=== PATIENT | female | born 1955 ===

== ENCOUNTER 2020-07-28 16:12 | Emergency (ER) | payer OTHER, SELFPAY ==
[2020-07-28 16:55] VITALS: BP 142/68; PULSE 80; RESP 18; TEMP 37.1; O2SAT 96; BMI 31.8
--- NOTE | 2020-07-28 18:15 | ED_ITS ---
HPI - Nausea/Vomiting/Diarrhea General Chief complaint: Weakness Stated complaint: diarrhea,weakness Time Seen by Provider: 07/28/20 18:06 Source: patient Mode of arrival: ambulatory History of Present Illness HPI Narrative: 65-year-old female with no significant past medical history complaining of nonbloody diarrhea x1 month, and generalized weakness. Reports appointment with GI specialist, but cannot get in until October. Denies bad food exposure, recent travel, recent antibiotics, fevers/chills, abdominal pain, nausea/vomiting, dysuria/hematuria MD elicited complaint: diarrhea Related Data Allergies Allergy/AdvReac Type Severity Reaction Status Date / Time morphine [MORPHINE] Allergy Unknown UNKNOWN Verified 07/28/20 16:58 prednisone [PREDNISONE] Allergy Unknown HEART RACES Verified 07/28/20 16:58 Review of Systems Review of Systems: Constitutional: No Weight loss, No Fever, No Chills, + Malaise Cardiovascular: No Chest Pain, No SOB Respiratory: No Cough, No Sputum, No Wheezing, No Dyspnea Gastrointestinal: No Nausea, No Vomiting, +Diarrhea, No Constipation, No Abdominal pain Genitourinary: No irregular bleeding, No Dysuria, No Urinary Frequency, No Hematuria, No Flank Pain Skin: No Skin Lesions, No rash Yes all other systems are reviewed and are negative PMFSH Past Medical History Attestation statement: The following information was validated with the patient. Social History Social History Smoking Status: Never smoker Smoked in Last 30 Days: No Use of substances other than those prescribed or required for medical reasons: No Advance Directives: No Advance Directives Information Provided: Yes Physical Exam Vital Signs: Vital Signs: Last Vital Signs Temp 99.0 F 07/28/20 19:03 Pulse 82 07/28/20 19:03 Resp 16 07/28/20 19:03 BP 124/68 07/28/20 19:03 Pulse Ox 96 07/28/20 19:03 Body Mass Index 31.8 Const: General: cooperative and healthy appearing Orientation/conscio usness: patient oriented x3 Limitations: no limitations HENMT: Head: Yes normal to inspection Ears: hearing grossly normal bilaterally General nose exam: Normal external nose present Face and sinus: Yes normal facial exam Eyes: General: appearance normal, both eyes and all related structures EOM: EOMs intact bilaterally Neck: Neck: Yes normal visual inspection Resp: Effort & Inspection: normal respiratory effort Cardio: Rate: regular rate GI: Inspection: Yes normal to inspection Palpation (GI): Soft to palpation, nontender, no guarding and not rigid : General: Yes no CVA tenderness Back/Spine/Pelvis: Back: no CVA tenderness Skin: Rashes: no rashes Wounds: no wounds Neuro: General: patient oriented x3 Gait exam (Neuro): Normal gait present Extrem: General: Yes normal to inspection Course Course Course Narrative: -WBC 11.1, magnesium 1.4> IV Mag ordered, AST/ALT mildly elevated Lipase mildly elevated 95, labs otherwise unremarkable, UA negative -[id number]--patient unable to provide stool sample in the ED. discussed with patient close follow-up with PCP/GI, importance of staying hydrated/p.o. Intake at home. She verbalized understanding feel safe for discharge home now MDM - Nausea/Vomiting/Diarrhea MDM Narrative Medical decision making narrative: 65-year-old female with no significant past medical history complaining of nonbloody diarrhea x1 month, and generalized weakness. On exam VSS, NAD/well-appearing, abdomen soft/nontender. Concern for gastroenteritis vs food poisoning vs ? C diff. Low concern for appendicitis/di verticulitis, cholecystitis, or pancreatitis Plan: Labs, stool studies Lab Data Result diagrams: 07/28/20 18:32 07/28/20 18:32 Labs: Lab Results 07/28/20 07/28/20 07/28/20 Range/Units 18:32 18:32 18:32 WBC 11.1 H (4.8-10.8) X10*3/uL RBC 3.60 L (4.20-5.50) X10*6/uL Hgb 10.7 L (12.0-16.0) g/dl Hct 32.1 L (37-47) % MCV 89.2 (80-98) fL MCH 29.7 (27.0-33.0) pg MCHC 33.3 (31.0-35.0) g/dl RDW 14.6 (11.0-16.0) % Plt Count 306 (160-400) X10*3/uL MPV 9.7 (9.4-12.3) fL Immature Gran % (Auto) 0.3 (0.0-0.4) % Neut % (Auto) 64.5 (45-73) % Lymph % (Auto) 26.9 (20-40) % [place] % (Auto) 6.0 (2-11) % Eos % (Auto) 1.8 (0-4) % Baso % (Auto) 0.5 (0-2) % Lymph # (Auto) 3.0 (1.2-4.9) X10*3/uL [place] # (Auto) 0.7 (0.1-1.2) X10*3/uL Eos # (Auto) 0.2 (0.0-0.4) X10*3/uL Baso # (Auto) 0.1 (0.0-0.2) X10*3/uL Abs Immat Gran (auto) 0.03 (0.00-0.03) X10*3/uL Absolute Neuts (auto) 7.1 (2.0-8.3) X10*3/uL Absolute Nucleated RBC 0.000 (0.0-0.012) X10*3/uL Nucleated RBC % (auto) 0.0 (0.0-0.2) /100WBC Hold Blue Top SEE NOTE Sodium 139 (135-145) mmol/L Potassium 3.5 (3.3-5.1) mmol/l Chloride 100 (96-108) mmol/L Carbon Dioxide 26 (22-29) mmol/L Anion Gap 17 (12-20) BUN 14 (9-16) mg/dL Creatinine 0.83 (0.5-1.4) mg/dL Estim Creat Clear Calc 69.3 Estimated GFR > 60 Random Glucose 124 H (60-115) mg/dL Calcium 9.8 (8.4-10.2) mg/dL Magnesium 1.4 L* (1.6-2.6) mg/dL Total Bilirubin 0.3 (0.0-1.0) mg/dL Direct Bilirubin 0.2 (0.0-0.5) mg/dL AST 40 H (5-31) U/L ALT 40 H (0-31) U/L Alkaline Phosphatase 104 (39-117) U/L Total Protein 7.2 (6.5-8.0) g/dL Albumin 4.2 (3.5-5.0) g/dL Lipase 95 H (8-78) U/L Urine Color Urine Appearance Urine pH (5.0-8.0) Ur Specific [place] (1.005-1.025) Urine Protein (NEG-TRACE) MG/DL Urine Glucose (UA) (NEG) MG/DL Urine Ketones (NEG) MG/DL Urine Blood (NEG) Urine Nitrite (NEG) Ur Leukocyte Esterase (NEG) 07/28/20 Range/Units 18:32 WBC (4.8-10.8) X10*3/uL RBC (4.20-5.50) X10*6/uL Hgb (12.0-16.0) g/dl Hct (37-47) % MCV (80-98) fL MCH (27.0-33.0) pg MCHC (31.0-35.0) g/dl RDW (11.0-16.0) % Plt Count (160-400) X10*3/uL MPV (9.4-12.3) fL Immature Gran % (Auto) (0.0-0.4) % Neut % (Auto) (45-73) % Lymph % (Auto) (20-40) % [place] % (Auto) (2-11) % Eos % (Auto) (0-4) % Baso % (Auto) (0-2) % Lymph # (Auto) (1.2-4.9) X10*3/uL [place] # (Auto) (0.1-1.2) X10*3/uL Eos # (Auto) (0.0-0.4) X10*3/uL Baso # (Auto) (0.0-0.2) X10*3/uL Abs Immat Gran (auto) (0.00-0.03) X10*3/uL Absolute Neuts (auto) (2.0-8.3) X10*3/uL Absolute Nucleated RBC (0.0-0.012) X10*3/uL Nucleated RBC % (auto) (0.0-0.2) /100WBC Hold Blue Top Sodium (135-145) mmol/L Potassium (3.3-5.1) mmol/l Chloride (96-108) mmol/L Carbon Dioxide (22-29) mmol/L Anion Gap (12-20) BUN (9-16) mg/dL Creatinine (0.5-1.4) mg/dL Estim Creat Clear Calc Estimated GFR Random Glucose (60-115) mg/dL Calcium (8.4-10.2) mg/dL Magnesium (1.6-2.6) mg/dL Total Bilirubin (0.0-1.0) mg/dL Direct Bilirubin (0.0-0.5) mg/dL AST (5-31) U/L ALT (0-31) U/L Alkaline Phosphatase (39-117) U/L Total Protein (6.5-8.0) g/dL Albumin (3.5-5.0) g/dL Lipase (8-78) U/L Urine Color YELLOW Urine Appearance CLEAR Urine pH 6.5 (5.0-8.0) Ur Specific [place] 1.015 (1.005-1.025) Urine Protein NEG (NEG-TRACE) MG/DL Urine Glucose (UA) NEG (NEG) MG/DL Urine Ketones NEG (NEG) MG/DL Urine Blood NEG (NEG) Urine Nitrite NEG (NEG) Ur Leukocyte Esterase NEG (NEG) Discharge Plan Discharge Clinical Impression: Diarrhea, Hypomagnesemia Patient Disposition: Home, Self-Care Instructions: Gastroenteritis (ED) Additional Instructions: Your blood work showed mild elevation in your liver enzymes, and low magnesium It is very important that you are staying hydrated at home, and in-taking plenty of fluids/food Follow-up with a GI doctor You need stool studies, follow-up with your doctor to obtain these as soon as possible If her symptoms persist or worsen, he develops blood in her stool, abdominal pain, or fever return to the ED Referrals: Clayton Gamboa [Physician] - 5 days
[2020-07-28 18:24] VITALS: BP 151/77; PULSE 90; RESP 16; TEMP 37.1; O2SAT 95
[2020-07-28] MEDS: 0.9 % Sodium Chloride 1,000 ML 999 ML IVCONT (18:28)
[2020-07-28 18:41] LABS: Basophils Absolute Auto 0.1 X10*3/uL (0.0-0.2); Basophils Percent Auto 0.5 % (0-2); Eosinophils Absolute Auto 0.2 X10*3/uL (0.0-0.4); Eosinophils Percent Auto 1.8 % (0-4); Hematocrit 32.1 % (37-47); Hemoglobin 10.7 g/dl (12.0-16.0); Imm Gran Abs Auto 0.03 X10*3/uL (0.00-0.03); Imm Gran Pct Auto 0.3 % (0.0-0.4); Lymphocytes Percent Auto 26.9 % (20-40); MANUAL DIFF FLAG NO; Mean Corpuscular HGB Conc 33.3 g/dl (31.0-35.0); Mean Corpuscular Hemoglobin 29.7 pg (27.0-33.0); Mean Corpuscular Volume 89.2 fL (80-98); Mean Platelet Volume 9.7 fL (9.4-12.3); Monocytes Absolute Auto 0.7 X10*3/uL (0.1-1.2); Neutrophils Absolute Auto 7.1 X10*3/uL (2.0-8.3); Neutrophils Percent Auto 64.5 % (45-73); Platelet Count 306 X10*3/uL (160-400); Red Cell Distribution Width 14.6 % (11.0-16.0); White Blood Count 11.1 X10*3/uL (4.8-10.8)
[2020-07-28 18:42] LABS: Glucose Urine UA NEG (NEG); Leukocyte Esterase Urine NEG (NEG); Nitrite Urine NEG (NEG); PH 6.5 (5.0-8.0); Specific Gravity - Urine 1.015 (1.005-1.025); Urine Blood NEG (NEG); Urine Ketones NEG (NEG); Urine Protein NEG (NEG-TRACE)
[2020-07-28 18:43] LABS: Appearance Urine CLEAR; Color Urine YELLOW
[2020-07-28 19:03] VITALS: BP 124/68; PULSE 82; RESP 16; TEMP 37.2; O2SAT 96
[2020-07-28 19:20] LABS: Alanine Aminotransferase 40 U/L (0-31); Albumin Level 4.2 g/dL (3.5-5.0); Alkaline Phosphatase 104 U/L (39-117); Anion Gap 17 (12-20); Aspartate Amino Transferase 40 U/L (5-31); Bilirubin Direct 0.2 mg/dL (0.0-0.5); Bilirubin Total 0.3 mg/dL (0.0-1.0); Blood Urea Nitrogen 14 mg/dL (9-16); Calcium 9.8 mg/dL (8.4-10.2); Carbon Dioxide 26 mmol/L (22-29); Chloride 100 mmol/L (96-108); Creatinine Clr Calc Pharmacy 69.3; Estimated Glomerular Filt Rate > 60; Glucose Random 124 mg/dL (60-115); Lipase 95 U/L (8-78); Magnesium 1.4 mg/dL (1.6-2.6); Potassium 3.5 mmol/l (3.3-5.1); Sodium 139 mmol/L (135-145); Total Protein 7.2 g/dL (6.5-8.0)
[2020-07-28] MEDS: Magnesium Sulfate/H2O 2 GM/50 ML PIGGYBACK IV (19:45)
--- NOTE | 2020-07-28 19:49 | PC.NURSE ---
magnesium sulfate 2g unable to scan.
--- NOTE | 2020-07-28 20:55 | PC.NURSE ---
pt left without being covid swab and provider made aware.
== END 2020-07-28 20:55 | disposition home or self-care (01) ==
PROVIDERS: Physician Assistant; Emergency Provider Emergency Medicine; PCP Internal Medicine
DX: R53.1 Weakness (principal); E83.42 Hypomagnesemia; R19.7 Diarrhea, unspecified; R11.2 Nausea with vomiting, unspecified
CPT/HCPCS: 36415; 80048; 80076; 81003; 83690; 83735; 85025; 96361; 96365; 96366; 99284; J3475

== ENCOUNTER 2020-10-25 16:11 | Emergency (ER) | payer OTHER, SELFPAY ==
--- NOTE | ~2020-10-25 | XR_ITS ---
EXAMINATION: XR SHOULDER, LEFT CLINICAL INFORMATION: Pain COMPARISON: None TECHNIQUE: AP external rotation, Grashey, scapular Y, and axillary views of the left shoulder. FINDINGS: Visualized portion of the proximal left humerus demonstrate no fracture. Humeral head demonstrates good articulation with the glenoid fossa. Mild hypertrophic changes of the acromioclavicular joint. Visualized ribs and lung parenchyma are unremarkable. XR/XR shoulder LT min 2V IMPRESSION: Mild degenerative changes of the left shoulder.
[2020-10-25 18:51] VITALS: BP 143/71; PULSE 88; RESP 16; O2SAT 100; BMI 30.1
--- NOTE | 2020-10-25 19:34 | ED_ITS ---
HPI - Extremity Problem General Chief complaint: Extremity Injury, Upper Stated complaint: Shoulder pain Time Seen by Provider: 10/25/20 18:57 Source: patient Mode of arrival: ambulatory Limitations: no limitations History of Present Illness HPI Narrative: States having exacerbation of her left shoulder pain states she has diffuse arthritis gets intermittent cortisone injections had 1 2 weeks ago with her arthritis doctor in [place] states she is having a flare of pain in the left shoulder. States pain worse with certain movements and certain times of the day. There is no radiation to the chest. There is no chest pain or shortness of breath. There is no head neck pain. No dizziness. No vision changes. MD Complaint: extremity pain Pain Consistency: intermittent Location: left Relieving factors: immobilization Exacerbating factors: range of motion and palpation Associated symptoms: denies other symptoms Related Data Previous Rx's Medication Instructions Recorded cyclobenzaprine 5 mg PO TID PRN #14 tab 10/25/20 tramadol 50 mg PO BID PRN #7 tab 10/25/20 Allergies Allergy/AdvReac Type Severity Reaction Status Date / Time morphine [MORPHINE] Allergy Unknown UNKNOWN Verified 07/28/20 16:58 prednisone [PREDNISONE] Allergy Unknown HEART RACES Verified 07/28/20 16:58 Review of Systems Review of Systems: Constitutional: No Weight loss, No Fever, No Chills, No Night Sweats, No Fatigue, No Malaise ENT/Mouth: No Hearing loss, No Ear Pain, No Nasal Congestion, No Sinus Pain, No Hoarseness, No sore throat Eyes: No Eye Pain, No Swelling, No Redness, No Foreign Body, No Discharge, No Vision Changes Cardiovascular: No Chest Pain, No SOB, No Dyspnea on Exertion, No Orthopnea, No Edema, No Palpitations Respiratory: No Cough, No Sputum, No Wheezing, No Smoke Exposure, No Dyspnea Gastrointestinal: No Nausea, No Vomiting, No Diarrhea, No Constipation, No abd ominal Pain Genitourinary: No Dysuria, No Urinary Frequency, No Hematuria, No Urinary Incontinence, No Urgency, No Flank Pain, No Urinary Flow Changes, No Hesitancy Musculoskeletal: Left shoulder pain as noted per HPI, No Myalgias, No Joint Swelling Skin: No Skin Lesions, No rash Neuro: No Weakness, No Numbness, No Paresthesias, No Loss of Consciousness, No Dizziness, No Headache Psych:No Social Issues Heme/Lymph: No Bruising, No Bleeding,No Lymphadenopathy Endocrine: No Polyuria, No Polydipsia, No Temperature Intolerance Yes all other systems are reviewed and are negative [facility] Past Medical History Medical History (Updated 10/25/20 @ 20:15 by Augustus Romero NP) Arthritis Asthma Breast CA Diabetes High cholesterol HTN (hypertension) Social History Social History Alcohol intake: never Smoking Status: Never smoker Smoked in Last 30 Days: No Use of substances other than those prescribed or required for medical reasons: No Advance Directives: No Advance Directives Information Provided: Yes Physical Exam Vital Signs: Vital Signs: Last Vital Signs Pulse 88 10/25/20 18:51 Resp 16 10/25/20 18:51 BP 143/71 H 10/25/20 18:51 Pulse Ox 100 10/25/20 18:51 Body Mass Index 30.1 Reviewed Const: General: cooperative and healthy appearing; No acute distress or intoxicated appearing Nutritional Appearance: average body habitus Orientation/consciousness: patient oriented x3 HENMT: Head: Yes normal to inspection Ears: hearing grossly normal bilaterally Eyes: General: appearance normal, both eyes and all related structures Visual Watt: normal visual watt by confrontation Neck: Neck: Yes normal visual inspection, No positive Brudzinski's sign, No positive Kernig's sign and No tender Thyroid: Thyroid normal Chest: Chest palpation & inspection: normal inspection of the chest Resp: Effort & Inspection: normal respiratory effort Auscultation: clear to auscultation bilaterally Cardio: Jugular venous distension: no JVD Rhythm: regular rhythm Heart sounds: S1 normal heart sound present and S2 normal heart sound present GI: Inspection: Yes normal to inspection Percussion: Yes normal to percussion Auscultation: normal bowel sounds : General: Yes no CVA tenderness Back/Spine/Pelvis: Back: no CVA tenderness Skin: General skin exam: no rashes or lesions noted Neuro: General: patient oriented x3 Extrem: General: Yes normal to inspection Right upper extremity: full ROM Left upper extremity: normal to inspection, normal capillary refill and shoulder/upper arm (Over the lateral aspect) Details: tenderness and abnormal ROM Details: pain with passive ROM and with range as follows (Pain with lifting above 90 degrees or abduction); no crepitus MDM - Extremity (Nontraumatic) Imaging Data Left shoulder x-ray: Radiologist's impression: Jossie Cesar 65 F 1955 [facility] [place], [place] [address]CBez ReportSigned Patient: Jossie CesarMR#: [id number]: [id number]:[id number]/Sex: 65 / FADM Date: 10/25/20Loc: [email or web address] Dr: Ordering Physician: Augustus Romero NP Date of Service: 10/25/20 Procedure(s): XR shoulder LT min 2V Accession Number(s): [id number] cc: Augustus Romero HADOOP ARCHITECT~ EXAMINATION: XR SHOULDER, LEFT CLINICAL INFORMATION: Pain COMPARISON: None TECHNIQUE: AP external rotation, Grashey, scapular Y, and axillary views of the left shoulder. FINDINGS: Visualized portion of the proximal left humerus demonstrate no fracture. Humeral head demonstrates good articulation with the glenoid fossa. Mild hypertrophic changes of the acromioclavicular joint. Visualized ribs and lung parenchyma are unremarkable. XR/XR shoulder LT min 2V IMPRESSION: Mild degenerative changes of the left shoulder. Dictated By:TERI ARIAS MDSigned By:<Electronically signed by TERI ARIAS MD in OV>10/25/[id number] DD/ 00TD/TT: Video Game Script Writer: PD Discharge Plan Discharge Clinical Impression: Arthritis pain, shoulder Patient Disposition: Home, Self-Care Instructions: Shoulder Pain (ED) Prescriptions: New cyclobenzaprine 5 mg tablet 5 mg PO TID PRN (Reason: muscle spasm) Qty: 14 RF: 0 tramadol 50 mg tablet 50 mg PO BID PRN (Reason: pain) Qty: 7 RF: 0 Referrals: Dora Jim MD [Primary Care Provider] - 1 week
== END 2020-10-25 21:10 | disposition home or self-care (01) ==
PROVIDERS: Emergency Provider Emergency Medicine; PCP Internal Medicine
DX: M19.012 Primary osteoarthritis, left shoulder (principal); M25.512 Pain in left shoulder; I10 Essential (primary) hypertension; E11.9 Type 2 diabetes mellitus without complications; Z79.899 Other long term (current) drug therapy
CPT/HCPCS: 73030; 99283; 99284

== ENCOUNTER 2020-12-26 17:51 | Emergency (ER) | payer OTHER, SELFPAY ==
[2020-12-26 19:02] VITALS: BP 140/67; PULSE 79; RESP 16; TEMP 37.1; O2SAT 98; BMI 31.8
== END 2020-12-26 19:46 | disposition left against medical advice (07) ==
PROVIDERS: Emergency Provider Emergency Medicine
DX: R53.1 Weakness (principal)
CPT/HCPCS: 99281; 99283

== ENCOUNTER 2021-04-11 10:23 | Emergency (ER) | payer OTHER, SELFPAY ==
--- NOTE | ~2021-04-11 | XR_ITS ---
EXAMINATION: XR KNEE, RIGHT CLINICAL INFORMATION: Pain COMPARISON: None TECHNIQUE: Four views of the right knee. FINDINGS: There is no fracture or dislocation or destructive process. Bony mineralization is within normal. There is no focal joint narrowing or erosive change or chondrocalcinosis. Some trace thickening of the suprapatellar bursa is seen. No significant effusion. Hoffa's fat pad appears normal. There is spurring at the quadriceps insertion patella. Scattered atherosclerotic calcifications are present vasculature. XR/XR knee RT 4V IMPRESSION: 1. No fracture, destructive process, or joint narrowing. 2. Spurring at quadriceps insertion patella. 3. Trace fluid suprapatellar bursa. No significant effusion.
[2021-04-11 10:35] VITALS: BP 126/66; PULSE 89; RESP 18; TEMP 36.3; O2SAT 99; BMI 30.1
--- NOTE | 2021-04-11 11:49 | ED.EXTPRO ---
HPI - Extremity Problem General Chief complaint: Extremity Problem Stated complaint: knee pain Time Seen by Provider: 04/11/21 11:44 History of Present Illness HPI Narrative: Patient complains of right knee pain for 1 week without injury, there is no fever no chills, patient can walk on it she denies any redness or swelling, no numbness weakness or tingling, denies calf pain Related Data Previous Rx's Medication Instructions Recorded cyclobenzaprine 5 mg tablet 5 mg PO TID PRN #14 tab 10/25/20 tramadol 50 mg tablet 50 mg PO BID PRN #7 tab 10/25/20 oxycodone 5 mg tablet 5 mg PO Q6H PRN #10 tab 04/11/21 Allergies Allergy/AdvReac Type Severity Reaction Status Date / Time morphine [MORPHINE] Allergy Unknown UNKNOWN Verified 07/28/20 16:58 prednisone [PREDNISONE] Allergy Unknown HEART RACES Verified 07/28/20 16:58 Review of Systems Review of Systems: Positive for right knee pain Negatives are no fever no chills no dizziness no headache no neck pain no back pain no numbness weakness or tingling no other joint pains now no skin rash no calf pain no leg swelling no chest pain no shortness of breath Yes all other systems are reviewed and are negative [facility] Past Medical History Attestation statement: The following information was validated with the patient. [facility] Narrative: Patient has history of rheumatoid arthritis, and was recently told to stop taking NSAIDs Source: nursing notes reviewed Medical History (Updated 04/11/21 @ 11:55 by IMKO Regan) Anemia Arthritis Asthma Breast CA Diabetes High cholesterol HTN (hypertension) Kidney stones Sleep apnea Surgical History (Updated 12/26/20 @ 19:04 by Emili Mary) H/O: hysterectomy Social History Social History Alcohol intake: never Advance Directives: No Advance Directives Information Provided: No Physical Exam Vital Signs: Vital Signs: Last Vital Signs Temp 97.3 F 04/11/21 10:35 Pulse 89 04/11/21 10:35 Resp 18 04/11/21 10:35 BP 126/66 04/11/21 10:35 Pulse Ox 99 04/11/21 10:35 Body Mass Index 30.1 General appearance no acute distress Head is normocephalic atraumatic Neck is supple Respiratory no distress Extremities the right knee has medial tenderness but is otherwise not swollen not read it extends to 188 flexes to about 90, patient can ambulate easily but with a limp, skin is intact and normal color and neurovascular intact distal There is no calf swelling on either leg and no pedal edema Skin no rashes Neuro no focal motor or sensory deficits Course Course Course Narrative: No acute findings on x-ray of the right knee, patient is ambulatory but was complaining that at times the pain wakes her up at night so I gave her a prescription for analgesics and advised her to follow with her director of corporate communications and the orthopedist Discharge Plan Discharge Clinical Impression: Arthralgia of knee, right Patient Disposition: Home, Self-Care Additional Instructions: Follow with your director of corporate communications and orthopedist Return any time any worse condition or any concerns You can use Tylenol for pain and if needed the oxycodone narcotic Prescriptions: New oxycodone 5 mg tablet 5 mg PO Q6H PRN (Reason: pain) Qty: 10 RF: 0 No Action cyclobenzaprine 5 mg tablet 5 mg PO TID PRN (Reason: muscle spasm) Qty: 14 RF: 0 tramadol 50 mg tablet 50 mg PO BID PRN (Reason: pain) Qty: 7 RF: 0 Referrals: Jose Lama MD [Physician] - 2 days (Right knee pain)
== END 2021-04-11 12:09 | disposition home or self-care (01) ==
PROVIDERS: Emergency Provider Emergency Medicine Emergency Medical Services; PCP Internal Medicine
DX: M25.561 Pain in right knee (principal); I10 Essential (primary) hypertension; Z79.899 Other long term (current) drug therapy
CPT/HCPCS: 73564; 99283

== ENCOUNTER → 2021-05-08 08:22 | Outpatient (BNVA) | payer OTHER, SELFPAY | PROVIDERS: Visit Provider Physician Assistant | DX: M06.9 Rheumatoid arthritis, unspecified (principal); M23.91 Unspecified internal derangement of right knee | CPT/HCPCS: 99202 ==

== ENCOUNTER 2021-05-21 18:46 | Outpatient (REF) | payer OTHER, SELFPAY ==
--- NOTE | ~2021-05-21 | MR_ITS ---
EXAMINATION: MR KNEE WITHOUT CONTRAST, RIGHT CLINICAL INFORMATION: Rheumatoid arthritis, unspecified. Medial anterior knee pain x2 months. COMPARISON: Radiographs dated 07/21/2021 TECHNIQUE: MRI of the knee without contrast was performed using routine sequences on a high-field scanner. FINDINGS: MENISCI: Medial Meniscus: Intact Lateral Meniscus: There is a horizontal tear at the junction of the anterior horn and body extending to the superior meniscal surface with a small adjacent 6 mm meniscal cyst. Partial extrusion of the lateral meniscal body. LIGAMENTS: Cruciate: Intact Collateral: Edema signal around the MCL is likely reactive to the underlying articular abnormality. Collateral ligaments are intact. EXTENSOR MECHANISM: Patellar enthesopathic spur is present at the patellar tendon origin. No tendinosis. Quadriceps and patellar tendons are intact. ARTICULAR CARTILAGE/BONE: Patellofemoral Compartment: There is mild nonuniform articular cartilage loss at the medial trochlear facet with full-thickness chondral fissuring, articular cortical irregularity and focal subchondral edema. Patellar cartilage appears relatively well preserved. Normal trochlear morphology. Medial Compartment: There is diffuse ill-defined edema signal throughout the medial femoral condyle, more pronounced underlying the weightbearing surface posteriorly. Along the far medial margin of the posterior weightbearing surface, there is focal subcortical low signal intensity on T1-weighted images which may correspond to a subchondral insufficiency fracture. Early erosive changes on the differential, though felt to be less likely in the absence of a clear cortical osteolysis. Articular cartilage appears relatively well preserved. Lateral Compartment: Normal JOINT FLUID AND BURSAE: Small joint effusion. There is significant soft tissue edema signal along the posteromedial aspect of the distal femur adjacent to the tendon of the adductor quinn, adductor tubercle, and medial head of the gastrocnemius. MR/MR knee RT wo con IMPRESSION: 1. Generalized ill-defined subarticular marrow edema in the medial femoral, likely arising from the region of ill-defined subarticular low signal intensity along the medial margin. This may correspond to a developing subchondral insufficiency. No clear cortical breaks or osteolysis. Given the history of rheumatoid arthritis, erosive changes are also on the differential but felt to be less likely in the absence of more pronounced synovitis. 2. Horizontal tear at the anterior horn of the lateral meniscus. 3. Minimal patellofemoral compartment osteoarthritis.
== END 2021-05-21 18:47 | disposition home or self-care (01) ==
LOC: HO.MRI 18:46
PROVIDERS: Visit Provider Physician Assistant
DX: M06.9 Rheumatoid arthritis, unspecified (principal)
CPT/HCPCS: 73721

== ENCOUNTER → 2021-05-31 11:07 | Outpatient (BNVA) | payer OTHER, SELFPAY | PROVIDERS: PCP Internal Medicine; Visit Provider Physician Assistant | DX: M23.91 Unspecified internal derangement of right knee (principal) | CPT/HCPCS: 99212 ==

== ENCOUNTER 2021-09-06 10:22 | Inpatient (IN) | payer MEDICARE, MEDICAID, SELFPAY ==
[2021-09-06] VITALS (9 sets, daily range): BP systolic 97–114; BP diastolic 48–66; PULSE 62–94; RESP 13–22; TEMP 36.5–36.6; O2SAT 61–98; BMI 35.2
--- NOTE | ~2021-09-06 | XR_ITS ---
EXAMINATION: XR CHEST CLINICAL INFORMATION: Shortness of breath. Likely Covid positive. Oxygen saturation 61. COMPARISON: None TECHNIQUE: Frontal view of the chest was obtained. FINDINGS: The lungs are hypoexpanded with patchy opacities scattered in both upper and lower lobes suggestive of infiltrates. Heart size enlarged. Perivascular is normal. No gross bony abnormality except for mild dextroscoliosis.. XR/XR chest 1V IMPRESSION: Patchy bilateral infiltrates.
--- NOTE | 2021-09-06 10:45 | ED.SOB ---
HPI - SOB/Dyspnea General Chief Complaint: Upper Respiratory Symptoms Stated Complaint: +covid 08/29 lethargic symptoms worsening Time Seen by Provider: 09/06/21 10:42 Source: patient Mode of arrival: ambulatory Limitations: no limitations History of Present Illness HPI Narrative: 66-year-old female presents emergency room with her both have had since the 28 of August. The past 2 days she has been in her bed. She is unvaccinated. She states she just never got the vaccine. Patient arrived with an oxygen saturation 61% I was called immediately and she was brought back into the room. Patient has so she had fevers chills and weakness. She states she has had some associated diarrhea as well. MD elicited complaint: shortness of breath Pertinent past history: asthma Related Data Home Medications Medication Instructions Recorded Confirmed albuterol sulfate 90 mcg/actuation 2 puff INHALATION Q4H PRN 09/06/21 aerosol inhaler anastrozole 1 mg tablet 1 tab PO DAILY 09/06/21 aspirin 81 mg tablet,delayed 1 tab PO DAILY 09/06/21 release atorvastatin 20 mg tablet 1 tab PO DAILY 09/06/21 calcium carbonate 600 mg calcium 1 tab PO BID 09/06/21 (1,500 mg) tablet cholecalciferol (vitamin D3) 50 1 cap PO DAILY 09/06/21 mcg (2,000 unit) capsule citalopram 10 mg tablet 1 tab PO DAILY 09/06/21 dapagliflozin 5 mg tablet (Farxiga) 1 tab PO DAILY 09/06/21 gabapentin 100 mg capsule mg PO 09/06/21 glipizide 5 mg tablet, extended 1 tab PO DAILY 09/06/21 release 24 hr ibuprofen 800 mg tablet 1 tab PO TID 09/06/21 lorazepam 0.5 mg tablet mg PO 09/06/21 metformin 1,000 mg tablet 1 tab PO BID 09/06/21 valsartan 160 1 tab PO DAILY 09/06/21 mg-hydrochlorothiazide 25 mg tablet Allergies Allergy/AdvReac Type Severity Reaction Status Date / Time morphine [MORPHINE] Allergy Unknown UNKNOWN Verified 05/31/21 11:24 prednisone [PREDNISONE] Allergy Unknown HEART RACES Verified 05/31/21 11:24 Review of Systems Review of Systems: Review of systems: General: Patient denies any fever chills recent illness or falls Musculoskeletal: Denies back pain or body aches or other injuries HEENT: denies headache, runny nose, ear pain Respiratory: \ shortness of breath, cough Cardiovascular: no chest pain or palpitations : denies dysuria, frequency Abdomen: Diarrheano nausea vomiting denies abdominal pain Extremities: no swelling, no pain Skin: no diaphoresis Yes all other systems are reviewed and are negative [facility] Past Medical History Medical History Anemia Arthritis Asthma Breast CA Diabetes High cholesterol HTN (hypertension) Kidney stones Sleep apnea Surgical History H/O: hysterectomy Social History Social History Alcohol intake: never Advance Directives: No Advance Directives Information Provided: Yes Current occupational status: disabled Current occupation: rt handed Physical Exam Vital Signs: Vital Signs: Last Vital Signs Temp 98 F 09/06/21 10:39 Pulse 90 09/06/21 10:39 Resp 21 H 09/06/21 10:51 BP 105/66 09/06/21 10:39 Pulse Ox 61 L 09/06/21 10:39 BMI result Body Mass Index 35.2 General: ill-appearing in moderate signs of distress HEENT: Normocephalic atraumatic Neck: No signs of JVD, no masses no tenderness or lymphadenopathy Cardiovascular: tachycardic Respiratory: diminished bilaterally Abdomen: Soft nontender no masses Extremities: Normal pedal pulses no signs of edema Skin: Dry warm no rashes Back: No tenderness full ROM MDM - SOB/Dyspnea MDM Narrative Medical decision making narrative: concern for COVID pneumonia patient's oxygen saturation on arrival was 61 patient is medially started on high-flow patient immediately seen by respiratory therapy patient looks much more comfortable on high-flow of patient for x-ray complete workup patient will require admission. Patient re-evaluated multiple times while in the emergency department patient to get much more comfortable on high-flow labs show the patient does have little bit of a acute kidney injury and soles and glucose she does have diabetes I feel the patient will have to be admitted with her need for high-flow oxygen at this time. I did speak with the daughter were explained the need for admission they are all happy with the plan I did explain for the need for Differential Diagnosis Differential diagnosis: Likely acute exacerbation of chronic obstructive airways disease, pneumonia and asthma with exacerbation Lab Data Result diagrams: 09/06/21 11:05 09/06/21 11:20 Labs: Lab Results 09/06/21 09/06/21 09/06/21 Range/Units 10:54 10:54 10:54 WBC (4.8-10.8) X10*3/uL RBC (4.20-5.50) X10*6/uL Hgb (12.0-16.0) g/dl Hct (37.0-47.0) % MCV (80.0-98.0) fL MCH (27.0-33.0) pg MCHC (31.0-35.0) g/dl RDW (11.0-16.0) % Plt Count (160-400) X10*3/uL MPV (9.4-12.3) fL Immature Gran % (Auto) Neut % (Auto) Lymph % (Auto) [place] % (Auto) Eos % (Auto) Baso % (Auto) Lymph # (Auto) [place] # (Auto) Eos # (Auto) Baso # (Auto) Abs Immat Gran (auto) Absolute Neuts (auto) Absolute Nucleated RBC (0.0-0.012) X10*3/uL Nucleated RBC % (auto) (0.0-0.2) /100WBC Neutrophils % (Manual) (45-73) % Band Neutrophils % (3-5) % Lymphocytes % (Manual) (20-40) % Atypical Lymphs % (Man) (0-6) % Monocytes % (Manual) (2-11) % Abs Neuts (Manual) (2.0-8.3) X10*3/uL Lymphocytes # (Manual) (1.2-4.9) X10*3/uL Atyp Lymphs # (Manual) x10*3/uL Monocytes # (Manual) (0.1-1.2) X10*3/uL Platelet Estimate (NORMAL) Plt Morphology Comment RBC Morphology Sodium (135-145) mmol/L Potassium (3.3-5.1) mmol/L Chloride (96-108) mmol/L Carbon Dioxide (22-29) mmol/L Anion Gap (12-20) BUN (9-16) mg/dL Creatinine (0.5-1.4) mg/dL Estim Creat Clear Calc Estimated GFR Random Glucose (60-115) mg/dL Lactic Acid 1.8 (0.5-2.0) mmol/L Calcium (8.4-10.2) mg/dL Total Bilirubin (0.0-1.0) mg/dL Direct Bilirubin (0.0-0.5) mg/dL AST (5-31) U/L ALT (0-31) U/L Alkaline Phosphatase (39-117) U/L Troponin I High Sens 11.7 (<3.5-17.0) ng/L B-Natriuretic Peptide 46 (<100) pg/mL Total Protein (6.5-8.0) g/dL Albumin (3.5-5.0) g/dL Lipase (8-78) U/L 09/06/21 09/06/21 Range/Units 11:05 11:20 WBC 5.1 (4.8-10.8) X10*3/uL RBC 2.97 L (4.20-5.50) X10*6/uL Hgb 9.0 L (12.0-16.0) g/dl Hct 27.3 L (37.0-47.0) % MCV 91.9 (80.0-98.0) fL MCH 30.3 (27.0-33.0) pg MCHC 33.0 (31.0-35.0) g/dl RDW 14.2 (11.0-16.0) % Plt Count 290 (160-400) X10*3/uL MPV 9.8 (9.4-12.3) fL Immature Gran % (Auto) Cancelled Neut % (Auto) Cancelled Lymph % (Auto) Cancelled [place] % (Auto) Cancelled Eos % (Auto) Cancelled Baso % (Auto) Cancelled Lymph # (Auto) Cancelled [place] # (Auto) Cancelled Eos # (Auto) Cancelled Baso # (Auto) Cancelled Abs Immat Gran (auto) Cancelled Absolute Neuts (auto) Cancelled Absolute Nucleated RBC 0.000 (0.0-0.012) X10*3/uL Nucleated RBC % (auto) 0.0 (0.0-0.2) /100WBC Neutrophils % (Manual) 68 (45-73) % Band Neutrophils % 9 H (3-5) % Lymphocytes % (Manual) 14 L (20-40) % Atypical Lymphs % (Man) 1 (0-6) % Monocytes % (Manual) 8 (2-11) % Abs Neuts (Manual) 3.9 (2.0-8.3) X10*3/uL Lymphocytes # (Manual) 0.7 L (1.2-4.9) X10*3/uL Atyp Lymphs # (Manual) 0.1 x10*3/uL Monocytes # (Manual) 0.4 (0.1-1.2) X10*3/uL Platelet Estimate NORMAL (NORMAL) Plt Morphology Comment NORMAL RBC Morphology NORMAL Sodium 138 (135-145) mmol/L Potassium 4.8 (3.3-5.1) mmol/L Chloride 102 (96-108) mmol/L Carbon Dioxide 21 L (22-29) mmol/L Anion Gap 20 (12-20) BUN 56 H (9-16) mg/dL Creatinine 2.11 H (0.5-1.4) mg/dL Estim Creat Clear Calc 25.2 Estimated GFR 24 Random Glucose 309 H (60-115) mg/dL Lactic Acid (0.5-2.0) mmol/L Calcium 8.7 D (8.4-10.2) mg/dL Total Bilirubin 0.5 (0.0-1.0) mg/dL Direct Bilirubin 0.2 (0.0-0.5) mg/dL AST 92 H (5-31) U/L ALT 52 H (0-31) U/L Alkaline Phosphatase 149 H D (39-117) U/L Troponin I High Sens (<3.5-17.0) ng/L B-Natriuretic Peptide (<100) pg/mL Total Protein 7.3 (6.5-8.0) g/dL Albumin 3.7 (3.5-5.0) g/dL Lipase 61 (8-78) U/L Critical Care Time Critical Care Time Critical Care Time: Yes Total Critical Care Time: 65 Attestation: Patient was seen immediately upon arrival brought back to the room I was over headed to see the patient patient is re-evaluated multiple times I did speak more times with respiratory therapy as well as family about the plan of care and need for the patient be admitted patient will go to the intermediate care unit. Discharge Plan Discharge Clinical Impression: Pneumonia due to 2019 novel coronavirus, AMY (acute kidney injury), Acute dehydration, Hypoxia Prescriptions: No Action anastrozole 1 mg tablet 1 tab PO DAILY RF: 0 atorvastatin 20 mg tablet 1 tab PO DAILY RF: 0 ibuprofen 800 mg tablet 1 tab PO TID RF: 0 citalopram 10 mg tablet 1 tab PO DAILY RF: 0 glipizide 5 mg tablet extended release 24 hr 1 tab PO DAILY RF: 0 aspirin 81 mg tablet,delayed release (DR/EC) 1 tab PO DAILY RF: 0 calcium carbonate 600 mg calcium (1,500 mg) tablet 1 tab PO BID RF: 0 lorazepam 0.5 mg tablet PO RF: 0 metformin 1,000 mg tablet 1 tab PO BID RF: 0 gabapentin 100 mg capsule PO RF: 0 albuterol sulfate 90 mcg/actuation HFA aerosol inhaler 2 puff inhalation Q4H PRN (Reason: Wheezing) RF: 0 valsartan-hydrochlorothiazide 160-25 mg tablet 1 tab PO DAILY RF: 0 cholecalciferol (vitamin D3) 50 mcg (2,000 unit) capsule 1 cap PO DAILY RF: 0 Farxiga 5 mg tablet 1 tab PO DAILY RF: 0
[2021-09-06] MEDS: dexAMETHasone sod phosphate 10 MG/ML VIAL IVPUSH (10:56)
[2021-09-06] MEDS: 0.9 % Sodium Chloride 500 ML 999 ML IV (10:58)
[2021-09-06 11:18] LABS: Lactic Acid 1.8 mmol/L (0.5-2.0)
[2021-09-06 11:27] LABS: Hematocrit 27.3 % (37.0-47.0); Mean Corpuscular Hemoglobin 30.3 pg (27.0-33.0); Mean Corpuscular Volume 91.9 fL (80.0-98.0); Mean Platelet Volume 9.8 fL (9.4-12.3); Platelet Count 290 X10*3/uL (160-400); Red Blood Count 2.97 X10*6/uL (4.20-5.50); Red Cell Distribution Width 14.2 % (11.0-16.0); White Blood Count 5.1 X10*3/uL (4.8-10.8)
[2021-09-06 11:27] LABS: B Type Natriuretic Peptide 46 pg/mL (<100)
[2021-09-06 11:28] LABS: Troponin-I High Sensitivity 11.7 ng/L (<3.5-17.0)
[2021-09-06 11:48] LABS: Alanine Aminotransferase 52 U/L (0-31); Albumin Level 3.7 g/dL (3.5-5.0); Alkaline Phosphatase 149 U/L (39-117); Anion Gap 20 (12-20); Aspartate Amino Transferase 92 U/L (5-31); Bilirubin Direct 0.2 mg/dL (0.0-0.5); Bilirubin Total 0.5 mg/dL (0.0-1.0); Blood Urea Nitrogen 56 mg/dL (9-16); Calcium 8.7 mg/dL (8.4-10.2); Carbon Dioxide 21 mmol/L (22-29); Chloride 102 mmol/L (96-108); Creatinine Clr Calc Pharmacy 25.2; Estimated Glomerular Filt Rate 24; Glucose Random 309 mg/dL (60-115); Lipase 61 U/L (8-78); Potassium 4.8 mmol/L (3.3-5.1); Sodium 138 mmol/L (135-145); Total Protein 7.3 g/dL (6.5-8.0)
[2021-09-06 11:48] LABS: Influenza A PCR NEGATIVE (Negative); Influenza B PCR NEGATIVE (Negative); Resp Syncy Virus RNA Qual PCR NEGATIVE (Negative); SARS COV2 PCR INHOUSE POSITIVE (Negative)
[2021-09-06 11:49] LABS: Atypical Lymph Absolute Manual 0.1 x10*3/uL; Atypical Lymphs Percent Manual 1 % (0-6); Band Neutrophils Percent 9 % (3-5); Lymphocytes Absolute Manual 0.7 X10*3/uL (1.2-4.9); Lymphocytes Percent Manual 14 % (20-40); Monocytes Absolute Manual 0.4 X10*3/uL (0.1-1.2); Monocytes Percent Manual 8 % (2-11); Neutrophils Absolute Manual 3.9 X10*3/uL (2.0-8.3); Neutrophils Percent Manual 68 % (45-73)
[2021-09-06 11:51] LABS: Platelet Estimate NORMAL (NORMAL); Platelet Morphology Comment NORMAL; RBC Morphology NORMAL
[2021-09-06 12:16] LABS: VBG Base Excess -2.3 mmol/L; VBG HCO3 22 mmol/L (22-26); VBG pCO2 39 mmHg; VBG pH 7.36 (7.32-7.43); VBG pO2 58 mmHg
[2021-09-06 12:17] LABS: Venous Blood Gas Refer to POC result
--- NOTE | 2021-09-06 13:07 | PM.IMHP ---
History of Present Illness Date of Service: 09/06/21 Chief Complaint: Cough 66-year-old female presented with cough. Patient stated she tested positive for COVID-19 on 08/29/2021. She has been having symptoms of cough, fever, chills, myalgias, decreased appetite. She denies any shortness of breath. Her cough has been getting worse therefore she decided to come to the ED. In the ED was noted to be severely hypoxic to 61% on room air, she was put on high-flow oxygen and recovered. Chest x-ray revealed bilateral Past is consistent with COVID pneumonia. Lab significant for acute kidney injury with creatinine of 2.1. Patient is unvaccinated. Review of Systems Review of Systems: Constitutional: See HPI Eyes: denies blurry vision ENT: denies sore throat CVS: denies chest pain Respiratory: Denies dyspnea GI: no abdominal pain : denies dysuria MSK: denies neck pain Skin: denies rash Neuro: denies specific motor weakness Psych: denies suicidal ideation Endocrine: denies heat/cold intolerance Hematologic: denies easy bleeding Allergy: denies hives PMFSH Medical History Anemia Arthritis Asthma Breast CA Diabetes High cholesterol HTN (hypertension) Kidney stones Sleep apnea Family History (Updated 09/06/21 @ 13:09 by Blake Dupree MD) Sister Diabetes mellitus Surgical History H/O: hysterectomy Social History (Updated 09/06/21 @ 13:09 by Blake Dupree MD) Alcohol intake: never Patient Tobacco Use Status: Never used Tobacco Advance Directives: No Advance Directives Information Provided: Yes Current occupational status: disabled Current occupation: rt handed Meds Allergies Allergy/AdvReac Type Severity Reaction Status Date / Time morphine [MORPHINE] Allergy Unknown UNKNOWN Verified 05/31/21 11:24 prednisone [PREDNISONE] Allergy Unknown HEART RACES Verified 05/31/21 11:24 Active Medications: Current Medications Acetaminophen (Acetaminophen 325 Mg Tablet) 650 mg PO Q6H PRN PRN Reason: Pain, Mild (Pain Scale 1-3) Dexamethasone Sodium Phosphate (Dexamethasone Sod Phosphate 4 Mg/Ml Vial) 6 mg IVPUSH DAILY CHRISSY Dextrose (Dextrose 50 % 25 Gm/50 Ml Vial) 25 gm IVPUSH Q15M PRN; Protocol PRN Reason: per Hypoglycemia Standing Ord. Glucose (Glucose Gel 15 Gm Gel..Gram.) 15 gm PO Q15M PRN; Protocol PRN Reason: per Hypoglycemia Standing Ord. Heparin Sodium (Porcine) (Heparin Sodium,Porcine 5,000 Unit/Ml Vial) 5,000 unit SUBCUT Q8H [facility] Lactated Ringer's (Lr) 1,000 mls @ 80 mls/hr IVCONT .[id number] [facility] Insulin Human Lispro (Insulin Lispro 100 Unit/Ml 3 Ml Vial) 0 unit SUBCUT QIDACHS [facility]; Protocol Pharmacy Consult (Consult Rx Perform Med Rec) 1 each MISCELLANE ONCE PRN PRN Reason: Consult order Sodium Chloride (0.9 % Sodium Chloride Flush 3 Ml Syringe) 3 ml IVFLUSH QSHIFT [facility] Home Medications Medication Instructions Recorded Confirmed Last Taken Type albuterol sulfate 90 mcg/actuation 2 puff INHALATION Q4H PRN 09/06/21 Unknown History aerosol inhaler anastrozole 1 mg tablet 1 tab PO DAILY 09/06/21 Unknown History aspirin 81 mg tablet,delayed 1 tab PO DAILY 09/06/21 Unknown History release atorvastatin 20 mg tablet 1 tab PO DAILY 09/06/21 Unknown History calcium carbonate 600 mg calcium 1 tab PO BID 09/06/21 Unknown History (1,500 mg) tablet cholecalciferol (vitamin D3) 50 1 cap PO DAILY 09/06/21 Unknown History mcg (2,000 unit) capsule citalopram 10 mg tablet 1 tab PO DAILY 09/06/21 Unknown History dapagliflozin 5 mg tablet (Farxiga) 1 tab PO DAILY 09/06/21 Unknown History gabapentin 100 mg capsule mg PO 09/06/21 Unknown History glipizide 5 mg tablet, extended 1 tab PO DAILY 09/06/21 Unknown History release 24 hr ibuprofen 800 mg tablet 1 tab PO TID 09/06/21 Unknown History lorazepam 0.5 mg tablet mg PO 09/06/21 Unknown History metformin 1,000 mg tablet 1 tab PO BID 09/06/21 Unknown History valsartan 160 1 tab PO DAILY 09/06/21 Unknown History mg-hydrochlorothiazide 25 mg tablet Physical Exam Vital Signs and Narrative: Vital Signs: Last Vital Signs Temp 98 F 09/06/21 10:39 Pulse 91 09/06/21 12:20 Resp 13 09/06/21 12:20 BP 114/54 L 09/06/21 12:20 Pulse Ox 93 09/06/21 12:20 BMI result Body Mass Index 35.2 General: diaphoretic HEENT: atraumatic Neck: normal to visual inspection CVS: S1, S2, RRR Resp: crackles, diminished, accessory muscles Chest: non tender GI: soft, non tender, non distended : no CVA tenderness Skin: no rashes Extremities: no edema Neuro: Oriented X3, grossly intact Psych: cooperative Results Labs CBC and Chem 7: 09/06/21 11:05 09/06/21 11:20 Labs: Laboratory Results - last 24 hr 09/06/21 09/06/21 09/06/21 10:54 10:54 10:54 MCV MCH MCHC RDW Plt Count MPV Immature Gran % (Auto) Neut % (Auto) Lymph % (Auto) [place] % (Auto) Eos % (Auto) Baso % (Auto) Lymph # (Auto) [place] # (Auto) Eos # (Auto) Baso # (Auto) Abs Immat Gran (auto) Absolute Neuts (auto) Absolute Nucleated RBC Nucleated RBC % (auto) Neutrophils % (Manual) Band Neutrophils % Lymphocytes % (Manual) Atypical Lymphs % (Man) Monocytes % (Manual) Abs Neuts (Manual) Lymphocytes # (Manual) Atyp Lymphs # (Manual) Monocytes # (Manual) Platelet Estimate Plt Morphology Comment RBC Morphology VBG pH VBG pCO2 VBG pO2 VBG HCO3 VBG O2 Saturation VBG Base Excess Anion Gap Estim Creat Clear Calc Estimated GFR Random Glucose Lactic Acid 1.8 Calcium Total Bilirubin Direct Bilirubin AST ALT Alkaline Phosphatase Troponin I High Sens 11.7 B-Natriuretic Peptide Total Protein Albumin Lipase Influenza Type A (PCR) NEGATIVE Influenza Type B (PCR) NEGATIVE RSV RNA Qual (PCR) NEGATIVE SARS-CoV-2 RNA (RT-PCR) POSITIVE A 09/06/21 09/06/21 09/06/21 10:54 11:05 11:20 MCV 91.9 MCH 30.3 MCHC 33.0 RDW 14.2 Plt Count 290 MPV 9.8 Immature Gran % (Auto) Cancelled Neut % (Auto) Cancelled Lymph % (Auto) Cancelled [place] % (Auto) Cancelled Eos % (Auto) Cancelled Baso % (Auto) Cancelled Lymph # (Auto) Cancelled [place] # (Auto) Cancelled Eos # (Auto) Cancelled Baso # (Auto) Cancelled Abs Immat Gran (auto) Cancelled Absolute Neuts (auto) Cancelled Absolute Nucleated RBC 0.000 Nucleated RBC % (auto) 0.0 Neutrophils % (Manual) 68 Band Neutrophils % 9 H Lymphocytes % (Manual) 14 L Atypical Lymphs % (Man) 1 Monocytes % (Manual) 8 Abs Neuts (Manual) 3.9 Lymphocytes # (Manual) 0.7 L Atyp Lymphs # (Manual) 0.1 Monocytes # (Manual) 0.4 Platelet Estimate NORMAL Plt Morphology Comment NORMAL RBC Morphology NORMAL VBG pH VBG pCO2 VBG pO2 VBG HCO3 VBG O2 Saturation VBG Base Excess Anion Gap 20 Estim Creat Clear Calc 25.2 Estimated GFR 24 Random Glucose 309 H Lactic Acid Calcium 8.7 D Total Bilirubin 0.5 Direct Bilirubin 0.2 AST 92 H ALT 52 H Alkaline Phosphatase 149 H D Troponin I High Sens B-Natriuretic Peptide 46 Total Protein 7.3 Albumin 3.7 Lipase 61 Influenza Type A (PCR) Influenza Type B (PCR) RSV RNA Qual (PCR) SARS-CoV-2 RNA (RT-PCR) 09/06/21 12:09 MCV MCH MCHC RDW Plt Count MPV Immature Gran % (Auto) Neut % (Auto) Lymph % (Auto) [place] % (Auto) Eos % (Auto) Baso % (Auto) Lymph # (Auto) [place] # (Auto) Eos # (Auto) Baso # (Auto) Abs Immat Gran (auto) Absolute Neuts (auto) Absolute Nucleated RBC Nucleated RBC % (auto) Neutrophils % (Manual) Band Neutrophils % Lymphocytes % (Manual) Atypical Lymphs % (Man) Monocytes % (Manual) Abs Neuts (Manual) Lymphocytes # (Manual) Atyp Lymphs # (Manual) Monocytes # (Manual) Platelet Estimate Plt Morphology Comment RBC Morphology VBG pH 7.36 VBG pCO2 39 VBG pO2 58 VBG HCO3 22 VBG O2 Saturation 83.0 VBG Base Excess -2.3 Anion Gap Estim Creat Clear Calc Estimated GFR Random Glucose Lactic Acid Calcium Total Bilirubin Direct Bilirubin AST ALT Alkaline Phosphatase Troponin I High Sens B-Natriuretic Peptide Total Protein Albumin Lipase Influenza Type A (PCR) Influenza Type B (PCR) RSV RNA Qual (PCR) SARS-CoV-2 RNA (RT-PCR) Imaging Radiologist's Impressions: Impressions Chest X-Ray 09/06/21 11:30 IMPRESSION: Patchy bilateral infiltrates. Assessment and Plan (1) Pneumonia due to 2019 novel coronavirus: Status: Acute 66F with known covid, presented with cough, found to have significant hypoxia Acute hypoxic respiratory failure secondary to COVID pneumonia Decadron 6 mg daily Wean O2 as tolerated Monitor prognostic labs Patient is high risk due to obesity, diabetes, unvaccinated status Diabetes Insulin Acute kidney injury Likely hypovolemic Hydration, hold Arb and hydrochlorothiazide Monitor BMP Quality Stroke Does the patient have a stroke diagnosis?: No VTE Prior VTE?: No VTE Risk Level:: Medical - moderate - high VTE Device Contraindication: Treatment Not Indicated VTE Drug Contraindication: N/A - Med Ordered
--- NOTE | 2021-09-06 13:15 | PHA.MEDREC ---
Pharmacy Consult ? Medication Reconciliation Pharmacy has completed the medication reconciliation. Patient reports she is not taking gabapentin or anastrzole anymore. Pearl Orta, PharmD
[2021-09-06] MEDS: Heparin Sodium,Porcine 5,000 UNIT/ML VIAL 5000 UNIT SUBCUT ×2 (13:45→22:31)
--- NOTE | 2021-09-06 13:51 | PC.NURSE ---
PT O2 sat decreasing. RT called and plan is to increase FiO2.
[2021-09-06] MEDS: Lactated Ringers 1,000 ML 80 ML IVCONT (14:32)
[2021-09-06 17:07] LABS: Glucose, Whole Blood 289 mg/dL (60-115)
[2021-09-06] MEDS: Insulin Lispro 100 UNIT/ML 3 ML VIAL SUBCUT ×2 (17:09→22:31)
[2021-09-06] MEDS: 0.9 % Sodium Chloride Flush 3 ML SYRINGE IVFLUSH (17:09)
[2021-09-06 20:58] LABS: Glucose, Whole Blood 246 mg/dL (60-115)
[2021-09-07] VITALS (12 sets, daily range): BP systolic 107–128; BP diastolic 55–68; PULSE 74–87; RESP 19–24; TEMP 35.9–37.1; O2SAT 89–98
[2021-09-07] MEDS: Heparin Sodium,Porcine 5,000 UNIT/ML VIAL 5000 UNIT SUBCUT ×3 (05:40→20:33)
[2021-09-07] MEDS: Lactated Ringers 1,000 ML 80 ML IVCONT ×2 (05:40→17:41)
--- NOTE | 2021-09-07 06:38 | PC.NURSE ---
Pt laying on left side, Respirations are even and unlabored. Currently on HF o2 at 55L 70%, and tolerating well. Daughter Meryl given update. She would like a call from the MD at some point if available. Her number is [phone].
[2021-09-07 06:43] LABS: Hematocrit 26.3 % (37.0-47.0); Hemoglobin 8.6 g/dl (12.0-16.0); Mean Corpuscular HGB Conc 32.7 g/dl (31.0-35.0); Mean Corpuscular Hemoglobin 30.1 pg (27.0-33.0); Mean Platelet Volume 9.6 fL (9.4-12.3); Platelet Count 326 X10*3/uL (160-400); Red Blood Count 2.86 X10*6/uL (4.20-5.50); Red Cell Distribution Width 14.1 % (11.0-16.0); White Blood Count 6.6 X10*3/uL (4.8-10.8)
[2021-09-07 06:59] LABS: D Dimer High Sensitivity 609 NG/ML
[2021-09-07 07:03] LABS: Anion Gap 17 (12-20); Blood Urea Nitrogen 54 mg/dL (9-16); C Reactive Protein 11.75 mg/dL (< or = 0.50); Calcium 8.8 mg/dL (8.4-10.2); Carbon Dioxide 22 mmol/L (22-29); Chloride 106 mmol/L (96-108); Creatinine Clr Calc Pharmacy 34.4; Estimated Glomerular Filt Rate 34; Glucose Fasting 270 mg/dL (60-99); Lactate Dehydrogenase 389 U/L (122-220); Potassium 4.7 mmol/L (3.3-5.1); Sodium 140 mmol/L (135-145)
[2021-09-07 07:33] LABS: Glucose, Whole Blood 237 mg/dL (60-115)
[2021-09-07] MEDS: 0.9 % Sodium Chloride Flush 3 ML SYRINGE IVFLUSH ×3 (08:59→20:36)
[2021-09-07] MEDS: Insulin Lispro 100 UNIT/ML 3 ML VIAL SUBCUT ×4 (08:59→22:01)
[2021-09-07] MEDS: dexAMETHasone sod phosphate 4 MG/ML VIAL 6 MG IVPUSH (08:59)
[2021-09-07] MEDS: Atorvastatin Calcium 20 MG TABLET PO (09:00)
[2021-09-07] MEDS: Cholecalciferol (Vitamin D3) 25 MCG TABLET 50 MCG PO (09:00)
[2021-09-07] MEDS: Escitalopram Oxalate 5 MG TABLET PO (09:00)
--- NOTE | 2021-09-07 09:03 | MHC.CM.PN ---
IMM 09/07/21 Female 66 DX Covid+ UNVACCINATED She lives with her . He also has covid. She receives assistance from her dtr PRN w ADLS. She does not use an AD. DP Home with family assist. BLS will provide transportation.
[2021-09-07 11:21] LABS: Glucose, Whole Blood 321 mg/dL (60-115)
--- NOTE | 2021-09-07 12:06 | HO.PM.IMPN ---
Subjective Subjective Date of Service: 09/07/21 Interval History: the patient was seen and evaluated this morning Laying in bed, feels very tired and has no energy Reported decreased appetite and oral intake kidney function improving No reported other overnight events. Review of Systems Constitutional: report generalized weakness Eyes: denies blurry vision ENT: denies sore throat CVS: denies chest pain Respiratory: report dyspnea and difficulty breathing GI: no abdominal pain : denies dysuria MSK: denies neck pain Skin: denies rash Neuro: denies specific motor weakness Physical Exam Vital Signs: Vital Signs: Last Vital Signs Temp 98.1 F 09/07/21 11:45 Pulse 77 09/07/21 11:45 Resp 24 H 09/07/21 11:45 BP 108/55 L 09/07/21 11:45 Pulse Ox 97 09/07/21 11:45 BMI result Body Mass Index 35.2 Const: Other: Constitutional : Alert, in mild respiratory distress Neck : Normal inspection, Supple Cardiovascular : no JVP, no lower extremity edema Respiratory : chest wall moving bilaterally, in mild distress, on high-flow oxygen 50 L Gastrointestinal: soft, lax, Normal bowel sounds, Non tender Skin : Warm, Dry Neurological : Alert & oriented x3, No focal deficit Objective Data Active Medications Acetaminophen (Acetaminophen 325 Mg Tablet) 650 mg PO Q6H PRN PRN Reason: Pain, Mild (Pain Scale 1-3) Atorvastatin Calcium (Atorvastatin Calcium 20 Mg Tablet) 20 mg PO DAILY [facility] Last Admin: 09/07/21 09:00 Dose: 20 mg Documented by: MAYE Calcium Carbonate (Calcium Carbonate 500 Mg Tablet) 500 mg PO BID [facility] Last Admin: 09/07/21 09:00 Dose: 500 mg Documented by: MAYE Dexamethasone Sodium Phosphate (Dexamethasone Sod Phosphate 4 Mg/Ml Vial) 6 mg IVPUSH DAILY [facility] Last Admin: 09/07/21 08:59 Dose: 6 mg Documented by: MAYE Dextrose (Dextrose 50 % 25 Gm/50 Ml Vial) 25 gm IVPUSH Q15M PRN; Protocol PRN Reason: per Hypoglycemia Standing Ord. Escitalopram Oxalate (Escitalopram Oxalate 5 Mg Tablet) 5 mg PO DAILY [facility] Last Admin: 09/07/21 09:00 Dose: 5 mg Documented by: MAYE Glucose (Glucose Gel 15 Gm Gel..Gram.) 15 gm PO Q15M PRN; Protocol PRN Reason: per Hypoglycemia Standing Ord. Heparin Sodium (Porcine) (Heparin Sodium,Porcine 5,000 Unit/Ml Vial) 5,000 unit SUBCUT Q8H [facility] Last Admin: 09/07/21 05:40 Dose: 5,000 unit Documented by: CODY Lactated Ringer's (Lr) 1,000 mls @ 80 mls/hr IVCONT .[id number] [facility] Stop: 09/07/21 23:00 Last Admin: 09/07/21 05:40 Dose: 80 mls/hr Documented by: CODY Insulin Human Lispro (Insulin Lispro 100 Unit/Ml 3 Ml Vial) 0 unit SUBCUT QIDACHS [facility]; Protocol Last Admin: 09/07/21 12:00 Dose: 8 unit Documented by: MAYE Lorazepam (Lorazepam 0.5 Mg Tablet) 0.5 mg PO BID PRN PRN Reason: Anxiety Pharmacy Consult (Consult Rx Perform Med Rec) 1 each MISCELLANE ONCE PRN PRN Reason: Consult order Sodium Chloride (0.9 % Sodium Chloride Flush 3 Ml Syringe) 3 ml IVFLUSH QSHIFT [facility] Last Admin: 09/07/21 08:59 Dose: 3 ml Documented by: MAYE Vitamin D (Cholecalciferol (Vitamin D3) 25 Mcg Tablet) 50 mcg PO DAILY [facility] Last Admin: 09/07/21 09:00 Dose: 50 mcg Documented by: MAYE Labs CBC & Chem 7: 09/07/21 05:58 09/07/21 05:58 Labs: Laboratory Results - last 24 hr 09/06/21 09/06/21 09/06/21 10:54 12:09 17:04 MCV MCH MCHC RDW Plt Count MPV Absolute Nucleated RBC Nucleated RBC % (auto) D-Dimer High Sensitivty VBG pH 7.36 VBG pCO2 39 VBG pO2 58 VBG HCO3 22 VBG O2 Saturation 83.0 VBG Base Excess -2.3 Anion Gap Estim Creat Clear Calc Estimated GFR POC Glucose 289 H Fasting Glucose Calcium Lactate Dehydrogenase C-Reactive Protein Influenza Type A (PCR) NEGATIVE Influenza Type B (PCR) NEGATIVE RSV RNA Qual (PCR) NEGATIVE SARS-CoV-2 RNA (RT-PCR) POSITIVE A 09/06/21 09/07/2109/07/22 20:42 05:58 05:58 MCV 92.0 MCH 30.1 MCHC 32.7 RDW 14.1 Plt Count 326 MPV 9.6 Absolute Nucleated RBC 0.000 Nucleated RBC % (auto) 0.0 D-Dimer High Sensitivty 609 VBG pH VBG pCO2 VBG pO2 VBG HCO3 VBG O2 Saturation VBG Base Excess Anion Gap Estim Creat Clear Calc Estimated GFR POC Glucose 246 H Fasting Glucose Calcium Lactate Dehydrogenase C-Reactive Protein Influenza Type A (PCR) Influenza Type B (PCR) RSV RNA Qual (PCR) SARS-CoV-2 RNA (RT-PCR) 09/07/21 09/07/21 09/07/21 05:58 07:22 11:12 MCV MCH MCHC RDW Plt Count MPV Absolute Nucleated RBC Nucleated RBC % (auto) D-Dimer High Sensitivty VBG pH VBG pCO2 VBG pO2 VBG HCO3 VBG O2 Saturation VBG Base Excess Anion Gap 17 Estim Creat Clear Calc 34.4 Estimated GFR 34 POC Glucose 237 H 321 H Fasting Glucose 270 H Calcium 8.8 Lactate Dehydrogenase 389 H C-Reactive Protein 11.75 H Influenza Type A (PCR) Influenza Type B (PCR) RSV RNA Qual (PCR) SARS-CoV-2 RNA (RT-PCR) Assessment and Plan (1) Pneumonia due to 2019 novel coronavirus: Status: Acute (2) AMY (acute kidney injury): Status: Acute (3) Hypoxia: Status: Acute Assessment and Plan: 66F with known covid, presented with cough, found to have significant hypoxia Acute hypoxic respiratory failure secondary to COVID pneumonia Decadron 6 mg Day 10/11 Wean O2 as tolerated Monitor prognostic labs Patient is high risk due to obesity, diabetes, unvaccinated status Pending id consult Acute kidney injury Likely hypovolemic improving, creatinine of 1.5 Continue gentle hydration, to hold by midnight hold Arb and hydrochlorothiazide Monitor BMP Diabetes Insulin DVT PPX Heparin Quality Stroke Does the patient have a stroke diagnosis?: No VTE Prior VTE?: No VTE Risk Level:: Medical - moderate - high VTE Device Contraindication: Treatment Not Indicated VTE Drug Contraindication: N/A - Med Ordered
[2021-09-07 16:24] LABS: Glucose, Whole Blood 249 mg/dL (60-115)
[2021-09-07 20:26] LABS: Glucose, Whole Blood 240 mg/dL (60-115)
[2021-09-08] VITALS (11 sets, daily range): BP systolic 111–135; BP diastolic 57–71; PULSE 67–94; RESP 16–20; TEMP 36.6–37.3; O2SAT 90–97
[2021-09-08] MEDS: Heparin Sodium,Porcine 5,000 UNIT/ML VIAL 5000 UNIT SUBCUT ×3 (05:30→21:27)
[2021-09-08 07:03] LABS: Hematocrit 25.3 % (37.0-47.0); Hemoglobin 8.3 g/dl (12.0-16.0); Mean Corpuscular HGB Conc 32.8 g/dl (31.0-35.0); Mean Corpuscular Hemoglobin 30.1 pg (27.0-33.0); Mean Corpuscular Volume 91.7 fL (80.0-98.0); Mean Platelet Volume 9.6 fL (9.4-12.3); Platelet Count 342 X10*3/uL (160-400); Red Blood Count 2.76 X10*6/uL (4.20-5.50); Red Cell Distribution Width 14.2 % (11.0-16.0)
[2021-09-08 07:26] LABS: Anion Gap 15 (12-20); Blood Urea Nitrogen 45 mg/dL (9-16); Calcium 9.2 mg/dL (8.4-10.2); Carbon Dioxide 22 mmol/L (22-29); Chloride 111 mmol/L (96-108); Creatinine Clr Calc Pharmacy 42.8; Estimated Glomerular Filt Rate 43; Glucose Random 251 mg/dL (60-115); Potassium 4.1 mmol/L (3.3-5.1); Sodium 144 mmol/L (135-145)
[2021-09-08 07:40] LABS: Glucose, Whole Blood 226 mg/dL (60-115)
[2021-09-08] MEDS: 0.9 % Sodium Chloride Flush 3 ML SYRINGE IVFLUSH ×3 (07:57→21:27)
[2021-09-08] MEDS: Insulin Lispro 100 UNIT/ML 3 ML VIAL SUBCUT ×6 (07:57→21:23)
[2021-09-08] MEDS: Escitalopram Oxalate 5 MG TABLET PO (07:58)
[2021-09-08] MEDS: Cholecalciferol (Vitamin D3) 25 MCG TABLET 50 MCG PO (07:58)
[2021-09-08] MEDS: dexAMETHasone sod phosphate 4 MG/ML VIAL 6 MG IVPUSH (07:58)
[2021-09-08] MEDS: Atorvastatin Calcium 20 MG TABLET PO (07:58)
--- NOTE | 2021-09-08 11:29 | HO.PM.IMPN ---
Subjective Subjective Date of Service: 09/08/21 Interval History: cc: cough interval history: weak Cardiovascular Cardiovascular: Reports no additional cardiovascular complaints Respiratory Respiratory: Reports no additional respiratory complaints Physical Exam Vital Signs: Vital Signs: Last Vital Signs Temp 98 F 09/08/21 07:40 Pulse 69 09/08/21 07:40 Resp 18 09/08/21 08:10 BP 111/57 L 09/08/21 07:40 Pulse Ox 91 L 09/08/21 07:40 BMI result Body Mass Index 35.2 General: AO X 3, fatigued Resp: diminsihed bilateral, no accessory muscles used CVS: S1,S2,RRR GI: soft, non tender, non distended Neuro: motor grossly intact, alert Psych: appropriate affect, appropriate insight Objective Data Active Medications Acetaminophen (Acetaminophen 325 Mg Tablet) 650 mg PO Q6H PRN PRN Reason: Pain, Mild (Pain Scale 1-3) Atorvastatin Calcium (Atorvastatin Calcium 20 Mg Tablet) 20 mg PO DAILY [facility]PLACED BY [facility] Last Admin: 09/08/21 07:58 Dose: 20 mg Documented by: STEPHANIE Calcium Carbonate (Calcium Carbonate 500 Mg Tablet) 500 mg PO BID [facility] Last Admin: 09/08/21 07:58 Dose: 500 mg Documented by: STEPHANIE Dexamethasone Sodium Phosphate (Dexamethasone Sod Phosphate 4 Mg/Ml Vial) 6 mg IVPUSH DAILY [facility] Last Admin: 09/08/21 07:58 Dose: 6 mg Documented by: STEPHANIE Dextrose (Dextrose 50 % 25 Gm/50 Ml Vial) 25 gm IVPUSH Q15M PRN; Protocol PRN Reason: per Hypoglycemia Standing Ord. Escitalopram Oxalate (Escitalopram Oxalate 5 Mg Tablet) 5 mg PO DAILY [facility] Last Admin: 09/08/21 07:58 Dose: 5 mg Documented by: STEPHANIE Glucose (Glucose Gel 15 Gm Gel..Gram.) 15 gm PO Q15M PRN; Protocol PRN Reason: per Hypoglycemia Standing Ord. Heparin Sodium (Porcine) (Heparin Sodium,Porcine 5,000 Unit/Ml Vial) 5,000 unit SUBCUT Q8H [facility]PL[facility] BY [facility] Last Admin: 09/08/21 05:30 Dose: 5,000 unit Documented by: CONSUELO Insulin Human Lispro (Insulin Lispro 100 Unit/Ml 3 Ml Vial) 0 unit SUBCUT QIDACHS REPLACED BY [facility]; Protocol Last Admin: 09/08/21 07:57 Dose: 4 unit Documented by: STEPHANIE Lorazepam (Lorazepam 0.5 Mg Tablet) 0.5 mg PO BID PRN PRN Reason: Anxiety Pharmacy Consult (Consult Rx Perform Med Rec) 1 each MISCELLANE ONCE PRN PRN Reason: Consult order Sodium Chloride (0.9 % Sodium Chloride Flush 3 Ml Syringe) 3 ml IVFLUSH QSHIFT REPLACED BY [facility] Last Admin: 09/08/21 07:57 Dose: 3 ml Documented by: STEPHANIE Vitamin D (Cholecalciferol (Vitamin D3) 25 Mcg Tablet) 50 mcg PO DAILY [facility] Last Admin: 09/08/21 07:58 Dose: 50 mcg Documented by: STEPHANIE Labs CBC & Chem 7: 09/08/21 06:35 09/08/21 06:35 Labs: Laboratory Results - last 24 hr 09/06/21 09/07/21 09/07/21 11:20 05:58 16:07 MCV MCH MCHC RDW Plt Count MPV Absolute Nucleated RBC Nucleated RBC % (auto) Anion Gap Creatinine 2.11 H 1.54 H Estim Creat Clear Calc Estimated GFR POC Glucose 249 H Random Glucose Calcium 09/07/21 09/08/21 09/08/21 20:15 06:35 06:35 MCV 91.7 MCH 30.1 MCHC 32.8 RDW 14.2 Plt Count 342 MPV 9.6 Absolute Nucleated RBC 0.000 Nucleated RBC % (auto) 0.0 Anion Gap 15 Creatinine 1.24 Estim Creat Clear Calc 42.8 Estimated GFR 43 POC Glucose 240 H Random Glucose 251 H Calcium 9.2 09/08/21 07:36 MCV MCH MCHC RDW Plt Count MPV Absolute Nucleated RBC Nucleated RBC % (auto) Anion Gap Creatinine Estim Creat Clear Calc Estimated GFR POC Glucose 226 H Random Glucose Calcium Microbiology Microbiology Results: Microbiology 09/06/21 10:53 Blood Culture - Preliminary Blood - Venous No growth after 24 hours. 09/06/21 10:53 Blood Culture - Preliminary Blood - Venous No growth after 24 hours. Assessment and Plan (1) Pneumonia due to 2019 novel coronavirus: Status: Acute (2) AMY (acute kidney injury): Status: Acute (3) Hypoxia: Status: Acute Assessment and Plan: 66F with known covid, presented with cough, found to have significant hypoxia Acute hypoxic respiratory failure secondary to COVID pneumonia Decadron 6 mg Day 11/08 Wean O2 as tolerated Monitor prognostic labs Patient is high risk due to obesity, diabetes, unvaccinated status ID follow up Acute kidney injury Likely hypovolemic improved with hydration hold Arb and hydrochlorothiazide Monitor BMP Diabetes Insulin DVT PPX Heparin Quality Stroke Does the patient have a stroke diagnosis?: No VTE Prior VTE?: No VTE Risk Level:: Medical - moderate - high VTE Device Contraindication: Treatment Not Indicated VTE Drug Contraindication: N/A - Med Ordered
[2021-09-08 11:46] LABS: Glucose, Whole Blood 247 mg/dL (60-115)
[2021-09-08 17:06] LABS: Glucose, Whole Blood 296 mg/dL (60-115)
[2021-09-08 21:07] LABS: Glucose, Whole Blood 261 mg/dL (60-115)
[2021-09-08] MEDS: Insulin Glargine,Hum.rec.anlog 100 UNIT/ML 10 ML VIAL 15 UNIT SUBCUT (21:23)
[2021-09-09] VITALS (13 sets, daily range): BP systolic 110–169; BP diastolic 55–81; PULSE 65–95; RESP 16–24; TEMP 36.6–37.3; O2SAT 88–97
[2021-09-09] MEDS: Heparin Sodium,Porcine 5,000 UNIT/ML VIAL 5000 UNIT SUBCUT ×3 (05:11→22:09)
[2021-09-09 06:41] LABS: Hematocrit 25.6 % (37.0-47.0); Hemoglobin 8.4 g/dl (12.0-16.0); Mean Corpuscular HGB Conc 32.8 g/dl (31.0-35.0); Mean Corpuscular Hemoglobin 30.3 pg (27.0-33.0); Mean Corpuscular Volume 92.4 fL (80.0-98.0); Mean Platelet Volume 9.8 fL (9.4-12.3); Platelet Count 365 X10*3/uL (160-400); Red Blood Count 2.77 X10*6/uL (4.20-5.50); Red Cell Distribution Width 14.1 % (11.0-16.0); White Blood Count 6.7 X10*3/uL (4.8-10.8)
[2021-09-09 06:52] LABS: D Dimer High Sensitivity 1095 NG/ML
[2021-09-09 07:00] LABS: Anion Gap 15 (12-20); Blood Urea Nitrogen 45 mg/dL (9-16); C Reactive Protein 4.85 mg/dL (< or = 0.50); Calcium 9.7 mg/dL (8.4-10.2); Carbon Dioxide 24 mmol/L (22-29); Chloride 112 mmol/L (96-108); Estimated Glomerular Filt Rate 46; Glucose Fasting 211 mg/dL (60-99); Lactate Dehydrogenase 450 U/L (122-220); Potassium 4.2 mmol/L (3.3-5.1); Sodium 147 mmol/L (135-145)
[2021-09-09 07:50] LABS: Glucose, Whole Blood 202 mg/dL (60-115)
[2021-09-09] MEDS: Dextrose 5 % 1,000 ML 80 ML IVCONT ×2 (08:22→22:09)
[2021-09-09] MEDS: 0.9 % Sodium Chloride Flush 3 ML SYRINGE IVFLUSH ×2 (08:26→15:00)
[2021-09-09] MEDS: Insulin Lispro 100 UNIT/ML 3 ML VIAL SUBCUT ×8 (08:26→22:10)
[2021-09-09] MEDS: dexAMETHasone sod phosphate 4 MG/ML VIAL 6 MG IVPUSH (08:29)
[2021-09-09] MEDS: Cholecalciferol (Vitamin D3) 25 MCG TABLET 50 MCG PO (08:29)
[2021-09-09] MEDS: Escitalopram Oxalate 5 MG TABLET PO (08:29)
[2021-09-09] MEDS: Atorvastatin Calcium 20 MG TABLET PO (08:30)
--- NOTE | 2021-09-09 10:25 | P.PNIM_ITS ---
Subjective Subjective Date of Service: 09/09/21 Interval History: ?cc: cough interval history: weak Cardiovascular Cardiovascular: Reports no additional cardiovascular complaints Respiratory Respiratory: Reports no additional respiratory complaints Physical Exam Vital Signs: Vital Signs: Last Vital Signs Temp 97.8 F 09/09/21 08:00 Pulse 71 09/09/21 08:00 Resp 18 09/09/21 08:55 BP 137/64 09/09/21 08:00 Pulse Ox 89 L 09/09/21 08:00 BMI result Body Mass Index 35.2 General: AO X 3, fatigued Resp:? diminsihed bilateral, no accessory muscles used CVS: S1,S2,RRR GI: soft, non tender, non distended Neuro:? motor grossly intact, alert Psych: appropriate affect, appropriate insight? Objective Data Active Medications Acetaminophen (Acetaminophen 325 Mg Tablet) 650 mg PO Q6H PRN PRN Reason: Pain, Mild (Pain Scale 1-3) Atorvastatin Calcium (Atorvastatin Calcium 20 Mg Tablet) 20 mg PO DAILY [facility] Last Admin: 09/09/21 08:30 Dose: 20 mg Documented by: STEPHANIE Calcium Carbonate (Calcium Carbonate 500 Mg Tablet) 500 mg PO BID [facility] Last Admin: 09/09/21 08:30 Dose: 500 mg Documented by: STEPHANIE Dexamethasone Sodium Phosphate (Dexamethasone Sod Phosphate 4 Mg/Ml Vial) 6 mg IVPUSH DAILY [facility] Last Admin: 09/09/21 08:29 Dose: 6 mg Documented by: STEPHANIE Dextrose (Dextrose 50 % 25 Gm/50 Ml Vial) 25 gm IVPUSH Q15M PRN; Protocol PRN Reason: per Hypoglycemia Standing Ord. Escitalopram Oxalate (Escitalopram Oxalate 5 Mg Tablet) 5 mg PO DAILY [facility] Last Admin: 09/09/21 08:29 Dose: 5 mg Documented by: STEPHANIE Glucose (Glucose Gel 15 Gm Gel..Gram.) 15 gm PO Q15M PRN; Protocol PRN Reason: per Hypoglycemia Standing Ord. Heparin Sodium (Porcine) (Heparin Sodium,Porcine 5,000 Unit/Ml Vial) 5,000 unit SUBCUT Q8H [facility] Last Admin: 09/09/21 05:11 Dose: 5,000 unit Documented by: CONSUELO Dextrose (D5w) 1,000 mls @ 80 mls/hr IVCONT .[id number] [facility] Last Admin: 09/09/21 08:22 Dose: 80 mls/hr Documented by: STEPHANIE Insulin Glargine (Insulin Glargine,Hum.Rec.Anlog 100 Unit/Ml 10 Ml Vial) 15 unit SUBCUT BEDTIME [facility] Last Admin: 09/08/21 21:23 Dose: 15 unit Documented by: CONSUELO Insulin Human Lispro (Insulin Lispro 100 Unit/Ml 3 Ml Vial) 0 unit SUBCUT QIDACHS [facility]; Protocol Last Admin: 09/09/21 08:26 Dose: 4 unit Documented by: STEPHANIE Insulin Human Lispro (Insulin Lispro 100 Unit/Ml 3 Ml Vial) 5 unit SUBCUT QIDACHS [facility] Last Admin: 09/09/21 08:26 Dose: 5 unit Documented by: STEPHANIE Lorazepam (Lorazepam 0.5 Mg Tablet) 0.5 mg PO BID PRN PRN Reason: Anxiety Pharmacy Consult (Consult Rx Perform Med Rec) 1 each MISCELLANE ONCE PRN PRN Reason: Consult order Sodium Chloride (0.9 % Sodium Chloride Flush 3 Ml Syringe) 3 ml IVFLUSH QSHIFT [facility] Last Admin: 09/09/21 08:26 Dose: 3 ml Documented by: STEPHANIE Vitamin D (Cholecalciferol (Vitamin D3) 25 Mcg Tablet) 50 mcg PO DAILY [facility] Last Admin: 09/09/21 08:29 Dose: 50 mcg Documented by: STEPHANIE Labs CBC & Chem 7: 09/09/21 06:00 09/09/21 06:00 Labs: Laboratory Results - last 24 hr 09/08/21 09/08/21 09/08/21 11:35 17:01 21:03 MCV MCH MCHC RDW Plt Count MPV Absolute Nucleated RBC Nucleated RBC % (auto) D-Dimer High Sensitivty Anion Gap Estim Creat Clear Calc Estimated GFR POC Glucose 247 H 296 H 261 H Fasting Glucose Calcium Lactate Dehydrogenase C-Reactive Protein 09/09/21 09/09/21 09/09/21 06:00 06:00 06:00 MCV 92.4 MCH 30.3 MCHC 32.8 RDW 14.1 Plt Count 365 MPV 9.8 Absolute Nucleated RBC 0.000 Nucleated RBC % (auto) 0.0 D-Dimer High Sensitivty 1095 Anion Gap 15 Estim Creat Clear Calc 45.0 Estimated GFR 46 POC Glucose Fasting Glucose 211 H Calcium 9.7 Lactate Dehydrogenase 450 H C-Reactive Protein 4.85 H 09/09/21 07:45 MCV MCH MCHC RDW Plt Count MPV Absolute Nucleated RBC Nucleated RBC % (auto) D-Dimer High Sensitivty Anion Gap Estim Creat Clear Calc Estimated GFR POC Glucose 202 H Fasting Glucose Calcium Lactate Dehydrogenase C-Reactive Protein Microbiology Microbiology Results: Microbiology 09/06/21 10:53 Blood Culture - Preliminary Blood - Venous No growth after 48 hours. 09/06/21 10:53 Blood Culture - Preliminary Blood - Venous No growth after 48 hours. Assessment and Plan (1) Pneumonia due to 2019 novel coronavirus: Status: Acute (2) AMY (acute kidney injury): Status: Acute (3) Hypoxia: Status: Acute Assessment and Plan: 66F with known covid, presented with cough, found to have significant hypoxia Acute hypoxic respiratory failure secondary to COVID pneumonia Decadron 6 mg Day 12/09 Wean O2 as tolerated Monitor prognostic labs - improving Patient is high risk due to obesity, diabetes, unvaccinated status ID follow up hypernatremia due to poor intake from weakness due to above D5W, monitor Acute kidney injury Likely hypovolemic improved with hydration hold Arb and hydrochlorothiazide Monitor BMP Diabetes Insulin DVT PPX Heparin Quality Stroke Does the patient have a stroke diagnosis?: No VTE Prior VTE?: No VTE Risk Level:: Medical - moderate - high VTE Device Contraindication: Treatment Not Indicated VTE Drug Contraindication: N/A - Med Ordered
[2021-09-09 11:24] LABS: Glucose, Whole Blood 192 mg/dL (60-115)
[2021-09-09 16:16] LABS: Glucose, Whole Blood 268 mg/dL (60-115)
[2021-09-09 19:50] LABS: Glucose, Whole Blood 246 mg/dL (60-115)
--- NOTE | 2021-09-09 21:41 | P.CNID_ITS ---
History of Present Illness Data of Consult Service Date: 09/07/21 Requesting physician: Jose Chao Primary Care Provider: Unknown Physician HPI Reason for consult: shortness of breath She has had symptoms since 08/29 of cough and shortness of breath She has no fever or chills She has started on HFNC She has asthma and h/o breast cancer Review of Systems Verdana 4l Review of Systems: Yes all other systems are reviewed and Verdana 4d are negative [facility] Past Medical History Medical History (Updated 09/27/21 @ 12:51 by Jeremi Arevalo DO) Anemia Arthritis Asthma Breast CA Diabetes High cholesterol HTN (hypertension) Kidney stones Sleep apnea Family History Family History Sister Diabetes mellitus Family history: reviewed and not pertinent Surgical History Surgical History H/O: hysterectomy Social History Social History Household Members: Significant Other Housing: Apartment Do you presently have visiting nurse or other home services: No Alcohol intake: never Patient Tobacco Use Status: Never used Tobacco Use of substances other than those prescribed or required for medical reasons: No Currently Displaying Signs/Symptoms of Drug Intoxication Withdrawal: No Have you been hit, kicked, punched, or otherwise hurt by someone within the past year? If so, by whom?: No Do you feel safe in your current relationship?: Yes Is there a partner from a previous relationship who is making you feel unsafe now?: No Are you made to feel afraid or neglected: No Advance Directives: No Advance Directives Information Provided: Yes Do you have thoughts of harming others: None Do you have a plan to hurt others: No Plan Recently lost weight without trying: No Nutrition Risks: No Nutritional Risk Patient : No : No Poor oral hygiene: No service: No Current occupational status: disabled Current occupation: rt handed Meds Allergies Allergy/AdvReac Type Severity Reaction Status Date / Time morphine [MORPHINE] Allergy Unknown UNKNOWN Verified 05/31/21 11:24 prednisone Allergy Unknown HEART RACES Verified 05/31/21 11:24 [PREDNISONE] Active Medications: Current Medications Acetaminophen (Acetaminophen 325 Mg Tablet) 650 mg PO Q6H PRN PRN Reason: Pain, Mild (Pain Scale 1-3) Atorvastatin Calcium (Atorvastatin Calcium 20 Mg Tablet) 20 mg PO DAILY [facility] Last Admin: 09/09/21 08:30 Dose: 20 mg Documented by: Calcium Carbonate (Calcium Carbonate 500 Mg Tablet) 500 mg PO BID [facility] Last Admin: 09/09/21 08:30 Dose: 500 mg Documented by: Dexamethasone Sodium Phosphate (Dexamethasone Sod Phosphate 4 Mg/Ml Vial) 6 mg IVPUSH DAILY [facility] Last Admin: 09/09/21 08:29 Dose: 6 mg Documented by: Dextrose (Dextrose 50 % 25 Gm/50 Ml Vial) 25 gm IVPUSH Q15M PRN; Protocol PRN Reason: per Hypoglycemia Standing Ord. Escitalopram Oxalate (Escitalopram Oxalate 5 Mg Tablet) 5 mg PO DAILY [facility] Last Admin: 09/09/21 08:29 Dose: 5 mg Documented by: Glucose (Glucose Gel 15 Gm Gel..Gram.) 15 gm PO Q15M PRN; Protocol PRN Reason: per Hypoglycemia Standing Ord. Heparin Sodium (Porcine) (Heparin Sodium,Porcine 5,000 Unit/Ml Vial) 5,000 unit SUBCUT Q8H [facility] Last Admin: 09/09/21 15:00 Dose: 5,000 unit Documented by: Dextrose (D5w) 1,000 mls @ 80 mls/hr IVCONT .[id number] [facility] Last Admin: 09/09/21 08:22 Dose: 80 mls/hr Documented by: Insulin Glargine (Insulin Glargine,Hum.Rec.Anlog 100 Unit/Ml 10 Ml Vial) 15 unit SUBCUT BEDTIME [facility] Last Admin: 09/08/21 21:23 Dose: 15 unit Documented by: Insulin Human Lispro (Insulin Lispro 100 Unit/Ml 3 Ml Vial) 0 unit SUBCUT QIDACHS [facility]; Protocol Last Admin: 09/09/21 16:41 Dose: 6 unit Documented by: Insulin Human Lispro (Insulin Lispro 100 Unit/Ml 3 Ml Vial) 5 unit SUBCUT QIDACHS [facility] Last Admin: 09/09/21 16:42 Dose: 5 unit Documented by: Lorazepam (Lorazepam 0.5 Mg Tablet) 0.5 mg PO BID PRN PRN Reason: Anxiety Pharmacy Consult (Consult Rx Perform Med Rec) 1 each MISCELLANE ONCE PRN PRN Reason: Consult order Sodium Chloride (0.9 % Sodium Chloride Flush 3 Ml Syringe) 3 ml IVFLUSH QSHIFT [facility] Last Admin: 09/09/21 15:00 Dose: 3 ml Documented by: Vitamin D (Cholecalciferol (Vitamin D3) 25 Mcg Tablet) 50 mcg PO DAILY [facility] Last Admin: 09/09/21 08:29 Dose: 50 mcg Documented by: Home Medications Medication Instructions Recorded Confirmed Last Taken Type albuterol sulfate 2 puff 09/06/21 09/06/21 Unknown History 90 mcg/actuation INHALATION Q4H PRN aerosol inhaler aspirin 81 mg 1 tab PO DAILY 09/06/21 09/06/21 Unknown History tablet,delayed PRN release atorvastatin 20 1 tab PO DAILY 09/06/21 09/06/21 Unknown History mg tablet calcium carbonate 1 tab PO BID 09/06/21 09/06/21 Unknown History 600 mg calcium (1,500 mg) tablet cholecalciferol 1 cap PO DAILY 09/06/21 09/06/21 Unknown History (vitamin D3) 50 mcg (2,000 unit) capsule citalopram 10 mg 1 tab PO DAILY 09/06/21 09/06/21 Unknown History tablet dapagliflozin 5 1 tab PO DAILY 09/06/21 09/06/21 Unknown History mg tablet (Farxiga) glipizide 5 mg 1 tab PO DAILY 09/06/21 09/06/21 Unknown History tablet, extended release 24 hr ibuprofen 800 mg 1 tab PO TID 09/06/21 09/06/21 Unknown History tablet lorazepam 0.5 mg 0.5 mg PO BID 09/06/21 09/06/21 Unknown History tablet PRN metformin 1,000 1 tab PO BID 09/06/21 09/06/21 Unknown History mg tablet valsartan 160 1 tab PO DAILY 09/06/21 09/06/21 Unknown History mg-hydrochlorothi azide 25 mg tablet Physical Exam Verdana 4l Vital Signs: Verdana 4d Verdana 4d Vital Signs: Verdana 4d Verdana 4Bd Last Vital Signs Verdana 4d Lock Master New 4d Lock Master New 4d Temp 98.0 F 09/09/21 19:09 Lock Master New 4d Pulse 65 09/09/21 19:09 Lock Master New 4d Resp 22 H 09/09/21 21:14 BP 127/55 L 09/09/21 19:09 Pulse Ox 93 09/09/21 19:09 BMI result Body Mass Index 35.2 Const: General: cooperative Resp: Effort & Inspection: able to speak in complete sentences Cardio: Rate: regular rate Rhythm: regular rhythm GI: Palpation (GI): nontender Results Labs CBC & Chem 7: 09/30/21 05:49 09/30/21 05:49 Labs: Short CBC 09/09/21 Range/Units 06:00 WBC 6.7 (4.8-10.8) X10*3/uL Hgb 8.4 L (12.0-16.0) g/dl Hct 25.6 L (37.0-47.0) % Plt Count 365 (160-400) X10*3/uL BMP 09/09/21 06:00 Sodium 147 H Potassium 4.2 Chloride 112 H Carbon Dioxide 24 BUN 45 H Creatinine 1.18 Calcium 9.7 Microbiology Microbiology Results: Microbiology 09/06/21 10:53 Blood - Venous Blood Culture - Preliminary No growth after 48 hours. 09/06/21 10:53 Blood - Venous Blood Culture - Preliminary No growth after 48 hours. Assessment and Plan (1) Pneumonia due to 2019 novel coronavirus: Status: Acute She has had COVID 9 days She now is on HFNC today She is on Dexamethasone (2) Hypoxia: Status: Acute Plan Would give oxygen and Dexamethasone Would give Baricitinib if continues HFNC
[2021-09-09] MEDS: Insulin Glargine,Hum.rec.anlog 100 UNIT/ML 10 ML VIAL 15 UNIT SUBCUT (22:10)
[2021-09-10] VITALS (12 sets, daily range): BP systolic 124–150; BP diastolic 58–67; PULSE 55–94; RESP 18–28; TEMP 36.1–37.1; O2SAT 90–98
[2021-09-10] MEDS: Heparin Sodium,Porcine 5,000 UNIT/ML VIAL 5000 UNIT SUBCUT ×3 (06:37→21:00)
[2021-09-10 06:47] LABS: Hematocrit 25.9 % (37.0-47.0); Hemoglobin 8.4 g/dl (12.0-16.0); Mean Corpuscular HGB Conc 32.4 g/dl (31.0-35.0); Mean Corpuscular Hemoglobin 29.6 pg (27.0-33.0); Mean Corpuscular Volume 91.2 fL (80.0-98.0); Mean Platelet Volume 9.9 fL (9.4-12.3); NRBC Pct Auto 0.3 /100WBC (0.0-0.2); Platelet Count 365 X10*3/uL (160-400); Red Blood Count 2.84 X10*6/uL (4.20-5.50); Red Cell Distribution Width 13.8 % (11.0-16.0); White Blood Count 7.3 X10*3/uL (4.8-10.8)
[2021-09-10 07:14] LABS: Anion Gap 15 (12-20); Blood Urea Nitrogen 40 mg/dL (9-16); Calcium 9.3 mg/dL (8.4-10.2); Carbon Dioxide 23 mmol/L (22-29); Chloride 109 mmol/L (96-108); Estimated Glomerular Filt Rate 53; Glucose Fasting 236 mg/dL (60-99); Potassium 4.1 mmol/L (3.3-5.1); Sodium 143 mmol/L (135-145)
[2021-09-10 08:40] LABS: Glucose, Whole Blood 251 mg/dL (60-115)
[2021-09-10] MEDS: Insulin Lispro 100 UNIT/ML 3 ML VIAL SUBCUT ×8 (09:37→20:59)
[2021-09-10] MEDS: 0.9 % Sodium Chloride Flush 3 ML SYRINGE IVFLUSH ×2 (09:37→15:47)
[2021-09-10] MEDS: Dextrose 5 % 1,000 ML 80 ML IVCONT ×2 (09:37→20:59)
[2021-09-10] MEDS: Escitalopram Oxalate 5 MG TABLET PO (09:38)
[2021-09-10] MEDS: Atorvastatin Calcium 20 MG TABLET PO (09:38)
[2021-09-10] MEDS: dexAMETHasone sod phosphate 4 MG/ML VIAL 6 MG IVPUSH (09:38)
[2021-09-10] MEDS: Cholecalciferol (Vitamin D3) 25 MCG TABLET 50 MCG PO (09:38)
--- NOTE | 2021-09-10 11:03 | P.PNIM_ITS ---
Subjective Subjective Date of Service: 09/10/21 Interval History: cc: cough, weakness interval history: slightly better today Cardiovascular Cardiovascular: Reports no additional cardiovascular complaints Gastrointestinal Gastrointestinal: Reports no additional gastrointestinal complaints Physical Exam Vital Signs: Vital Signs: Last Vital Signs Temp 98.3 F 09/10/21 08:00 Pulse 65 09/10/21 08:00 Resp 19 09/10/21 08:00 BP 150/67 H 09/10/21 08:00 Pulse Ox 91 L 09/10/21 08:00 BMI result Body Mass Index 35.2 General: lethargic O X 3, ill appearing Resp: diminished bilateral, no accessory muscles used CVS: S1,S2,RRR GI: soft, non tender, non distended Neuro: motor grossly intact, lethargic Psych: appropriate affect, appropriate insight Objective Data Active Medications Acetaminophen (Acetaminophen 325 Mg Tablet) 650 mg PO Q6H PRN PRN Reason: Pain, Mild (Pain Scale 1-3) Atorvastatin Calcium (Atorvastatin Calcium 20 Mg Tablet) 20 mg PO DAILY [facility] Last Admin: 09/10/21 09:38 Dose: 20 mg Documented by: MAYE Calcium Carbonate (Calcium Carbonate 500 Mg Tablet) 500 mg PO BID [facility] Last Admin: 09/10/21 09:38 Dose: 500 mg Documented by: MAYE Dexamethasone Sodium Phosphate (Dexamethasone Sod Phosphate 4 Mg/Ml Vial) 6 mg IVPUSH DAILY [facility] Last Admin: 09/10/21 09:38 Dose: 6 mg Documented by: MAYE Dextrose (Dextrose 50 % 25 Gm/50 Ml Vial) 25 gm IVPUSH Q15M PRN; Protocol PRN Reason: per Hypoglycemia Standing Ord. Escitalopram Oxalate (Escitalopram Oxalate 5 Mg Tablet) 5 mg PO DAILY [facility] Last Admin: 09/10/21 09:38 Dose: 5 mg Documented by: AMYE Glucose (Glucose Gel 15 Gm Gel..Gram.) 15 gm PO Q15M PRN; Protocol PRN Reason: per Hypoglycemia Standing Ord. Heparin Sodium (Porcine) (Heparin Sodium,Porcine 5,000 Unit/Ml Vial) 5,000 unit SUBCUT Q8H [facility] Last Admin: 09/10/21 06:37 Dose: 5,000 unit Documented by: CODY Dextrose (D5w) 1,000 mls @ 80 mls/hr IVCONT .[id number] [facility] Last Admin: 09/10/21 09:37 Dose: 80 mls/hr Documented by: MAYE Insulin Glargine (Insulin Glargine,Hum.Rec.Anlog 100 Unit/Ml 10 Ml Vial) 15 unit SUBCUT BEDTIME [facility] Last Admin: 09/09/21 22:10 Dose: 15 unit Documented by: CODY Insulin Human Lispro (Insulin Lispro 100 Unit/Ml 3 Ml Vial) 0 unit SUBCUT QIDACHS [facility]; Protocol Last Admin: 09/10/21 09:37 Dose: 6 unit Documented by: MAYE Insulin Human Lispro (Insulin Lispro 100 Unit/Ml 3 Ml Vial) 5 unit SUBCUT QIDACHS [facility] Last Admin: 09/10/21 09:37 Dose: 5 unit Documented by: MAYE Lorazepam (Lorazepam 0.5 Mg Tablet) 0.5 mg PO BID PRN PRN Reason: Anxiety Pharmacy Consult (Consult Rx Perform Med Rec) 1 each MISCELLANE ONCE PRN PRN Reason: Consult order Sodium Chloride (0.9 % Sodium Chloride Flush 3 Ml Syringe) 3 ml IVFLUSH QSHIFT [facility] Last Admin: 09/10/21 09:37 Dose: 3 ml Documented by: MAYE Vitamin D (Cholecalciferol (Vitamin D3) 25 Mcg Tablet) 50 mcg PO DAILY [facility] Last Admin: 09/10/21 09:38 Dose: 50 mcg Documented by: MAYE Labs CBC & Chem 7: 09/10/21 05:53 09/10/21 05:53 Labs: Laboratory Results - last 24 hr 09/09/21 09/09/21 09/09/21 11:20 16:11 19:40 MCV MCH MCHC RDW Plt Count MPV Absolute Nucleated RBC Nucleated RBC % (auto) Anion Gap Estim Creat Clear Calc Estimated GFR POC Glucose 192 H 268 H 246 H Fasting Glucose Calcium 09/10/21 09/10/21 09/10/21 05:53 05:53 08:33 MCV 91.2 MCH 29.6 MCHC 32.4 RDW 13.8 Plt Count 365 MPV 9.9 Absolute Nucleated RBC 0.020 H Nucleated RBC % (auto) 0.3 H Anion Gap 15 Estim Creat Clear Calc 51.0 Estimated GFR 53 POC Glucose 251 H Fasting Glucose 236 H Calcium 9.3 Assessment and Plan (1) Pneumonia due to 2019 novel coronavirus: Status: Acute (2) AMY (acute kidney injury): Status: Acute (3) Hypoxia: Status: Acute Assessment and Plan: 66F with known covid, presented with cough, found to have significant hypoxia Acute hypoxic respiratory failure secondary to COVID pneumonia Decadron 6 mg Day 01/08 Wean O2 as tolerated Monitor prognostic labs - improving Patient is high risk due to obesity, diabetes, unvaccinated status ID follow up hypernatremia due to poor intake from weakness due to above improving continue D5W, monitor Acute kidney injury Likely hypovolemic resolved with hydration hold Arb and hydrochlorothiazide Monitor BMP Diabetes Insulin DVT PPX Heparin Quality Stroke Does the patient have a stroke diagnosis?: No VTE Prior VTE?: No VTE Risk Level:: Medical - moderate - high VTE Device Contraindication: Treatment Not Indicated VTE Drug Contraindication: N/A - Med Ordered
[2021-09-10 11:47] LABS: Glucose, Whole Blood 229 mg/dL (60-115)
--- NOTE | 2021-09-10 13:31 | MHC.CM.PN ---
Per ROUNDS discussion, Patient is not yet medically cleared for dc (IV Decadron, High Flow O2); Home is the goal for dc and CM will follow for possible need to adjust the dc plan.
[2021-09-10 17:24] LABS: Glucose, Whole Blood 248 mg/dL (60-115)
--- NOTE | 2021-09-10 20:37 | PC.NURSE ---
pt more awake at start of 1900 shift. A+ox3, asking for ice chips. Denies pain or increased SOB at this time. Pt laying quietly in bed without any signs of distress. Currently on HFNC 55L 90%, and tolerating it well. O2 sat 90-94%.
[2021-09-10 20:48] LABS: Glucose, Whole Blood 235 mg/dL (60-115)
[2021-09-10] MEDS: Insulin Glargine,Hum.rec.anlog 100 UNIT/ML 10 ML VIAL 15 UNIT SUBCUT (20:59)
[2021-09-11] VITALS (12 sets, daily range): BP systolic 120–147; BP diastolic 62–88; PULSE 51–75; RESP 18–28; TEMP 36.2–36.7; O2SAT 88–99
[2021-09-11 05:48] LABS: Hematocrit 26.9 % (37.0-47.0); Hemoglobin 8.7 g/dl (12.0-16.0); Mean Corpuscular HGB Conc 32.3 g/dl (31.0-35.0); Mean Corpuscular Hemoglobin 29.4 pg (27.0-33.0); Mean Corpuscular Volume 90.9 fL (80.0-98.0); Mean Platelet Volume 9.8 fL (9.4-12.3); NRBC Pct Auto 0.2 /100WBC (0.0-0.2); Platelet Count 363 X10*3/uL (160-400); Red Blood Count 2.96 X10*6/uL (4.20-5.50); Red Cell Distribution Width 13.2 % (11.0-16.0); White Blood Count 10.7 X10*3/uL (4.8-10.8)
[2021-09-11 05:54] LABS: D Dimer High Sensitivity 3180 NG/ML
[2021-09-11 06:10] LABS: Anion Gap 14 (12-20); Blood Urea Nitrogen 32 mg/dL (9-16); C Reactive Protein 1.68 mg/dL (< or = 0.50); Calcium 9.1 mg/dL (8.4-10.2); Carbon Dioxide 23 mmol/L (22-29); Chloride 105 mmol/L (96-108); Creatinine Clr Calc Pharmacy 63.2; Estimated Glomerular Filt Rate > 60; Glucose Fasting 165 mg/dL (60-99); Potassium 3.9 mmol/L (3.3-5.1); Sodium 138 mmol/L (135-145)
[2021-09-11] MEDS: Heparin Sodium,Porcine 5,000 UNIT/ML VIAL 5000 UNIT SUBCUT ×3 (06:46→21:53)
[2021-09-11 07:36] LABS: Glucose, Whole Blood 146 mg/dL (60-115)
[2021-09-11 07:52] LABS: Lactate Dehydrogenase 485 U/L (122-220)
[2021-09-11] MEDS: Insulin Lispro 100 UNIT/ML 3 ML VIAL SUBCUT ×7 (08:30→21:53)
[2021-09-11] MEDS: LORazepam 0.5 MG TABLET PO (09:37)
[2021-09-11] MEDS: Atorvastatin Calcium 20 MG TABLET PO (09:37)
[2021-09-11] MEDS: Cholecalciferol (Vitamin D3) 25 MCG TABLET 50 MCG PO (09:37)
[2021-09-11] MEDS: Escitalopram Oxalate 5 MG TABLET PO (09:37)
[2021-09-11] MEDS: 0.9 % Sodium Chloride Flush 3 ML SYRINGE IVFLUSH ×3 (09:38→21:54)
[2021-09-11] MEDS: dexAMETHasone sod phosphate 4 MG/ML VIAL 6 MG IVPUSH (09:38)
[2021-09-11 11:13] LABS: Glucose, Whole Blood 186 mg/dL (60-115)
--- NOTE | 2021-09-11 12:51 | HO.PM.IMPN ---
Subjective Subjective Date of Service: 09/11/21 Interval History: cc: cough, weakness interval history: about the same to slightly better today Cardiovascular Cardiovascular: Reports no additional cardiovascular complaints Respiratory Respiratory: Reports no additional respiratory complaints Physical Exam Vital Signs: Vital Signs: Last Vital Signs Temp 97.3 F 09/11/21 11:21 Pulse 70 09/11/21 11:21 Resp 20 09/11/21 11:21 BP 122/88 09/11/21 11:21 Pulse Ox 90 L 09/11/21 11:21 BMI result Body Mass Index 35.2 General: lethargic O X 3, ill appearing Resp:? diminished bilateral, no accessory muscles used CVS: S1,S2,RRR GI: soft, non tender, non distended Neuro:? motor grossly intact, lethargic Psych: appropriate affect, appropriate insight? Objective Data Active Medications Acetaminophen (Acetaminophen 325 Mg Tablet) 650 mg PO Q6H PRN PRN Reason: Pain, Mild (Pain Scale 1-3) Atorvastatin Calcium (Atorvastatin Calcium 20 Mg Tablet) 20 mg PO DAILY [facility] Last Admin: 09/11/21 09:37 Dose: 20 mg Documented by: ANSHUL Calcium Carbonate (Calcium Carbonate 500 Mg Tablet) 500 mg PO BID [facility] Last Admin: 09/11/21 09:37 Dose: 500 mg Documented by: ANSHUL Dexamethasone Sodium Phosphate (Dexamethasone Sod Phosphate 4 Mg/Ml Vial) 6 mg IVPUSH DAILY [facility] Last Admin: 09/11/21 09:38 Dose: 6 mg Documented by: ANSHUL Dextrose (Dextrose 50 % 25 Gm/50 Ml Vial) 25 gm IVPUSH Q15M PRN; Protocol PRN Reason: per Hypoglycemia Standing Ord. Escitalopram Oxalate (Escitalopram Oxalate 5 Mg Tablet) 5 mg PO DAILY [facility] Last Admin: 09/11/21 09:37 Dose: 5 mg Documented by: ANSHUL Glucose (Glucose Gel 15 Gm Gel..Gram.) 15 gm PO Q15M PRN; Protocol PRN Reason: per Hypoglycemia Standing Ord. Heparin Sodium (Porcine) (Heparin Sodium,Porcine 5,000 Unit/Ml Vial) 5,000 unit SUBCUT Q8H [facility] Last Admin: 09/11/21 12:45 Dose: 5,000 unit Documented by: ANSHUL Insulin Glargine (Insulin Glargine,Hum.Rec.Anlog 100 Unit/Ml 10 Ml Vial) 15 unit SUBCUT BEDTIME [facility] Last Admin: 09/10/21 20:59 Dose: 15 unit Documented by: CODY Insulin Human Lispro (Insulin Lispro 100 Unit/Ml 3 Ml Vial) 0 unit SUBCUT QIDACHS [facility]; Protocol Last Admin: 09/11/21 12:44 Dose: 2 unit Documented by: ANSHUL Insulin Human Lispro (Insulin Lispro 100 Unit/Ml 3 Ml Vial) 5 unit SUBCUT QIDACHS [facility] Last Admin: 09/11/21 12:45 Dose: 5 unit Documented by: ANSHUL Lorazepam (Lorazepam 0.5 Mg Tablet) 0.5 mg PO BID PRN PRN Reason: Anxiety Last Admin: 09/11/21 09:37 Dose: 0.5 mg Documented by: ANSHUL Pharmacy Consult (Consult Rx Perform Med Rec) 1 each MISCELLANE ONCE PRN PRN Reason: Consult order Sodium Chloride (0.9 % Sodium Chloride Flush 3 Ml Syringe) 3 ml IVFLUSH QSHIFT [facility] Last Admin: 09/11/21 09:38 Dose: 3 ml Documented by: ANSHUL Vitamin D (Cholecalciferol (Vitamin D3) 25 Mcg Tablet) 50 mcg PO DAILY [facility] Last Admin: 09/11/21 09:37 Dose: 50 mcg Documented by: ANSHUL Labs CBC & Chem 7: 09/11/21 05:26 09/11/21 05:26 Labs: Laboratory Results - last 24 hr 09/10/21 09/10/21 09/11/21 17:21 20:42 05:26 MCV 90.9 MCH 29.4 MCHC 32.3 RDW 13.2 Plt Count 363 MPV 9.8 Absolute Nucleated RBC 0.020 H Nucleated RBC % (auto) 0.2 D-Dimer High Sensitivty Anion Gap Estim Creat Clear Calc Estimated GFR POC Glucose 248 H 235 H Fasting Glucose Calcium Lactate Dehydrogenase C-Reactive Protein 09/11/21 09/11/21 09/11/21 05:26 05:26 07:20 MCV MCH MCHC RDW Plt Count MPV Absolute Nucleated RBC Nucleated RBC % (auto) D-Dimer High Sensitivty 3180 Anion Gap 14 Estim Creat Clear Calc 63.2 Estimated GFR > 60 POC Glucose 146 H Fasting Glucose 165 H Calcium 9.1 Lactate Dehydrogenase 485 H C-Reactive Protein 1.68 H 09/11/21 11:00 MCV MCH MCHC RDW Plt Count MPV Absolute Nucleated RBC Nucleated RBC % (auto) D-Dimer High Sensitivty Anion Gap Estim Creat Clear Calc Estimated GFR POC Glucose 186 H Fasting Glucose Calcium Lactate Dehydrogenase C-Reactive Protein Assessment and Plan (1) Pneumonia due to 2019 novel coronavirus: Status: Acute (2) AMY (acute kidney injury): Status: Acute (3) Hypoxia: Status: Acute Assessment and Plan: 66F with known covid, presented with cough, found to have significant hypoxia Acute hypoxic respiratory failure secondary to COVID pneumonia Decadron 6 mg Day 02/08 Wean O2 as tolerated Monitor prognostic labs - improving still requiring max high flow Patient is high risk due to obesity, diabetes, unvaccinated status ID appreciated, will start baricitinib hypernatremia resolved, dc d5w, monitor Acute kidney injury Likely hypovolemic resolved with hydration hold Arb and hydrochlorothiazide Monitor BMP Diabetes Insulin DVT PPX Heparin Quality Stroke Does the patient have a stroke diagnosis?: No VTE Prior VTE?: No VTE Risk Level:: Medical - moderate - high VTE Device Contraindication: Treatment Not Indicated VTE Drug Contraindication: N/A - Med Ordered
[2021-09-11 16:08] LABS: Glucose, Whole Blood 235 mg/dL (60-115)
[2021-09-11 20:00] LABS: Glucose, Whole Blood 270 mg/dL (60-115)
[2021-09-11] MEDS: Insulin Glargine,Hum.rec.anlog 100 UNIT/ML 10 ML VIAL 15 UNIT SUBCUT (21:53)
[2021-09-12] VITALS (13 sets, daily range): BP systolic 116–155; BP diastolic 57–77; PULSE 61–81; RESP 18–20; TEMP 36.4–36.7; O2SAT 81–99
[2021-09-12] MEDS: Heparin Sodium,Porcine 5,000 UNIT/ML VIAL 5000 UNIT SUBCUT ×3 (06:08→21:45)
[2021-09-12 06:33] LABS: Hematocrit 27.3 % (37.0-47.0); Mean Corpuscular Hemoglobin 29.4 pg (27.0-33.0); Mean Corpuscular Volume 89.2 fL (80.0-98.0); Mean Platelet Volume 10.3 fL (9.4-12.3); NRBC Pct Auto 0.2 /100WBC (0.0-0.2); Platelet Count 401 X10*3/uL (160-400); Red Blood Count 3.06 X10*6/uL (4.20-5.50); Red Cell Distribution Width 13.2 % (11.0-16.0); White Blood Count 12.2 X10*3/uL (4.8-10.8)
[2021-09-12 06:40] LABS: Anion Gap 15 (12-20); Blood Urea Nitrogen 33 mg/dL (9-16); C Reactive Protein 3.45 mg/dL (< or = 0.50); Calcium 9.4 mg/dL (8.4-10.2); Carbon Dioxide 23 mmol/L (22-29); Chloride 107 mmol/L (96-108); Creatinine Clr Calc Pharmacy 64.7; Estimated Glomerular Filt Rate > 60; Glucose Fasting 98 mg/dL (60-99); Sodium 141 mmol/L (135-145)
[2021-09-12 06:53] LABS: Lactate Dehydrogenase 496 U/L (122-220)
[2021-09-12 07:18] LABS: Glucose, Whole Blood 102 mg/dL (60-115)
[2021-09-12] MEDS: 0.9 % Sodium Chloride Flush 3 ML SYRINGE IVFLUSH ×3 (07:48→21:46)
[2021-09-12] MEDS: dexAMETHasone sod phosphate 4 MG/ML VIAL 6 MG IVPUSH (07:48)
[2021-09-12] MEDS: Insulin Lispro 100 UNIT/ML 3 ML VIAL SUBCUT ×6 (07:49→21:45)
[2021-09-12] MEDS: Cholecalciferol (Vitamin D3) 25 MCG TABLET 50 MCG PO (07:49)
[2021-09-12] MEDS: Atorvastatin Calcium 20 MG TABLET PO (07:49)
[2021-09-12] MEDS: Escitalopram Oxalate 5 MG TABLET PO (07:49)
[2021-09-12 10:55] LABS: Glucose, Whole Blood 115 mg/dL (60-115)
--- NOTE | 2021-09-12 11:38 | MHC.CM.PN ---
Per ROUNDS discussion, Patient is not yet medically cleared for dc (IV Decadron, high flow O2);home is the goal for dc and CM will continue to follow for possible need to adjust the dc plan.
--- NOTE | 2021-09-12 13:31 | HO.PM.IMPN ---
Subjective Subjective Date of Service: 09/12/21 Interval History: the patient was seen and evaluated this morning Laying in bed, feels very tired and has no energy decreased appetite and oral intake No reported other overnight events. Review of Systems Constitutional: report generalized weakness Eyes: denies blurry vision ENT: denies sore throat CVS: denies chest pain Respiratory: report dyspnea and difficulty breathing GI: no abdominal pain : denies dysuria MSK: denies neck pain Skin: denies rash Neuro: denies specific motor weakness Physical Exam Vital Signs: Vital Signs: Last Vital Signs Temp 97.5 F 09/12/21 07:27 Pulse 78 09/12/21 11:00 Resp 20 09/12/21 12:51 BP 124/58 L 09/12/21 11:00 Pulse Ox 96 09/12/21 11:00 BMI result Body Mass Index 35.2 Const: Other: Constitutional : Alert, in mild respiratory distress Neck : Normal inspection, Supple Cardiovascular : no JVP, no lower extremity edema Respiratory : chest wall moving bilaterally, in mild distress, on high-flow oxygen Gastrointestinal: soft, lax, Normal bowel sounds, Non tender Skin : Warm, Dry Neurological : Alert & oriented x3, No focal deficit Objective Data Active Medications Acetaminophen (Acetaminophen 325 Mg Tablet) 650 mg PO Q6H PRN PRN Reason: Pain, Mild (Pain Scale 1-3) Atorvastatin Calcium (Atorvastatin Calcium 20 Mg Tablet) 20 mg PO DAILY [facility] Last Admin: 09/12/21 07:49 Dose: 20 mg Documented by: MAYE Baricitinib (Baricitinib 2 Mg Tablet) 4 mg PO DAILY [facility] Stop: 09/25/21 09:01 Last Admin: 09/12/21 07:48 Dose: 4 mg Documented by: MAYE Calcium Carbonate (Calcium Carbonate 500 Mg Tablet) 500 mg PO BID [facility] Last Admin: 09/12/21 07:49 Dose: 500 mg Documented by: MAYE Dexamethasone Sodium Phosphate (Dexamethasone Sod Phosphate 4 Mg/Ml Vial) 6 mg IVPUSH DAILY [facility] Last Admin: 09/12/21 07:48 Dose: 6 mg Documented by: MAYE Dextrose (Dextrose 50 % 25 Gm/50 Ml Vial) 25 gm IVPUSH Q15M PRN; Protocol PRN Reason: per Hypoglycemia Standing Ord. Escitalopram Oxalate (Escitalopram Oxalate 5 Mg Tablet) 5 mg PO DAILY [facility] Last Admin: 09/12/21 07:49 Dose: 5 mg Documented by: MAYE Glucose (Glucose Gel 15 Gm Gel..Gram.) 15 gm PO Q15M PRN; Protocol PRN Reason: per Hypoglycemia Standing Ord. Heparin Sodium (Porcine) (Heparin Sodium,Porcine 5,000 Unit/Ml Vial) 5,000 unit SUBCUT Q8H [facility] Last Admin: 09/12/21 06:08 Dose: 5,000 unit Documented by: ANTOIC Insulin Glargine (Insulin Glargine,Hum.Rec.Anlog 100 Unit/Ml 10 Ml Vial) 15 unit SUBCUT BEDTIME [facility] Last Admin: 09/11/21 21:53 Dose: 15 unit Documented by: ANTOIC Insulin Human Lispro (Insulin Lispro 100 Unit/Ml 3 Ml Vial) 0 unit SUBCUT QIDACHS [facility]; Protocol Last Admin: 09/12/21 11:52 Dose: Not Given Documented by: MAYE Non-Admin Reason: No Insulin Coverage Insulin Human Lispro (Insulin Lispro 100 Unit/Ml 3 Ml Vial) 5 unit SUBCUT QIDACHS [facility] Last Admin: 09/12/21 12:04 Dose: 5 unit Documented by: MAYE Lorazepam (Lorazepam 0.5 Mg Tablet) 0.5 mg PO BID PRN PRN Reason: Anxiety Last Admin: 09/11/21 09:37 Dose: 0.5 mg Documented by: ANSHUL Pharmacy Consult (Consult Rx Perform Med Rec) 1 each MISCELLANE ONCE PRN PRN Reason: Consult order Sodium Chloride (0.9 % Sodium Chloride Flush 3 Ml Syringe) 3 ml IVFLUSH QSHIFT [facility] Last Admin: 09/12/21 07:48 Dose: 3 ml Documented by: MAYE Vitamin D (Cholecalciferol (Vitamin D3) 25 Mcg Tablet) 50 mcg PO DAILY [facility] Last Admin: 09/12/21 07:49 Dose: 50 mcg Documented by: MAYE Labs CBC & Chem 7: 09/12/21 05:54 09/12/21 05:54 Labs: Laboratory Results - last 24 hr 09/11/21 09/11/21 09/12/21 15:55 19:49 05:54 MCV 89.2 MCH 29.4 MCHC 33.0 RDW 13.2 Plt Count 401 H MPV 10.3 Absolute Nucleated RBC 0.020 H Nucleated RBC % (auto) 0.2 Anion Gap Estim Creat Clear Calc Estimated GFR POC Glucose 235 H 270 H Fasting Glucose Calcium Lactate Dehydrogenase C-Reactive Protein 09/12/21 09/12/21 09/12/21 05:54 07:10 10:50 MCV MCH MCHC RDW Plt Count MPV Absolute Nucleated RBC Nucleated RBC % (auto) Anion Gap 15 Estim Creat Clear Calc 64.7 Estimated GFR > 60 POC Glucose 102 115 Fasting Glucose 98 Calcium 9.4 Lactate Dehydrogenase 496 H C-Reactive Protein 3.45 H Microbiology Microbiology Results: Microbiology 09/06/21 10:53 Blood Culture - Final Blood - Venous No growth after 5 days. 09/06/21 10:53 Blood Culture - Final Blood - Venous No growth after 5 days. Assessment and Plan (1) Pneumonia due to 2019 novel coronavirus: Status: Acute (2) Hypoxia: Status: Acute Assessment and Plan: 66F with known covid, presented with cough, found to have significant hypoxia Acute hypoxic respiratory failure secondary to COVID pneumonia Decadron 6 mg Day 03/10 Wean O2 as tolerated Monitor prognostic labs - improving still requiring max high flow Patient is high risk due to obesity, diabetes, unvaccinated status ID appreciated, continue baricitinib hypernatremia resolved, dc d5w, monitor Acute kidney injury Likely hypovolemic resolved with hydration hold Arb and hydrochlorothiazide Monitor BMP Diabetes Insulin DVT PPX Heparin Quality Stroke Does the patient have a stroke diagnosis?: No VTE Prior VTE?: No VTE Risk Level:: Medical - moderate - high VTE Device Contraindication: Treatment Not Indicated VTE Drug Contraindication: N/A - Med Ordered
[2021-09-12 16:36] LABS: Glucose, Whole Blood 220 mg/dL (60-115)
[2021-09-12 21:09] LABS: Glucose, Whole Blood 183 mg/dL (60-115)
[2021-09-12] MEDS: Insulin Glargine,Hum.rec.anlog 100 UNIT/ML 10 ML VIAL 15 UNIT SUBCUT (21:46)
[2021-09-13] VITALS (10 sets, daily range): BP systolic 110–135; BP diastolic 56–77; PULSE 68–79; RESP 16–20; TEMP 36.4–37.2; O2SAT 88–97
[2021-09-13] MEDS: Heparin Sodium,Porcine 5,000 UNIT/ML VIAL 5000 UNIT SUBCUT ×3 (05:23→21:14)
[2021-09-13 07:16] LABS: Hematocrit 27.4 % (37.0-47.0); Hemoglobin 9.1 g/dl (12.0-16.0); Mean Corpuscular HGB Conc 33.2 g/dl (31.0-35.0); Mean Corpuscular Hemoglobin 29.9 pg (27.0-33.0); Mean Corpuscular Volume 90.1 fL (80.0-98.0); Mean Platelet Volume 10.2 fL (9.4-12.3); Platelet Count 385 X10*3/uL (160-400); Red Blood Count 3.04 X10*6/uL (4.20-5.50); Red Cell Distribution Width 13.7 % (11.0-16.0); White Blood Count 13.8 X10*3/uL (4.8-10.8)
[2021-09-13 07:32] LABS: Anion Gap 14 (12-20); Blood Urea Nitrogen 40 mg/dL (9-16); Calcium 9.3 mg/dL (8.4-10.2); Carbon Dioxide 23 mmol/L (22-29); Chloride 111 mmol/L (96-108); Creatinine Clr Calc Pharmacy 65.5; Estimated Glomerular Filt Rate > 60; Glucose Random 80 mg/dL (60-115); Potassium 3.8 mmol/L (3.3-5.1); Sodium 144 mmol/L (135-145)
[2021-09-13 08:16] LABS: Glucose, Whole Blood 78 mg/dL (60-115)
[2021-09-13] MEDS: 0.9 % Sodium Chloride Flush 3 ML SYRINGE IVFLUSH ×3 (10:37→21:16)
[2021-09-13] MEDS: Cholecalciferol (Vitamin D3) 25 MCG TABLET 50 MCG PO (10:37)
[2021-09-13] MEDS: Escitalopram Oxalate 5 MG TABLET PO (10:37)
[2021-09-13] MEDS: Atorvastatin Calcium 20 MG TABLET PO (10:37)
[2021-09-13] MEDS: dexAMETHasone sod phosphate 4 MG/ML VIAL 6 MG IVPUSH (10:37)
[2021-09-13 11:23] LABS: Glucose, Whole Blood 102 mg/dL (60-115)
--- NOTE | 2021-09-13 12:22 | P.PNIM_ITS ---
Subjective Subjective Date of Service: 09/13/21 Interval History: the patient was seen and evaluated this morning Laying in bed, feels mild improvement since yesterday Eating little bit better today No reported other overnight events. Review of Systems Constitutional: report generalized weakness Eyes: denies blurry vision ENT: denies sore throat CVS: denies chest pain Respiratory: report dyspnea and difficulty breathing GI: no abdominal pain : denies dysuria MSK: denies neck pain Skin: denies rash Neuro: denies specific motor weakness Physical Exam Vital Signs: Vital Signs: Last Vital Signs Temp 98.9 F 09/13/21 11:04 Pulse 74 09/13/21 11:04 Resp 18 09/13/21 11:47 BP 110/56 L 09/13/21 11:04 Pulse Ox 94 09/13/21 11:04 BMI result Body Mass Index 35.2 Const: Other: Constitutional : Alert, in mild respiratory distress Neck : Normal inspection, Supple Cardiovascular : no JVP, no lower extremity edema Respiratory : chest wall moving bilaterally, in mild distress, on high-flow oxygen and non-rebreather Gastrointestinal: soft, lax, Normal bowel sounds, Non tender Skin : Warm, Dry Neurological : Alert & oriented x3, No focal deficit Objective Data Active Medications Acetaminophen (Acetaminophen 325 Mg Tablet) 650 mg PO Q6H PRN PRN Reason: Pain, Mild (Pain Scale 1-3) Atorvastatin Calcium (Atorvastatin Calcium 20 Mg Tablet) 20 mg PO DAILY [facility] Last Admin: 09/13/21 10:37 Dose: 20 mg Documented by: VONNIE Baricitinib (Baricitinib 2 Mg Tablet) 4 mg PO DAILY [facility] Stop: 09/25/21 09:01 Last Admin: 09/13/21 10:37 Dose: 4 mg Documented by: VONNIE Calcium Carbonate (Calcium Carbonate 500 Mg Tablet) 500 mg PO BID [facility] Last Admin: 09/13/21 10:37 Dose: 500 mg Documented by: VONNIE Dexamethasone Sodium Phosphate (Dexamethasone Sod Phosphate 4 Mg/Ml Vial) 6 mg IVPUSH DAILY [facility] Last Admin: 09/13/21 10:37 Dose: 6 mg Documented by: VONNIE Dextrose (Dextrose 50 % 25 Gm/50 Ml Vial) 25 gm IVPUSH Q15M PRN; Protocol PRN Reason: per Hypoglycemia Standing Ord. Escitalopram Oxalate (Escitalopram Oxalate 5 Mg Tablet) 5 mg PO DAILY [facility] Last Admin: 09/13/21 10:37 Dose: 5 mg Documented by: VONNIE Glucose (Glucose Gel 15 Gm Gel..Gram.) 15 gm PO Q15M PRN; Protocol PRN Reason: per Hypoglycemia Standing Ord. Heparin Sodium (Porcine) (Heparin Sodium,Porcine 5,000 Unit/Ml Vial) 5,000 unit SUBCUT Q8H [facility] Last Admin: 09/13/21 05:23 Dose: 5,000 unit Documented by: SYED Insulin Glargine (Insulin Glargine,Hum.Rec.Anlog 100 Unit/Ml 10 Ml Vial) 15 unit SUBCUT BEDTIME [facility] Last Admin: 09/12/21 21:46 Dose: 15 unit Documented by: SYED Insulin Human Lispro (Insulin Lispro 100 Unit/Ml 3 Ml Vial) 0 unit SUBCUT QIDACHS [facility]; Protocol Last Admin: 09/13/21 11:45 Dose: Not Given Documented by: VONNIE Non-Admin Reason: No Insulin Coverage Insulin Human Lispro (Insulin Lispro 100 Unit/Ml 3 Ml Vial) 5 unit SUBCUT QIDACHS [facility] Last Admin: 09/13/21 08:07 Dose: Not Given Documented by: VONNIE Non-Admin Reason: POC 78 Lorazepam (Lorazepam 0.5 Mg Tablet) 0.5 mg PO BID PRN PRN Reason: Anxiety Last Admin: 09/11/21 09:37 Dose: 0.5 mg Documented by: ANSHUL Pharmacy Consult (Consult Rx Perform Med Rec) 1 each MISCELLANE ONCE PRN PRN Reason: Consult order Sodium Chloride (0.9 % Sodium Chloride Flush 3 Ml Syringe) 3 ml IVFLUSH QSHIFT [facility] Last Admin: 09/13/21 10:37 Dose: 3 ml Documented by: VONNIE Vitamin D (Cholecalciferol (Vitamin D3) 25 Mcg Tablet) 50 mcg PO DAILY [facility] Last Admin: 09/13/21 10:37 Dose: 50 mcg Documented by: VONNIE Labs CBC & Chem 7: 09/13/21 06:44 09/13/21 06:44 Labs: Laboratory Results - last 24 hr 09/12/21 09/12/21 09/13/21 15:46 21:03 06:44 MCV 90.1 MCH 29.9 MCHC 33.2 RDW 13.7 Plt Count 385 MPV 10.2 Absolute Nucleated RBC 0.000 Nucleated RBC % (auto) 0.0 Anion Gap Estim Creat Clear Calc Estimated GFR POC Glucose 220 H 183 H Random Glucose Calcium 09/13/21 09/13/21 09/13/21 06:44 07:31 11:06 MCV MCH MCHC RDW Plt Count MPV Absolute Nucleated RBC Nucleated RBC % (auto) Anion Gap 14 Estim Creat Clear Calc 65.5 Estimated GFR > 60 POC Glucose 78 102 Random Glucose 80 Calcium 9.3 Assessment and Plan (1) Pneumonia due to 2019 novel coronavirus: Status: Acute (2) Hypoxia: Status: Acute Assessment and Plan: 66F with known covid, presented with cough, found to have significant hypoxia Acute hypoxic respiratory failure secondary to COVID pneumonia Decadron 6 mg Day 03/10 Wean O2 as tolerated Monitor prognostic labs - improving still requiring max high flow Patient is high risk due to obesity, diabetes, unvaccinated status ID appreciated, continue baricitinib hypernatremia resolved, dc d5w, monitor Acute kidney injury Likely hypovolemic resolved with hydration hold Arb and hydrochlorothiazide Monitor BMP Diabetes Insulin DVT PPX Heparin Quality Stroke Does the patient have a stroke diagnosis?: No VTE Prior VTE?: No VTE Risk Level:: Medical - moderate - high VTE Device Contraindication: Treatment Not Indicated VTE Drug Contraindication: N/A - Med Ordered
[2021-09-13 16:34] LABS: Glucose, Whole Blood 272 mg/dL (60-115)
[2021-09-13] MEDS: Insulin Lispro 100 UNIT/ML 3 ML VIAL SUBCUT ×4 (17:34→21:15)
[2021-09-13 21:06] LABS: Glucose, Whole Blood 181 mg/dL (60-115)
[2021-09-13] MEDS: Insulin Glargine,Hum.rec.anlog 100 UNIT/ML 10 ML VIAL 15 UNIT SUBCUT (21:15)
[2021-09-14] VITALS (11 sets, daily range): BP systolic 114–131; BP diastolic 63–76; PULSE 60–78; RESP 18–20; TEMP 36.5–37.3; O2SAT 92–100
[2021-09-14] MEDS: Heparin Sodium,Porcine 5,000 UNIT/ML VIAL 5000 UNIT SUBCUT ×3 (05:45→21:12)
[2021-09-14 07:40] LABS: Glucose, Whole Blood 81 mg/dL (60-115)
[2021-09-14] MEDS: dexAMETHasone sod phosphate 4 MG/ML VIAL 6 MG IVPUSH (08:25)
[2021-09-14] MEDS: Cholecalciferol (Vitamin D3) 25 MCG TABLET 50 MCG PO (08:26)
[2021-09-14] MEDS: Atorvastatin Calcium 20 MG TABLET PO (08:26)
[2021-09-14] MEDS: 0.9 % Sodium Chloride Flush 3 ML SYRINGE IVFLUSH ×3 (08:26→21:12)
[2021-09-14] MEDS: Escitalopram Oxalate 5 MG TABLET PO (08:26)
[2021-09-14] MEDS: Insulin Lispro 100 UNIT/ML 3 ML VIAL SUBCUT ×6 (08:26→21:11)
[2021-09-14 11:44] LABS: Glucose, Whole Blood 127 mg/dL (60-115)
--- NOTE | 2021-09-14 13:28 | HO.PM.IMPN ---
Subjective Subjective Date of Service: 09/14/21 Interval History: the patient was seen and evaluated this morning Laying in bed, feels mild improvement Decreased oxygen supplement to high-flow only today Eating little bit better today No reported other overnight events. Review of Systems Constitutional: report generalized weakness Eyes: denies blurry vision ENT: denies sore throat CVS: denies chest pain Respiratory: report dyspnea and difficulty breathing GI: no abdominal pain : denies dysuria MSK: denies neck pain Skin: denies rash Neuro: denies specific motor weakness Physical Exam Vital Signs: Vital Signs: Last Vital Signs Temp 97.8 F 09/14/21 11:39 Pulse 71 09/14/21 11:39 Resp 18 09/14/21 12:18 BP 114/64 09/14/21 11:39 Pulse Ox 92 09/14/21 11:39 BMI result Body Mass Index 35.2 Const: Other: Constitutional : Alert, in mild respiratory distress Neck : Normal inspection, Supple Cardiovascular : no JVP, no lower extremity edema Respiratory : chest wall moving bilaterally, in mild distress, on high-flow oxygen Gastrointestinal: soft, lax, Normal bowel sounds, Non tender Skin : Warm, Dry Neurological : Alert & oriented x3, No focal deficit Objective Data Active Medications Acetaminophen (Acetaminophen 325 Mg Tablet) 650 mg PO Q6H PRN PRN Reason: Pain, Mild (Pain Scale 1-3) Atorvastatin Calcium (Atorvastatin Calcium 20 Mg Tablet) 20 mg PO DAILY [facility] Last Admin: 09/14/21 08:26 Dose: 20 mg Documented by: VONNIE Baricitinib (Baricitinib 2 Mg Tablet) 4 mg PO DAILY [facility] Stop: 09/25/21 09:01 Last Admin: 09/14/21 08:26 Dose: 4 mg Documented by: VONNIE Calcium Carbonate (Calcium Carbonate 500 Mg Tablet) 500 mg PO BID [facility] Last Admin: 09/14/21 08:26 Dose: 500 mg Documented by: VONNIE Dexamethasone Sodium Phosphate (Dexamethasone Sod Phosphate 4 Mg/Ml Vial) 6 mg IVPUSH DAILY [facility] Last Admin: 09/14/21 08:25 Dose: 6 mg Documented by: VONNIE Dextrose (Dextrose 50 % 25 Gm/50 Ml Vial) 25 gm IVPUSH Q15M PRN; Protocol PRN Reason: per Hypoglycemia Standing Ord. Escitalopram Oxalate (Escitalopram Oxalate 5 Mg Tablet) 5 mg PO DAILY [facility] Last Admin: 09/14/21 08:26 Dose: 5 mg Documented by: VONNIE Glucose (Glucose Gel 15 Gm Gel..Gram.) 15 gm PO Q15M PRN; Protocol PRN Reason: per Hypoglycemia Standing Ord. Heparin Sodium (Porcine) (Heparin Sodium,Porcine 5,000 Unit/Ml Vial) 5,000 unit SUBCUT Q8H [facility] Last Admin: 09/14/21 05:45 Dose: 5,000 unit Documented by: SHAWNA Insulin Glargine (Insulin Glargine,Hum.Rec.Anlog 100 Unit/Ml 10 Ml Vial) 15 unit SUBCUT BEDTIME [facility] Last Admin: 09/13/21 21:15 Dose: 15 unit Documented by: SHAWNA Insulin Human Lispro (Insulin Lispro 100 Unit/Ml 3 Ml Vial) 0 unit SUBCUT QIDACHS [facility]; Protocol Last Admin: 09/14/21 12:09 Dose: Not Given Documented by: VONNIE Non-Admin Reason: No Insulin Coverage Insulin Human Lispro (Insulin Lispro 100 Unit/Ml 3 Ml Vial) 5 unit SUBCUT QIDACHS [facility] Last Admin: 09/14/21 12:08 Dose: 5 unit Documented by: VONNIE Lorazepam (Lorazepam 0.5 Mg Tablet) 0.5 mg PO BID PRN PRN Reason: Anxiety Last Admin: 09/11/21 09:37 Dose: 0.5 mg Documented by: ANSHUL Pharmacy Consult (Consult Rx Perform Med Rec) 1 each MISCELLANE ONCE PRN PRN Reason: Consult order Sodium Chloride (0.9 % Sodium Chloride Flush 3 Ml Syringe) 3 ml IVFLUSH QSHIFT [facility] Last Admin: 09/14/21 08:26 Dose: 3 ml Documented by: VONNIE Vitamin D (Cholecalciferol (Vitamin D3) 25 Mcg Tablet) 50 mcg PO DAILY [facility] Last Admin: 09/14/21 08:26 Dose: 50 mcg Documented by: VONNIE Labs CBC & Chem 7: 09/13/21 06:44 09/13/21 06:44 Labs: Laboratory Results - last 24 hr 09/13/21 09/13/21 09/14/21 16:30 21:01 07:20 POC Glucose 272 H 181 H 81 09/14/21 11:38 POC Glucose 127 H Assessment and Plan (1) Pneumonia due to 2019 novel coronavirus: Status: Acute (2) AMY (acute kidney injury): Status: Acute (3) Hypoxia: Status: Acute Assessment and Plan: 66F with known covid, presented with cough, found to have significant hypoxia Acute hypoxic respiratory failure secondary to COVID pneumonia unvaccinated Decadron 6 mg Day 04/10 Wean O2 as tolerated Monitor prognostic labs - improving Decrease oxygen requirement to high-flow only, to wean down as tolerated ID appreciated, continue baricitinib hypernatremia resolved, dc d5w, monitor Acute kidney injury Likely hypovolemic resolved with hydration hold Arb and hydrochlorothiazide Monitor BMP Diabetes Insulin DVT PPX Heparin Quality Stroke Does the patient have a stroke diagnosis?: No VTE Prior VTE?: No VTE Risk Level:: Medical - moderate - high VTE Device Contraindication: Treatment Not Indicated VTE Drug Contraindication: N/A - Med Ordered
[2021-09-14 16:22] LABS: Glucose, Whole Blood 256 mg/dL (60-115)
[2021-09-14 20:26] LABS: Glucose, Whole Blood 159 mg/dL (60-115)
[2021-09-14] MEDS: Insulin Glargine,Hum.rec.anlog 100 UNIT/ML 10 ML VIAL 15 UNIT SUBCUT (21:11)
[2021-09-15] VITALS (12 sets, daily range): BP systolic 115–134; BP diastolic 65–70; PULSE 61–79; RESP 18–20; TEMP 36.4–36.7; O2SAT 90–100
[2021-09-15] MEDS: Heparin Sodium,Porcine 5,000 UNIT/ML VIAL 5000 UNIT SUBCUT ×3 (05:39→21:59)
[2021-09-15 06:31] LABS: Hematocrit 30.9 % (37.0-47.0); Hemoglobin 9.8 g/dl (12.0-16.0); Mean Corpuscular HGB Conc 31.7 g/dl (31.0-35.0); Mean Corpuscular Hemoglobin 29.4 pg (27.0-33.0); Mean Corpuscular Volume 92.8 fL (80.0-98.0); Mean Platelet Volume 11.9 fL (9.4-12.3); Platelet Count 282 X10*3/uL (160-400); Red Blood Count 3.33 X10*6/uL (4.20-5.50); Red Cell Distribution Width 14.1 % (11.0-16.0); White Blood Count 16.3 X10*3/uL (4.8-10.8)
[2021-09-15 06:56] LABS: Anion Gap 17 (12-20); Blood Urea Nitrogen 46 mg/dL (9-16); Calcium 9.7 mg/dL (8.4-10.2); Carbon Dioxide 18 mmol/L (22-29); Chloride 112 mmol/L (96-108); Creatinine Clr Calc Pharmacy 65.5; Estimated Glomerular Filt Rate > 60; Glucose Random 84 mg/dL (60-115); Potassium 4.7 mmol/L (3.3-5.1); Sodium 142 mmol/L (135-145)
[2021-09-15 08:00] LABS: Glucose, Whole Blood 87 mg/dL (60-115)
[2021-09-15] MEDS: dexAMETHasone sod phosphate 4 MG/ML VIAL 6 MG IVPUSH (09:18)
[2021-09-15] MEDS: Escitalopram Oxalate 5 MG TABLET PO (09:18)
[2021-09-15] MEDS: Atorvastatin Calcium 20 MG TABLET PO (09:18)
[2021-09-15] MEDS: Cholecalciferol (Vitamin D3) 25 MCG TABLET 50 MCG PO (09:18)
[2021-09-15] MEDS: 0.9 % Sodium Chloride Flush 3 ML SYRINGE IVFLUSH ×3 (09:19→21:59)
[2021-09-15] MEDS: Insulin Lispro 100 UNIT/ML 3 ML VIAL SUBCUT ×6 (09:19→21:58)
[2021-09-15 11:29] LABS: Glucose, Whole Blood 114 mg/dL (60-115)
--- NOTE | 2021-09-15 13:43 | P.PNIM_ITS ---
Subjective Subjective Date of Service: 09/15/21 Interval History: the patient was seen and evaluated this morning Laying in bed, feels mild improvement Decreased oxygen supplement to high-flow, reporting less shortness of breath Eating little bit better today No reported other overnight events. Review of Systems Constitutional: report generalized weakness Eyes: denies blurry vision ENT: denies sore throat CVS: denies chest pain Respiratory: report Less dyspnea and difficulty breathing GI: no abdominal pain : denies dysuria MSK: denies neck pain Skin: denies rash Neuro: denies specific motor weakness Physical Exam Vital Signs: Vital Signs: Last Vital Signs Temp 97.8 F 09/15/21 11:18 Pulse 73 09/15/21 11:18 Resp 18 09/15/21 12:35 BP 124/70 09/15/21 11:18 Pulse Ox 93 09/15/21 11:18 BMI result Body Mass Index 35.2 Const: Other: Constitutional : Alert, in mild respiratory distress Neck : Normal inspection, Supple Cardiovascular : no JVP, no lower extremity edema Respiratory : chest wall moving bilaterally, in mild distress, on high-flow oxygen Gastrointestinal: soft, lax, Normal bowel sounds, Non tender Skin : Warm, Dry Neurological : Alert & oriented x3, No focal deficit Objective Data Active Medications Acetaminophen (Acetaminophen 325 Mg Tablet) 650 mg PO Q6H PRN PRN Reason: Pain, Mild (Pain Scale 1-3) Atorvastatin Calcium (Atorvastatin Calcium 20 Mg Tablet) 20 mg PO DAILY [facility] Last Admin: 09/15/21 09:18 Dose: 20 mg Documented by: MAYE Baricitinib (Baricitinib 2 Mg Tablet) 4 mg PO DAILY [facility] Stop: 09/25/21 09:01 Last Admin: 09/15/21 09:18 Dose: 4 mg Documented by: MAYE Calcium Carbonate (Calcium Carbonate 500 Mg Tablet) 500 mg PO BID [facility] Last Admin: 09/15/21 09:18 Dose: 500 mg Documented by: MAYE Dexamethasone Sodium Phosphate (Dexamethasone Sod Phosphate 4 Mg/Ml Vial) 6 mg IVPUSH DAILY [facility] Last Admin: 09/15/21 09:18 Dose: 6 mg Documented by: MAYE Dextrose (Dextrose 50 % 25 Gm/50 Ml Vial) 25 gm IVPUSH Q15M PRN; Protocol PRN Reason: per Hypoglycemia Standing Ord. Escitalopram Oxalate (Escitalopram Oxalate 5 Mg Tablet) 5 mg PO DAILY [facility] Last Admin: 09/15/21 09:18 Dose: 5 mg Documented by: MAYE Glucose (Glucose Gel 15 Gm Gel..Gram.) 15 gm PO Q15M PRN; Protocol PRN Reason: per Hypoglycemia Standing Ord. Heparin Sodium (Porcine) (Heparin Sodium,Porcine 5,000 Unit/Ml Vial) 5,000 unit SUBCUT Q8H [facility] Last Admin: 09/15/21 05:39 Dose: 5,000 unit Documented by: ANTOIC Insulin Glargine (Insulin Glargine,Hum.Rec.Anlog 100 Unit/Ml 10 Ml Vial) 15 unit SUBCUT BEDTIME [facility] Last Admin: 09/14/21 21:11 Dose: 15 unit Documented by: ACOIC Insulin Human Lispro (Insulin Lispro 100 Unit/Ml 3 Ml Vial) 0 unit SUBCUT QIDACHS [facility]; Protocol Last Admin: 09/15/21 11:51 Dose: Not Given Documented by: MAYE Non-Admin Reason: No Insulin Coverage Insulin Human Lispro (Insulin Lispro 100 Unit/Ml 3 Ml Vial) 5 unit SUBCUT QIDACHS [facility] Last Admin: 09/15/21 12:04 Dose: 5 unit Documented by: MAYE Lorazepam (Lorazepam 0.5 Mg Tablet) 0.5 mg PO BID PRN PRN Reason: Anxiety Last Admin: 09/11/21 09:37 Dose: 0.5 mg Documented by: ANSHUL Pharmacy Consult (Consult Rx Perform Med Rec) 1 each MISCELLANE ONCE PRN PRN Reason: Consult order Sodium Chloride (0.9 % Sodium Chloride Flush 3 Ml [facility]) [facility] Admin: 09/15/21 09:19 Dose: 3 ml Documented by: MAYE Vitamin D (Cholecalciferol (Vitamin D3) 25 Mcg Tablet) 50 mcg PO DAILY [facility] Last Admin: 09/15/21 09:18 Dose: 50 mcg Documented by: MAYE Labs CBC & Chem 7: 09/15/21 05:54 09/15/21 05:54 Labs: Laboratory Results - last 24 hr 09/14/21 09/14/21 09/15/21 16:12 20:12 05:54 MCV 92.8 MCH 29.4 MCHC 31.7 RDW 14.1 Plt Count 282 D MPV 11.9 Absolute Nucleated RBC 0.000 Nucleated RBC % (auto) 0.0 Anion Gap Estim Creat Clear Calc Estimated GFR POC Glucose 256 H 159 H Random Glucose Calcium 09/15/21 09/15/21 09/15/21 05:54 07:55 11:21 MCV MCH MCHC RDW Plt Count MPV Absolute Nucleated RBC Nucleated RBC % (auto) Anion Gap 17 Estim Creat Clear Calc 65.5 Estimated GFR > 60 POC Glucose 87 114 Random Glucose 84 Calcium 9.7 Assessment and Plan (1) Pneumonia due to 2019 novel coronavirus: Status: Acute (2) AMY (acute kidney injury): Status: Acute (3) Acute dehydration: Status: Acute Assessment and Plan: 66F with known covid, presented with cough, found to have significant hypoxia Acute hypoxic respiratory failure secondary to COVID pneumonia unvaccinated Decadron 6 mg Day 05/11 Wean O2 as tolerated Leukocytosis from steroids usage Monitor prognostic labs - improving Decrease oxygen requirement to high-flow only, to wean down as tolerated ID appreciated, continue baricitinib hypernatremia resolved,monitor Acute kidney injury Likely hypovolemic resolved with hydration hold Arb and hydrochlorothiazide Monitor BMP Diabetes Insulin DVT PPX Heparin Quality Stroke Does the patient have a stroke diagnosis?: No VTE Prior VTE?: No VTE Risk Level:: Medical - moderate - high VTE Device Contraindication: Treatment Not Indicated VTE Drug Contraindication: N/A - Med Ordered
[2021-09-15 16:52] LABS: Glucose, Whole Blood 203 mg/dL (60-115)
[2021-09-15 20:16] LABS: Glucose, Whole Blood 231 mg/dL (60-115)
[2021-09-15] MEDS: Insulin Glargine,Hum.rec.anlog 100 UNIT/ML 10 ML VIAL 15 UNIT SUBCUT (21:59)
[2021-09-16] VITALS (13 sets, daily range): BP systolic 112–125; BP diastolic 63–72; PULSE 57–78; RESP 18–22; TEMP 36.1–36.7; O2SAT 91–100
[2021-09-16] MEDS: Heparin Sodium,Porcine 5,000 UNIT/ML VIAL 5000 UNIT SUBCUT ×3 (05:52→21:56)
[2021-09-16 07:09] LABS: Anion Gap 16 (12-20); Blood Urea Nitrogen 42 mg/dL (9-16); Calcium 9.8 mg/dL (8.4-10.2); Carbon Dioxide 21 mmol/L (22-29); Chloride 109 mmol/L (96-108); Creatinine Clr Calc Pharmacy 65.5; Estimated Glomerular Filt Rate > 60; Glucose Random 89 mg/dL (60-115); Potassium 4.5 mmol/L (3.3-5.1); Sodium 141 mmol/L (135-145)
[2021-09-16 08:02] LABS: Glucose, Whole Blood 86 mg/dL (60-115)
[2021-09-16] MEDS: Cholecalciferol (Vitamin D3) 25 MCG TABLET 50 MCG PO (10:06)
[2021-09-16] MEDS: Escitalopram Oxalate 5 MG TABLET PO (10:07)
[2021-09-16] MEDS: Atorvastatin Calcium 20 MG TABLET PO (10:07)
[2021-09-16] MEDS: dexAMETHasone sod phosphate 4 MG/ML VIAL 6 MG IVPUSH (10:08)
[2021-09-16] MEDS: Insulin Lispro 100 UNIT/ML 3 ML VIAL SUBCUT ×6 (10:09→21:57)
[2021-09-16] MEDS: 0.9 % Sodium Chloride Flush 3 ML SYRINGE IVFLUSH ×3 (10:09→21:56)
[2021-09-16 10:46] LABS: Hematocrit 32.5 % (37.0-47.0); Hemoglobin 10.2 g/dl (12.0-16.0); Mean Corpuscular HGB Conc 31.4 g/dl (31.0-35.0); Mean Corpuscular Hemoglobin 29.6 pg (27.0-33.0); Mean Corpuscular Volume 94.2 fL (80.0-98.0); Mean Platelet Volume 11.4 fL (9.4-12.3); Platelet Count 409 X10*3/uL (160-400); Red Blood Count 3.45 X10*6/uL (4.20-5.50); Red Cell Distribution Width 14.2 % (11.0-16.0); White Blood Count 17.8 X10*3/uL (4.8-10.8)
--- NOTE | 2021-09-16 11:23 | P.PNIM_ITS ---
Subjective Subjective Date of Service: 09/16/21 Interval History: f/u on covid with hypOxia, still hypoxic on high flow and only sating about 92 Review of Systems no fever +sob Physical Exam Vital Signs: Vital Signs: Last Vital Signs Temp 98.1 F 09/16/21 08:00 Pulse 70 09/16/21 08:00 Resp 18 09/16/21 11:14 BP 125/66 09/16/21 08:00 Pulse Ox 94 09/16/21 08:00 BMI result Body Mass Index 35.2 Const: Other: Constitutional : Alert, in mild respiratory distress Neck : Normal inspection, Supple Cardiovascular : no JVP, no lower extremity edema Respiratory : chest wall moving bilaterally, in mild distress, on high-flow oxygen Gastrointestinal: soft, lax, Normal bowel sounds, Non tender Skin : Warm, Dry Neurological : Alert & oriented x3, No focal deficit Objective Data Active Medications Acetaminophen (Acetaminophen 325 Mg Tablet) 650 mg PO Q6H PRN PRN Reason: Pain, Mild (Pain Scale 1-3) Atorvastatin Calcium (Atorvastatin Calcium 20 Mg Tablet) 20 mg PO DAILY [facility] Last Admin: 09/16/21 10:07 Dose: 20 mg Documented by: ALEC Baricitinib (Baricitinib 2 Mg Tablet) 4 mg PO DAILY [facility] Stop: 09/25/21 09:01 Last Admin: 09/16/21 10:08 Dose: 4 mg Documented by: ALEC Calcium Carbonate (Calcium Carbonate 500 Mg Tablet) 500 mg PO BID [facility] Last Admin: 09/16/21 10:08 Dose: 500 mg Documented by: ALEC Dexamethasone Sodium Phosphate (Dexamethasone Sod Phosphate 4 Mg/Ml Vial) 6 mg IVPUSH DAILY [facility] Last Admin: 09/16/21 10:08 Dose: 6 mg Documented by: ALEC Dextrose (Dextrose 50 % 25 Gm/50 Ml Vial) 25 gm IVPUSH Q15M PRN; Protocol PRN Reason: per Hypoglycemia Standing Ord. Escitalopram Oxalate (Escitalopram Oxalate 5 Mg Tablet) 5 mg PO DAILY [facility] Last Admin: 09/16/21 10:07 Dose: 5 mg Documented by: ALEC Glucose (Glucose Gel 15 Gm Gel..Gram.) 15 gm PO Q15M PRN; Protocol PRN Reason: per Hypoglycemia Standing Ord. Heparin Sodium (Porcine) (Heparin Sodium,Porcine 5,000 Unit/Ml Vial) 5,000 unit SUBCUT Q8H [facility] Last Admin: 09/16/21 05:52 Dose: 5,000 unit Documented by: JAHAIRA Insulin Glargine (Insulin Glargine,Hum.Rec.Anlog 100 Unit/Ml 10 Ml Vial) 15 unit SUBCUT BEDTIME [facility] Last Admin: 09/15/21 21:59 Dose: 15 unit Documented by: JAHAIRA Comments: Insulin Human Lispro (Insulin Lispro 100 Unit/Ml 3 Ml Vial) 0 unit SUBCUT QIDACHS [facility]; Protocol Last Admin: 09/16/21 10:09 Dose: Not Given Documented by: ALEC Non-Admin Reason: No Insulin Coverage Insulin Human Lispro (Insulin Lispro 100 Unit/Ml 3 Ml Vial) 5 unit SUBCUT QIDACHS [facility] Last Admin: 09/16/21 10:09 Dose: 5 unit Documented by: ALEC Pharmacy Consult (Consult Rx Perform Med Rec) 1 each MISCELLANE ONCE PRN PRN Reason: Consult order Sodium Chloride (0.9 % Sodium Chloride Flush 3 Ml Syringe) 3 ml IVFLUSH QSHIFT [facility] Last Admin: 09/16/21 10:09 Dose: 3 ml Documented by: ALEC Vitamin D (Cholecalciferol (Vitamin D3) 25 Mcg Tablet) 50 mcg PO DAILY [facility] Last Admin: 09/16/21 10:06 Dose: 50 mcg Documented by: ALEC Labs CBC & Chem 7: 09/15/21 05:54 09/16/21 06:07 Labs: Laboratory Results - last 24 hr 09/15/21 09/15/21 09/15/21 11:21 16:48 19:56 Anion Gap Estim Creat Clear Calc Estimated GFR POC Glucose 114 203 H 231 H Random Glucose Calcium 09/16/21 09/16/21 06:07 07:42 Anion Gap 16 Estim Creat Clear Calc 65.5 Estimated GFR > 60 POC Glucose 86 Random Glucose 89 Calcium 9.8 Assessment and Plan (1) Pneumonia due to 2019 novel coronavirus: Status: Acute (2) AMY (acute kidney injury): Status: Acute (3) Acute dehydration: Status: Acute Assessment and Plan: 66F with known covid, presented with cough, found to have significant hypoxia, unvaccinated Acute hypoxic respiratory failure secondary to COVID pneumonia Decadron 6 mg Day 06/10 Wean O2 as tolerated Leukocytosis from steroids usage Monitor prognostic labs - improving Decrease oxygen requirement to high-flow only, to wean down as tolerated ID appreciated, continue baricitinib hypernatremia resolved,monitor Acute kidney injury Likely hypovolemic resolved with hydration hold Arb and hydrochlorothiazide Monitor BMP Diabetes Insulin DVT PPX Heparin Quality Stroke Does the patient have a stroke diagnosis?: No VTE Prior VTE?: No VTE Risk Level:: Medical - moderate - high VTE Device Contraindication: Treatment Not Indicated VTE Drug Contraindication: N/A - Med Ordered
[2021-09-16 11:31] LABS: Glucose, Whole Blood 106 mg/dL (60-115)
[2021-09-16 16:22] LABS: Glucose, Whole Blood 206 mg/dL (60-115)
[2021-09-16 20:06] LABS: Glucose, Whole Blood 212 mg/dL (60-115)
[2021-09-16] MEDS: Insulin Glargine,Hum.rec.anlog 100 UNIT/ML 10 ML VIAL 15 UNIT SUBCUT (21:57)
[2021-09-17] VITALS (12 sets, daily range): BP systolic 104–117; BP diastolic 60–75; PULSE 60–72; RESP 18–20; TEMP 36.2–37.2; O2SAT 93–98
[2021-09-17] MEDS: Heparin Sodium,Porcine 5,000 UNIT/ML VIAL 5000 UNIT SUBCUT ×3 (05:55→21:42)
[2021-09-17 07:38] LABS: Glucose, Whole Blood 73 mg/dL (60-115)
[2021-09-17] MEDS: 0.9 % Sodium Chloride Flush 3 ML SYRINGE IVFLUSH ×3 (09:16→21:55)
[2021-09-17] MEDS: Escitalopram Oxalate 5 MG TABLET PO (09:17)
[2021-09-17] MEDS: Atorvastatin Calcium 20 MG TABLET PO (09:17)
[2021-09-17] MEDS: Cholecalciferol (Vitamin D3) 25 MCG TABLET 50 MCG PO (09:18)
[2021-09-17] MEDS: dexAMETHasone sod phosphate 4 MG/ML VIAL 6 MG IVPUSH (09:19)
--- NOTE | 2021-09-17 11:20 | P.PNIM_ITS ---
Subjective Subjective Date of Service: 09/17/21 Interval History: f/u on covid with hypOxia, On high flow, seemingly better today, sating 96 Review of Systems no fever +sob Physical Exam Vital Signs: Vital Signs: Last Vital Signs Temp 98.2 F 09/17/21 10:57 Pulse 70 09/17/21 10:57 Resp 18 09/17/21 10:57 BP 113/68 09/17/21 10:57 Pulse Ox 96 09/17/21 10:57 BMI result Body Mass Index 35.2 Const: Other: Constitutional : Alert, in mild respiratory distress Neck : Normal inspection, Supple Cardiovascular : no JVP, no lower extremity edema Respiratory : chest wall moving bilaterally, in mild distress, on high-flow oxygen Gastrointestinal: soft, lax, Normal bowel sounds, Non tender Skin : Warm, Dry Neurological : Alert & oriented x3, No focal deficit Objective Data Active Medications Acetaminophen (Acetaminophen 325 Mg Tablet) 650 mg PO Q6H PRN PRN Reason: Pain, Mild (Pain Scale 1-3) Atorvastatin Calcium (Atorvastatin Calcium 20 Mg Tablet) 20 mg PO DAILY [facility] Last Admin: 09/17/21 09:17 Dose: 20 mg Documented by: BISI Baricitinib (Baricitinib 2 Mg Tablet) 4 mg PO DAILY [facility] Stop: 09/25/21 09:01 Last Admin: 09/17/21 09:17 Dose: 4 mg Documented by: BISI Calcium Carbonate (Calcium Carbonate 500 Mg Tablet) 500 mg PO BID [facility] Last Admin: 09/17/21 09:18 Dose: 500 mg Documented by: BISI Dexamethasone Sodium Phosphate (Dexamethasone Sod Phosphate 4 Mg/Ml Vial) 6 mg IVPUSH DAILY [facility] Last Admin: 09/17/21 09:19 Dose: 6 mg Documented by: BISI Dextrose (Dextrose 50 % 25 Gm/50 Ml Vial) 25 gm IVPUSH Q15M PRN; Protocol PRN Reason: per Hypoglycemia Standing Ord. Escitalopram Oxalate (Escitalopram Oxalate 5 Mg Tablet) 5 mg PO DAILY [facility] Last Admin: 09/17/21 09:17 Dose: 5 mg Documented by: BISI Glucose (Glucose Gel 15 Gm Gel..Gram.) 15 gm PO Q15M PRN; Protocol PRN Reason: per Hypoglycemia Standing Ord. Heparin Sodium (Porcine) (Heparin Sodium,Porcine 5,000 Unit/Ml Vial) 5,000 unit SUBCUT Q8H [facility] Last Admin: 09/17/21 05:55 Dose: 5,000 unit Documented by: VITALIY Insulin Glargine (Insulin Glargine,Hum.Rec.Anlog 100 Unit/Ml 10 Ml Vial) 15 unit SUBCUT BEDTIME [facility] Last Admin: 09/16/21 21:57 Dose: 15 unit Documented by: VITALIY Insulin Human Lispro (Insulin Lispro 100 Unit/Ml 3 Ml Vial) 0 unit SUBCUT QIDACHS [facility]; Protocol Last Admin: 09/17/21 09:15 Dose: Not Given Documented by: BISI Non-Admin Reason: BS was 73 Insulin Human Lispro (Insulin Lispro 100 Unit/Ml 3 Ml Vial) 5 unit SUBCUT QIDACHS [facility] Last Admin: 09/17/21 09:22 Dose: Not Given Documented by: BISI Non-Admin Reason: HOLD per MD Pharmacy Consult (Consult Rx Perform Med Rec) 1 each MISCELLANE ONCE PRN PRN Reason: Consult order Sodium Chloride (0.9 % Sodium Chloride Flush 3 Ml Syringe) 3 ml IVFLUSH QSHIFT [facility] Last Admin: 09/17/21 09:16 Dose: 3 ml Documented by: BISI Vitamin D (Cholecalciferol (Vitamin D3) 25 Mcg Tablet) 50 mcg PO DAILY [facility] Last Admin: 09/17/21 09:18 Dose: 50 mcg Documented by: BISI Labs CBC & Chem 7: 09/16/21 06:07 09/16/21 06:07 Labs: Laboratory Results - last 24 hr 09/16/21 09/16/21 09/16/21 06:07 11:27 16:18 MCV 94.2 MCH 29.6 MCHC 31.4 RDW 14.2 Plt Count 409 H D MPV 11.4 Absolute Nucleated RBC 0.000 Nucleated RBC % (auto) 0.0 POC Glucose 106 206 H 09/16/21 09/17/21 19:26 07:27 MCV MCH MCHC RDW Plt Count MPV Absolute Nucleated RBC Nucleated RBC % (auto) POC Glucose 212 H 73 Assessment and Plan (1) Pneumonia due to 2019 novel coronavirus: Status: Acute (2) AMY (acute kidney injury): Status: Acute (3) Acute dehydration: Status: Acute Assessment and Plan: 66F with known covid, presented with cough, found to have significant hypoxia, unvaccinated Acute hypoxic respiratory failure secondary to COVID pneumonia Decadron 6 mg Day 06/10--> some additional steroid with prednison Wean O2 as tolerated Leukocytosis from steroids usage Monitor prognostic labs - improving Wean as river continue baricitinib hypernatremia resolved,monitor Acute kidney injury Likely hypovolemic resolved with hydration hold Arb and hydrochlorothiazide Monitor BMP Diabetes Insulin DVT PPX Heparin Quality Stroke Does the patient have a stroke diagnosis?: No VTE Prior VTE?: No VTE Risk Level:: Medical - moderate - high VTE Device Contraindication: Treatment Not Indicated VTE Drug Contraindication: N/A - Med Ordered
[2021-09-17 11:32] LABS: Glucose, Whole Blood 127 mg/dL (60-115)
[2021-09-17 14:24] LABS: Glucose, Whole Blood 218 mg/dL (60-115)
[2021-09-17] MEDS: Insulin Lispro 100 UNIT/ML 3 ML VIAL SUBCUT ×5 (14:38→21:43)
[2021-09-17 16:41] LABS: Glucose, Whole Blood 223 mg/dL (60-115)
[2021-09-17 21:16] LABS: Glucose, Whole Blood 170 mg/dL (60-115)
[2021-09-17] MEDS: Insulin Glargine,Hum.rec.anlog 100 UNIT/ML 10 ML VIAL 15 UNIT SUBCUT (21:42)
[2021-09-18] VITALS (9 sets, daily range): BP systolic 108–136; BP diastolic 58–65; PULSE 62–78; RESP 16–22; TEMP 36.1–37.2; O2SAT 90–97
[2021-09-18] MEDS: Heparin Sodium,Porcine 5,000 UNIT/ML VIAL 5000 UNIT SUBCUT ×3 (05:45→20:33)
[2021-09-18 07:17] LABS: Glucose, Whole Blood 92 mg/dL (60-115)
[2021-09-18] MEDS: 0.9 % Sodium Chloride Flush 3 ML SYRINGE IVFLUSH ×3 (08:18→20:34)
[2021-09-18] MEDS: Cholecalciferol (Vitamin D3) 25 MCG TABLET 50 MCG PO (08:18)
[2021-09-18] MEDS: dexAMETHasone sod phosphate 4 MG/ML VIAL 6 MG IVPUSH (08:18)
[2021-09-18] MEDS: Atorvastatin Calcium 20 MG TABLET PO (08:19)
[2021-09-18] MEDS: Insulin Lispro 100 UNIT/ML 3 ML VIAL SUBCUT ×6 (08:19→20:34)
[2021-09-18] MEDS: Escitalopram Oxalate 5 MG TABLET PO (08:19)
[2021-09-18 12:01] LABS: Glucose, Whole Blood 120 mg/dL (60-115)
--- NOTE | 2021-09-18 13:40 | P.PNIM_ITS ---
Subjective Subjective Date of Service: 09/18/21 Interval History: f/u on covid with hypOxia, On high flow, making small progress, was able to wean some today Review of Systems no fever +sob Physical Exam Vital Signs: Vital Signs: Last Vital Signs Temp 97 F 09/18/21 11:51 Pulse 77 09/18/21 11:51 Resp 20 09/18/21 12:21 BP 117/65 09/18/21 11:51 Pulse Ox 93 09/18/21 11:51 BMI result Body Mass Index 35.2 Const: Other: Constitutional : Alert, no distress, breathing easy Neck : Normal inspection, Supple Cardiovascular : no JVP, no lower extremity edema Respiratory : chest wall moving bilaterally, in mild distress, on high-flow oxygen Gastrointestinal: soft, lax, Normal bowel sounds, Non tender Skin : Warm, Dry Neurological : Alert & oriented x3, No focal deficit Objective Data Active Medications Acetaminophen (Acetaminophen 325 Mg Tablet) 650 mg PO Q6H PRN PRN Reason: Pain, Mild (Pain Scale 1-3) Atorvastatin Calcium (Atorvastatin Calcium 20 Mg Tablet) 20 mg PO DAILY [facility] Last Admin: 09/18/21 08:19 Dose: 20 mg Documented by: ANSHUL Baricitinib (Baricitinib 2 Mg Tablet) 4 mg PO DAILY [facility] Stop: 09/25/21 09:01 Last Admin: 09/18/21 08:19 Dose: 4 mg Documented by: ANSHUL Calcium Carbonate (Calcium Carbonate 500 Mg Tablet) 500 mg PO BID [facility] Last Admin: 09/18/21 08:19 Dose: 500 mg Documented by: ANSHUL Dexamethasone Sodium Phosphate (Dexamethasone Sod Phosphate 4 Mg/Ml Vial) 6 mg IVPUSH DAILY [facility] Last Admin: 09/18/21 08:18 Dose: 6 mg Documented by: ANSHUL Dextrose (Dextrose 50 % 25 Gm/50 Ml Vial) 25 gm IVPUSH Q15M PRN; Protocol PRN Reason: per Hypoglycemia Standing Ord. Escitalopram Oxalate (Escitalopram Oxalate 5 Mg Tablet) 5 mg PO DAILY [facility] Last Admin: 09/18/21 08:19 Dose: 5 mg Documented by: ANSHUL Glucose (Glucose Gel 15 Gm Gel..Gram.) 15 gm PO Q15M PRN; Protocol PRN Reason: per Hypoglycemia Standing Ord. Heparin Sodium (Porcine) (Heparin Sodium,Porcine 5,000 Unit/Ml Vial) 5,000 unit SUBCUT Q8H [facility] Last Admin: 09/18/21 12:35 Dose: 5,000 unit Documented by: ANSHUL Insulin Glargine (Insulin Glargine,Hum.Rec.Anlog 100 Unit/Ml 10 Ml Vial) 15 unit SUBCUT BEDTIME [facility] Last Admin: 09/17/21 21:42 Dose: 15 unit Documented by: VITALIY Insulin Human Lispro (Insulin Lispro 100 Unit/Ml 3 Ml Vial) 0 unit SUBCUT QIDACHS [facility]; Protocol Last Admin: 09/18/21 12:34 Dose: Not Given Documented by: ANSHUL Non-Admin Reason: No Insulin Coverage Insulin Human Lispro (Insulin Lispro 100 Unit/Ml 3 Ml Vial) 5 unit SUBCUT QIDACHS [facility] Last Admin: 09/18/21 12:00 Dose: 5 unit Documented by: ANSHUL Pharmacy Consult (Consult Rx Perform Med Rec) 1 each MISCELLANE ONCE PRN PRN Reason: Consult order Sodium Chloride (0.9 % Sodium Chloride Flush 3 Ml Syringe) 3 ml IVFLUSH QSHIFT [facility] Last Admin: 09/18/21 08:18 Dose: 3 ml Documented by: ANSHUL Vitamin D (Cholecalciferol (Vitamin D3) 25 Mcg Tablet) 50 mcg PO DAILY [facility] Last Admin: 09/18/21 08:18 Dose: 50 mcg Documented by: ANSHUL Labs CBC & Chem 7: 09/16/21 06:07 09/16/21 06:07 Labs: Laboratory Results - last 24 hr 09/17/21 09/17/21 09/17/21 14:20 16:36 21:11 POC Glucose 218 H 223 H 170 H 09/18/21 09/18/21 07:13 11:46 POC Glucose 92 120 H Assessment and Plan (1) Pneumonia due to 2019 novel coronavirus: Status: Acute (2) AMY (acute kidney injury): Status: Acute (3) Acute dehydration: Status: Acute Assessment and Plan: 66F with known covid, presented with cough, found to have significant hypoxia, unvaccinated Acute hypoxic respiratory failure secondary to COVID pneumonia Decadron 6 mg Day 06/10--> some additional steroid with prednison Wean O2 as tolerated Leukocytosis from steroids usage Monitor prognostic labs - improving Wean as river continue baricitinib hypernatremia resolved,monitor Acute kidney injury Likely hypovolemic resolved with hydration hold Arb and hydrochlorothiazide Monitor BMP Diabetes Insulin DVT PPX Heparin Quality Stroke Does the patient have a stroke diagnosis?: No VTE Prior VTE?: No VTE Risk Level:: Medical - moderate - high VTE Device Contraindication: Treatment Not Indicated VTE Drug Contraindication: N/A - Med Ordered
[2021-09-18 16:40] LABS: Glucose, Whole Blood 253 mg/dL (60-115)
[2021-09-18 20:29] LABS: Glucose, Whole Blood 289 mg/dL (60-115)
[2021-09-18] MEDS: Insulin Glargine,Hum.rec.anlog 100 UNIT/ML 10 ML VIAL 15 UNIT SUBCUT (20:34)
[2021-09-19] VITALS (11 sets, daily range): BP systolic 107–131; BP diastolic 59–76; PULSE 70–81; RESP 16–20; TEMP 35.9–37.1; O2SAT 90–97
[2021-09-19] MEDS: Heparin Sodium,Porcine 5,000 UNIT/ML VIAL 5000 UNIT SUBCUT ×3 (05:47→21:19)
[2021-09-19 07:12] LABS: Glucose, Whole Blood 73 mg/dL (60-115)
[2021-09-19] MEDS: Escitalopram Oxalate 5 MG TABLET PO (10:13)
[2021-09-19] MEDS: Atorvastatin Calcium 20 MG TABLET PO (10:13)
[2021-09-19] MEDS: Cholecalciferol (Vitamin D3) 25 MCG TABLET 50 MCG PO (10:13)
[2021-09-19] MEDS: predniSONE 20 MG TABLET PO (10:13)
--- NOTE | 2021-09-19 11:36 | HO.PM.IMPN ---
Subjective Subjective Date of Service: 09/19/21 Interval History: f/u on covid with hypOxia, On high flow, 60% Fio2 and stating 90 on hgihg but in good spirit Review of Systems no fever +sob Physical Exam Vital Signs: Vital Signs: Last Vital Signs Temp 98.5 F 09/19/21 11:07 Pulse 76 09/19/21 11:07 Resp 18 09/19/21 11:07 BP 131/61 09/19/21 11:07 Pulse Ox 90 L 09/19/21 11:07 BMI result Body Mass Index 35.2 Const: Other: Constitutional : Alert, no distress, breathing easy Neck : Normal inspection, Supple Cardiovascular : no JVP, no lower extremity edema Respiratory : chest wall moving bilaterally, in mild distress, on high-flow oxygen Gastrointestinal: soft, lax, Normal bowel sounds, Non tender Skin : Warm, Dry Neurological : Alert & oriented x3, No focal deficit Objective Data Active Medications Acetaminophen (Acetaminophen 325 Mg Tablet) 650 mg PO Q6H PRN PRN Reason: Pain, Mild (Pain Scale 1-3) Atorvastatin Calcium (Atorvastatin Calcium 20 Mg Tablet) 20 mg PO DAILY [facility] Last Admin: 09/19/21 10:13 Dose: 20 mg Documented by: NITO Baricitinib (Baricitinib 2 Mg Tablet) 4 mg PO DAILY [facility] Stop: 09/25/21 09:01 Last Admin: 09/19/21 10:12 Dose: 4 mg Documented by: NITO Calcium Carbonate (Calcium Carbonate 500 Mg Tablet) 500 mg PO BID [facility] Last Admin: 09/19/21 10:13 Dose: 500 mg Documented by: NITO Dextrose (Dextrose 50 % 25 Gm/50 Ml Vial) 25 gm IVPUSH Q15M PRN; Protocol PRN Reason: per Hypoglycemia Standing Ord. Escitalopram Oxalate (Escitalopram Oxalate 5 Mg Tablet) 5 mg PO DAILY [facility] Last Admin: 09/19/21 10:13 Dose: 5 mg Documented by: NITO Glucose (Glucose Gel 15 Gm Gel..Gram.) 15 gm PO Q15M PRN; Protocol PRN Reason: per Hypoglycemia Standing Ord. Heparin Sodium (Porcine) (Heparin Sodium,Porcine 5,000 Unit/Ml Vial) 5,000 unit SUBCUT Q8H [facility] Last Admin: 09/19/21 05:47 Dose: 5,000 unit Documented by: JODI Insulin Glargine (Insulin Glargine,Hum.Rec.Anlog 100 Unit/Ml 10 Ml Vial) 15 unit SUBCUT BEDTIME [facility] Last Admin: 09/18/21 20:34 Dose: 15 unit Documented by: AISHA Insulin Human Lispro (Insulin Lispro 100 Unit/Ml 3 Ml Vial) 0 unit SUBCUT QIDACHS [facility]; Protocol Last Admin: 09/19/21 08:31 Dose: Not Given Documented by: NITO Non-Admin Reason: No Insulin Coverage Insulin Human Lispro (Insulin Lispro 100 Unit/Ml 3 Ml Vial) 5 unit SUBCUT QIDACHS [facility] Last Admin: 09/19/21 08:31 Dose: Not Given Documented by: NITO Non-Admin Reason: No Insulin Coverage Comments: poc 73, will recheck Pharmacy Consult (Consult Rx Perform Med Rec) 1 each MISCELLANE ONCE PRN PRN Reason: Consult order Prednisone (Prednisone 20 Mg Tablet) 20 mg PO DAILY [facility] Last Admin: 09/19/21 10:13 Dose: 20 mg Documented by: NITO Sodium Chloride (0.9 % Sodium Chloride Flush 3 Ml Syringe) 3 ml IVFLUSH QSHIFT [facility] Last Admin: 09/19/21 08:31 Dose: Not Given Documented by: NITO Non-Admin Reason: IV Running Vitamin D (Cholecalciferol (Vitamin D3) 25 Mcg Tablet) 50 mcg PO DAILY [facility] Last Admin: 09/19/21 10:13 Dose: 50 mcg Documented by: NITO Labs CBC & Chem 7: 09/16/21 06:07 09/16/21 06:07 Labs: Laboratory Results - last 24 hr 09/18/21 09/18/21 09/18/21 11:46 16:32 20:25 POC Glucose 120 H 253 H 289 H 09/19/21 07:09 POC Glucose 73 Assessment and Plan (1) Pneumonia due to 2019 novel coronavirus: Status: Acute (2) AMY (acute kidney injury): Status: Acute (3) Acute dehydration: Status: Acute Assessment and Plan: 66F with known covid, presented with cough, found to have significant hypoxia, unvaccinated Acute hypoxic respiratory failure secondary to COVID pneumonia Decadron 6 mg Day 06/10--> some additional steroid with prednison Wean O2 as tolerated Leukocytosis from steroids usage Monitor prognostic labs - improving Wean as river continue baricitinib until 09/25 hypernatremia resolved,monitor Acute kidney injury Likely hypovolemic resolved with hydration hold Arb and hydrochlorothiazide Monitor BMP Diabetes Insulin DVT PPX Heparin Quality Stroke Does the patient have a stroke diagnosis?: No VTE Prior VTE?: No VTE Risk Level:: Medical - moderate - high VTE Device Contraindication: Treatment Not Indicated VTE Drug Contraindication: N/A - Med Ordered
[2021-09-19 12:09] LABS: Glucose, Whole Blood 96 mg/dL (60-115)
[2021-09-19] MEDS: Acetaminophen 325 MG TABLET 650 MG PO (13:05)
[2021-09-19 16:16] LABS: Glucose, Whole Blood 284 mg/dL (60-115)
[2021-09-19] MEDS: Insulin Lispro 100 UNIT/ML 3 ML VIAL SUBCUT ×4 (17:07→21:19)
[2021-09-19 20:30] LABS: Glucose, Whole Blood 266 mg/dL (60-115)
[2021-09-19] MEDS: Insulin Glargine,Hum.rec.anlog 100 UNIT/ML 10 ML VIAL 15 UNIT SUBCUT (21:20)
[2021-09-20] VITALS (12 sets, daily range): BP systolic 104–127; BP diastolic 57–82; PULSE 66–86; RESP 16–24; TEMP 35.8–37.3; O2SAT 87–98
[2021-09-20] MEDS: 0.9 % Sodium Chloride Flush 3 ML SYRINGE IVFLUSH ×4 (00:41→21:21)
[2021-09-20] MEDS: Heparin Sodium,Porcine 5,000 UNIT/ML VIAL 5000 UNIT SUBCUT ×3 (05:52→21:20)
[2021-09-20 07:13] LABS: Glucose, Whole Blood 88 mg/dL (60-115)
[2021-09-20] MEDS: Atorvastatin Calcium 20 MG TABLET PO (08:19)
[2021-09-20] MEDS: Cholecalciferol (Vitamin D3) 25 MCG TABLET 50 MCG PO (08:19)
[2021-09-20] MEDS: predniSONE 20 MG TABLET PO (08:19)
[2021-09-20] MEDS: Escitalopram Oxalate 5 MG TABLET PO (08:19)
[2021-09-20 11:04] LABS: Glucose, Whole Blood 130 mg/dL (60-115)
--- NOTE | 2021-09-20 11:38 | HO.PM.IMPN ---
Subjective Subjective Date of Service: 09/20/21 Interval History: f/u on covid with hypOxia, On high flow, Fio2 decreased further today and sating better, breahing easy Review of Systems no fever +sob Physical Exam Vital Signs: Vital Signs: Last Vital Signs Temp 96.4 F L 09/20/21 07:29 Pulse 79 09/20/21 07:29 Resp 24 H 09/20/21 11:36 BP 104/61 09/20/21 07:29 Pulse Ox 94 09/20/21 07:29 BMI result Body Mass Index 35.2 Const: Other: Constitutional : Alert, no distress, breathing easy Neck : Normal inspection, Supple Cardiovascular : no JVP, no lower extremity edema Respiratory : chest wall moving bilaterally, in mild distress, on high-flow oxygen Gastrointestinal: soft, lax, Normal bowel sounds, Non tender Skin : Warm, Dry Neurological : Alert & oriented x3, No focal deficit Objective Data Active Medications Acetaminophen (Acetaminophen 325 Mg Tablet) 650 mg PO Q6H PRN PRN Reason: Pain, Mild (Pain Scale 1-3) Last Admin: 09/19/21 13:05 Dose: 650 mg Documented by: NITO Atorvastatin Calcium (Atorvastatin Calcium 20 Mg Tablet) 20 mg PO DAILY [facility] Last Admin: 09/20/21 08:19 Dose: 20 mg Documented by: RIAN Baricitinib (Baricitinib 2 Mg Tablet) 4 mg PO DAILY [facility] Stop: 09/25/21 09:01 Last Admin: 09/20/21 08:19 Dose: 4 mg Documented by: RIAN Calcium Carbonate (Calcium Carbonate 500 Mg Tablet) 500 mg PO BID [facility] Last Admin: 09/20/21 08:19 Dose: 500 mg Documented by: RIAN Dextrose (Dextrose 50 % 25 Gm/50 Ml Vial) 25 gm IVPUSH Q15M PRN; Protocol PRN Reason: per Hypoglycemia Standing Ord. Escitalopram Oxalate (Escitalopram Oxalate 5 Mg Tablet) 5 mg PO DAILY [facility] Last Admin: 09/20/21 08:19 Dose: 5 mg Documented by: RIAN Glucose (Glucose Gel 15 Gm Gel..Gram.) 15 gm PO Q15M PRN; Protocol PRN Reason: per Hypoglycemia Standing Ord. Heparin Sodium (Porcine) (Heparin Sodium,Porcine 5,000 Unit/Ml Vial) 5,000 unit SUBCUT Q8H [facility] Last Admin: 09/20/21 05:52 Dose: 5,000 unit Documented by: RADHA Insulin Glargine (Insulin Glargine,Hum.Rec.Anlog 100 Unit/Ml 10 Ml Vial) 15 unit SUBCUT BEDTIME [facility] Last Admin: 09/19/21 21:20 Dose: 15 unit Documented by: BANG Insulin Human Lispro (Insulin Lispro 100 Unit/Ml 3 Ml Vial) 0 unit SUBCUT QIDACHS [facility]; Protocol Last Admin: 09/20/21 11:35 Dose: Not Given Documented by: RIAN Non-Admin Reason: No Insulin Coverage Insulin Human Lispro (Insulin Lispro 100 Unit/Ml 3 Ml Vial) 5 unit SUBCUT QIDACHS [facility] Last Admin: 09/20/21 11:36 Dose: Not Given Documented by: RIAN Non-Alok Reason: No Insulin Coverage Pharmacy Consult (Consult Rx Perform Med Rec) 1 each MISCELLANE ONCE PRN PRN Reason: Consult order Prednisone (Prednisone 20 Mg Tablet) 20 mg PO DAILY [facility] Last Admin: 09/20/21 08:19 Dose: 20 mg Documented by: RIAN Sodium Chloride (0.9 % Sodium Chloride Flush 3 Ml Syringe) 3 ml IVFLUSH QSHIFT [facility] Last Admin: 09/20/21 08:19 Dose: 3 ml Documented by: RIAN Vitamin D (Cholecalciferol (Vitamin D3) 25 Mcg Tablet) 50 mcg PO DAILY [facility] Last Admin: 09/20/21 08:19 Dose: 50 mcg Documented by: RIAN Labs CBC & Chem 7: 09/16/21 06:07 09/16/21 06:07 Labs: Laboratory Results - last 24 hr 09/19/21 09/19/21 09/19/21 11:51 16:07 20:09 POC Glucose 96 284 H 266 H 09/20/21 09/20/21 07:05 10:58 POC Glucose 88 130 H Assessment and Plan (1) Pneumonia due to 2019 novel coronavirus: Status: Acute (2) AMY (acute kidney injury): Status: Acute (3) Acute dehydration: Status: Acute Assessment and Plan: 66F with known covid, presented with cough, found to have significant hypoxia, unvaccinated Acute hypoxic respiratory failure secondary to COVID pneumonia, with protracted hypoxic syndrome becoming long hauler Decadron 6 mg Day 06/10--> some additional steroid with prednison Wean O2 as tolerated Leukocytosis from steroids usage Monitor prognostic labs - improving continue baricitinib until 09/25 hypernatremia resolved,monitor Acute kidney injury Likely hypovolemic resolved with hydration hold Arb and hydrochlorothiazide Monitor BMP Diabetes Insulin DVT PPX Heparin Goal : to transition to nasal joseph howard Quality Stroke Does the patient have a stroke diagnosis?: No VTE Prior VTE?: No VTE Risk Level:: Medical - moderate - high VTE Device Contraindication: Treatment Not Indicated VTE Drug Contraindication: N/A - Med Ordered
[2021-09-20 16:46] LABS: Glucose, Whole Blood 267 mg/dL (60-115)
[2021-09-20] MEDS: Insulin Lispro 100 UNIT/ML 3 ML VIAL SUBCUT ×4 (17:00→21:20)
[2021-09-20 20:15] LABS: Glucose, Whole Blood 206 mg/dL (60-115)
[2021-09-20] MEDS: Insulin Glargine,Hum.rec.anlog 100 UNIT/ML 10 ML VIAL 15 UNIT SUBCUT (21:20)
[2021-09-21] VITALS (9 sets, daily range): BP systolic 100–124; BP diastolic 55–60; PULSE 62–85; RESP 18–20; TEMP 36.1–36.7; O2SAT 92–100
[2021-09-21] MEDS: Heparin Sodium,Porcine 5,000 UNIT/ML VIAL 5000 UNIT SUBCUT ×3 (05:47→22:12)
[2021-09-21 07:31] LABS: Glucose, Whole Blood 76 mg/dL (60-115)
[2021-09-21] MEDS: 0.9 % Sodium Chloride Flush 3 ML SYRINGE IVFLUSH ×3 (09:56→22:12)
[2021-09-21] MEDS: Atorvastatin Calcium 20 MG TABLET PO (09:56)
[2021-09-21] MEDS: predniSONE 20 MG TABLET PO (09:57)
[2021-09-21] MEDS: Cholecalciferol (Vitamin D3) 25 MCG TABLET 50 MCG PO (09:57)
[2021-09-21] MEDS: Escitalopram Oxalate 5 MG TABLET PO (09:57)
[2021-09-21 11:27] LABS: Glucose, Whole Blood 102 mg/dL (60-115)
--- NOTE | 2021-09-21 12:24 | MHC.CM.PN ---
Female 66 Covid+ Patient is improving. She is being weaned off Oxygen. DP home with service . She will need assist with transport home.
--- NOTE | 2021-09-21 12:26 | HO.PM.IMPN ---
Subjective Subjective Date of Service: 09/21/21 Interval History: f/u on covid with hypOxia, On high flow, Fio2 decreased further today and sating better, continue to improve Review of Systems no fever +sob Physical Exam Vital Signs: Vital Signs: Last Vital Signs Temp 97.7 F 09/21/21 11:21 Pulse 79 09/21/21 11:21 Resp 18 09/21/21 11:21 BP 100/57 L 09/21/21 11:21 Pulse Ox 92 09/21/21 11:21 BMI result Body Mass Index 35.2 Const: Other: Constitutional : Alert, no distress, breathing easy Neck : Normal inspection, Supple Cardiovascular : no JVP, no lower extremity edema Respiratory : chest wall moving bilaterally, in mild distress, on high-flow oxygen Gastrointestinal: soft, lax, Normal bowel sounds, Non tender Skin : Warm, Dry Neurological : Alert & oriented x3, No focal deficit Objective Data Active Medications Acetaminophen (Acetaminophen 325 Mg Tablet) 650 mg PO Q6H PRN PRN Reason: Pain, Mild (Pain Scale 1-3) Last Admin: 09/19/21 13:05 Dose: 650 mg Documented by: NITO Atorvastatin Calcium (Atorvastatin Calcium 20 Mg Tablet) 20 mg PO DAILY [facility] Last Admin: 09/21/21 09:56 Dose: 20 mg Documented by: STEPHANIE Baricitinib (Baricitinib 2 Mg Tablet) 4 mg PO DAILY [facility] Stop: 09/25/21 09:01 Last Admin: 09/21/21 09:57 Dose: 4 mg Documented by: STEPHANIE Calcium Carbonate (Calcium Carbonate 500 Mg Tablet) 500 mg PO BID [facility] Last Admin: 09/21/21 09:57 Dose: 500 mg Documented by: STEPHANIE Dextrose (Dextrose 50 % 25 Gm/50 Ml Vial) 25 gm IVPUSH Q15M PRN; Protocol PRN Reason: per Hypoglycemia Standing Ord. Escitalopram Oxalate (Escitalopram Oxalate 5 Mg Tablet) 5 mg PO DAILY [facility] Last Admin: 09/21/21 09:57 Dose: 5 mg Documented by: STEPHANIE Glucose (Glucose Gel 15 Gm Gel..Gram.) 15 gm PO Q15M PRN; Protocol PRN Reason: per Hypoglycemia Standing Ord. Heparin Sodium (Porcine) (Heparin Sodium,Porcine 5,000 Unit/Ml Vial) 5,000 unit SUBCUT Q8H [facility] Last Admin: 09/21/21 05:47 Dose: 5,000 unit Documented by: RADHA Insulin Glargine (Insulin Glargine,Hum.Rec.Anlog 100 Unit/Ml 10 Ml Vial) 15 unit SUBCUT BEDTIME [facility] Last Admin: 09/20/21 21:20 Dose: 15 unit Documented by: RADHA Insulin Human Lispro (Insulin Lispro 100 Unit/Ml 3 Ml Vial) 0 unit SUBCUT QIDACHS [facility]; Protocol Last Admin: 09/21/21 11:39 Dose: Not Given Documented by: STEPHANIE Non-Admin Reason: No Insulin Coverage Insulin Human Lispro (Insulin Lispro 100 Unit/Ml 3 Ml Vial) 5 unit SUBCUT QIDACHS [facility] Last Admin: 09/21/21 11:39 Dose: Not Given Documented by: STEPHANIE Non-Admin Reason: No Insulin Coverage Pharmacy Consult (Consult Rx Perform Med Rec) 1 each MISCELLANE ONCE PRN PRN Reason: Consult order Prednisone (Prednisone 20 Mg Tablet) 20 mg PO DAILY [facility] Last Admin: 09/21/21 09:57 Dose: 20 mg Documented by: STEPHANIE Sodium Chloride (0.9 % Sodium Chloride Flush 3 Ml Syringe) 3 ml IVFLUSH QSHIFT [facility] Last Admin: 09/21/21 09:56 Dose: 3 ml Documented by: STEPHANIE Vitamin D (Cholecalciferol (Vitamin D3) 25 Mcg Tablet) 50 mcg PO DAILY [facility] Last Admin: 09/21/21 09:57 Dose: 50 mcg Documented by: STEPHANIE Labs CBC & Chem 7: 09/16/21 06:07 09/16/21 06:07 Labs: Laboratory Results - last 24 hr 09/20/21 09/20/21 09/21/21 16:26 20:05 07:13 POC Glucose 267 H 206 H 76 09/21/21 11:21 POC Glucose 102 Assessment and Plan (1) Pneumonia due to 2019 novel coronavirus: Status: Acute (2) AMY (acute kidney injury): Status: Acute (3) Acute dehydration: Status: Acute Assessment and Plan: 66F with known covid, presented with cough, found to have significant hypoxia, unvaccinated Acute hypoxic respiratory failure secondary to COVID pneumonia, with protracted hypoxic syndrome becoming long hauler Decadron 6 mg Day 06/10--> some additional steroid with prednison Wean O2 as tolerated Leukocytosis from steroids usage Monitor prognostic labs - improving continue baricitinib until 09/25 hypernatremia resolved,monitor Acute kidney injury Likely hypovolemic resolved with hydration hold Arb and hydrochlorothiazide Monitor BMP Diabetes Insulin DVT PPX Heparin Goal :to continue to wean and ultimately get on conventional nasal canula Quality Stroke Does the patient have a stroke diagnosis?: No VTE Prior VTE?: No VTE Risk Level:: Medical - moderate - high VTE Device Contraindication: Treatment Not Indicated VTE Drug Contraindication: N/A - Med Ordered
[2021-09-21 15:59] LABS: Glucose, Whole Blood 258 mg/dL (60-115)
[2021-09-21] MEDS: Insulin Lispro 100 UNIT/ML 3 ML VIAL SUBCUT ×4 (16:57→22:13)
[2021-09-21 20:25] LABS: Glucose, Whole Blood 271 mg/dL (60-115)
[2021-09-21] MEDS: Insulin Glargine,Hum.rec.anlog 100 UNIT/ML 10 ML VIAL 15 UNIT SUBCUT (22:12)
[2021-09-22 03:59] VITALS: BP 108/64; PULSE 74; RESP 17; TEMP 36.2; O2SAT 93
[2021-09-22] MEDS: Heparin Sodium,Porcine 5,000 UNIT/ML VIAL 5000 UNIT SUBCUT ×3 (04:59→20:48)
[2021-09-22 07:33] VITALS: BP 95/50; PULSE 73; RESP 18; TEMP 36.3; O2SAT 87
[2021-09-22 08:06] LABS: Glucose, Whole Blood 85 mg/dL (60-115)
[2021-09-22] MEDS: Escitalopram Oxalate 5 MG TABLET PO (09:25)
[2021-09-22] MEDS: predniSONE 20 MG TABLET PO (09:25)
[2021-09-22] MEDS: 0.9 % Sodium Chloride Flush 3 ML SYRINGE IVFLUSH ×3 (09:25→20:48)
[2021-09-22] MEDS: Atorvastatin Calcium 20 MG TABLET PO (09:25)
[2021-09-22] MEDS: Cholecalciferol (Vitamin D3) 25 MCG TABLET 50 MCG PO (09:25)
[2021-09-22 09:47] LABS: Hemoglobin 9.8 g/dl (12.0-16.0); Mean Corpuscular HGB Conc 31.6 g/dl (31.0-35.0); Mean Corpuscular Hemoglobin 29.1 pg (27.0-33.0); Mean Platelet Volume 10.9 fL (9.4-12.3); Platelet Count 318 X10*3/uL (160-400); Red Blood Count 3.37 X10*6/uL (4.20-5.50); White Blood Count 16.2 X10*3/uL (4.8-10.8)
[2021-09-22 10:12] LABS: Anion Gap 14 (12-20); Blood Urea Nitrogen 28 mg/dL (9-16); Calcium 9.1 mg/dL (8.4-10.2); Carbon Dioxide 24 mmol/L (22-29); Chloride 104 mmol/L (96-108); Creatinine Clr Calc Pharmacy 66.3; Estimated Glomerular Filt Rate > 60; Glucose Random 164 mg/dL (60-115); Potassium 3.7 mmol/L (3.3-5.1); Sodium 138 mmol/L (135-145)
[2021-09-22 12:00] VITALS: BP 104/56; PULSE 77; RESP 20; TEMP 36.6; O2SAT 91
[2021-09-22 12:18] LABS: Glucose, Whole Blood 173 mg/dL (60-115)
[2021-09-22] MEDS: Insulin Lispro 100 UNIT/ML 3 ML VIAL SUBCUT ×5 (12:27→20:48)
--- NOTE | 2021-09-22 12:48 | HO.PM.IMPN ---
Subjective Subjective Date of Service: 09/22/21 Interval History: f/u on covid with prolonged hypoxia which is finally better and on nasal canula at 5 liters and stang just above 90 and is comfotable, breathing easy Review of Systems no fever +sob Physical Exam Vital Signs: Vital Signs: Last Vital Signs Temp 97.8 F 09/22/21 12:00 Pulse 77 09/22/21 12:00 Resp 20 09/22/21 12:00 BP 104/56 L 09/22/21 12:00 Pulse Ox 91 L 09/22/21 12:00 BMI result Body Mass Index 35.2 Const: Other: Constitutional : Alert, no distress, breathing easy Neck : Normal inspection, Supple Cardiovascular : no JVP, no lower extremity edema Respiratory : chest wall moving bilaterally, in mild distress, on high-flow oxygen Gastrointestinal: soft, lax, Normal bowel sounds, Non tender Skin : Warm, Dry Neurological : Alert & oriented x3, No focal deficit Objective Data Active Medications Acetaminophen (Acetaminophen 325 Mg Tablet) 650 mg PO Q6H PRN PRN Reason: Pain, Mild (Pain Scale 1-3) Last Admin: 09/19/21 13:05 Dose: 650 mg Documented by: NITO Atorvastatin Calcium (Atorvastatin Calcium 20 Mg Tablet) 20 mg PO DAILY [facility] Last Admin: 09/22/21 09:25 Dose: 20 mg Documented by: STEPHANIE Baricitinib (Baricitinib 2 Mg Tablet) 4 mg PO DAILY [facility] Stop: 09/25/21 09:01 Last Admin: 09/22/21 09:25 Dose: 4 mg Documented by: STEPHANIE Calcium Carbonate (Calcium Carbonate 500 Mg Tablet) 500 mg PO BID [facility] Last Admin: 09/22/21 09:25 Dose: 500 mg Documented by: STEPHANIE Dextrose (Dextrose 50 % 25 Gm/50 Ml Vial) 25 gm IVPUSH Q15M PRN; Protocol PRN Reason: per Hypoglycemia Standing Ord. Escitalopram Oxalate (Escitalopram Oxalate 5 Mg Tablet) 5 mg PO DAILY [facility] Last Admin: 09/22/21 09:25 Dose: 5 mg Documented by: STEPHANIE Glucose (Glucose Gel 15 Gm Gel..Gram.) 15 gm PO Q15M PRN; Protocol PRN Reason: per Hypoglycemia Standing Ord. Heparin Sodium (Porcine) (Heparin Sodium,Porcine 5,000 Unit/Ml Vial) 5,000 unit SUBCUT Q8H [facility] Last Admin: 09/22/21 04:59 Dose: 5,000 unit Documented by: VITALIY Insulin Glargine (Insulin Glargine,Hum.Rec.Anlog 100 Unit/Ml 10 Ml Vial) 15 unit SUBCUT BEDTIME [facility] Last Admin: 09/21/21 22:12 Dose: 15 unit Documented by: VITALIY Insulin Human Lispro (Insulin Lispro 100 Unit/Ml 3 Ml Vial) 0 unit SUBCUT QIDACHS [facility]; Protocol Last Admin: 09/22/21 12:27 Dose: 2 unit Documented by: STEPHANIE Insulin Human Lispro (Insulin Lispro 100 Unit/Ml 3 Ml Vial) 5 unit SUBCUT QIDACHS [facility] Last Admin: 09/22/21 12:27 Dose: 5 unit Documented by: STEPHANIE Pharmacy Consult (Consult Rx Perform Med Rec) 1 each MISCELLANE ONCE PRN PRN Reason: Consult order Prednisone (Prednisone 20 Mg Tablet) 20 mg PO DAILY [facility] Last Admin: 09/22/21 09:25 Dose: 20 mg Documented by: STEPHANIE Sodium Chloride (0.9 % Sodium Chloride Flush 3 Ml Syringe) 3 ml IVFLUSH QSHIFT [facility] Last Admin: 09/22/21 09:25 Dose: 3 ml Documented by: STEPHANIE Vitamin D (Cholecalciferol (Vitamin D3) 25 Mcg Tablet) 50 mcg PO DAILY [facility] Last Admin: 09/22/21 09:25 Dose: 50 mcg Documented by: STEPHANIE Labs CBC & Chem 7: 09/22/21 09:15 09/22/21 09:15 Labs: Laboratory Results - last 24 hr 09/21/21 09/21/21 09/22/21 15:54 20:21 07:32 MCV MCH MCHC RDW Plt Count MPV Absolute Nucleated RBC Nucleated RBC % (auto) Anion Gap Estim Creat Clear Calc Estimated GFR POC Glucose 258 H 271 H 85 Random Glucose Calcium 09/22/21 09/22/21 09/22/21 09:15 09:15 12:14 MCV 92.0 MCH 29.1 MCHC 31.6 RDW 14.0 Plt Count 318 MPV 10.9 Absolute Nucleated RBC 0.000 Nucleated RBC % (auto) 0.0 Anion Gap 14 Estim Creat Clear Calc 66.3 Estimated GFR > 60 POC Glucose 173 H Random Glucose 164 H Calcium 9.1 D Assessment and Plan (1) Pneumonia due to 2019 novel coronavirus: Status: Acute (2) AMY (acute kidney injury): Status: Acute (3) Acute dehydration: Status: Acute Assessment and Plan: 66F with known covid, presented with cough, found to have significant hypoxia, unvaccinated Acute hypoxic respiratory failure secondary to COVID pneumonia, with protracted hypoxic syndrome becoming long hauler Decadron 6 mg Day 06/10--> some additional steroid with prednison3 Finally off high flow, continue to wean Monitor prognostic labs - improving continue baricitinib until 09/25 will assess for home O2 tomorrow hypernatremia resolved,monitor Acute kidney injury Likely hypovolemic resolved with hydration hold Arb and hydrochlorothiazide Monitor BMP Diabetes Insulin Leukocytosis from steroids usage DVT PPX Heparin Goal :to continue to wean and ultimately get on conventional nasal canula and ultimeately home with oxygen early next week Quality Stroke Does the patient have a stroke diagnosis?: No VTE Prior VTE?: No VTE Risk Level:: Medical - moderate - high VTE Device Contraindication: Treatment Not Indicated VTE Drug Contraindication: N/A - Med Ordered
[2021-09-22 14:56] LABS: COVID-19 Test Negative (Negative)
[2021-09-22 15:00] VITALS: BP 101/57; PULSE 66; RESP 20; TEMP 36.4; O2SAT 90
[2021-09-22 16:09] LABS: Glucose, Whole Blood 225 mg/dL (60-115)
[2021-09-22 19:37] VITALS: BP 101/57; PULSE 64; RESP 18; TEMP 36.6; O2SAT 95
[2021-09-22 20:13] LABS: Glucose, Whole Blood 148 mg/dL (60-115)
[2021-09-22] MEDS: Insulin Glargine,Hum.rec.anlog 100 UNIT/ML 10 ML VIAL 15 UNIT SUBCUT (20:47)
[2021-09-22 23:41] VITALS: BP 115/67; PULSE 80; RESP 20; TEMP 36.7; O2SAT 90
[2021-09-23 04:00] VITALS: BP 103/63; PULSE 71; RESP 18; TEMP 36.6; O2SAT 92
[2021-09-23] MEDS: Heparin Sodium,Porcine 5,000 UNIT/ML VIAL 5000 UNIT SUBCUT ×3 (05:13→21:20)
[2021-09-23 07:59] LABS: Glucose, Whole Blood 102 mg/dL (60-115)
[2021-09-23 08:00] VITALS: BP 104/51; PULSE 85; RESP 20; TEMP 36.8; O2SAT 90
[2021-09-23] MEDS: Atorvastatin Calcium 20 MG TABLET PO (09:50)
[2021-09-23] MEDS: Escitalopram Oxalate 5 MG TABLET PO (09:50)
[2021-09-23] MEDS: predniSONE 20 MG TABLET PO (09:50)
[2021-09-23] MEDS: Cholecalciferol (Vitamin D3) 25 MCG TABLET 50 MCG PO (09:50)
[2021-09-23] MEDS: 0.9 % Sodium Chloride Flush 3 ML SYRINGE IVFLUSH ×3 (09:50→21:18)
--- NOTE | 2021-09-23 10:43 | HO.PM.IMPN ---
Subjective Subjective Date of Service: 09/23/21 Interval History: f/u on covid with prolonged hypoxia which is finally better and on nasal canula at 5 liters and stang just above 90 and is comfotable, breathing easy--no new issues Physical Exam Vital Signs: Vital Signs: Last Vital Signs Temp 98.3 F 09/23/21 08:00 Pulse 85 09/23/21 08:00 Resp 20 09/23/21 08:00 BP 104/51 L 09/23/21 08:00 Pulse Ox 90 L 09/23/21 08:00 BMI result Body Mass Index 35.2 Const: Other: Constitutional : Alert, no distress, breathing easy Neck : Normal inspection, Supple Cardiovascular : no JVP, no lower extremity edema Respiratory : chest wall moving bilaterally, in mild distress, on high-flow oxygen Gastrointestinal: soft, lax, Normal bowel sounds, Non tender Skin : Warm, Dry Neurological : Alert & oriented x3, No focal deficit Objective Data Active Medications Acetaminophen (Acetaminophen 325 Mg Tablet) 650 mg PO Q6H PRN PRN Reason: Pain, Mild (Pain Scale 1-3) Last Admin: 09/19/21 13:05 Dose: 650 mg Documented by: NITO Atorvastatin Calcium (Atorvastatin Calcium 20 Mg Tablet) 20 mg PO DAILY [facility] Last Admin: 09/23/21 09:50 Dose: 20 mg Documented by: STEPHANIE Baricitinib (Baricitinib 2 Mg Tablet) 4 mg PO DAILY [facility] Stop: 09/25/21 09:01 Last Admin: 09/23/21 09:50 Dose: 4 mg Documented by: STEPAHNIE Calcium Carbonate (Calcium Carbonate 500 Mg Tablet) 500 mg PO BID [facility] Last Admin: 09/23/21 09:50 Dose: 500 mg Documented by: STEPHANIE Dextrose (Dextrose 50 % 25 Gm/50 Ml Vial) 25 gm IVPUSH Q15M PRN; Protocol PRN Reason: per Hypoglycemia Standing Ord. Escitalopram Oxalate (Escitalopram Oxalate 5 Mg Tablet) 5 mg PO DAILY [facility] Last Admin: 09/23/21 09:50 Dose: 5 mg Documented by: STEPHANIE Glucose (Glucose Gel 15 Gm Gel..Gram.) 15 gm PO Q15M PRN; Protocol PRN Reason: per Hypoglycemia Standing Ord. Heparin Sodium (Porcine) (Heparin Sodium,Porcine 5,000 Unit/Ml Vial) 5,000 unit SUBCUT Q8H [facility] Last Admin: 09/23/21 05:13 Dose: 5,000 unit Documented by: VITALIY Insulin Glargine (Insulin Glargine,Hum.Rec.Anlog 100 Unit/Ml 10 Ml Vial) 15 unit SUBCUT BEDTIME [facility] Last Admin: 09/22/21 20:47 Dose: 15 unit Documented by: VITALIY Insulin Human Lispro (Insulin Lispro 100 Unit/Ml 3 Ml Vial) 0 unit SUBCUT QIDACHS [facility]; Protocol Last Admin: 09/23/21 08:05 Dose: Not Given Documented by: STEPHANIE Non-Admin Reason: No Insulin Coverage Insulin Human Lispro (Insulin Lispro 100 Unit/Ml 3 Ml Vial) 5 unit SUBCUT QIDACHS [facility] Last Admin: 09/23/21 08:05 Dose: Not Given Documented by: STEPHANIE Non-Admin Reason: No Insulin Coverage Pharmacy Consult (Consult Rx Perform Med Rec) 1 each MISCELLANE ONCE PRN PRN Reason: Consult order Prednisone (Prednisone 20 Mg Tablet) 20 mg PO DAILY [facility] Last Admin: 09/23/21 09:50 Dose: 20 mg Documented by: STEPHANIE Sodium Chloride (0.9 % Sodium Chloride Flush 3 Ml Syringe) 3 ml IVFLUSH QSHIFT [facility] Last Admin: 09/23/21 09:50 Dose: 3 ml Documented by: STEPHANIE Vitamin D (Cholecalciferol (Vitamin D3) 25 Mcg Tablet) 50 mcg PO DAILY [facility] Last Admin: 09/23/21 09:50 Dose: 50 mcg Documented by: STEPHANIE Labs CBC & Chem 7: 09/22/21 09:15 09/22/21 09:15 Labs: Laboratory Results - last 24 hr 09/22/21 09/22/21 09/22/21 12:14 13:50 15:58 POC Glucose 173 H 225 H COVID-19 ([facility]) Negative COVID-19 Clin Com See Note 09/22/21 09/23/21 20:07 07:46 POC Glucose 148 H 102 COVID-19 ([facility]) COVID-19 Clin Com Assessment and Plan (1) Pneumonia due to 2019 novel coronavirus: Status: Acute (2) AMY (acute kidney injury): Status: Acute (3) Acute dehydration: Status: Acute Assessment and Plan: 66F with known covid, presented with cough, found to have significant hypoxia, unvaccinated Acute hypoxic respiratory failure secondary to COVID pneumonia, with protracted hypoxic syndrome becoming long hauler Decadron 6 mg Day 06/10--> some additional steroid with prednison3 Finally off high flow, continue to wean Monitor prognostic labs - improving continue baricitinib until 09/25 will assess for home O2 today hypernatremia resolved,monitor Acute kidney injury Likely hypovolemic resolved with hydration hold Arb and hydrochlorothiazide Monitor BMP Diabetes Insulin Leukocytosis from steroids usage DVT PPX Heparin Goal: home with oxygen Quality Stroke Does the patient have a stroke diagnosis?: No VTE Prior VTE?: No VTE Risk Level:: Medical - moderate - high VTE Device Contraindication: Treatment Not Indicated VTE Drug Contraindication: N/A - Med Ordered
[2021-09-23 10:53] LABS: Glucose, Whole Blood 123 mg/dL (60-115)
[2021-09-23 11:19] VITALS: BP 107/64; PULSE 70; RESP 20; TEMP 36.4; O2SAT 92
--- NOTE | 2021-09-23 11:23 | PC.RT ---
attempted to ambulate patient for Home O2 eval. Patient desat to low 60's when sitting on side of bed. FiO2 increased, eval stopped due to patient increasing O2 needs. Notified MD and RN.
[2021-09-23 15:02] VITALS: BP 99/55; PULSE 80; RESP 20; TEMP 36.7; O2SAT 97
[2021-09-23 16:15] LABS: Glucose, Whole Blood 309 mg/dL (60-115)
[2021-09-23] MEDS: Insulin Lispro 100 UNIT/ML 3 ML VIAL SUBCUT ×4 (16:39→21:19)
[2021-09-23 19:17] VITALS: BP 113/63; PULSE 83; RESP 16; TEMP 36.5; O2SAT 95
[2021-09-23 20:16] LABS: Glucose, Whole Blood 208 mg/dL (60-115)
[2021-09-23] MEDS: Insulin Glargine,Hum.rec.anlog 100 UNIT/ML 10 ML VIAL 15 UNIT SUBCUT (21:21)
[2021-09-24] VITALS: BP 109/63; PULSE 73; RESP 18; TEMP 36.3; O2SAT 99
[2021-09-24 04:00] VITALS: BP 106/52; PULSE 84; RESP 20; TEMP 36.7; O2SAT 97
[2021-09-24] MEDS: Heparin Sodium,Porcine 5,000 UNIT/ML VIAL 5000 UNIT SUBCUT ×3 (05:44→20:57)
[2021-09-24 07:38] LABS: Glucose, Whole Blood 77 mg/dL (60-115)
[2021-09-24 08:00] VITALS: BP 100/56; PULSE 82; RESP 20; TEMP 36.3
[2021-09-24] MEDS: predniSONE 20 MG TABLET PO (09:55)
[2021-09-24] MEDS: Atorvastatin Calcium 20 MG TABLET PO (09:55)
[2021-09-24] MEDS: Escitalopram Oxalate 5 MG TABLET PO (09:55)
[2021-09-24] MEDS: Cholecalciferol (Vitamin D3) 25 MCG TABLET 50 MCG PO (09:55)
[2021-09-24] MEDS: 0.9 % Sodium Chloride Flush 3 ML SYRINGE IVFLUSH ×3 (09:56→21:01)
[2021-09-24 11:34] LABS: Glucose, Whole Blood 107 mg/dL (60-115)
--- NOTE | 2021-09-24 11:47 | HO.PM.IMPN ---
Subjective Subjective Date of Service: 09/24/21 Interval History: f/u on covid with prolonged hypoxia, when attempt to do home O2 eval with patient just sitting up, she became very short of breath, and O2 sat going into 60 and has since been back on 10 liters and sating 92, no distress Physical Exam Vital Signs: Vital Signs: Last Vital Signs Temp 97.3 F 09/24/21 08:00 Pulse 82 09/24/21 08:00 Resp 20 09/24/21 08:00 BP 100/56 L 09/24/21 08:00 Pulse Ox 97 09/24/21 04:00 BMI result Body Mass Index 35.2 Const: Other: Constitutional : Alert, no distress, breathing easy Neck : Normal inspection, Supple Cardiovascular : no JVP, no lower extremity edema Respiratory : chest wall moving bilaterally, in mild distress, breathing easy Gastrointestinal: soft, lax, Normal bowel sounds, Non tender Skin : Warm, Dry Neurological : Alert & oriented x3, No focal deficit Objective Data Active Medications Acetaminophen (Acetaminophen 325 Mg Tablet) 650 mg PO Q6H PRN PRN Reason: Pain, Mild (Pain Scale 1-3) Last Admin: 09/19/21 13:05 Dose: 650 mg Documented by: NITO Atorvastatin Calcium (Atorvastatin Calcium 20 Mg Tablet) 20 mg PO DAILY [facility] Last Admin: 09/24/21 09:55 Dose: 20 mg Documented by: CONSTANCE Baricitinib (Baricitinib 2 Mg Tablet) 4 mg PO DAILY [facility] Stop: 09/25/21 09:01 Last Admin: 09/24/21 09:55 Dose: 4 mg Documented by: CONSTANCE Calcium Carbonate (Calcium Carbonate 500 Mg Tablet) 500 mg PO BID [facility] Last Admin: 09/24/21 09:55 Dose: 500 mg Documented by: CONSTANCE Dextrose (Dextrose 50 % 25 Gm/50 Ml Vial) 25 gm IVPUSH Q15M PRN; Protocol PRN Reason: per Hypoglycemia Standing Ord. Escitalopram Oxalate (Escitalopram Oxalate 5 Mg Tablet) 5 mg PO DAILY [facility] Last Admin: 09/24/21 09:55 Dose: 5 mg Documented by: CONSTANCE Glucose (Glucose Gel 15 Gm Gel..Gram.) 15 gm PO Q15M PRN; Protocol PRN Reason: per Hypoglycemia Standing Ord. Heparin Sodium (Porcine) (Heparin Sodium,Porcine 5,000 Unit/Ml Vial) 5,000 unit SUBCUT Q8H [facility] Last Admin: 09/24/21 05:44 Dose: 5,000 unit Documented by: MARGARET Insulin Glargine (Insulin Glargine,Hum.Rec.Anlog 100 Unit/Ml 10 Ml Vial) 15 unit SUBCUT BEDTIME [facility] Last Admin: 09/23/21 21:21 Dose: 15 unit Documented by: MARGARET Insulin Human Lispro (Insulin Lispro 100 Unit/Ml 3 Ml Vial) 0 unit SUBCUT QIDACHS [facility]; Protocol Last Admin: 09/24/21 09:56 Dose: Not Given Documented by: CONSTANCE Non-Admin Reason: No Insulin Coverage Insulin Human Lispro (Insulin Lispro 100 Unit/Ml 3 Ml Vial) 5 unit SUBCUT QIDACHS [facility] Last Admin: 09/24/21 09:56 Dose: Not Given Documented by: CONSTANCE Non-Admin Reason: No Insulin Coverage Pharmacy Consult (Consult Rx Perform Med Rec) 1 each MISCELLANE ONCE PRN PRN Reason: Consult order Prednisone (Prednisone 20 Mg Tablet) 20 mg PO DAILY [facility] Last Admin: 09/24/21 09:55 Dose: 20 mg Documented by: CONSTANCE Sodium Chloride (0.9 % Sodium Chloride Flush 3 Ml Syringe) 3 ml IVFLUSH QSHIFT [facility] Last Admin: 09/24/21 09:56 Dose: 3 ml Documented by: CONSTANCE Vitamin D (Cholecalciferol (Vitamin D3) 25 Mcg Tablet) 50 mcg PO DAILY [facility] Last Admin: 09/24/21 09:55 Dose: 50 mcg Documented by: CONSTANCE Labs CBC & Chem 7: 09/22/21 09:15 09/22/21 09:15 Labs: Laboratory Results - last 24 hr 09/23/21 09/23/21 09/24/21 16:04 20:01 07:33 POC Glucose 309 H 208 H 77 09/24/21 11:26 POC Glucose 107 Assessment and Plan (1) Pneumonia due to 2019 novel coronavirus: Status: Acute (2) AMY (acute kidney injury): Status: Acute (3) Acute dehydration: Status: Acute Assessment and Plan: 66F with known covid, presented with cough, found to have significant hypoxia, unvaccinated Acute hypoxic respiratory failure secondary to COVID pneumonia, with protracted hypoxic syndrome becoming long hauler Decadron 6 mg Day 06/10--> Prednisone now Finally off high flow, continue to wean O2 Monitor prognostic labs - improving continue baricitinib until 09/25 Not quite ready for home O2 but will continue to reasssess on ongoing basis hypernatremia resolved,monitor Acute kidney injury Likely hypovolemic resolved with hydration hold Arb and hydrochlorothiazide Monitor BMP Diabetes Insulin Leukocytosis from steroids usage DVT PPX Heparin Goal: home with oxygen when able to wean a bit more Discussed with daughter on 09/23 Quality Stroke Does the patient have a stroke diagnosis?: No VTE Prior VTE?: No VTE Risk Level:: Medical - moderate - high VTE Device Contraindication: Treatment Not Indicated VTE Drug Contraindication: N/A - Med Ordered
[2021-09-24 12:00] VITALS: BP 96/52; PULSE 75; RESP 20; TEMP 36.9; O2SAT 95
[2021-09-24] MEDS: Insulin Lispro 100 UNIT/ML 3 ML VIAL SUBCUT ×5 (12:33→20:43)
[2021-09-24 15:42] VITALS: BP 103/57; PULSE 71; RESP 16; TEMP 36.1; O2SAT 95
[2021-09-24 16:11] LABS: Glucose, Whole Blood 229 mg/dL (60-115)
[2021-09-24 19:11] VITALS: BP 91/53; PULSE 76; RESP 16; TEMP 36.6; O2SAT 92
[2021-09-24 20:15] LABS: Glucose, Whole Blood 260 mg/dL (60-115)
[2021-09-24] MEDS: Insulin Glargine,Hum.rec.anlog 100 UNIT/ML 10 ML VIAL 15 UNIT SUBCUT (20:51)
[2021-09-25 00:35] VITALS: BP 125/58; PULSE 75; RESP 16; TEMP 36.9; O2SAT 100
[2021-09-25] MEDS: Heparin Sodium,Porcine 5,000 UNIT/ML VIAL 5000 UNIT SUBCUT ×3 (05:24→21:11)
[2021-09-25 07:28] VITALS: BP 100/59; PULSE 70; RESP 18; TEMP 36.6; O2SAT 97
[2021-09-25 08:11] LABS: Glucose, Whole Blood 74 mg/dL (60-115)
[2021-09-25] MEDS: 0.9 % Sodium Chloride Flush 3 ML SYRINGE IVFLUSH ×3 (08:29→21:11)
[2021-09-25] MEDS: predniSONE 20 MG TABLET PO (08:30)
[2021-09-25] MEDS: Escitalopram Oxalate 5 MG TABLET PO (08:30)
[2021-09-25] MEDS: Insulin Lispro 100 UNIT/ML 3 ML VIAL SUBCUT ×6 (08:30→21:11)
[2021-09-25] MEDS: Cholecalciferol (Vitamin D3) 25 MCG TABLET 50 MCG PO (08:31)
[2021-09-25] MEDS: Atorvastatin Calcium 20 MG TABLET PO (08:31)
--- NOTE | 2021-09-25 09:06 | PC.NURSE ---
AM BS 74. Held SS insulin. Gave 5Units scheduled insulin because patient ate all of her breakfast plus some gram crackers. I told her to report if she felt like she was having low BS. Passed this along to day RN.
--- NOTE | 2021-09-25 10:56 | HO.PM.IMPN ---
Subjective Subjective Date of Service: 09/25/21 Interval History: f/u on covid with prolonged hypoxia, oxygenation is better 97 on 10 liters Review of Systems no fever +sob Physical Exam Vital Signs: Vital Signs: Last Vital Signs Temp 97.8 F 09/25/21 07:28 Pulse 70 09/25/21 07:28 Resp 18 09/25/21 07:28 BP 100/59 L 09/25/21 07:28 Pulse Ox 97 09/25/21 07:28 BMI result Body Mass Index 35.2 Const: Other: Constitutional : Alert, no distress, breathing easy Neck : Normal inspection, Supple Cardiovascular : no JVP, no lower extremity edema Respiratory : chest wall moving bilaterally, in mild distress, breathing easy Gastrointestinal: soft, lax, Normal bowel sounds, Non tender Skin : Warm, Dry Neurological : Alert & oriented x3, No focal deficit Objective Data Active Medications Acetaminophen (Acetaminophen 325 Mg Tablet) 650 mg PO Q6H PRN PRN Reason: Pain, Mild (Pain Scale 1-3) Last Admin: 09/19/21 13:05 Dose: 650 mg Documented by: NITO Atorvastatin Calcium (Atorvastatin Calcium 20 Mg Tablet) 20 mg PO DAILY [facility] Last Admin: 09/25/21 08:31 Dose: 20 mg Documented by: MARGARET Calcium Carbonate (Calcium Carbonate 500 Mg Tablet) 500 mg PO BID [facility] Last Admin: 09/25/21 08:30 Dose: 500 mg Documented by: MARGARET Dextrose (Dextrose 50 % 25 Gm/50 Ml Vial) 25 gm IVPUSH Q15M PRN; Protocol PRN Reason: per Hypoglycemia Standing Ord. Escitalopram Oxalate (Escitalopram Oxalate 5 Mg Tablet) 5 mg PO DAILY [facility] Last Admin: 09/25/21 08:30 Dose: 5 mg Documented by: MARGARET Glucose (Glucose Gel 15 Gm Gel..Gram.) 15 gm PO Q15M PRN; Protocol PRN Reason: per Hypoglycemia Standing Ord. Heparin Sodium (Porcine) (Heparin Sodium,Porcine 5,000 Unit/Ml Vial) 5,000 unit SUBCUT Q8H [facility] Last Admin: 09/25/21 05:24 Dose: 5,000 unit Documented by: MARGARET Insulin Glargine (Insulin Glargine,Hum.Rec.Anlog 100 Unit/Ml 10 Ml Vial) 15 unit SUBCUT BEDTIME [facility] Last Admin: 09/24/21 20:51 Dose: 15 unit Documented by: MARGARET Insulin Human Lispro (Insulin Lispro 100 Unit/Ml 3 Ml Vial) 0 unit SUBCUT QIDACHS [facility]; Protocol Last Admin: 09/25/21 08:24 Dose: Not Given Documented by: MARGARET Non-Admin Reason: No Insulin Coverage Insulin Human Lispro (Insulin Lispro 100 Unit/Ml 3 Ml Vial) 5 unit SUBCUT QIDAS [facility] Last Admin: 09/25/21 08:30 Dose: 5 unit Documented by: MARGARET Pharmacy Consult (Consult Rx Perform Med Rec) 1 each MISCELLANE ONCE PRN PRN Reason: Consult order Prednisone (Prednisone 20 Mg Tablet) 20 mg PO DAILY [facility] Last Admin: 09/25/21 08:30 Dose: 20 mg Documented by: MARGARET Sodium Chloride (0.9 % Sodium Chloride Flush 3 Ml Syringe) 3 ml IVFLUSH QSHIFT [facility] Last Admin: 09/25/21 08:29 Dose: 3 ml Documented by: MARGARET Vitamin D (Cholecalciferol (Vitamin D3) 25 Mcg Tablet) 50 mcg PO DAILY [facility] Last Admin: 09/25/21 08:31 Dose: 50 mcg Documented by: MARGARET Labs CBC & Chem 7: 09/22/21 09:15 09/22/21 09:15 Labs: Laboratory Results - last 24 hr 09/24/21 09/24/21 09/24/21 11:26 15:56 20:04 POC Glucose 107 229 H 260 H 09/25/21 07:24 POC Glucose 74 Assessment and Plan (1) Pneumonia due to 2019 novel coronavirus: Status: Acute (2) AMY (acute kidney injury): Status: Acute (3) Acute dehydration: Status: Acute Assessment and Plan: 66F with known covid, presented with cough, found to have significant hypoxia, unvaccinated Acute hypoxic respiratory failure secondary to COVID pneumonia, with protracted hypoxic syndrome becoming long hauler Decadron 6 mg Day 06/10--> stop prednisone Finally off high flow, continue to wean O2 with goal of 5 liters and then home Monitor prognostic labs - improving continue baricitinib until 09/25 Not quite ready for home O2 but will continue to reasssess on ongoing basis hypernatremia resolved,monitor Acute kidney injury Likely hypovolemic resolved with hydration hold Arb and hydrochlorothiazide Monitor BMP Diabetes Insulin Leukocytosis from steroids usage DVT PPX Heparin Goal: home with oxygen when able to wean a bit more Ongoing discussion with family: daughter Quality Stroke Does the patient have a stroke diagnosis?: No VTE Prior VTE?: No VTE Risk Level:: Medical - moderate - high VTE Device Contraindication: Treatment Not Indicated VTE Drug Contraindication: N/A - Med Ordered
[2021-09-25 10:59] VITALS: BP 108/52; PULSE 80; RESP 18; TEMP 36.3; O2SAT 93
[2021-09-25 11:39] LABS: Glucose, Whole Blood 94 mg/dL (60-115)
[2021-09-25 15:07] VITALS: BP 99/51; PULSE 73; RESP 20; TEMP 36.7; O2SAT 96
[2021-09-25 16:17] LABS: Glucose, Whole Blood 204 mg/dL (60-115)
[2021-09-25 19:16] VITALS: BP 99/62; PULSE 78; RESP 20; TEMP 36.6; O2SAT 97
[2021-09-25 19:38] LABS: Glucose, Whole Blood 266 mg/dL (60-115)
[2021-09-25] MEDS: Insulin Glargine,Hum.rec.anlog 100 UNIT/ML 10 ML VIAL 15 UNIT SUBCUT (21:11)
[2021-09-25 23:11] VITALS: BP 108/66; PULSE 75; RESP 20; TEMP 36.7; O2SAT 100
[2021-09-26] VITALS (7 sets, daily range): BP systolic 84–115; BP diastolic 49–71; PULSE 70–80; RESP 18–78; TEMP 36.3–36.9; O2SAT 93–98
[2021-09-26] MEDS: Heparin Sodium,Porcine 5,000 UNIT/ML VIAL 5000 UNIT SUBCUT ×3 (06:42→20:36)
[2021-09-26 07:11] LABS: Glucose, Whole Blood 71 mg/dL (60-115)
--- NOTE | 2021-09-26 07:55 | P.PNIM_ITS ---
Subjective Subjective Date of Service: 09/26/21 Interval History: f/u on covid with prolonged hypoxia, still on 10 by ID, feels comfortable however Physical Exam Verdana 4l Vital Signs: Verdana 4d Verdana 4d Vital Signs: Verdana 4d Verdana 4Bd Last Vital Signs Verdana 4d Casket Liner New 4d Casket Liner New 4d Temp 97.5 F 09/26/21 07:30 Casket Liner New 4d Pulse 70 09/26/21 07:30 Casket Liner New 4d Resp 20 09/26/21 07:30 BP 98/57 L 09/26/21 07:34 Pulse Ox 94 09/26/21 07:30 BMI result Body Mass Index 35.2 Const: Other: Constitutional : Alert, no distress, breathing easy Neck : Normal inspection, Supple Cardiovascular : no JVP, no lower extremity edema Respiratory : chest wall moving bilaterally, in mild distress, breathing easy Gastrointestinal: soft, lax, Normal bowel sounds, Non tender Skin : Warm, Dry Neurological : Alert & oriented x3, No focal deficit Objective Data Active Medications Acetaminophen (Acetaminophen 325 Mg Tablet) 650 mg PO Q6H PRN PRN Reason: Pain, Mild (Pain Scale 1-3) Last Admin: 09/19/21 13:05 Dose: 650 mg Documented by: NITO Atorvastatin Calcium (Atorvastatin Calcium 20 Mg Tablet) 20 mg PO DAILY [facility] Last Admin: 09/25/21 08:31 Dose: 20 mg Documented by: MARGARET Calcium Carbonate (Calcium Carbonate 500 Mg Tablet) 500 mg PO BID [facility] Last Admin: 09/25/21 21:10 Dose: 500 mg Documented by: VITALIY Dextrose (Dextrose 50 % 25 Gm/50 Ml Vial) 25 gm IVPUSH Q15M PRN; Protocol PRN Reason: per Hypoglycemia Standing Ord. Escitalopram Oxalate (Escitalopram Oxalate 5 Mg Tablet) 5 mg PO DAILY [facility] Last Admin: 09/25/21 08:30 Dose: 5 mg Documented by: MARGARET Glucose (Glucose Gel 15 Gm Gel..Gram.) 15 gm PO Q15M PRN; Protocol PRN Reason: per Hypoglycemia Standing Ord. Heparin Sodium (Porcine) (Heparin Sodium,Porcine 5,000 Unit/Ml Vial) 5,000 unit SUBCUT Q8H [facility] Last Admin: 09/26/21 06:42 Dose: 5,000 unit Documented by: VITALIY Insulin Glargine (Insulin Glargine,Hum.Rec.Anlog 100 Unit/Ml 10 Ml Vial) 15 unit SUBCUT BEDTIME [facility] Last Admin: 09/25/21 21:11 Dose: 15 unit Documented by: VITALIY Insulin Human Lispro (Insulin Lispro 100 Unit/Ml 3 Ml Vial) 0 unit SUBCUT QIDACHS [facility]; Protocol Last Admin: 09/25/21 21:11 Dose: 6 unit Documented by: VITALIY Insulin Human Lispro (Insulin Lispro 100 Unit/Ml 3 Ml Vial) 5 unit SUBCUT QIDACHS [facility] Last Admin: 09/25/21 21:11 Dose: 5 unit Documented by: VITALIY Pharmacy Consult (Consult Rx Perform Med Rec) 1 each MISCELLANE ONCE PRN PRN Reason: Consult order Prednisone (Prednisone 20 Mg Tablet) 20 mg PO DAILY [facility] Last Admin: 09/25/21 08:30 Dose: 20 mg Documented by: MARGARET Sodium Chloride (0.9 % Sodium Chloride Flush 3 Ml Syringe) 3 ml IVFLUSH QSHIFT [facility] Last Admin: 09/25/21 21:11 Dose: 3 ml Documented by: VITALIY Vitamin D (Cholecalciferol (Vitamin D3) 25 Mcg Tablet) 50 mcg PO DAILY [facility] Last Admin: 09/25/21 08:31 Dose: 50 mcg Documented by: MARGARET Labs CBC & Chem 7: 09/22/21 09:15 09/22/21 09:15 Labs: Laboratory Results - last 24 hr 09/25/21 09/25/21 09/25/21 07:24 10:58 16:12 POC Glucose 74 94 204 H 09/25/21 09/26/21 19:34 07:04 POC Glucose 266 H 71 Assessment and Plan (1) Pneumonia due to 2019 novel coronavirus: Status: Acute (2) AMY (acute kidney injury): Status: Acute (3) Acute dehydration: Status: Acute Plan 66F with known covid, presented with cough, found to have significant hypoxia, unvaccinated Acute hypoxic respiratory failure secondary to COVID pneumonia, with prolonged hypoxic syndrome becoming long hauler Decadron 6 mg Day 06/10--> stop prednisone at this time Finally off high flow, continue to wean O2 with goal to go home when able to tolerate 5 liters by ID completed 14 days of Baricitinib on 09/25 Not quite ready for home O2 but will continue to reasssess on ongoing basis hypernatremia resolved,monitor Acute kidney injury Likely hypovolemic resolved with hydration hold Arb and hydrochlorothiazide Monitor BMP Diabetes--controlled, continue insuling Leukocytosis from steroids usage DVT PPX Heparin Goal: home with oxygen when able to wean a bit more Ongoing discussion with family: daughter Quality Stroke Does the patient have a stroke diagnosis?: No VTE Prior VTE?: No VTE Risk Level:: Medical - moderate - high VTE Device Contraindication: Treatment Not Indicated VTE Drug Contraindication: N/A - Med Ordered
[2021-09-26] MEDS: Cholecalciferol (Vitamin D3) 25 MCG TABLET 50 MCG PO (09:08)
[2021-09-26] MEDS: predniSONE 20 MG TABLET PO (09:09)
[2021-09-26] MEDS: Atorvastatin Calcium 20 MG TABLET PO (09:09)
[2021-09-26] MEDS: Escitalopram Oxalate 5 MG TABLET PO (09:09)
[2021-09-26] MEDS: 0.9 % Sodium Chloride Flush 3 ML SYRINGE IVFLUSH ×3 (09:09→20:38)
[2021-09-26 11:13] LABS: Glucose, Whole Blood 144 mg/dL (60-115)
[2021-09-26] MEDS: Insulin Lispro 100 UNIT/ML 3 ML VIAL SUBCUT ×5 (11:58→20:37)
--- NOTE | 2021-09-26 15:35 | MHC.CM.PN ---
Female 66 Covid+ She is in the process of being weaned from O2. She is on 10L via [place]. DP home with services via BLS. Pt can not be discharged until oxygen demand decreases.
[2021-09-26 16:12] LABS: Glucose, Whole Blood 209 mg/dL (60-115)
[2021-09-26 19:32] LABS: Glucose, Whole Blood 293 mg/dL (60-115)
[2021-09-26] MEDS: Insulin Glargine,Hum.rec.anlog 100 UNIT/ML 10 ML VIAL 15 UNIT SUBCUT (20:36)
[2021-09-27 03:21] VITALS: BP 98/63; PULSE 72; RESP 18; TEMP 36.8; O2SAT 98
[2021-09-27] MEDS: Heparin Sodium,Porcine 5,000 UNIT/ML VIAL 5000 UNIT SUBCUT ×3 (06:00→20:35)
[2021-09-27 07:27] VITALS: BP 104/57; PULSE 74; RESP 18; TEMP 36.2; O2SAT 90
[2021-09-27 08:14] LABS: Glucose, Whole Blood 70 mg/dL (60-115)
[2021-09-27] MEDS: 0.9 % Sodium Chloride Flush 3 ML SYRINGE IVFLUSH ×3 (10:40→20:36)
[2021-09-27] MEDS: Atorvastatin Calcium 20 MG TABLET PO (10:40)
[2021-09-27] MEDS: predniSONE 20 MG TABLET PO (10:40)
[2021-09-27] MEDS: Cholecalciferol (Vitamin D3) 25 MCG TABLET 50 MCG PO (10:40)
[2021-09-27] MEDS: Escitalopram Oxalate 5 MG TABLET PO (10:40)
[2021-09-27 11:19] VITALS: BP 96/59; PULSE 73; RESP 18; TEMP 36.4; O2SAT 97
[2021-09-27 11:32] LABS: Glucose, Whole Blood 77 mg/dL (60-115)
--- NOTE | 2021-09-27 12:42 | P.PNIM_ITS ---
Subjective Subjective Date of Service: 09/27/21 Interval History: No acute issues ovrnight Review of Systems Denies CP Denied SOB Denies N/V/D Physical Exam Verdana 4l Vital Signs: Verdana 4d Verdana 4d Vital Signs: Verdana 4d Verdana 4Bd Last Vital Signs Verdana 4d Stained Glass Painter New 4d Stained Glass Painter New 4d Temp 97.5 F 09/27/21 11:19 Stained Glass Painter New 4d Pulse 73 09/27/21 11:19 Stained Glass Painter New 4d Resp 18 09/27/21 11:19 BP 96/59 L 09/27/21 11:19 Pulse Ox 97 09/27/21 11:19 BMI result Body Mass Index 35.2 Const: Other: No acute distress Resp: Other: Diminished throughout with scant crackles at bases Cardio: Other: -S4 +S1S2 -S3 M/R/G GI: Other: Soft NT/ND +NABS x 4 quads Extrem: Other: No edema bilateral Objective Data Active Medications Acetaminophen (Acetaminophen 325 Mg Tablet) 650 mg PO Q6H PRN PRN Reason: Pain, Mild (Pain Scale 1-3) Last Admin: 09/19/21 13:05 Dose: 650 mg Documented by: NITO Atorvastatin Calcium (Atorvastatin Calcium 20 Mg Tablet) 20 mg PO DAILY [facility] Last Admin: 09/27/21 10:40 Dose: 20 mg Documented by: ANGELITO Calcium Carbonate (Calcium Carbonate 500 Mg Tablet) 500 mg PO BID [facility] Last Admin: 09/27/21 10:40 Dose: 500 mg Documented by: ANGELITO Dextrose (Dextrose 50 % 25 Gm/50 Ml Vial) 25 gm IVPUSH Q15M PRN; Protocol PRN Reason: per Hypoglycemia Standing Ord. Escitalopram Oxalate (Escitalopram Oxalate 5 Mg Tablet) 5 mg PO DAILY [facility] Last Admin: 09/27/21 10:40 Dose: 5 mg Documented by: ANGELITO Glucose (Glucose Gel 15 Gm Gel..Gram.) 15 gm PO Q15M PRN; Protocol PRN Reason: per Hypoglycemia Standing Ord. Heparin Sodium (Porcine) (Heparin Sodium,Porcine 5,000 Unit/Ml Vial) 5,000 unit SUBCUT Q8H [facility] Last Admin: 09/27/21 06:00 Dose: 5,000 unit Documented by: JODI Insulin Glargine (Insulin Glargine,Hum.Rec.Anlog 100 Unit/Ml 10 Ml Vial) 15 un it SUBCUT BEDTIME [facility] Last Admin: 09/26/21 20:36 Dose: 15 unit Documented by: MARGARET Insulin Human Lispro (Insulin Lispro 100 Unit/Ml 3 Ml Vial) 0 unit SUBCUT QIDACHS [facility]; Protocol Last Admin: 09/27/21 11:33 Dose: Not Given Documented by: ANGELITO Non-Admin Reason: No Insulin Coverage Insulin Human Lispro (Insulin Lispro 100 Unit/Ml 3 Ml Vial) 5 unit SUBCUT QIDA [facility] Last Admin: 09/27/21 11:33 Dose: Not Given Documented by: ANGELITO Non-Admin Reason: POC 77 Pharmacy Consult (Consult Rx Perform Med Rec) 1 each MISCELLANE ONCE PRN PRN Reason: Consult order Prednisone (Prednisone 20 Mg Tablet) 20 mg PO DAILY [facility] Last Admin: 09/27/21 10:40 Dose: 20 mg Documented by: ANGELITO Sodium Chloride (0.9 % Sodium Chloride Flush 3 Ml Syringe) 3 ml IVFLUSH QSHIFT [facility] Last Admin: 09/27/21 10:40 Dose: 3 ml Documented by: ANGELITO Vitamin D (Cholecalciferol (Vitamin D3) 25 Mcg Tablet) 50 mcg PO DAILY [facility] Last Admin: 09/27/21 10:40 Dose: 50 mcg Documented by: ANGELITO Labs CBC & Chem 7: 09/22/21 09:15 09/22/21 09:15 Labs: Laboratory Results - last 24 hr 09/26/21 09/26/21 09/27/21 16:09 19:26 07:29 POC Glucose 209 H 293 H 70 09/27/21 11:20 POC Glucose 77 Assessment and Plan (1) AMY (acute kidney injury): Status: Acute (2) Pneumonia due to 2019 novel coronavirus: Status: Acute (3) Diabetes: Status: Acute (4) HTN (hypertension): Status: Acute Plan 66F with known covid, presented with cough, found to have significant hypoxia, unvaccinated. 1.Acute hypoxic respiratory failure secondary to COVID pneumonia - Home O2 eval - if appropriate..D/C in am 2. AMY - reolved with volume repletion - follow renals/divalents 3.Diabetes - acceptable control on current theraapies - adjust as indicated 4. HTN - acceptable control off therapies - add back when appropriate DVT PPX Heparin Quality Stroke Does the patient have a stroke diagnosis?: No VTE Prior VTE?: No VTE Risk Level:: Medical - moderate - high VTE Device Contraindication: Treatment Not Indicated VTE Drug Contraindication: N/A - Med Ordered
[2021-09-27 14:19] VITALS: PULSE 86; PULSE 87; PULSE 89; O2SAT 85; O2SAT 87; O2SAT 93
[2021-09-27 15:10] VITALS: BP 100/55; PULSE 86; RESP 20; TEMP 36.2; O2SAT 91
[2021-09-27 15:58] LABS: Glucose, Whole Blood 290 mg/dL (60-115)
[2021-09-27] MEDS: Insulin Lispro 100 UNIT/ML 3 ML VIAL SUBCUT ×4 (17:55→20:36)
[2021-09-27 19:14] VITALS: BP 100/52; PULSE 80; RESP 20; TEMP 36.8; O2SAT 94
[2021-09-27 20:00] LABS: Glucose, Whole Blood 305 mg/dL (60-115)
[2021-09-27] MEDS: Insulin Glargine,Hum.rec.anlog 100 UNIT/ML 10 ML VIAL 15 UNIT SUBCUT (20:35)
[2021-09-28] VITALS (7 sets, daily range): BP systolic 96–121; BP diastolic 52–64; PULSE 67–89; RESP 16–20; TEMP 36.3–36.8; O2SAT 90–98
[2021-09-28] MEDS: Heparin Sodium,Porcine 5,000 UNIT/ML VIAL 5000 UNIT SUBCUT ×3 (05:37→21:41)
[2021-09-28 07:36] LABS: Glucose, Whole Blood 71 mg/dL (60-115)
[2021-09-28 10:53] LABS: Glucose, Whole Blood 141 mg/dL (60-115)
[2021-09-28] MEDS: predniSONE 20 MG TABLET PO (11:20)
[2021-09-28] MEDS: Escitalopram Oxalate 5 MG TABLET PO (11:21)
[2021-09-28] MEDS: 0.9 % Sodium Chloride Flush 3 ML SYRINGE IVFLUSH ×3 (11:21→21:42)
[2021-09-28] MEDS: Insulin Lispro 100 UNIT/ML 3 ML VIAL SUBCUT ×5 (11:21→21:41)
[2021-09-28] MEDS: Atorvastatin Calcium 20 MG TABLET PO (11:21)
[2021-09-28] MEDS: Cholecalciferol (Vitamin D3) 25 MCG TABLET 50 MCG PO (11:21)
--- NOTE | 2021-09-28 13:24 | P.PNIM_ITS ---
Subjective Subjective Date of Service: 09/28/21 Interval History: Continues to desat to 76% with ambulation on 4l. Prolonged recovery. Otherwise no acute issues ovrnight Review of Systems Denies CP Denied SOB Denies N/V/D Physical Exam Verdana 4l Vital Signs: Verdana 4d Verdana 4d Vital Signs: Verdana 4d Verdana 4Bd Last Vital Signs Verdana 4d Hematologist New 4d Hematologist New 4d Temp 97.4 F 09/28/21 11:53 Hematologist New 4d Pulse 87 09/28/21 11:53 Hematologist New 4d Resp 16 09/28/21 11:53 BP 96/60 09/28/21 11:53 Pulse Ox 92 09/28/21 11:53 BMI result Body Mass Index 35.2 Const: Other: No acute distress Resp: Other: Diminished throughout with scant crackles at bases Cardio: Other: -S4 +S1S2 -S3 M/R/G GI: Other: Soft NT/ND +NABS x 4 quads Extrem: Other: No edema bilateral Objective Data Active Medications Acetaminophen (Acetaminophen 325 Mg Tablet) 650 mg PO Q6H PRN PRN Reason: Pain, Mild (Pain Scale 1-3) Last Admin: 09/19/21 13:05 Dose: 650 mg Documented by: NITO Atorvastatin Calcium (Atorvastatin Calcium 20 Mg Tablet) 20 mg PO DAILY [facility] Last Admin: 09/28/21 11:21 Dose: 20 mg Documented by: ANSHUL Calcium Carbonate (Calcium Carbonate 500 Mg Tablet) 500 mg PO BID [facility] Last Admin: 09/28/21 11:21 Dose: 500 mg Documented by: ANSHUL Dextrose (Dextrose 50 % 25 Gm/50 Ml Vial) 25 gm IVPUSH Q15M PRN; Protocol PRN Reason: per Hypoglycemia Standing Ord. Escitalopram Oxalate (Escitalopram Oxalate 5 Mg Tablet) 5 mg PO DAILY [facility] Last Admin: 09/28/21 11:21 Dose: 5 mg Documented by: ANSHUL Glucose (Glucose Gel 15 Gm Gel..Gram.) 15 gm PO Q15M PRN; Protocol PRN Reason: per Hypoglycemia Standing Ord. Heparin Sodium (Porcine) (Heparin Sodium,Porcine 5,000 Unit/Ml Vial) 5,000 unit SUBCUT Q8H [facility] Last Admin: 09/28/21 05:37 Dose: 5,000 unit Documented by: CHRISTOPHE Insulin Glargine (Insulin Glargine,Hum.Rec.Anlog 100 Unit/Ml 10 Ml Vial) 15 unit SUBCUT BEDTIME [facility] Last Admin: 09/27/21 20:35 Dose: 15 unit Documented by: CHRISTOPHE Insulin Human Lispro (Insulin Lispro 100 Unit/Ml 3 Ml Vial) 0 unit SUBCUT QIDACHS [facility]; Protocol Last Admin: 09/28/21 11:21 Dose: Not Given Documented by: ANSHUL Non-Admin Reason: No Insulin Coverage Insulin Human Lispro (Insulin Lispro 100 Unit/Ml 3 Ml Vial) 5 unit SUBCUT QIDACHS [facility] Last Admin: 09/28/21 11:21 Dose: 5 unit Documented by: ANSHUL Pharmacy Consult (Consult Rx Perform Med Rec) 1 each MISCELLANE ONCE PRN PRN Reason: Consult order Prednisone (Prednisone 20 Mg Tablet) 20 mg PO DAILY [facility] Last Admin: 09/28/21 11:20 Dose: 20 mg Documented by: ANSHUL Sodium Chloride (0.9 % Sodium Chloride Flush 3 Ml Syringe) 3 ml IVFLUSH QSHIFT [facility] Last Admin: 09/28/21 11:21 Dose: 3 ml Documented by: ANSHUL Vitamin D (Cholecalciferol (Vitamin D3) 25 Mcg Tablet) 50 mcg PO DAILY [facility] Last Admin: 09/28/21 11:21 Dose: 50 mcg Documented by: ANSHUL Labs CBC & Chem 7: 09/22/21 09:15 09/22/21 09:15 Labs: Laboratory Results - last 24 hr 09/27/21 09/27/21 09/28/21 15:52 19:52 07:17 POC Glucose 290 H 305 H 71 09/28/21 10:41 POC Glucose 141 H Assessment and Plan (1) Pneumonia due to 2019 novel coronavirus: Status: Acute (2) Diabetes: Status: Acute (3) HTN (hypertension): Status: Acute Plan 66F with known covid, presented with cough, found to have significant hypoxia, unvaccinated. 1.Acute hypoxic respiratory failure secondary to COVID pneumonia - Failed home O2 eval..desats to 70's. -continue current therapies -titrate O2 as tolerated 2. AMY - reolved with volume repletion - follow renals/divalents 3.Diabetes - acceptable control on current theraapies - adjust as indicated 4. HTN - acceptable control off therapies - add back when appropriate DVT PPX Heparin Quality Stroke Does the patient have a stroke diagnosis?: No VTE Prior VTE?: No VTE Risk Level:: Medical - moderate - high VTE Device Contraindication: Treatment Not Indicated VTE Drug Contraindication: N/A - Med Ordered
[2021-09-28 16:59] LABS: Glucose, Whole Blood 236 mg/dL (60-115)
[2021-09-28 20:31] LABS: Glucose, Whole Blood 221 mg/dL (60-115)
[2021-09-28] MEDS: Insulin Glargine,Hum.rec.anlog 100 UNIT/ML 10 ML VIAL 15 UNIT SUBCUT (21:41)
[2021-09-29] VITALS (9 sets, daily range): BP systolic 100–128; BP diastolic 53–66; PULSE 64–79; RESP 17–20; TEMP 36.5–37.1; O2SAT 92–99
[2021-09-29 07:45] LABS: Glucose, Whole Blood 66 mg/dL (60-115)
[2021-09-29] MEDS: 0.9 % Sodium Chloride Flush 3 ML SYRINGE IVFLUSH ×3 (08:14→21:03)
[2021-09-29] MEDS: Atorvastatin Calcium 20 MG TABLET PO (08:14)
[2021-09-29] MEDS: Escitalopram Oxalate 5 MG TABLET PO (08:14)
[2021-09-29] MEDS: Cholecalciferol (Vitamin D3) 25 MCG TABLET 50 MCG PO (08:14)
[2021-09-29] MEDS: predniSONE 20 MG TABLET PO (08:14)
[2021-09-29 08:24] LABS: MANUAL DIFF FLAG NO
[2021-09-29 08:26] LABS: Basophils Percent Auto 0.2 % (0-2); Eosinophils Absolute Auto 0.2 X10*3/uL (0.0-0.4); Hematocrit 28.5 % (37.0-47.0); Hemoglobin 9.3 g/dl (12.0-16.0); Imm Gran Abs Auto 0.06 X10*3/uL (0.00-0.03); Imm Gran Pct Auto 0.5 % (0.0-0.4); Lymphocytes Absolute Auto 2.5 X10*3/uL (1.2-4.9); Lymphocytes Percent Auto 22.1 % (20-40); Mean Corpuscular HGB Conc 32.6 g/dl (31.0-35.0); Mean Corpuscular Volume 91.9 fL (80.0-98.0); Mean Platelet Volume 10.2 fL (9.4-12.3); Monocytes Absolute Auto 0.8 X10*3/uL (0.1-1.2); Monocytes Percent Auto 6.6 % (2-11); Neutrophils Absolute Auto 7.8 x10*3/uL (2.0-8.3); Neutrophils Percent Auto 68.6 % (45-73); Platelet Count 212 X10*3/uL (160-400); Red Cell Distribution Width 14.4 % (11.0-16.0); White Blood Count 11.4 X10*3/uL (4.8-10.8)
[2021-09-29 08:33] LABS: Glucose, Whole Blood 108 mg/dL (60-115)
[2021-09-29 08:50] LABS: Alanine Aminotransferase 40 U/L (0-31); Albumin Level 3.5 g/dL (3.5-5.0); Alkaline Phosphatase 126 U/L (39-117); Anion Gap 14 (12-20); Aspartate Amino Transferase 18 U/L (5-31); Bilirubin Total 0.4 mg/dL (0.0-1.0); Blood Urea Nitrogen 20 mg/dL (9-16); Calcium 9.6 mg/dL (8.4-10.2); Carbon Dioxide 27 mmol/L (22-29); Chloride 102 mmol/L (96-108); Creatinine Clr Calc Pharmacy 67.2; Estimated Glomerular Filt Rate > 60; Glucose Random 108 mg/dL (60-115); Potassium 3.8 mmol/L (3.3-5.1); Sodium 139 mmol/L (135-145); Total Protein 6.3 g/dL (6.5-8.0)
[2021-09-29 11:19] LABS: Glucose, Whole Blood 163 mg/dL (60-115)
--- NOTE | 2021-09-29 11:19 | P.PNIM_ITS ---
Subjective Subjective Date of Service: 09/29/21 Interval History: No acute issues ovenight Review of Systems Denies CP Denied SOB Denies N/V/D Physical Exam Verdana 4l Vital Signs: Verdana 4d Verdana 4d Vital Signs: Verdana 4d Verdana 4Bd Last Vital Signs Verdana 4d Non Emergency Services Ambulance Driver New 4d Non Emergency Services Ambulance Driver New 4d Temp 98.0 F 09/29/21 09:50 Non Emergency Services Ambulance Driver New 4d Pulse 79 09/29/21 07:47 Non Emergency Services Ambulance Driver New 4d Resp 20 09/29/21 07:47 BP 100/56 L 09/29/21 07:47 Pulse Ox 95 09/29/21 08:27 BMI result Body Mass Index 35.2 Const: Other: No acute distress Resp: Other: Diminished throughout with scant crackles at bases Cardio: Other: -S4 +S1S2 -S3 M/R/G GI: Other: Soft NT/ND +NABS x 4 quads Extrem: Other: No edema bilateral Objective Data Active Medications Acetaminophen (Acetaminophen 325 Mg Tablet) 650 mg PO Q6H PRN PRN Reason: Pain, Mild (Pain Scale 1-3) Last Admin: 09/19/21 13:05 Dose: 650 mg Documented by: NITO Atorvastatin Calcium (Atorvastatin Calcium 20 Mg Tablet) 20 mg PO DAILY [facility] Last Admin: 09/29/21 08:14 Dose: 20 mg Documented by: JORGE ALBERTO Calcium Carbonate (Calcium Carbonate 500 Mg Tablet) 500 mg PO BID [facility] Last Admin: 09/29/21 08:14 Dose: 500 mg Documented by: JORGE ALBERTO Dextrose (Dextrose 50 % 25 Gm/50 Ml Vial) 25 gm IVPUSH Q15M PRN; Protocol PRN Reason: per Hypoglycemia Standing Ord. Escitalopram Oxalate (Escitalopram Oxalate 5 Mg Tablet) 5 mg PO DAILY [facility] Last Admin: 09/29/21 08:14 Dose: 5 mg Documented by: JORGE ALBERTO Glucose (Glucose Gel 15 Gm Gel..Gram.) 15 gm PO Q15M PRN; Protocol PRN Reason: per Hypoglycemia Standing Ord. Heparin Sodium (Porcine) (Heparin Sodium,Porcine 5,000 Unit/Ml Vial) 5,000 unit SUBCUT Q8H [facility] Last Admin: 09/29/21 05:23 Dose: Not Given Documented by: JAHAIRA Non-Admin Reason: Patient Asleep Insulin Glargine (Insulin Glargine,Hum.Rec.Anlog 100 Unit/Ml 10 Ml Vial) 15 unit SUBCUT BEDTIME [facility] Last Admin: 09/28/21 21:41 Dose: 15 unit Documented by: JAHAIRA Insulin Human Lispro (Insulin Lispro 100 Unit/Ml 3 Ml Vial) 0 unit SUBCUT QIDACHS [facility]; Protocol Last Admin: 09/29/21 08:03 Dose: Not Given Documented by: JORGE ALBERTO Non-Admin Reason: No Insulin Coverage Insulin Human Lispro (Insulin Lispro 100 Unit/Ml 3 Ml Vial) 5 unit SUBCUT QIDACHS [facility] Last Admin: 09/29/21 08:03 Dose: Not Given Documented by: JORGE ALBERTO Non-Admin Reason: No Insulin Coverage Pharmacy Consult (Consult Rx Perform Med Rec) 1 each MISCELLANE ONCE PRN PRN Reason: Consult order Prednisone (Prednisone 20 Mg Tablet) 20 mg PO DAILY [facility] Last Admin: 09/29/21 08:14 Dose: 20 mg Documented by: JORGE ALBERTO Sodium Chloride (0.9 % Sodium Chloride Flush 3 Ml Syringe) 3 ml IVFLUSH QSHIFT [facility] Last Admin: 09/29/21 08:14 Dose: 3 ml Documented by: JORGE ALBERTO Vitamin D (Cholecalciferol (Vitamin D3) 25 Mcg Tablet) 50 mcg PO DAILY [facility] Last Admin: 09/29/21 08:14 Dose: 50 mcg Documented by: JORGE ALBERTO Labs CBC & Chem 7: 09/29/21 08:09 09/29/21 08:09 Labs: Laboratory Results - last 24 hr 09/28/21 09/28/21 09/29/21 16:30 20:25 07:29 MCV MCH MCHC RDW Plt Count MPV Immature Gran % (Auto) Neut % (Auto) Lymph % (Auto) [place] % (Auto) Eos % (Auto) Baso % (Auto) Lymph # (Auto) [place] # (Auto) Eos # (Auto) Baso # (Auto) Abs Immat Gran (auto) Absolute Neuts (auto) Absolute Nucleated RBC Nucleated RBC % (auto) Anion Gap Estim Creat Clear Calc Estimated GFR POC Glucose 236 H 221 H 66 Random Glucose Calcium Total Bilirubin AST ALT Alkaline Phosphatase Total Protein Albumin 09/29/21 09/29/21 09/29/21 08:09 08:09 08:16 MCV 91.9 MCH 30.0 MCHC 32.6 RDW 14.4 Plt Count 212 D MPV 10.2 Immature Gran % (Auto) 0.5 H Neut % (Auto) 68.6 Lymph % (Auto) 22.1 [place] % (Auto) 6.6 Eos % (Auto) 2.0 Baso % (Auto) 0.2 Lymph # (Auto) 2.5 [place] # (Auto) 0.8 Eos # (Auto) 0.2 Baso # (Auto) 0.0 Abs Immat Gran (auto) 0.06 H Absolute Neuts (auto) 7.8 Absolute Nucleated RBC 0.000 Nucleated RBC % (auto) 0.0 Anion Gap 14 Estim Creat Clear Calc 67.2 Estimated GFR > 60 POC Glucose 108 Random Glucose 108 Calcium 9.6 Total Bilirubin 0.4 AST 18 D ALT 40 H Alkaline Phosphatase 126 H Total Protein 6.3 L Albumin 3.5 09/29/21 11:06 MCV MCH MCHC RDW Plt Count MPV Immature Gran % (Auto) Neut % (Auto) Lymph % (Auto) [place] % (Auto) Eos % (Auto) Baso % (Auto) Lymph # (Auto) [place] # (Auto) Eos # (Auto) Baso # (Auto) Abs Immat Gran (auto) Absolute Neuts (auto) Absolute Nucleated RBC Nucleated RBC % (auto) Anion Gap Estim Creat Clear Calc Estimated GFR POC Glucose 163 H Random Glucose Calcium Total Bilirubin AST ALT Alkaline Phosphatase Total Protein Albumin Assessment and Plan (1) Pneumonia due to 2019 novel coronavirus: Status: Acute (2) AMY (acute kidney injury): Status: Acute (3) HTN (hypertension): Status: Acute (4) Diabetes: Status: Acute Plan 66F with known covid, presented with cough, found to have significant hypoxia, unvaccinated.Slowly improving 1.Acute hypoxic respiratory failure secondary to COVID pneumonia - Recheck O2 eval in am -continue current therapies -titrate O2 as tolerated 2. AMY - reolved with volume repletion - follow renals/divalents 3.Diabetes - acceptable control on current theraapies - adjust as indicated 4. HTN - acceptable control off therapies - add back when appropriate DVT PPX Heparin Quality Stroke Does the patient have a stroke diagnosis?: No VTE Prior VTE?: No VTE Risk Level:: Medical - moderate - high VTE Device Contraindication: Treatment Not Indicated VTE Drug Contraindication: N/A - Med Ordered
[2021-09-29 16:26] LABS: Glucose, Whole Blood 285 mg/dL (60-115)
[2021-09-29] MEDS: Insulin Lispro 100 UNIT/ML 3 ML VIAL SUBCUT ×4 (17:07→21:02)
[2021-09-29] MEDS: Heparin Sodium,Porcine 5,000 UNIT/ML VIAL 5000 UNIT SUBCUT ×2 (17:11→21:01)
[2021-09-29 20:22] LABS: Glucose, Whole Blood 237 mg/dL (60-115)
[2021-09-29] MEDS: Insulin Glargine,Hum.rec.anlog 100 UNIT/ML 10 ML VIAL 15 UNIT SUBCUT (21:03)
[2021-09-30 04:00] VITALS: BP 119/65; PULSE 66; RESP 18; TEMP 36.9; O2SAT 96
[2021-09-30] MEDS: Heparin Sodium,Porcine 5,000 UNIT/ML VIAL 5000 UNIT SUBCUT ×3 (04:42→21:13)
[2021-09-30 06:20] LABS: MANUAL DIFF FLAG NO
[2021-09-30 06:34] LABS: Basophils Percent Auto 0.2 % (0-2); Eosinophils Absolute Auto 0.2 X10*3/uL (0.0-0.4); Eosinophils Percent Auto 1.8 % (0-4); Hematocrit 27.3 % (37.0-47.0); Hemoglobin 8.9 g/dl (12.0-16.0); Imm Gran Abs Auto 0.09 X10*3/uL (0.00-0.03); Imm Gran Pct Auto 0.9 % (0.0-0.4); Lymphocytes Absolute Auto 2.9 X10*3/uL (1.2-4.9); Lymphocytes Percent Auto 28.8 % (20-40); Mean Corpuscular HGB Conc 32.6 g/dl (31.0-35.0); Mean Corpuscular Hemoglobin 29.6 pg (27.0-33.0); Mean Corpuscular Volume 90.7 fL (80.0-98.0); Mean Platelet Volume 10.6 fL (9.4-12.3); Monocytes Absolute Auto 0.8 X10*3/uL (0.1-1.2); Monocytes Percent Auto 8.3 % (2-11); Neutrophils Absolute Auto 6.1 x10*3/uL (2.0-8.3); Platelet Count 220 X10*3/uL (160-400); Red Blood Count 3.01 X10*6/uL (4.20-5.50); Red Cell Distribution Width 14.2 % (11.0-16.0); White Blood Count 10.1 X10*3/uL (4.8-10.8)
[2021-09-30 07:15] VITALS: BP 101/60; PULSE 68; RESP 18; TEMP 36.5; O2SAT 97
[2021-09-30 07:19] LABS: Alanine Aminotransferase 35 U/L (0-31); Albumin Level 3.4 g/dL (3.5-5.0); Alkaline Phosphatase 116 U/L (39-117); Anion Gap 15 (12-20); Aspartate Amino Transferase 17 U/L (5-31); Bilirubin Total 0.3 mg/dL (0.0-1.0); Blood Urea Nitrogen 20 mg/dL (9-16); Calcium 9.7 mg/dL (8.4-10.2); Carbon Dioxide 26 mmol/L (22-29); Chloride 103 mmol/L (96-108); Creatinine Clr Calc Pharmacy 68.9; Estimated Glomerular Filt Rate > 60; Glucose Fasting 74 mg/dL (60-99); Potassium 4.1 mmol/L (3.3-5.1); Sodium 140 mmol/L (135-145)
[2021-09-30 08:02] LABS: Glucose, Whole Blood 76 mg/dL (60-115)
[2021-09-30] MEDS: Escitalopram Oxalate 5 MG TABLET PO (08:44)
[2021-09-30] MEDS: Cholecalciferol (Vitamin D3) 25 MCG TABLET 50 MCG PO (08:44)
[2021-09-30] MEDS: predniSONE 20 MG TABLET PO (08:45)
[2021-09-30] MEDS: Atorvastatin Calcium 20 MG TABLET PO (08:45)
[2021-09-30] MEDS: 0.9 % Sodium Chloride Flush 3 ML SYRINGE IVFLUSH ×2 (08:45→16:53)
[2021-09-30] MEDS: Docusate Sodium 100 MG CAPSULE PO (09:34)
[2021-09-30] MEDS: Insulin Lispro 100 UNIT/ML 3 ML VIAL SUBCUT ×3 (11:13→16:53)
[2021-09-30 11:16] LABS: Glucose, Whole Blood 142 mg/dL (60-115)
[2021-09-30 12:00] VITALS: BP 91/51; PULSE 83; RESP 20; TEMP 36.7; O2SAT 90
--- NOTE | 2021-09-30 14:00 | P.PNIM_ITS ---
Subjective Subjective Date of Service: 09/30/21 Interval History: No acute events overnight. Review of Systems Denies CP Denied SOB Denies N/V/D Physical Exam Verdana 4l Vital Signs: Verdana 4d Verdana 4d Vital Signs: Verdana 4d Verdana 4Bd Last Vital Signs Verdana 4d Oven Dumper New 4d Oven Dumper New 4d Temp 98.1 F 09/30/21 12:00 Oven Dumper New 4d Pulse 83 09/30/21 12:00 Oven Dumper New 4d Resp 20 09/30/21 12:00 BP 91/51 L 09/30/21 12:00 Pulse Ox 90 L 09/30/21 12:00 BMI result Body Mass Index 35.2 Const: Other: No acute distress Resp: Other: Diminished throughout with scant crackles at bases Cardio: Other: -S4 +S1S2 -S3 M/R/G GI: Other: Soft NT/ND +NABS x 4 quads Extrem: Other: No edema bilateral Objective Data Active Medications Acetaminophen (Acetaminophen 325 Mg Tablet) 650 mg PO Q6H PRN PRN Reason: Pain, Mild (Pain Scale 1-3) Last Admin: 09/19/21 13:05 Dose: 650 mg Documented by: NITO Atorvastatin Calcium (Atorvastatin Calcium 20 Mg Tablet) 20 mg PO DAILY [facility] Last Admin: 09/30/21 08:45 Dose: 20 mg Documented by: YOVANY Calcium Carbonate (Calcium Carbonate 500 Mg Tablet) 500 mg PO BID [facility] Last Admin: 09/30/21 08:45 Dose: 500 mg Documented by: YOVANY Dextrose (Dextrose 50 % 25 Gm/50 Ml Vial) 25 gm IVPUSH Q15M PRN; Protocol PRN Reason: per Hypoglycemia Standing Ord. Docusate Sodium (Docusate Sodium 100 Mg Capsule) 100 mg PO BID PRN PRN Reason: Constipation Last Admin: 09/30/21 09:34 Dose: 100 mg Documented by: YOVANY Escitalopram Oxalate (Escitalopram Oxalate 5 Mg Tablet) 5 mg PO DAILY [facility] Last Admin: 09/30/21 08:44 Dose: 5 mg Documented by: YOVANY Glucose (Glucose Gel 15 Gm Gel..Gram.) 15 gm PO Q15M PRN; Protocol PRN Reason: per Hypoglycemia Standing Ord. Heparin Sodium (Porcine) (Heparin Sodium,Porcine 5,000 Unit/Ml Vial) 5,000 unit SUBCUT Q8H [facility] Last Admin: 09/30/21 04:42 Dose: 5,000 unit Documented by: JAHAIRA Insulin Glargine (Insulin Glargine,Hum.Rec.Anlog 100 Unit/Ml 10 Ml Vial) 15 unit SUBCUT BEDTIME [facility] Last Admin: 09/29/21 21:03 Dose: 15 unit Documented by: JAHAIRA Insulin Human Lispro (Insulin Lispro 100 Unit/Ml 3 Ml Vial) 0 unit SUBCUT QIDACHS [facility]; Protocol Last Admin: 09/30/21 11:11 Dose: Not Given Documented by: YOVANY Non-Admin Reason: No Insulin Coverage Comments: POC 142 Insulin Human Lispro (Insulin Lispro 100 Unit/Ml 3 Ml Vial) 5 unit SUBCUT QIDACHS [facility] Last Admin: 09/30/21 11:13 Dose: 5 unit Documented by: YOVANY Pharmacy Consult (Consult Rx Perform Med Rec) 1 each MISCELLANE ONCE PRN PRN Reason: Consult order Prednisone (Prednisone 20 Mg Tablet) 20 mg PO DAILY [facility] Last Admin: 09/30/21 08:45 Dose: 20 mg Documented by: YOVANY Sodium Chloride (0.9 % Sodium Chloride Flush 3 Ml Syringe) 3 ml IVFLUSH QSHIFT [facility] Last Admin: 09/30/21 08:45 Dose: 3 ml Documented by: YOVANY Vitamin D (Cholecalciferol (Vitamin D3) 25 Mcg Tablet) 50 mcg PO DAILY [facility] Last Admin: 09/30/21 08:44 Dose: 50 mcg Documented by: YOVANY Labs CBC & Chem 7: 09/30/21 05:49 09/30/21 05:49 Labs: Laboratory Results - last 24 hr 09/29/21 09/29/21 09/30/21 16:07 19:22 05:49 MCV 90.7 MCH 29.6 MCHC 32.6 RDW 14.2 Plt Count 220 MPV 10.6 Immature Gran % (Auto) 0.9 H Neut % (Auto) 60.0 Lymph % (Auto) 28.8 [place] % (Auto) 8.3 Eos % (Auto) 1.8 Baso % (Auto) 0.2 Lymph # (Auto) 2.9 [place] # (Auto) 0.8 Eos # (Auto) 0.2 Baso # (Auto) 0.0 Abs Immat Gran (auto) 0.09 H Absolute Neuts (auto) 6.1 Absolute Nucleated RBC 0.000 Nucleated RBC % (auto) 0.0 Anion Gap Estim Creat Clear Calc Estimated GFR POC Glucose 285 H 237 H Fasting Glucose Calcium Total Bilirubin AST ALT Alkaline Phosphatase Total Protein Albumin 09/30/21 09/30/21 09/30/21 05:49 07:14 11:05 MCV MCH MCHC RDW Plt Count MPV Immature Gran % (Auto) Neut % (Auto) Lymph % (Auto) [place] % (Auto) Eos % (Auto) Baso % (Auto) Lymph # (Auto) [place] # (Auto) Eos # (Auto) Baso # (Auto) Abs Immat Gran (auto) Absolute Neuts (auto) Absolute Nucleated RBC Nucleated RBC % (auto) Anion Gap 15 Estim Creat Clear Calc 68.9 Estimated GFR > 60 POC Glucose 76 142 H Fasting Glucose 74 Calcium 9.7 Total Bilirubin 0.3 AST 17 ALT 35 H Alkaline Phosphatase 116 Total Protein 6.0 L Albumin 3.4 L Assessment and Plan (1) Pneumonia due to 2019 novel coronavirus: Status: Acute (2) AMY (acute kidney injury): Status: Acute (3) Diabetes: Status: Acute (4) HTN (hypertension): Status: Acute Plan 66F with known covid, presented with cough, found to have significant hypoxia, unvaccinated.Slowly improving 1.Acute hypoxic respiratory failure secondary to COVID pneumonia - Recheck O2 ..amb sats -continue current therapies -wean as tolerated 2. AMY - reolved with volume repletion - follow renals/divalents 3.Diabetes - acceptable control on current theraapies - adjust as indicated 4. HTN - acceptable control off therapies - add back when appropriate DVT PPX Heparin Quality Stroke Does the patient have a stroke diagnosis?: No VTE Prior VTE?: No VTE Risk Level:: Medical - moderate - high VTE Device Contraindication: Treatment Not Indicated VTE Drug Contraindication: N/A - Med Ordered
[2021-09-30 15:24] VITALS: BP 112/60; PULSE 64; RESP 18; TEMP 36.6; O2SAT 96
[2021-09-30 16:13] LABS: Glucose, Whole Blood 263 mg/dL (60-115)
--- NOTE | 2021-09-30 18:17 | PC.NURSE ---
DURING 02 REMOVAL TRIAL PATIENT NOTED TO DESAT TO LOW 83% WHILE RESTING IN RECLINER. PATIENT DENIES FEELING SOB, NO INCREASE WOB NOTED. RT CALLED AND INSTRUCTED RN TO REAPPLY 2L [place] CANNULA. 02 SAT INCREASED TO 96-98% ON 2L CEB[place]. WILL CONTINUE TO MONITOR.
[2021-09-30 19:58] VITALS: BP 115/63; PULSE 69; RESP 15; TEMP 36.4; O2SAT 98
[2021-09-30 20:48] LABS: Glucose, Whole Blood 143 mg/dL (60-115)
[2021-09-30 23:13] VITALS: BP 116/62; PULSE 64; RESP 18; TEMP 36.2; O2SAT 97
[2021-10-01] VITALS (7 sets, daily range): BP systolic 97–120; BP diastolic 54–68; PULSE 60–89; RESP 17–18; TEMP 36.4–37.1; O2SAT 95–99
[2021-10-01 07:29] LABS: Glucose, Whole Blood 79 mg/dL (60-115)
[2021-10-01] MEDS: 0.9 % Sodium Chloride Flush 3 ML SYRINGE IVFLUSH ×2 (10:38→17:27)
[2021-10-01] MEDS: predniSONE 20 MG TABLET PO (10:39)
[2021-10-01] MEDS: Cholecalciferol (Vitamin D3) 25 MCG TABLET 50 MCG PO (10:39)
[2021-10-01] MEDS: Atorvastatin Calcium 20 MG TABLET PO (10:39)
[2021-10-01 11:12] LABS: Glucose, Whole Blood 132 mg/dL (60-115)
[2021-10-01] MEDS: Insulin Lispro 100 UNIT/ML 3 ML VIAL SUBCUT ×4 (12:55→20:38)
[2021-10-01] MEDS: Heparin Sodium,Porcine 5,000 UNIT/ML VIAL 5000 UNIT SUBCUT ×2 (12:58→20:40)
[2021-10-01 16:24] LABS: Glucose, Whole Blood 205 mg/dL (60-115)
--- NOTE | 2021-10-01 16:53 | P.PNIM_ITS ---
Subjective Subjective Date of Service: 10/01/21 Interval History: No acute events overnight. Review of Systems Denies CP Denied SOB Denies N/V/D Physical Exam Verdana 4l Vital Signs: Verdana 4d Verdana 4d Vital Signs: Verdana 4d Verdana 4Bd Last Vital Signs Verdana 4d Hydrography Teacher New 4d Hydrography Teacher New 4d Temp 98.7 F 10/01/21 15:24 Hydrography Teacher New 4d Pulse 89 10/01/21 15:24 Hydrography Teacher New 4d Resp 18 10/01/21 15:24 BP 97/54 L 10/01/21 15:24 Pulse Ox 97 10/01/21 15:24 BMI result Body Mass Index 35.2 Const: Other: No acute distress Resp: Other: Diminished throughout with scant crackles at bases Cardio: Other: -S4 +S1S2 -S3 M/R/G GI: Other: Soft NT/ND +NABS x 4 quads Extrem: Other: No edema bilateral Objective Data Active Medications Acetaminophen (Acetaminophen 325 Mg Tablet) 650 mg PO Q6H PRN PRN Reason: Pain, Mild (Pain Scale 1-3) Last Admin: 09/19/21 13:05 Dose: 650 mg Documented by: NITO Atorvastatin Calcium (Atorvastatin Calcium 20 Mg Tablet) 20 mg PO DAILY [facility] Last Admin: 10/01/21 10:39 Dose: 20 mg Documented by: ANSHUL Calcium Carbonate (Calcium Carbonate 500 Mg Tablet) 500 mg PO BID [facility] Last Admin: 10/01/21 10:39 Dose: 500 mg Documented by: ANSHUL Dextrose (Dextrose 50 % 25 Gm/50 Ml Vial) 25 gm IVPUSH Q15M PRN; Protocol PRN Reason: per Hypoglycemia Standing Ord. Docusate Sodium (Docusate Sodium 100 Mg Capsule) 100 mg PO BID PRN PRN Reason: Constipation Last Admin: 09/30/21 09:34 Dose: 100 mg Documented by: YOVANY Escitalopram Oxalate (Escitalopram Oxalate 5 Mg Tablet) 5 mg PO DAILY [facility] Last Admin: 10/01/21 10:39 Dose: Not Given Documented by: ANSHUL Non-Admin Reason: Patient Refused Glucose (Glucose Gel 15 Gm Gel..Gram.) 15 gm PO Q15M PRN; Protocol PRN Reason: per Hypoglycemia Standing Ord. Heparin Sodium (Porcine) (Heparin Sodium,Porcine 5,000 Unit/Ml Vial) 5,000 unit SUBCUT Q8H [facility] Last Admin: 10/01/21 12:58 Dose: 5,000 unit Documented by: ANSHUL Insulin Glargine (Insulin Glargine,Hum.Rec.Anlog 100 Unit/Ml 10 Ml Vial) 15 unit SUBCUT BEDTIME [facility] Last Admin: 09/30/21 21:30 Dose: Not Given Documented by: MAGGI Non-Admin Reason: No Insulin Coverage Insulin Human Lispro (Insulin Lispro 100 Unit/Ml 3 Ml Vial) 0 unit SUBCUT QIDACHS [facility]; Protocol Last Admin: 10/01/21 11:40 Dose: Not Given Documented by: ANSHUL Non-Admin Reason: No Insulin Coverage Insulin Human Lispro (Insulin Lispro 100 Unit/Ml 3 Ml Vial) 5 unit SUBCUT QIDACHS [facility] Last Admin: 10/01/21 12:55 Dose: 5 unit Documented by: ANSHUL Pharmacy Consult (Consult Rx Perform Med Rec) 1 each MISCELLANE ONCE PRN PRN Reason: Consult order Prednisone (Prednisone 20 Mg Tablet) 20 mg PO DAILY [facility] Last Admin: 10/01/21 10:39 Dose: 20 mg Documented by: ANSHUL Sodium Chloride (0.9 % Sodium Chloride Flush 3 Ml Syringe) 3 ml IVFLUSH QSHIFT [facility] Last Admin: 10/01/21 10:38 Dose: 3 ml Documented by: ANSHUL Vitamin D (Cholecalciferol (Vitamin D3) 25 Mcg Tablet) 50 mcg PO DAILY [facility] Last Admin: 10/01/21 10:39 Dose: 50 mcg Documented by: ANSHUL Labs CBC & Chem 7: 09/30/21 05:49 09/30/21 05:49 Labs: Laboratory Results - last 24 hr 09/30/21 10/01/21 10/01/21 20:41 07:05 10:46 POC Glucose 143 H 79 132 H 10/01/21 15:23 POC Glucose 205 H Assessment and Plan (1) Pneumonia due to 2019 novel coronavirus: Status: Acute (2) AMY (acute kidney injury): Status: Acute (3) Diabetes: Status: Acute Plan 66F with known covid, presented with cough, found to have significant hypoxia, unvaccinated.Slowly improving. Continues to have significant O2 requirement 1.Acute hypoxic respiratory failure secondary to COVID pneumonia - Rechecked O2 ..amb sats drop to 86% on 6liters. Extended recovery time -continue current therapies -wean as tolerated 2. AMY - reolved with volume repletion - follow renals/divalents 3.Diabetes - acceptable control on current theraapies - adjust as indicated 4. HTN - acceptable control off therapies - add back when appropriate DVT PPX Heparin Message left for daughter Paulo([phone]) ...updated on status Quality Stroke Does the patient have a stroke diagnosis?: No VTE Prior VTE?: No VTE Risk Level:: Medical - moderate - high VTE Device Contraindication: Treatment Not Indicated VTE Drug Contraindication: N/A - Med Ordered
[2021-10-01 20:23] LABS: Glucose, Whole Blood 260 mg/dL (60-115)
[2021-10-02 04:00] VITALS: BP 117/65; PULSE 74; RESP 16; TEMP 36.1; O2SAT 98
[2021-10-02] MEDS: Heparin Sodium,Porcine 5,000 UNIT/ML VIAL 5000 UNIT SUBCUT ×2 (05:45→12:23)
[2021-10-02 06:34] LABS: MANUAL DIFF FLAG NO
[2021-10-02 06:52] LABS: Basophils Percent Auto 0.2 % (0-2); Eosinophils Absolute Auto 0.3 X10*3/uL (0.0-0.4); Eosinophils Percent Auto 2.8 % (0-4); Hematocrit 27.6 % (37.0-47.0); Hemoglobin 8.9 g/dl (12.0-16.0); Lymphocytes Absolute Auto 2.7 X10*3/uL (1.2-4.9); Mean Corpuscular HGB Conc 32.2 g/dl (31.0-35.0); Mean Corpuscular Hemoglobin 29.9 pg (27.0-33.0); Mean Corpuscular Volume 92.6 fL (80.0-98.0); Monocytes Absolute Auto 0.7 X10*3/uL (0.1-1.2); Monocytes Percent Auto 6.8 % (2-11); Neutrophils Absolute Auto 6.1 x10*3/uL (2.0-8.3); Neutrophils Percent Auto 62.2 % (45-73); Platelet Count 247 X10*3/uL (160-400); Red Blood Count 2.98 X10*6/uL (4.20-5.50); Red Cell Distribution Width 14.3 % (11.0-16.0); White Blood Count 9.8 X10*3/uL (4.8-10.8)
[2021-10-02 07:09] LABS: Alanine Aminotransferase 27 U/L (0-31); Albumin Level 3.5 g/dL (3.5-5.0); Alkaline Phosphatase 103 U/L (39-117); Anion Gap 12 (12-20); Aspartate Amino Transferase 15 U/L (5-31); Bilirubin Total 0.4 mg/dL (0.0-1.0); Blood Urea Nitrogen 20 mg/dL (9-16); Calcium 9.6 mg/dL (8.4-10.2); Carbon Dioxide 28 mmol/L (22-29); Chloride 104 mmol/L (96-108); Creatinine Clr Calc Pharmacy 63.9; Estimated Glomerular Filt Rate > 60; Glucose Fasting 86 mg/dL (60-99); Potassium 3.6 mmol/L (3.3-5.1); Sodium 140 mmol/L (135-145); Total Protein 5.9 g/dL (6.5-8.0)
[2021-10-02 07:18] LABS: Glucose, Whole Blood 91 mg/dL (60-115)
[2021-10-02 07:22] VITALS: BP 114/60; PULSE 68; RESP 18; TEMP 36.7; O2SAT 98
[2021-10-02] MEDS: Cholecalciferol (Vitamin D3) 25 MCG TABLET 50 MCG PO (07:46)
[2021-10-02] MEDS: predniSONE 20 MG TABLET PO (07:46)
[2021-10-02] MEDS: Insulin Lispro 100 UNIT/ML 3 ML VIAL SUBCUT ×5 (07:46→16:55)
[2021-10-02] MEDS: 0.9 % Sodium Chloride Flush 3 ML SYRINGE IVFLUSH ×2 (07:47→16:56)
[2021-10-02] MEDS: Atorvastatin Calcium 20 MG TABLET PO (07:47)
[2021-10-02 11:08] LABS: Glucose, Whole Blood 270 mg/dL (60-115)
[2021-10-02 11:12] VITALS: BP 110/50; PULSE 66; RESP 18; TEMP 36.9; O2SAT 96
--- NOTE | 2021-10-02 11:48 | P.PNIM_ITS ---
Subjective Subjective Date of Service: 10/02/21 Interval History: No acute events overnight. Feels fine, breathing easy Review of Systems Denies CP Denied SOB Denies N/V/D Physical Exam Verdana 4l Vital Signs: Verdana 4d Verdana 4d Vital Signs: Verdana 4d Verdana 4Bd Last Vital Signs Verdana 4d Multi Share Program Coordinator New 4d Multi Share Program Coordinator New 4d Temp 98.4 F 10/02/21 11:12 Multi Share Program Coordinator New 4d Pulse 66 10/02/21 11:12 Multi Share Program Coordinator New 4d Resp 18 10/02/21 11:12 BP 110/50 L 10/02/21 11:12 Pulse Ox 96 10/02/21 11:12 BMI result Body Mass Index 35.2 Const: Other: Constitutional : Alert, no distress, breathing easy Neck : Normal inspection, Supple Cardiovascular : no JVP, no lower extremity edema Respiratory : chest wall moving bilaterally, in mild distress, breathing easy Gastrointestinal: soft, lax, Normal bowel sounds, Non tender Skin : Warm, Dry Neurological : Alert & oriented x3, No focal deficit Objective Data Active Medications Acetaminophen (Acetaminophen 325 Mg Tablet) 650 mg PO Q6H PRN PRN Reason: Pain, Mild (Pain Scale 1-3) Last Admin: 09/19/21 13:05 Dose: 650 mg Documented by: NITO Atorvastatin Calcium (Atorvastatin Calcium 20 Mg Tablet) 20 mg PO DAILY [facility] Last Admin: 10/02/21 07:47 Dose: 20 mg Documented by: ANSHUL Calcium Carbonate (Calcium Carbonate 500 Mg Tablet) 500 mg PO BID [facility] Last Admin: 10/02/21 07:47 Dose: 500 mg Documented by: ANSHUL Dextrose (Dextrose 50 % 25 Gm/50 Ml Vial) 25 gm IVPUSH Q15M PRN; Protocol PRN Reason: per Hypoglycemia Standing Ord. Docusate Sodium (Docusate Sodium 100 Mg Capsule) 100 mg PO BID PRN PRN Reason: Constipation Last Admin: 09/30/21 09:34 Dose: 100 mg Documented by: YOVANY Escitalopram Oxalate (Escitalopram Oxalate 5 Mg Tablet) 5 mg PO DAILY [facility] Last Admin: 10/02/21 07:47 Dose: Not Given Documented by: ANSHUL Non-Admin Reason: Patient Refused Glucose (Glucose Gel 15 Gm Gel..Gram.) 15 gm PO Q15M PRN; Protocol PRN Reason: per Hypoglycemia Standing Ord. Heparin Sodium (Porcine) (Heparin Sodium,Porcine 5,000 Unit/Ml Vial) 5,000 unit SUBCUT Q8H [facility] Last Admin: 10/02/21 05:45 Dose: 5,000 unit Documented by: MAGGI Insulin Glargine (Insulin Glargine,Hum.Rec.Anlog 100 Unit/Ml 10 Ml Vial) 15 uni t SUBCUT BEDTIME [facility] Last Admin: 10/01/21 20:39 Dose: Not Given Documented by: MAGGI Non-Admin Reason: Patient Refused Insulin Human Lispro (Insulin Lispro 100 Unit/Ml 3 Ml Vial) 0 unit SUBCUT QIDACHS [facility]; Protocol Last Admin: 10/02/21 07:23 Dose: Not Given Documented by: ANSHUL Non-Admin Reason: No Insulin Coverage Insulin Human Lispro (Insulin Lispro 100 Unit/Ml 3 Ml Vial) 5 unit SUBCUT QIDACHS [facility] Last Admin: 10/02/21 07:46 Dose: 5 unit Documented by: ANSHUL Pharmacy Consult (Consult Rx Perform Med Rec) 1 each MISCELLANE ONCE PRN PRN Reason: Consult order Prednisone (Prednisone 20 Mg Tablet) 20 mg PO DAILY [facility] Last Admin: 10/02/21 07:46 Dose: 20 mg Documented by: ANSHUL Sodium Chloride (0.9 % Sodium Chloride Flush 3 Ml Syringe) 3 ml IVFLUSH QSHIFT [facility] Last Admin: 10/02/21 07:47 Dose: 3 ml Documented by: ANSHUL Vitamin D (Cholecalciferol (Vitamin D3) 25 Mcg Tablet) 50 mcg PO DAILY [facility] Last Admin: 10/02/21 07:46 Dose: 50 mcg Documented by: ANSHUL Labs CBC & Chem 7: 10/02/21 06:25 10/02/21 06:25 Labs: Laboratory Results - last 24 hr 10/01/21 10/01/21 10/02/21 15:23 20:13 06:25 MCV 92.6 MCH 29.9 MCHC 32.2 RDW 14.3 Plt Count 247 MPV 10.0 Immature Gran % (Auto) 1.0 H Neut % (Auto) 62.2 Lymph % (Auto) 27.0 [place] % (Auto) 6.8 Eos % (Auto) 2.8 Baso % (Auto) 0.2 Lymph # (Auto) 2.7 [place] # (Auto) 0.7 Eos # (Auto) 0.3 Baso # (Auto) 0.0 Abs Immat Gran (auto) 0.10 H Absolute Neuts (auto) 6.1 Absolute Nucleated RBC 0.000 Nucleated RBC % (auto) 0.0 Anion Gap Estim Creat Clear Calc Estimated GFR POC Glucose 205 H 260 H Fasting Glucose Calcium Total Bilirubin AST ALT Alkaline Phosphatase Total Protein Albumin 10/02/21 10/02/21 10/02/21 06:25 07:09 10:57 MCV MCH MCHC RDW Plt Count MPV Immature Gran % (Auto) Neut % (Auto) Lymph % (Auto) [place] % (Auto) Eos % (Auto) Baso % (Auto) Lymph # (Auto) [place] # (Auto) Eos # (Auto) Baso # (Auto) Abs Immat Gran (auto) Absolute Neuts (auto) Absolute Nucleated RBC Nucleated RBC % (auto) Anion Gap 12 Estim Creat Clear Calc 63.9 Estimated GFR > 60 POC Glucose 91 270 H Fasting Glucose 86 Calcium 9.6 Total Bilirubin 0.4 AST 15 ALT 27 Alkaline Phosphatase 103 Total Protein 5.9 L Albumin 3.5 Assessment and Plan (1) Pneumonia due to 2019 novel coronavirus: Status: Acute Plan 66F with known covid, presented with cough, found to have significant hypoxia, unvaccinated.Slowly improving. Continues to have significant O2 requirement 1.Acute hypoxic respiratory failure secondary to COVID pneumonia - Doing better, O2 96 on 3 liters, likely to go home with home O2 today -continue current therapies -wean as tolerated 2. AMY - reolved with volume repletion - follow renals/divalents 3.Diabetes - acceptable control on current theraapies - adjust as indicated 4. HTN - acceptable control off therapies - add back when appropriate DVT PPX Heparin D/c planing discussed with daughter Paulo([phone]) .. Probably home today Quality Stroke Does the patient have a stroke diagnosis?: No VTE Prior VTE?: No VTE Risk Level:: Medical - moderate - high VTE Device Contraindication: Treatment Not Indicated VTE Drug Contraindication: N/A - Med Ordered
[2021-10-02 13:24] VITALS: PULSE 84; PULSE 88; PULSE 89; PULSE 90; O2SAT 74; O2SAT 76; O2SAT 84; O2SAT 90; O2SAT 94
--- NOTE | 2021-10-02 14:22 | P.F2F_ITS ---
Service Date Service Date: 10/02/21 Encounter Date of encounter: 10/02/21 Reasons for Services Signs and symptoms assessed: Hypoxia, and physical deconditioning Reason for nursing home: CV/CP assess and/or care Homebound: Leaving the home is medically contraindicated at this time without the asist of a device and/or another person due th the listed conditions above and below. Reason homebound: unsteady gait / fall risk, fall risk related to blood pressure changes and poor balance / fall risk Homebound supporting statement: Homebeound due to severe hypoxia, and deconditioning from covid with prologned hospitalization and therefore needs the assitance of another peron. Certification: Based on the above findings, I certify that this patient is confined to the home and needs intermittent nursing home care, physical therapy and/or speech therapy, or continues to need occupational therapy. The patient is under my care, and I have initiated the establishment of the plan of care. The patient will be followed by a physician who will periodically review the plan of care.
--- NOTE | 2021-10-02 14:54 | MHC.CM.PN ---
PT BEING DCD TO DAY CALLED AND LEFT MESSAGE FOR [facility]A PRIEST SAME REFERRAL TO [facility]
[2021-10-02 14:57] VITALS: BP 109/60; PULSE 66; RESP 20; TEMP 36.1; O2SAT 97
--- NOTE | 2021-10-02 15:44 | MHC.CM.PN ---
called and left message for pts annabel vang at [phone] per request to notify of pts dc today...referral to [facility] who can see pt fri awaiting reply to confirm this is okay checked with rt emilie to be certain pt will have her o2 at home per emilie 02 arrangements are all set
[2021-10-02 15:56] LABS: Glucose, Whole Blood 271 mg/dL (60-115)
--- NOTE | 2021-10-02 18:24 | P.DS_ITS ---
DS: Providers Provider Date of Service: 10/02/21 Date of admission: 09/06/21 13:05 Primary care physician: Dora Jim MD Consults: 09/07/21 09:07 Consult to Infectious Diseases Routine Consulting Provider: Lorelei Chapman Reason for consultation: COVID w Hypoxia DS: Diagnosis Discharge Diagnosis (1) Pneumonia due to 2019 novel coronavirus: Status: Acute DS: Summary Hospital Course Hospital Course: [facility] Complaint: Cough 66-year-old female presented with cough.? Patient stated she tested positive for COVID-19 on 08/29/2021.? She has been having symptoms of cough, fever, chills, myalgias, decreased appetite.? She denies any shortness of breath.? Her cough has been getting worse therefore she decided to come to the ED.? In the ED was noted to be severely hypoxic to 61% on room air, she was put on high-flow oxygen and recovered.? Chest x-ray revealed bilateral Past is consistent with COVID pneumonia.? Lab significant for acute kidney injury with creatinine of 2.1.? Patient is unvaccinated. Hospital course: Patient was admitted due to acute hypoxic respiratory failure due to covid 19 with severe and prolonged hypoxia. Her treatment consisted of IV steroid, oxygen by high flow and ultimately transitioning into nasal canula. She also completed 14 days of Baricitinib. Her hospital course was protracted primarly due to persistent hypoxia and ultimale and gradually was able to wean to nasal canula and is doing well. Presently sating 97 on 2 liters and may need up to about 6 liters with activity but is expected to improve with time.She is presently breathing easy, and feels comfortable going home. She is encouraged to get covid vacine. Her last covid test was negative, she is to follow all present covid guidelines. Other issues during hospitalization included AMY that has fully resolved, Hypernatremia due to dehydration also fully resolved. She is continue prior meds for diabetes and HTN and to follow up with PCP. DC plan was discussed with daughter Time Spent with Patient Time attestation: Total time spent providing and/or coordinating discharge services: Discharge coordination time: Greater than 30 minutes Quality: Stroke Does the patient have a stroke diagnosis?: No Physical Exam Verdana 4l Vital Signs: Verdana 4d Verdana 4d Vital Signs: Verdana 4d Verdana 4Bd Last Vital Signs Verdana 4d [employer] New 4d [employer] New 4d Temp 97.0 F 10/02/21 14:57 [employer] New 4d Pulse 66 10/02/21 14:57 [employer] New 4d Resp 20 10/02/21 14:57 BP 109/60 10/02/21 14:57 Pulse Ox 97 10/02/21 14:57 BMI result Body Mass Index 35.2 Const: Other: General: AO X 3, no acute distress Resp: CTA bilateral CVS: S1,S2,RRR GI: +BS, NT, no distention Skin: No rash Neuro: motor grossly intact Psych: appropriate affect DS: Data Data Completed and Pending Labs on day of discharge: Laboratory Results - last 24 hr 10/01/21 10/02/21 10/02/21 20:13 06:25 06:25 WBC 9.8 RBC 2.98 L Hgb 8.9 L Hct 27.6 L MCV 92.6 MCH 29.9 MCHC 32.2 RDW 14.3 Plt Count 247 MPV 10.0 Immature Gran % (Auto) 1.0 H Neut % (Auto) 62.2 Lymph % (Auto) 27.0 Garza % (Auto) 6.8 Eos % (Auto) 2.8 Baso % (Auto) 0.2 Lymph # (Auto) 2.7 Garza # (Auto) 0.7 Eos # (Auto) 0.3 Baso # (Auto) 0.0 Abs Immat Gran (auto) 0.10 H Absolute Neuts (auto) 6.1 Absolute Nucleated RBC 0.000 Nucleated RBC % (auto) 0.0 Sodium 140 Potassium 3.6 Chloride 104 Carbon Dioxide 28 Anion Gap 12 BUN 20 H Creatinine 0.83 Estim Creat Clear Calc 63.9 Estimated GFR > 60 POC Glucose 260 H Fasting Glucose 86 Calcium 9.6 Total Bilirubin 0.4 AST 15 ALT 27 Alkaline Phosphatase 103 Total Protein 5.9 L Albumin 3.5 10/02/21 10/02/21 10/02/21 07:09 10:57 15:48 WBC RBC Hgb Hct MCV MCH MCHC RDW Plt Count MPV Immature Gran % (Auto) Neut % (Auto) Lymph % (Auto) Garza % (Auto) Eos % (Auto) Baso % (Auto) Lymph # (Auto) Garza # (Auto) Eos # (Auto) Baso # (Auto) Abs Immat Gran (auto) Absolute Neuts (auto) Absolute Nucleated RBC Nucleated RBC % (auto) Sodium Potassium Chloride Carbon Dioxide Anion Gap BUN Creatinine Estim Creat Clear Calc Estimated GFR POC Glucose 91 270 H 271 H Fasting Glucose Calcium Total Bilirubin AST ALT Alkaline Phosphatase Total Protein Albumin Discharge Plan Discharge Anticipated Discharge Date/Time: 10/02/21 14:17 Patient Disposition: Home Health Service Discharge Diagnosis: Covid 19 with Hypoxia Referrals: S[facility]AR[facility] SPENCER [Other] - 1 Week Dora Jim MD [Primary Care Provider] - 1 Week Discharge Medications: Continued atorvastatin 20 mg tablet 1 tab PO DAILY 0RF ibuprofen 800 mg tablet 1 tab PO TID 0RF citalopram 10 mg tablet 1 tab PO DAILY 0RF glipizide 5 mg tablet extended release 24 hr 1 tab PO DAILY 0RF aspirin 81 mg tablet,delayed release (DR/EC) 1 tab PO DAILY PRN (Reason: Pain) 0RF calcium carbonate 600 mg calcium (1,500 mg) tablet 1 tab PO BID 0RF lorazepam 0.5 mg tablet 0.5 mg PO BID PRN (Reason: Anxiety) 0RF metformin 1,000 mg tablet 1 tab PO BID 0RF albuterol sulfate 90 mcg/actuation HFA aerosol inhaler 2 puff inhalation Q4H PRN (Reason: Wheezing) 0RF valsartan-hydrochlorothiazide 160-25 mg tablet 1 tab PO DAILY 0RF cholecalciferol (vitamin D3) 50 mcg (2,000 unit) capsule 1 cap PO DAILY 0RF Farxiga 5 mg tablet 1 tab PO DAILY 0RF Discharge Orders: Discharge Order (Routine); Ordered 10/02/21 Ordered By: Tony Bruce Diet: advance to usual diet and diabetic diet Activity on Discharge: As tolerated Stand Alone Forms: Patient Portal Discharge page Care Plan Goals: Full recovery from covid Health Concerns: Hypoxia due to covid Plan of Treatment: Use oxycgen as directed, continue your usual home medication, follow up with your Doctor in a week. Talk to your Doctor about getting the covid vaccine Assessment: As above
== END 2021-10-02 18:30 | disposition home health service (06) | DRG 177 ==
LOC: HO.ED 11:14 → HO.EDOVER 13:18 → HO.IMC 14:39
PROVIDERS: Hospitalist; Student in an Organized Health Care Education/Training Program; Admitting Provider Internal Medicine; Emergency Provider Student in an Organized Health Care Education/Training Program; PCP Internal Medicine; Visit Provider Internal Medicine
DX: U07.1 COVID-19 (principal); J12.82 Pneumonia due to coronavirus disease 2019; J96.01 Acute respiratory failure with hypoxia; N17.9 Acute kidney failure, unspecified; E87.0 Hyperosmolality and hypernatremia; I10 Essential (primary) hypertension; E11.9 Type 2 diabetes mellitus without complications; E86.0 Dehydration; E66.9 Obesity, unspecified; Z20.822 Contact with and (suspected) exposure to COVID-19; Z68.35 Body mass index [BMI] 35.0-35.9, adult; Z88.5 Allergy status to narcotic agent; Z79.1 Long term (current) use of non-steroidal anti-inflammatories (NSAID); Z79.82 Long term (current) use of aspirin; Z79.84 Long term (current) use of oral hypoglycemic drugs; Z79.899 Other long term (current) drug therapy
CPT/HCPCS: 0241U; 36415; 71045; 80048; 80053; 80076; 82803; 82947; 83605; 83615; 83690; 83880; 84484; 85007; 85025; 85027; 85379; 86140; 87040; 87635; 96374; 97110; 97116; 97162; 97530; 99285; 99291; J1100

== ENCOUNTER 2021-10-19 12:31 | Outpatient (REF) | payer MEDICARE, MEDICAID, SELFPAY ==
[2021-10-19 13:01] LABS: Anion Gap 11 (12-20); Blood Urea Nitrogen 7 mg/dL (9-16); Calcium 8.9 mg/dL (8.4-10.2); Carbon Dioxide 29 mmol/L (22-29); Chloride 104 mmol/L (96-108); Estimated Glomerular Filt Rate > 60; Glucose Random 207 mg/dL (60-115); Potassium 3.6 mmol/L (3.3-5.1); Sodium 140 mmol/L (135-145)
== END 2021-10-19 12:32 | disposition home or self-care (01) ==
LOC: HO.HVNA 12:31
PROVIDERS: Visit Provider Internal Medicine
DX: U07.1 COVID-19 (principal)
CPT/HCPCS: 36415; 80048

== ENCOUNTER 2021-12-16 10:41 | Emergency (ER) | payer MEDICARE, MEDICAID, SELFPAY ==
[2021-12-16 11:27] VITALS: BP 169/84; PULSE 83; RESP 16; TEMP 36.4; O2SAT 96; BMI 24.7
--- NOTE | 2021-12-16 12:33 | ED_ITS ---
HPI - General Adult General Chief complaint: Skin/Abscess/Foreign Body Stated complaint: Facial swelling Time Seen by Provider: 12/16/21 12:31 Source: patient and family (Daughter) Mode of arrival: ambulatory Limitations: no limitations History of Present Illness HPI narrative: 66 years old female came in for evaluation of right facial pain and swelling. Been having right upper incisor tooth decay and pain was supposed to see a dentist about got sick with COVID, patient is complaining of right upper incisor tooth pain and today started to notice swelling and tenderness over the right side of the face. No fever or chills. Related Data Home Medications Medication Instructions Recorded Confirmed albuterol sulfate 90 mcg/actuation 2 puff INHALATION Q4H PRN 09/06/21 09/06/21 aerosol inhaler aspirin 81 mg tablet,delayed 1 tab PO DAILY PRN 09/06/21 09/06/21 release atorvastatin 20 mg tablet 1 tab PO DAILY 09/06/21 09/06/21 calcium carbonate 600 mg calcium 1 tab PO BID 09/06/21 09/06/21 (1,500 mg) tablet cholecalciferol (vitamin D3) 50 1 cap PO DAILY 09/06/21 09/06/21 mcg (2,000 unit) capsule citalopram 10 mg tablet 1 tab PO DAILY 09/06/21 09/06/21 dapagliflozin 5 mg tablet (Farxiga) 1 tab PO DAILY 09/06/21 09/06/21 glipizide 5 mg tablet, extended 1 tab PO DAILY 09/06/21 09/06/21 release 24 hr ibuprofen 800 mg tablet 1 tab PO TID 09/06/21 09/06/21 lorazepam 0.5 mg tablet 0.5 mg PO BID PRN 09/06/21 09/06/21 metformin 1,000 mg tablet 1 tab PO BID 09/06/21 09/06/21 valsartan 160 1 tab PO DAILY 09/06/21 09/06/21 mg-hydrochlorothiazide 25 mg tablet Previous Rx's Medication Instructions Recorded amoxicillin 500 mg tablet 500 mg PO Q8H #21 tab 12/16/21 Allergies Allergy/AdvReac Type Severity Reaction Status Date / Time morphine [MORPHINE] Allergy Unknown UNKNOWN Verified 05/31/21 11:24 prednisone [PREDNISONE] Allergy Unknown HEART RACES Verified 05/31/21 11:24 Review of Systems Review of Systems: All other systems are reviewed and are negative Constitutional: Reports as per HPI and Reports no additional constitutional complaints Eyes: Reports as per HPI and Reports no additional eye complaints Reports system reviewed and no additional complaints, except as documented Cardiovascular: Reports as per HPI and Reports no additional cardiovascular complaints Respiratory: Reports as per HPI and Reports no additional respiratory complaints Gastrointestinal: Reports as per HPI and Reports no additional gastrointestinal complaints Genitourinary: Reports no additional female genitourinary complaints Musculoskeletal: Reports no additional musculoskeletal complaints Skin/Breast: Reports system reviewed and no additional complaints, except as docu Psychiatric: Reports no additional psychiatric complaints Endocrine: Reports no additional endocrine complaints Hematologic/Lymphatic: Reports no additional hematologic/lymphatic complaints Allergic/Immunologic: Reports no additional allergic/immunologic complaints Reports system reviewed and no additional complaints, except as documented and Reports Abnormal speech present [facility] Past Medical History Medical History Anemia Arthritis Asthma Breast CA COVID-19 Diabetes High cholesterol HTN (hypertension) Kidney stones Sleep apnea Surgical History H/O: hysterectomy Family History Family History Sister Diabetes mellitus Social History Social History Household Members: Significant Other Housing: Apartment Do you presently have visiting nurse or other home services: No Alcohol intake: never Patient Tobacco Use Status: Never used Tobacco Advance Directives: Yes Advance Directives Information Provided: Yes Advance Directives on File: No service: No Current occupational status: disabled Current occupation: rt handed Physical Exam ED Vital Signs: Vital Signs - 24 hr 12/16/21 11:27 Temperature 97.5 F Pulse Rate 83 Respiratory Rate 16 Blood Pressure 169/84 H Pulse Oximetry 96 BMI result Body Mass Index 24.7 Vital signs have been reviewed as appeared to be correct. Blood pressure normal. Heart rate normal. Respiration rate normal. Temperature normal. Oxygen saturation normal. Appearance: Alert. Oriented X3. No acute distress. Head: Normal external exam. Normocephalic. Atraumatic. No Martinez signs noted. No raccoon eyes noted. Facial exam: Decay to the right upper incisor tooth with tenderness, tenderness of the gum around it with no fluctuation or abscess is appreciated, for right facial/right upper lip/cheek redness and hotness with slight swelling. Eyes: PERRLA. EOMI. Conjunctiva and sclera normal. Eyelids normal. ENT: TM's Normal. Pharynx normal. Uvula midline. Moist mucous membranes. No trismus noted. No drooling noted. No muffled voice noted. Neck: Normal inspection. Neck supple. FROM. No adenopathy. Thyroid Normal. No meningeal signs. No neck mass noted. CVS: Normal heart rate and rhythm. Heart sound normal. No murmurs noted. Pulses normal throughout. Respiratory: No respiratory distress. Painless inspiration. Breath sounds normal. No wheezes/rales/rhonchi noted. Chest nontender. No accessory muscle usage noted or decreased air movement noted. Abdomen: Soft and nontender. Bowel sounds normal in all 4 quadrants. No distention noted. No organomegaly noted. No visible injury noted. Back: No CVA tenderness. Full range of motion noted. Skin: Skin warm and dry. Normal skin color. Normal skin turgor. No rashes/lesions/lacerations noted. Extremities: No lower extremity edema. Extremities exhibit normal range of motion. Extremities nontender. Neuro: Oriented X 3. Cranial nerve exam: II-XII are grossly intact No motor deficit. No sensory deficit. Reflexes normal. Course Course Course Narrative: Assessment and plan. 66-year-old female with right facial cellulitis secondary to right dental infection, patient was instructed to follow up with her dentist and start on amoxicillin use NSAIDs. Discharge Plan Discharge Clinical Impression: Cellulitis of face, Dental decay Patient Disposition: Home, Self-Care Instructions: Cellulitis (ED) Prescriptions: New amoxicillin 500 mg tablet 500 mg PO Q8H Qty: 21 0RF No Action atorvastatin 20 mg tablet 1 tab PO DAILY 0RF ibuprofen 800 mg tablet 1 tab PO TID 0RF citalopram 10 mg tablet 1 tab PO DAILY 0RF glipizide 5 mg tablet extended release 24 hr 1 tab PO DAILY 0RF aspirin 81 mg tablet,delayed release (DR/EC) 1 tab PO DAILY PRN (Reason: Pain) 0RF calcium carbonate 600 mg calcium (1,500 mg) tablet 1 tab PO BID 0RF lorazepam 0.5 mg tablet 0.5 mg PO BID PRN (Reason: Anxiety) 0RF metformin 1,000 mg tablet 1 tab PO BID 0RF albuterol sulfate 90 mcg/actuation HFA aerosol inhaler 2 puff inhalation Q4H PRN (Reason: Wheezing) 0RF valsartan-hydrochlorothiazide 160-25 mg tablet 1 tab PO DAILY 0RF cholecalciferol (vitamin D3) 50 mcg (2,000 unit) capsule 1 cap PO DAILY 0RF Farxiga 5 mg tablet 1 tab PO DAILY 0RF Referrals: Dora Jim MD [Primary Care Provider] -
[2021-12-16] MEDS: Amoxicillin 500 MG CAPSULE PO (12:41)
[2021-12-16] MEDS: Ibuprofen 600 MG TABLET PO (12:41)
== END 2021-12-16 12:47 | disposition home or self-care (01) ==
PROVIDERS: Emergency Provider Emergency Medicine; PCP Internal Medicine
DX: L03.211 Cellulitis of face (principal); K02.9 Dental caries, unspecified; I10 Essential (primary) hypertension; E11.9 Type 2 diabetes mellitus without complications; J45.909 Unspecified asthma, uncomplicated
CPT/HCPCS: 99283; 99284

== ENCOUNTER 2022-02-11 14:45 | Emergency (ER) | payer MEDICARE, MEDICAID, SELFPAY ==
--- NOTE | ~2022-02-11 | XR_ITS ---
EXAMINATION: XR FOOT, RIGHT CLINICAL INFORMATION: Pain COMPARISON: None TECHNIQUE: AP, lateral, and oblique views of the right foot. FINDINGS: Bone alignment is normal. No fracture or dislocation is seen. Joint spaces are normal. There are calcaneal spurs. There may be soft tissue swelling over the heel. XR/XR foot RT 2V IMPRESSION: Calcaneal spurs and question soft tissue swelling over the heel.
[2022-02-11 14:58] VITALS: BP 144/85; PULSE 88; RESP 18; TEMP 36.7; O2SAT 100; BMI 26.4
--- NOTE | 2022-02-11 15:17 | ED.LOWEXIN ---
HPI - Extremity Injury (Lower) General Chief Complaint: Extremity Injury, Lower Stated Complaint: right foot swollen Time Seen by Provider: 02/11/22 15:13 Source: patient Mode of arrival: ambulatory History of Present Illness HPI Narrative: 66-year-old female with a past medical history of anemia, arthritis, asthma, breast CA, COVID-19, diabetes, HTN, HLD, sleep apnea, on chronic O2 presenting to the ED complaining of right foot pain, mild swelling, and erythema times a few days. Denies known injury/trauma or fall, twisting injury, numbness, tingling, weakness, known insect injury. MD complaint: foot injury Onset (ago): day(s) Related Data Home Medications Medication Instructions Recorded Confirmed albuterol sulfate 90 mcg/actuation 2 puff inhalation Q4H PRN Wheezing 09/06/21 09/06/21 aerosol inhaler aspirin 81 mg tablet,delayed 1 tab PO DAILY PRN Pain 09/06/21 09/06/21 release atorvastatin 20 mg tablet 1 tab PO DAILY 09/06/21 09/06/21 calcium carbonate 600 mg calcium 1 tab PO BID 09/06/21 09/06/21 (1,500 mg) tablet cholecalciferol (vitamin D3) 50 1 cap PO DAILY 09/06/21 09/06/21 mcg (2,000 unit) capsule citalopram 10 mg tablet 1 tab PO DAILY 09/06/21 09/06/21 dapagliflozin 5 mg tablet (Farxiga) 1 tab PO DAILY 09/06/21 09/06/21 glipizide 5 mg tablet, extended 1 tab PO DAILY 09/06/21 09/06/21 release 24 hr ibuprofen 800 mg tablet 1 tab PO TID pain 09/06/21 09/06/21 lorazepam 0.5 mg tablet 0.5 mg PO BID PRN Anxiety 09/06/21 09/06/21 metformin 1,000 mg tablet 1 tab PO BID 09/06/21 09/06/21 valsartan 160 1 tab PO DAILY 09/06/21 09/06/21 mg-hydrochlorothiazide 25 mg tablet Previous Rx's Medication Instructions Recorded amoxicillin 500 mg tablet 500 mg PO Q8H #21 tabs 12/16/21 cephalexin 500 mg capsule 500 mg PO QID 7 days #28 caps 02/11/22 Allergies Allergy/AdvReac Type Severity Reaction Status Date / Time morphine [MORPHINE] Allergy Unknown UNKNOWN Verified 02/11/22 14:58 prednisone [PREDNISONE] Allergy Unknown HEART RACES Verified 02/11/22 14:58 Review of Systems Review of Systems: Constitutional: No Fever, No Chills ENT/Mouth: No Ear Pain, No Nasal Congestion, No Sinus Pain, No Hoarseness, No sore throat, No Rhinorrhea, No Swallowing Difficulty Cardiovascular: No Chest Pain, No SOB Respiratory: No Cough, No Sputum Gastrointestinal: No Nausea, No Vomiting, No Abdominal pain Genitourinary: No Dysuria, No Urinary Frequency, No Hematuria, No Flank Pain Musculoskeletal: + joint pain, No Myalgias, No Joint Swelling Skin: + Skin Lesions, No rash Neuro: No Weakness, No Numbness, No Paresthesias Yes all other systems are reviewed and are negative Neurologic: Denies Sensory deficit (Neuro) [facility] Past Medical History Attestation statement: The following information was validated with the patient. Medical History Anemia Arthritis Asthma Breast CA COVID-19 Diabetes High cholesterol HTN (hypertension) Kidney stones Sleep apnea Surgical History H/O: hysterectomy Family History Family History Sister Diabetes mellitus Social History Social History Household Members: Significant Other Housing: Apartment Do you presently have visiting nurse or other home services: No Alcohol intake: never Patient Tobacco Use Status: Never used Tobacco Advance Directives: No Advance Directives Information Provided: Yes service: No Current occupational status: disabled Current occupation: rt handed Physical Exam Vital Signs: Vital Signs: Last Vital Signs Temp 98.1 F 02/11/22 14:58 Pulse 88 02/11/22 14:58 Resp 18 02/11/22 14:58 BP 144/85 H 02/11/22 14:58 Pulse Ox 100 02/11/22 14:58 O2 Del Method 02/11/22 14:58 Oxygen Flow Rate 2 02/11/22 14:58 BMI result Body Mass Index 26.4 Const: General: cooperative, healthy appearing, no acute distress, alert, awake and Physically active Orientation/consciousness: patient oriented x3 Limitations: no limitations HEENT: Head: Yes normal to inspection and Yes atraumatic Ears: hearing grossly normal bilaterally General nose exam: Normal external nose present Face and sinus: Yes normal facial exam Eyes: General: appearance normal, both eyes and all related structures EOM: EOMs intact bilaterally Neck: Neck: Yes normal visual inspection and Yes no meningeal signs Resp: Effort & Inspection: normal respiratory effort and no respiratory distress Cardio: Rate: regular rate Heart sounds: S1 normal heart sound present and S2 normal heart sound present Peripheral pulses: radial pulses present Skin: Rashes: no rashes Wounds: no wounds Neuro: General: patient oriented x3, tone normal and no meningeal signs Gait exam (Neuro): Normal gait present Sensory Exam: No Sensory deficit (Neuro) Extrem: Other: +small erythema and swelling noted to distal volar aspect of right foot at 3rd to 4th metatarsals with tenderness to palpation. No fluctuance/induration. Full range of motion intact to toes and foot. Neurovascular intact. Sensation intact to light touch. No streaking/crepitus or warmth Course Course Course Narrative: XR foot RT 2V IMPRESSION: Calcaneal spurs and question soft tissue swelling over the heel. > due to patient being diabetic in concern for possible early cellulitis will initiate Keflex. Results discussed with patient including worrisome signs and symptoms and strict return precautions MDM - Extremity Injury (Lower) MDM Narrative Medical decision making narrative: 66-year-old female with a past medical history of anemia, arthritis, asthma, breast CA, COVID-19, diabetes, HTN, HLD, sleep apnea, on chronic O2 presenting to the ED complaining of right foot pain, mild swelling, and erythema times a few days. On exam vital signs stable, NAD, nontoxic appearing, physical exam as above. Concern for stress fracture vs sprain vs early cellulitis. Lower concern for gout/no evidence of abscess at this time plan: X-rays Medical Records Attestation: I reviewed the patient's medical records. Lab Data Attestation: I reviewed the patient's lab results. Discharge Plan Discharge Clinical Impression: Acute foot pain Patient Disposition: Home, Self-Care Instructions: Arthralgia (ED) Additional Instructions: Your x-ray shows calcaneal spurs and question of some swelling over your heel. We are worried this may be early cellulitis, due to your diabetes this with you at high risk. Keflex as an antibiotic please take as prescribed. You may ice and elevate. Take Tylenol and Motrin as needed. If symptoms persist or worsen, area becomes more red, swollen, painful or you have fever please return to the emergency department. Follow up with her doctor Prescriptions: New cephalexin 500 mg capsule 500 mg PO QID 7 Days Qty: 28 0RF No Action atorvastatin 20 mg tablet 1 tab PO DAILY ibuprofen 800 mg tablet 1 tab PO TID citalopram 10 mg tablet 1 tab PO DAILY glipizide 5 mg tablet extended release 24 hr 1 tab PO DAILY aspirin 81 mg tablet,delayed release (DR/EC) 1 tab PO DAILY PRN (Reason: Pain) calcium carbonate 600 mg calcium (1,500 mg) tablet 1 tab PO BID lorazepam 0.5 mg tablet 0.5 mg PO BID PRN (Reason: Anxiety) metformin 1,000 mg tablet 1 tab PO BID albuterol sulfate 90 mcg/actuation HFA aerosol inhaler 2 puff inhalation Q4H PRN (Reason: Wheezing) valsartan-hydrochlorothiazide 160-25 mg tablet 1 tab PO DAILY cholecalciferol (vitamin D3) 50 mcg (2,000 unit) capsule 1 cap PO DAILY Farxiga 5 mg tablet 1 tab PO DAILY amoxicillin 500 mg tablet 500 mg PO Q8H Qty: 21 0RF Referrals: Dora Jim MD [Primary Care Provider] - 5 days
== END 2022-02-11 17:06 | disposition home or self-care (01) ==
PROVIDERS: Emergency Provider Emergency Medicine; PCP Internal Medicine
DX: M79.671 Pain in right foot (principal); E11.9 Type 2 diabetes mellitus without complications; I10 Essential (primary) hypertension; J45.909 Unspecified asthma, uncomplicated; Z99.81 Dependence on supplemental oxygen
CPT/HCPCS: 73620; 99283

== ENCOUNTER 2022-03-24 17:58 | Emergency (ER) | payer MEDICARE, MEDICAID, SELFPAY ==
[2022-03-24 18:36] VITALS: BP 165/87; PULSE 88; RESP 18; TEMP 36.1; O2SAT 99; BMI 25.7
[2022-03-24 19:04] LABS: COVID-19 Test Negative (Negative); IDNOW Serial# 55D5AD1C
--- NOTE | 2022-03-24 19:58 | ED_ITS ---
HPI - General Adult General Chief complaint: Upper Respiratory Symptoms Stated complaint: Low Oxygen Level Sweaty Hands/Feet Time Seen by Provider: 03/24/22 18:59 Source: patient Mode of arrival: ambulatory Limitations: no limitations History of Present Illness HPI narrative: Patient presents to the emergency department with concerns for hypoxia. She states that at baseline she is wearing 3 L via nasal cannula since she had respiratory failure secondary to COVID-19. At this time she is concerned that she may have been exposed to COVID again. She states that today while she was in the store she noted her hands felt cold, at that time she placed a pulse oximeter on her hands and stated that her O2 saturation was 71%, and states that it lasted this away for 15-20 minutes. Denies any associated fever, chills, dizziness, lightheadedness, neck pain, chest pain, palpitations, shortness of breath, difficulty breathing, numbness or tingling of her extremities, nausea, vomiting, abdominal pain, weakness, impaired gait. She has not had any other symptoms or concerns recently. She was simply concerned about the O2 reading given her extensive history after COVID. Related Data Home Medications Medication Instructions Recorded Confirmed albuterol sulfate 90 mcg/actuation 2 puff inhalation Q4H PRN Wheezing 09/06/21 09/06/21 aerosol inhaler aspirin 81 mg tablet,delayed 1 tab PO DAILY PRN Pain 09/06/21 09/06/21 release atorvastatin 20 mg tablet 1 tab PO DAILY 09/06/21 09/06/21 calcium carbonate 600 mg calcium 1 tab PO BID 09/06/21 09/06/21 (1,500 mg) tablet cholecalciferol (vitamin D3) 50 1 cap PO DAILY 09/06/21 09/06/21 mcg (2,000 unit) capsule citalopram 10 mg tablet 1 tab PO DAILY 09/06/21 09/06/21 dapagliflozin 5 mg tablet (Farxiga) 1 tab PO DAILY 09/06/21 09/06/21 glipizide 5 mg tablet, extended 1 tab PO DAILY 09/06/21 09/06/21 release 24 hr ibuprofen 800 mg tablet 1 tab PO TID pain 09/06/21 09/06/21 lorazepam 0.5 mg tablet 0.5 mg PO BID PRN Anxiety 09/06/21 09/06/21 metformin 1,000 mg tablet 1 tab PO BID 09/06/21 09/06/21 valsartan 160 1 tab PO DAILY 09/06/21 09/06/21 mg-hydrochlorothiazide 25 mg tablet Previous Rx's Medication Instructions Recorded amoxicillin 500 mg tablet 500 mg PO Q8H #21 tabs 12/16/21 cephalexin 500 mg capsule 500 mg PO QID 7 days #28 caps 02/11/22 Allergies Allergy/AdvReac Type Severity Reaction Status Date / Time morphine [MORPHINE] Allergy Unknown UNKNOWN Verified 02/11/22 14:58 prednisone [PREDNISONE] Allergy Unknown HEART RACES Verified 02/11/22 14:58 Review of Systems Review of Systems: Constitutional: No weight loss, fever, chills, weakness or fatigue. Skin: No rash or itching. Cardiovascular: No chest pain, chest pressure or chest discomfort. No palpitations or pedal edema. Respiratory: No shortness of breath, cough or sputum production. Gastrointestinal: No anorexia, nausea, vomiting or diarrhea. No abdominal pain or blood in stool. Genitourinary: No burning micturition. No urinary frequency or incontinence. Musculoskeletal: No muscle pain, back pain, joint pain or stiffness. Psychiatric: No depression or anxiety. Yes all other systems are reviewed and are negative PMFSH Past Medical History Attestation statement: The following information was validated with the patient. Source: old records reviewed Medical History Anemia Arthritis Asthma Breast CA COVID-19 Diabetes High cholesterol HTN (hypertension) Kidney stones Sleep apnea Surgical History H/O: hysterectomy Family History Family History Sister Diabetes mellitus Social History Social History Household Members: Significant Other Housing: Apartment Do you presently have visiting nurse or other home services: No Alcohol intake: never Patient Tobacco Use Status: Never used Tobacco Advance Directives: No Advance Directives Information Provided: No service: No Current occupational status: disabled Current occupation: rt handed Physical Exam ED Vital Signs: Vital Signs - 24 hr 03/24/22 18:36 Temperature 96.9 F Pulse Rate 88 Respiratory Rate 18 Blood Pressure 165/87 H Pulse Oximetry 99 Oxygen Delivery Method Nasal Cannula BMI result Body Mass Index 25.7 Vital signs have been reviewed as normal and appeared to be correct. Blood pressure normal.? Heart rate normal.? Respiration rate normal. Temperature normal.? Oxygen saturation normal. Appearance: Alert.?Oriented to person, place and time. No acute distress.?Normal affect. Eyes: Pupils equal, round and reactive to light.? ENT: Pharynx normal.?? Neck: Normal inspection.? Neck supple.?? CVS: Heart sounds normal. Normal heart rate and rhythm.? Pulses normal.?? Respiratory: No respiratory distress.? Lung sounds clear to auscultation bilaterally?? Abdomen: Soft and non-tender. Normoactive bowel sounds. No pulsatile mass.?? Skin: Skin warm and dry.? Normal skin color.? Normal skin turgor.?? Extremities: No lower extremity edema.? No calf ttp? Neuro: Moves all extremities spontaneously. Sensation intact bilaterally. CN II- XII intact. No focal neuro deficits. Ambulates with normal steady gait. Course Course Course Narrative: Patient is a 66-year-old female with a past medical history of anemia, asthma, arthritis, breast cancer, COVID-19, diabetes, hypercholesterolemia, hypertension, and sleep apnea. She presents emergency department for evaluation after concern of a low O2 saturation reading. Patient otherwise completely asymptomatic. COVID-19 testing is negative. Did discuss with patient that if her finger/hands are cold the pulse oximeter cannot read accurately. She does state at this time that she noticed her heart rate also be very variable. Suspect that the oximeter reading was inaccurate given the reports of her hand being cold. We did discuss that she should carry her glucometer with her, as cold clammy hands may be a symptom of hypoglycemia in a diabetic. She verbalized understanding of this. Ambulatory O2 trial with no evidence of hypoxia. She is well-appearing, vital signs are stable, and has no physical complaints. At this time, feel that she is safe for discharge home, outpatient follow-up with her primary care provider as needed, discussed worsening signs and symptoms return back to the emergency department for, all questions were answered, she was discharged home in stable condition. Medical Decision Making Medical Records Medical records reviewed: Yes I reviewed the patient's medical records. Lab Data Lab results reviewed: Yes I reviewed the patient's lab results. Labs: Lab Results 03/24/22 Range/Units 18:44 COVID-19 ([facility]) Negative (Negative) COVID-19 Clin Com See Note Discharge Plan Discharge Clinical Impression: History of COVID-19 Patient Disposition: Home, Self-Care Additional Instructions: As we discussed, if your hands are feeling very cold, the finger pulse oximeter monitor does not read accurately, suspect that the low reading you were receiving was inaccurate, as you had no reports of chest pain, palpitations, shortness of breath, difficulty breathing, dizziness, or lightheadedness. If you have low O2 readings and these associated symptoms you should be read evaluated. You should consider checking your blood sugar level if your hands are feeling cold or sweaty as it may be due to low blood sugar since you are diabetic. Follow-up with your primary care doctor as needed. Continue using oxygen as you are advised Return to the emergency department any new or worsening symptoms or concerns Prescriptions: No Action atorvastatin 20 mg tablet 1 tab PO DAILY ibuprofen 800 mg tablet 1 tab PO TID citalopram 10 mg tablet 1 tab PO DAILY glipizide 5 mg tablet extended release 24 hr 1 tab PO DAILY aspirin 81 mg tablet,delayed release (DR/EC) 1 tab PO DAILY PRN (Reason: Pain) calcium carbonate 600 mg calcium (1,500 mg) tablet 1 tab PO BID lorazepam 0.5 mg tablet 0.5 mg PO BID PRN (Reason: Anxiety) metformin 1,000 mg tablet 1 tab PO BID albuterol sulfate 90 mcg/actuation HFA aerosol inhaler 2 puff inhalation Q4H PRN (Reason: Wheezing) valsartan-hydrochlorothiazide 160-25 mg tablet 1 tab PO DAILY cholecalciferol (vitamin D3) 50 mcg (2,000 unit) capsule 1 cap PO DAILY Farxiga 5 mg tablet 1 tab PO DAILY amoxicillin 500 mg tablet 500 mg PO Q8H Qty: 21 0RF cephalexin 500 mg capsule 500 mg PO QID 7 Days Qty: 28 0RF Interventions: ED Discharge Assessment Last Done: 03/24/22 20:25 Discharge Date/Time: 03/24/22 20:26
== END 2022-03-24 20:26 | disposition home or self-care (01) ==
PROVIDERS: Emergency Provider Emergency Medicine; PCP Internal Medicine
DX: R06.02 Shortness of breath (principal); Z20.822 Contact with and (suspected) exposure to COVID-19; Z79.899 Other long term (current) drug therapy
CPT/HCPCS: 87635; 99282

== ENCOUNTER 2022-05-09 18:04 | Emergency (ER) | payer MEDICARE, MEDICAID, SELFPAY ==
--- NOTE | ~2022-05-09 | XR_ITS ---
EXAMINATION: XR FOOT, LEFT CLINICAL INFORMATION: Pain COMPARISON: Previous x-ray April 2018 TECHNIQUE: AP, lateral, and oblique views of the left foot. FINDINGS: Bone alignment is normal. No fracture or dislocation is seen. The joint spaces are normal. There are calcaneal spurs. Soft tissues are otherwise normal. XR/XR foot LT 2V IMPRESSION: Calcaneal spurs.
[2022-05-09 18:27] VITALS: BP 188/99; PULSE 89; RESP 16; TEMP 36.9; O2SAT 100; BMI 25.7
[2022-05-09 18:40] LABS: MANUAL DIFF FLAG NO
[2022-05-09 18:42] LABS: Basophils Absolute Auto 0.1 X10*3/uL (0.0-0.2); Basophils Percent Auto 0.7 % (0-2); Eosinophils Absolute Auto 0.4 X10*3/uL (0.0-0.4); Eosinophils Percent Auto 4.1 % (0-4); Hematocrit 31.1 % (37.0-47.0); Hemoglobin 10.5 g/dl (12.0-16.0); Imm Gran Abs Auto 0.02 X10*3/uL (0.00-0.03); Imm Gran Pct Auto 0.2 % (0.0-0.4); Lymphocytes Absolute Auto 3.4 X10*3/uL (1.2-4.9); Mean Corpuscular HGB Conc 33.8 g/dl (31.0-35.0); Mean Corpuscular Hemoglobin 29.5 pg (27.0-33.0); Mean Corpuscular Volume 87.4 fL (80.0-98.0); Mean Platelet Volume 9.4 fL (9.4-12.3); Monocytes Absolute Auto 0.6 X10*3/uL (0.1-1.2); Neutrophils Absolute Auto 5.7 x10*3/uL (2.0-8.3); Platelet Count 311 X10*3/uL (160-400); Red Blood Count 3.56 X10*6/uL (4.20-5.50); Red Cell Distribution Width 13.7 % (11.0-16.0); White Blood Count 10.2 X10*3/uL (4.8-10.8)
[2022-05-09 19:05] LABS: Anion Gap 17 (12-20); Blood Urea Nitrogen 12 mg/dL (9-16); Calcium 10.1 mg/dL (8.4-10.2); Carbon Dioxide 24 mmol/L (22-29); Chloride 101 mmol/L (96-108); Creatinine Clr Calc Pharmacy 47.8; Estimated Glomerular Filt Rate 51; Glucose Random 234 mg/dL (60-115); Potassium 4.2 mmol/L (3.3-5.1); Sodium 138 mmol/L (135-145)
== END 2022-05-10 00:02 | disposition left against medical advice (07) ==
PROVIDERS: Emergency Medicine; Emergency Provider Emergency Medicine
DX: M79.672 Pain in left foot (principal); Z79.899 Other long term (current) drug therapy
CPT/HCPCS: 36415; 73620; 80048; 85025; 99281; 99283

== ENCOUNTER 2022-08-16 15:14 | Emergency (ER) | payer MEDICARE, MEDICAID, SELFPAY | END 2022-08-16 16:56 | disposition left against medical advice (07) | PROVIDERS: Emergency Provider Emergency Medicine; PCP Internal Medicine | DX: M54.2 Cervicalgia (principal); M25.511 Pain in right shoulder ==

== ENCOUNTER 2022-08-26 10:24 | Emergency (ER) | payer MEDICARE, SELFPAY ==
[2022-08-26 11:02] VITALS: BP 150/79; PULSE 85; RESP 20; TEMP 36.2; O2SAT 97; BMI 26.5
[2022-08-26 11:27] LABS: Strep A Nucleic Acid Negative (Negative)
[2022-08-26 11:29] LABS: COVID-19 Test Positive (Negative); IDNOW Serial# 16C4AD1C
[2022-08-26 11:43] LABS: IDNOW Serial# 9DB6401D; Influenza A Negative (Negative); Influenza B2 Negative (Negative)
--- NOTE | 2022-08-26 13:01 | ED.GENADULT ---
HPI - General Adult General Chief complaint: Upper Respiratory Symptoms Stated complaint: Sore throat/Cough Time Seen by Provider: 08/26/22 12:57 Source: patient Mode of arrival: ambulatory Limitations: no limitations History of Present Illness HPI narrative: 67-year-old female presents to ED for URI symptoms. Patient states coughing, body aches, and chills. Patient vaccinated against COVID. Patient states no chest pain or shortness of breath Related Data Home Medications Medication Instructions Recorded Confirmed albuterol sulfate 90 mcg/actuation 2 puff inhalation Q4H PRN Wheezing 09/06/21 09/06/21 aerosol inhaler aspirin 81 mg tablet,delayed 1 tab PO DAILY PRN Pain 09/06/21 09/06/21 release atorvastatin 20 mg tablet 1 tab PO DAILY 09/06/21 09/06/21 calcium carbonate 600 mg calcium 1 tab PO BID 09/06/21 09/06/21 (1,500 mg) tablet cholecalciferol (vitamin D3) 50 1 cap PO DAILY 09/06/21 09/06/21 mcg (2,000 unit) capsule citalopram 10 mg tablet 1 tab PO DAILY 09/06/21 09/06/21 dapagliflozin 5 mg tablet (Farxiga) 1 tab PO DAILY 09/06/21 09/06/21 glipizide 5 mg tablet, extended 1 tab PO DAILY 09/06/21 09/06/21 release 24 hr ibuprofen 800 mg tablet 1 tab PO TID pain 09/06/21 09/06/21 lorazepam 0.5 mg tablet 0.5 mg PO BID PRN Anxiety 09/06/21 09/06/21 metformin 1,000 mg tablet 1 tab PO BID 09/06/21 09/06/21 valsartan 160 1 tab PO DAILY 09/06/21 09/06/21 mg-hydrochlorothiazide 25 mg tablet Previous Rx's Medication Instructions Recorded amoxicillin 500 mg tablet 500 mg PO Q8H #21 tabs 12/16/21 cephalexin 500 mg capsule 500 mg PO QID 7 days #28 caps 02/11/22 Allergies Allergy/AdvReac Type Severity Reaction Status Date / Time morphine [MORPHINE] Allergy Unknown UNKNOWN Verified 02/11/22 14:58 prednisone [PREDNISONE] Allergy Unknown HEART RACES Verified 02/11/22 14:58 Review of Systems Review of Systems: URI symptoms Yes all other systems are reviewed and are negative PMFSH Past Medical History Medical History Anemia Arthritis Asthma Breast CA COVID-19 Diabetes High cholesterol HTN (hypertension) Kidney stones Sleep apnea Surgical History H/O: hysterectomy Family History Family History Sister Diabetes mellitus Social History Social History Household Members: Significant Other Housing: Apartment Do you presently have visiting nurse or other home services: No Alcohol intake: never Patient Tobacco Use Status: Never used Tobacco Advance Directives: No Advance Directives Information Provided: Yes service: No Current occupational status: disabled Current occupation: rt handed Physical Exam ED Vital Signs: Vital Signs - 24 hr 08/26/22 11:02 Temperature 97.2 F Pulse Rate 85 Respiratory Rate 20 Blood Pressure 150/79 H Pulse Oximetry 97 Oxygen Delivery Method Room Air BMI result Body Mass Index 26.5 Const General: cooperative, healthy appearing, comfortable, no acute distress, well developed, alert, awake and Physically active Orientation/consciousness: oriented to person, oriented to place, oriented to time and patient oriented x3 HENMT Head: Yes normal to inspection, Yes No palpable skull fracture present, Yes normocephalic, Yes atraumatic and No abrasion Ears: hearing grossly normal bilaterally, external ears normal, TM's normal bilaterally, EAC's normal, mastoids normal and no periauricular adenopathy Throat: Yes posterior oropharynx normal and Yes tonsils normal Eyes General: appearance normal, both eyes and all related structures Neck Neck: Yes normal visual inspection, Yes full ROM, Yes no lymphadenopathy, Yes no meningeal signs, Yes trachea midline, Yes supple, No anterior neck swelling and No tender Chest Chest palpation & inspection: normal inspection of the chest and normal palpation of entire chest wall Resp Effort & Inspection: normal respiratory effort and able to speak in complete sentences Auscultation: clear to auscultation bilaterally Cardio Jugular venous distension: no JVD Heart sounds: S1 normal heart sound present and S2 normal heart sound present GI Inspection: Yes normal to inspection and No abdominal wall ecchymosis Palpation (GI): Soft to palpation, not firm, nontender, no guarding and not rigid General: No CVA tenderness and Yes no CVA tenderness Back/Spine/Pelvis Back: no CVA tenderness, No CVA tenderness and No back tenderness Skin General skin exam: no rashes or lesions noted, elasticity normal and turgor normal Neuro General: oriented to person, oriented to place, oriented to time, patient oriented x3, gait normal, tone normal, moves all extremities, Normal light touch and pain sensation, no meningeal signs, no focal motor deficits and CN's II-XI intact bilaterally Extrem General: Yes normal to inspection and Yes full ROM Psych Appearance: grossly normal, well kempt and not disheveled Course Course Course Narrative: COVID influenza strep ordered. Reevaluation(s) Reevaluation #1: Positive for COVID and well appearing. patient to be discharged. Patient educated on covid and signs of respiratory distress and informed to return to the ED she has them Time: 13:02 Medical Decision Making Lab Data Labs: Lab Results 08/26/22 08/26/22 Range/Units 11:13 11:13 COVID-19 ([facility]) Positive A (Negative) COVID-19 Clin Com See Note Influenza Type A ([facility]) Negative (Negative) Influenza Type B ([facility]) Negative (Negative) Influenza A & B Note See Note Discharge Plan Discharge Clinical Impression: COVID-19 Patient Disposition: Home, Self-Care Instructions: COVID-19 (Coronavirus Disease 2019) (ED) Additional Instructions: You are positive for COVID-19. Recommend self-isolation. Recommend monitoring oxygen level with at home portable O2 saturation monitor that is sold at the pharmacy. Return to the ED immediately if O2 saturations fall below 94%. Return to the ED for any chest pain, shortness of breath miss, weakness, dizziness, leg swelling, calf pain, coughing up blood, or any other concerning symptoms. Please follow-up with primary care provider Prescriptions: No Action atorvastatin 20 mg tablet 1 tab PO DAILY ibuprofen 800 mg tablet 1 tab PO TID citalopram 10 mg tablet 1 tab PO DAILY glipizide 5 mg tablet extended release 24 hr 1 tab PO DAILY aspirin 81 mg tablet,delayed release (DR/EC) 1 tab PO DAILY PRN (Reason: Pain) calcium carbonate 600 mg calcium (1,500 mg) tablet 1 tab PO BID lorazepam 0.5 mg tablet 0.5 mg PO BID PRN (Reason: Anxiety) metformin 1,000 mg tablet 1 tab PO BID albuterol sulfate 90 mcg/actuation HFA aerosol inhaler 2 puff inhalation Q4H PRN (Reason: Wheezing) valsartan-hydrochlorothiazide 160-25 mg tablet 1 tab PO DAILY cholecalciferol (vitamin D3) 50 mcg (2,000 unit) capsule 1 cap PO DAILY Farxiga 5 mg tablet 1 tab PO DAILY amoxicillin 500 mg tablet 500 mg PO Q8H Qty: 21 0RF cephalexin 500 mg capsule 500 mg PO QID 7 Days Qty: 28 0RF Interventions: ED Discharge Assessment Last Done: 08/26/22 13:09 Discharge Date/Time: 08/26/22 13:13 Print Language: Iraqi
== END 2022-08-26 13:13 | disposition home or self-care (01) ==
LOC: HO.ED 13:08
PROVIDERS: Emergency Provider Emergency Medicine; PCP Internal Medicine
DX: U07.1 COVID-19 (principal)
CPT/HCPCS: 87502; 87635; 87651; 99282; 99283

== ENCOUNTER 2022-09-01 08:02 | Emergency (ER) | payer OTHER, SELFPAY ==
[2022-09-01 08:07] VITALS: BP 149/74; PULSE 74; RESP 18; TEMP 36.6; O2SAT 97; BMI 26.5
[2022-09-01 08:28] LABS: IDNOW Serial# 6674DD1D; Strep A Nucleic Acid Negative (Negative)
[2022-09-01 09:58] LABS: Influenza A PCR NEGATIVE (Negative); Influenza B PCR NEGATIVE (Negative); Resp Syncy Virus RNA Qual PCR NEGATIVE (Negative); SARS COV2 PCR INHOUSE POSITIVE (Negative)
--- NOTE | 2022-09-01 10:24 | ED.URI ---
HPI - URI/Sore Throat General Chief Complaint: Upper Respiratory Symptoms Stated Complaint: dry cough Time Seen by Provider: 09/01/22 08:20 Source: patient Mode of arrival: ambulatory Limitations: no limitations History of Present Illness HPI Narrative: 67-year-old female came in for evaluation of upper respiratory symptoms including sore throat, runny nose, nasal congestion, coughing with no sputum production, subjective fever. No sick contact. Patient tested positive for COVID last week concerned because the symptoms still persist. Patient otherwise decline shortness of breath patient with O2 sat of 97%. Related Data Home Medications Medication Instructions Recorded Confirmed albuterol sulfate 90 mcg/actuation 2 puff inhalation Q4H PRN Wheezing 09/06/21 09/06/21 aerosol inhaler aspirin 81 mg tablet,delayed 1 tab PO DAILY PRN Pain 09/06/21 09/06/21 release atorvastatin 20 mg tablet 1 tab PO DAILY 09/06/21 09/06/21 calcium carbonate 600 mg calcium 1 tab PO BID 09/06/21 09/06/21 (1,500 mg) tablet cholecalciferol (vitamin D3) 50 1 cap PO DAILY 09/06/21 09/06/21 mcg (2,000 unit) capsule citalopram 10 mg tablet 1 tab PO DAILY 09/06/21 09/06/21 dapagliflozin 5 mg tablet (Farxiga) 1 tab PO DAILY 09/06/21 09/06/21 glipizide 5 mg tablet, extended 1 tab PO DAILY 09/06/21 09/06/21 release 24 hr ibuprofen 800 mg tablet 1 tab PO TID pain 09/06/21 09/06/21 lorazepam 0.5 mg tablet 0.5 mg PO BID PRN Anxiety 09/06/21 09/06/21 metformin 1,000 mg tablet 1 tab PO BID 09/06/21 09/06/21 valsartan 160 1 tab PO DAILY 09/06/21 09/06/21 mg-hydrochlorothiazide 25 mg tablet Previous Rx's Medication Instructions Recorded amoxicillin 500 mg tablet 500 mg PO Q8H #21 tabs 12/16/21 cephalexin 500 mg capsule 500 mg PO QID 7 days #28 caps 02/11/22 Allergies Allergy/AdvReac Type Severity Reaction Status Date / Time morphine [MORPHINE] Allergy Unknown UNKNOWN Verified 02/11/22 14:58 prednisone [PREDNISONE] Allergy Unknown HEART RACES Verified 02/11/22 14:58 Review of Systems Review of Systems: All other systems are reviewed and are negative Constitutional: Reports as per HPI and Reports no additional constitutional complaints Eyes: Reports as per HPI and Reports no additional eye complaints Reports system reviewed and no additional complaints, except as documented Cardiovascular: Reports as per HPI and Reports no additional cardiovascular complaints Respiratory: Reports as per HPI and Reports no additional respiratory complaints Gastrointestinal: Reports as per HPI and Reports no additional gastrointestinal complaints Genitourinary: Reports no additional female genitourinary complaints Musculoskeletal: Reports no additional musculoskeletal complaints Skin/Breast: Reports system reviewed and no additional complaints, except as docu Psychiatric: Reports no additional psychiatric complaints Endocrine: Reports no additional endocrine complaints Hematologic/Lymphatic: Reports no additional hematologic/lymphatic complaints Allergic/Immunologic: Reports no additional allergic/immunologic complaints Reports system reviewed and no additional complaints, except as documented and Reports Abnormal speech present [facility] Past Medical History Medical History Anemia Arthritis Asthma Breast CA COVID-19 Diabetes High cholesterol HTN (hypertension) Kidney stones Sleep apnea Surgical History H/O: hysterectomy Family History Family History Sister Diabetes mellitus Social History Social History Household Members: Significant Other Housing: Apartment Do you presently have visiting nurse or other home services: No Alcohol intake: never Patient Tobacco Use Status: Never used Tobacco Advance Directives: No Advance Directives Information Provided: Yes service: No Current occupational status: disabled Current occupation: rt handed Physical Exam Vital Signs: Vital Signs: Last Vital Signs Temp 98 F 09/01/22 08:07 Pulse 74 09/01/22 08:07 Resp 18 09/01/22 08:07 BP 149/74 H 09/01/22 08:07 Pulse Ox 97 09/01/22 08:07 O2 Del Method 09/01/22 08:07 BMI result Body Mass Index 26.5 Vital signs have been reviewed as appeared to be correct. Blood pressure normal. Heart rate normal. Respiration rate normal. Temperature normal. Oxygen saturation normal. Appearance: Alert. Oriented X3. No acute distress. Head: Normal external exam. Normocephalic. Atraumatic. No Martinez signs noted. No raccoon eyes noted Eyes: PERRLA. EOMI. Conjunctiva and sclera normal. Eyelids normal. ENT: TM's Normal. Pharynx normal. Uvula midline. Moist mucous membranes. No trismus noted. No drooling noted. No muffled voice noted. Neck: Normal inspection. Neck supple. FROM. No adenopathy. Thyroid Normal. No meningeal signs. No neck mass noted. CVS: Normal heart rate and rhythm. Heart sound normal. No murmurs noted. Pulses normal throughout. Respiratory: No respiratory distress. Painless inspiration. Breath sounds normal. No wheezes/rales/rhonchi noted. Chest nontender. No accessory muscle usage noted or decreased air movement noted. Abdomen: Soft and nontender. Bowel sounds normal in all 4 quadrants. No distention noted. No organomegaly noted. No visible injury noted. Back: No CVA tenderness. Full range of motion noted. Skin: Skin warm and dry. Normal skin color. Normal skin turgor. No rashes/lesions/lacerations noted. Extremities: No lower extremity edema. Extremities exhibit normal range of motion. Extremities nontender. Neuro: Oriented X 3. Cranial nerve exam: II-XII are grossly intact No motor deficit. No sensory deficit. Reflexes normal. Course Course Course Narrative: COVID-19 infection. Otherwise no respiratory compromise with normal O2 sat. Self-quarantine/use face mask/frequent hand washing/use Tylenol for symptoms control. Medical Decision Making Differential Diagnosis Differential Diagnoses: The differential diagnosis associated with the presentation includes (Strep pharyngitis, RSV, COVID-19 infection, influenza) Lab Data MDM Lab Attestation statement: I reviewed the patient's lab results. Labs: Lab Results 09/01/22 09/01/22 Range/Units 08:14 09:02 Influenza Type A (PCR) NEGATIVE (Negative) Influenza Type B (PCR) NEGATIVE (Negative) RSV RNA Qual (PCR) NEGATIVE (Negative) SARS-CoV-2 RNA (RT-PCR) POSITIVE A (Negative) S. pyogenes GrpA [facility] Negative (Negative) Discharge Plan Discharge Clinical Impression: COVID-19 Patient Disposition: Home, Self-Care Instructions: COVID-19 (Coronavirus Disease 2019) (ED) Prescriptions: No Action atorvastatin 20 mg tablet 1 tab PO DAILY ibuprofen 800 mg tablet 1 tab PO TID citalopram 10 mg tablet 1 tab PO DAILY glipizide 5 mg tablet extended release 24 hr 1 tab PO DAILY aspirin 81 mg tablet,delayed release (DR/EC) 1 tab PO DAILY PRN (Reason: Pain) calcium carbonate 600 mg calcium (1,500 mg) tablet 1 tab PO BID lorazepam 0.5 mg tablet 0.5 mg PO BID PRN (Reason: Anxiety) metformin 1,000 mg tablet 1 tab PO BID albuterol sulfate 90 mcg/actuation HFA aerosol inhaler 2 puff inhalation Q4H PRN (Reason: Wheezing) valsartan-hydrochlorothiazide 160-25 mg tablet 1 tab PO DAILY cholecalciferol (vitamin D3) 50 mcg (2,000 unit) capsule 1 cap PO DAILY Farxiga 5 mg tablet 1 tab PO DAILY amoxicillin 500 mg tablet 500 mg PO Q8H Qty: 21 0RF cephalexin 500 mg capsule 500 mg PO QID 7 Days Qty: 28 0RF Referrals: Dora Jim MD [Primary Care Provider] -
== END 2022-09-01 10:56 | disposition home or self-care (01) ==
PROVIDERS: Emergency Provider Emergency Medicine; PCP Internal Medicine
DX: U07.1 COVID-19 (principal); R05.9 Cough, unspecified; R50.9 Fever, unspecified; Z79.899 Other long term (current) drug therapy
CPT/HCPCS: 0241U; 36415; 87651; 99283

== ENCOUNTER 2022-10-31 13:00 | Emergency (ER) | payer OTHER, SELFPAY ==
[2022-10-31 13:04] VITALS: BP 109/67; PULSE 100; RESP 20; TEMP 36.4; O2SAT 97; BMI 26.5
--- NOTE | 2022-10-31 13:06 | ECG_ITS ---
Test Reason : dizzyness Blood Pressure : / mmHG Vent. Rate : 100 BPM Atrial Rate : 100 BPM P-R Int : 170 ms QRS Dur : 092 ms QT Int : 366 ms P-R-T Axes : 048 000 031 degrees QTc Int : 472 ms Normal sinus rhythm Minimal voltage criteria for LVH, may be normal variant ( [place] product ) Inferior infarct , age undetermined Cannot rule out Anterior infarct , age undetermined Abnormal ECG When compared with ECG of 27-OCT-2019 16:49, No significant change was found Referred By: Hiram Oconnor Electronically Signed By:ANDERS WILEY MD
--- NOTE | 2022-10-31 13:07 | ED.GENADULT ---
HPI - General Adult General Chief complaint: Dizziness Stated complaint: dizzy, blurred vision, low bp Time Seen by Provider: 10/31/22 21:43 Related Data Home Medications Medication Instructions Recorded Confirmed albuterol sulfate 90 mcg/actuation 2 puff inhalation Q4H PRN Wheezing 09/06/21 09/06/21 aerosol inhaler aspirin 81 mg tablet,delayed 1 tab PO DAILY PRN Pain 09/06/21 09/06/21 release atorvastatin 20 mg tablet 1 tab PO DAILY 09/06/21 09/06/21 calcium carbonate 600 mg calcium 1 tab PO BID 09/06/21 09/06/21 (1,500 mg) tablet cholecalciferol (vitamin D3) 50 1 cap PO DAILY 09/06/21 09/06/21 mcg (2,000 unit) capsule citalopram 10 mg tablet 1 tab PO DAILY 09/06/21 09/06/21 dapagliflozin propanediol 5 mg 1 tab PO DAILY 09/06/21 09/06/21 tablet (Farxiga) glipizide 5 mg tablet, extended 1 tab PO DAILY 09/06/21 09/06/21 release 24 hr ibuprofen 800 mg tablet 1 tab PO TID pain 09/06/21 09/06/21 lorazepam 0.5 mg tablet 0.5 mg PO BID PRN Anxiety 09/06/21 09/06/21 metformin 1,000 mg tablet 1 tab PO BID 09/06/21 09/06/21 valsartan 160 1 tab PO DAILY 09/06/21 09/06/21 mg-hydrochlorothiazide 25 mg tablet Previous Rx's Medication Instructions Recorded amoxicillin 500 mg tablet 500 mg PO Q8H #21 tabs 12/16/21 cephalexin 500 mg capsule 500 mg PO QID 7 days #28 caps 02/11/22 Allergies Allergy/AdvReac Type Severity Reaction Status Date / Time morphine [MORPHINE] Allergy Unknown UNKNOWN Verified 04/27/23 09:50 prednisone [PREDNISONE] Allergy Unknown HEART RACES Verified 04/27/23 09:50 [facility] Past Medical History Medical History Anemia Arthritis Asthma Breast CA COVID-19 Diabetes High cholesterol HTN (hypertension) Kidney stones Sleep apnea Surgical History H/O: hysterectomy Family History Family History Sister Diabetes mellitus Social History Social History Household Members: Significant Other Housing: Apartment Do you presently have visiting nurse or other home services: No Alcohol intake: never Patient Tobacco Use Status: Never used Tobacco Advance Directives: No Advance Directives Information Provided: Yes service: No Current occupational status: disabled Current occupation: rt handed Physical Exam ED Vital Signs: Vital Signs - 24 hr 10/31/22 13:04 Temperature 97.6 F Pulse Rate 100 Respiratory Rate 20 Blood Pressure 109/67 Pulse Oximetry 97 Oxygen Delivery Method Room Air BMI result Body Mass Index 26.5 Course Course Course Narrative: 67-year-old female with past medical history significant for rheumatoid arthritis presents for evaluation of dizziness and a near syncopal episode. Patient reports earlier this morning she felt dizzy like she is going to pass out, she sat down. She had her blood pressure taken several times and reported that it was ?70/43. ? Denies any recent medication changes. She states that currently she feels somewhat better but is still ?somewhat shaky. ? Denies any chest pain, shortness of breath. On arrival in triage, the patient's blood pressure was 109/67. Rest of vital signs were stable and she appeared well. Plan for labs, EKG, orthostatics Medical Decision Making Lab Data 10/31/22 13:48 10/31/22 13:48 Labs: Lab Results 10/31/22 10/31/22 10/31/22 Range/Units 13:48 13:48 13:48 WBC 15.1 H (4.8-10.8) X10*3/uL RBC 3.89 L (4.20-5.50) X10*6/uL Hgb 11.1 L (12.0-16.0) g/dl Hct 33.8 L (37.0-47.0) % MCV 86.9 (80.0-98.0) fL MCH 28.5 (27.0-33.0) pg MCHC 32.8 (31.0-35.0) g/dl RDW 13.2 (11.0-16.0) % Plt Count 321 (160-400) X10*3/uL MPV 9.4 (9.4-12.3) fL Immature Gran % (Auto) 0.3 (0.0-0.4) % Neut % (Auto) 79.0 H (45-73) % Lymph % (Auto) 14.5 L (20-40) % [place] % (Auto) 4.6 (2-11) % Eos % (Auto) 1.1 (0-4) % Baso % (Auto) 0.5 (0-2) % Lymph # (Auto) 2.2 (1.2-4.9) X10*3/uL [place] # (Auto) 0.7 (0.1-1.2) X10*3/uL Eos # (Auto) 0.2 (0.0-0.4) X10*3/uL Baso # (Auto) 0.1 (0.0-0.2) X10*3/uL Abs Immat Gran (auto) 0.05 H (0.00-0.03) X10*3/uL Absolute Neuts (auto) 11.9 H (2.0-8.3) x10*3/uL Absolute Nucleated RBC 0.000 (0.0-0.012) X10*3/uL Nucleated RBC % (auto) 0.0 (0.0-0.2) /100WBC Sodium 139 (135-145) mmol/L Potassium 3.6 (3.3-5.1) mmol/L Chloride 103 (96-108) mmol/L Carbon Dioxide 23 (22-29) mmol/L Anion Gap 17 (12-20) BUN 20 H (9-16) mg/dL Creatinine 1.32 (0.5-1.4) mg/dL Estim Creat Clear Calc 38.8 Estimated GFR 40 POC Glucose (60-115) mg/dL Random Glucose 230 H (60-115) mg/dL Calcium 9.4 D (8.4-10.2) mg/dL Total Bilirubin 0.4 (0.0-1.0) mg/dL AST 20 (5-31) U/L ALT 17 (0-31) U/L Alkaline Phosphatase 104 (39-117) U/L Troponin I High Sens < 3.5 (<3.5-17.0) ng/L Total Protein 7.7 (6.5-8.0) g/dL Albumin 4.6 (3.5-5.0) g/dL 10/31/22 10/31/22 Range/Units 22:30 22:35 WBC (4.8-10.8) X10*3/uL RBC (4.20-5.50) X10*6/uL Hgb (12.0-16.0) g/dl Hct (37.0-47.0) % MCV (80.0-98.0) fL MCH (27.0-33.0) pg MCHC (31.0-35.0) g/dl RDW (11.0-16.0) % Plt Count (160-400) X10*3/uL MPV (9.4-12.3) fL Immature Gran % (Auto) (0.0-0.4) % Neut % (Auto) (45-73) % Lymph % (Auto) (20-40) % [place] % (Auto) (2-11) % Eos % (Auto) (0-4) % Baso % (Auto) (0-2) % Lymph # (Auto) (1.2-4.9) X10*3/uL [place] # (Auto) (0.1-1.2) X10*3/uL Eos # (Auto) (0.0-0.4) X10*3/uL Baso # (Auto) (0.0-0.2) X10*3/uL Abs Immat Gran (auto) (0.00-0.03) X10*3/uL Absolute Neuts (auto) (2.0-8.3) x10*3/uL Absolute Nucleated RBC (0.0-0.012) X10*3/uL Nucleated RBC % (auto) (0.0-0.2) /100WBC Sodium (135-145) mmol/L Potassium (3.3-5.1) mmol/L Chloride (96-108) mmol/L Carbon Dioxide (22-29) mmol/L Anion Gap (12-20) BUN (9-16) mg/dL Creatinine (0.5-1.4) mg/dL Estim Creat Clear Calc Estimated GFR POC Glucose 110 (60-115) mg/dL Random Glucose (60-115) mg/dL Calcium (8.4-10.2) mg/dL Total Bilirubin (0.0-1.0) mg/dL AST (5-31) U/L ALT (0-31) U/L Alkaline Phosphatase (39-117) U/L Troponin I High Sens < 3.5 (<3.5-17.0) ng/L Total Protein (6.5-8.0) g/dL Albumin (3.5-5.0) g/dL Discharge Plan Discharge Clinical Impression: Vertigo Patient Disposition: Home, Self-Care Instructions: Vertigo (ED), Dizziness (ED) Prescriptions: No Action atorvastatin 20 mg tablet 1 tab PO DAILY ibuprofen 800 mg tablet 1 tab PO TID citalopram 10 mg tablet 1 tab PO DAILY glipizide 5 mg tablet extended release 24 hr 1 tab PO DAILY aspirin 81 mg tablet,delayed release (DR/EC) 1 tab PO DAILY PRN (Reason: Pain) calcium carbonate 600 mg calcium (1,500 mg) tablet 1 tab PO BID lorazepam 0.5 mg tablet 0.5 mg PO BID PRN (Reason: Anxiety) metformin 1,000 mg tablet 1 tab PO BID albuterol sulfate 90 mcg/actuation HFA aerosol inhaler 2 puff inhalation Q4H PRN (Reason: Wheezing) valsartan-hydrochlorothiazide 160-25 mg tablet 1 tab PO DAILY cholecalciferol (vitamin D3) 50 mcg (2,000 unit) capsule 1 cap PO DAILY Farxiga 5 mg tablet 1 tab PO DAILY amoxicillin 500 mg tablet 500 mg PO Q8H Qty: 21 0RF cephalexin 500 mg capsule 500 mg PO QID 7 Days Qty: 28 0RF Referrals: Physician,Unknown J [Physician] - 11/01/22 Interventions: ED Discharge Assessment Last Done: 10/31/22 23:16 Discharge Date/Time: 10/31/22 23:17
[2022-10-31 13:54] LABS: MANUAL DIFF FLAG NO
[2022-10-31 13:55] LABS: Basophils Absolute Auto 0.1 X10*3/uL (0.0-0.2); Basophils Percent Auto 0.5 % (0-2); Eosinophils Absolute Auto 0.2 X10*3/uL (0.0-0.4); Eosinophils Percent Auto 1.1 % (0-4); Hematocrit 33.8 % (37.0-47.0); Hemoglobin 11.1 g/dl (12.0-16.0); Imm Gran Abs Auto 0.05 X10*3/uL (0.00-0.03); Imm Gran Pct Auto 0.3 % (0.0-0.4); Lymphocytes Absolute Auto 2.2 X10*3/uL (1.2-4.9); Lymphocytes Percent Auto 14.5 % (20-40); Mean Corpuscular HGB Conc 32.8 g/dl (31.0-35.0); Mean Corpuscular Hemoglobin 28.5 pg (27.0-33.0); Mean Corpuscular Volume 86.9 fL (80.0-98.0); Mean Platelet Volume 9.4 fL (9.4-12.3); Monocytes Absolute Auto 0.7 X10*3/uL (0.1-1.2); Monocytes Percent Auto 4.6 % (2-11); Neutrophils Absolute Auto 11.9 x10*3/uL (2.0-8.3); Platelet Count 321 X10*3/uL (160-400); Red Blood Count 3.89 X10*6/uL (4.20-5.50); Red Cell Distribution Width 13.2 % (11.0-16.0); White Blood Count 15.1 X10*3/uL (4.8-10.8)
[2022-10-31 14:15] LABS: Alanine Aminotransferase 17 U/L (0-31); Albumin Level 4.6 g/dL (3.5-5.0); Alkaline Phosphatase 104 U/L (39-117); Anion Gap 17 (12-20); Aspartate Amino Transferase 20 U/L (5-31); Bilirubin Total 0.4 mg/dL (0.0-1.0); Blood Urea Nitrogen 20 mg/dL (9-16); Calcium 9.4 mg/dL (8.4-10.2); Carbon Dioxide 23 mmol/L (22-29); Chloride 103 mmol/L (96-108); Creatinine Clr Calc Pharmacy 38.8; Estimated Glomerular Filt Rate 40; Glucose Random 230 mg/dL (60-115); Potassium 3.6 mmol/L (3.3-5.1); Sodium 139 mmol/L (135-145); Total Protein 7.7 g/dL (6.5-8.0)
[2022-10-31 14:18] LABS: Troponin-I High Sensitivity < 3.5 ng/L (<3.5-17.0)
[2022-10-31 19:42] VITALS: BP 150/72; PULSE 87
[2022-10-31 19:43] VITALS: BP 145/75; PULSE 91
[2022-10-31 19:44] VITALS: BP 143/75; PULSE 94
[2022-10-31 22:07] VITALS: BP 170/79; PULSE 85; RESP 18; TEMP 36.8; O2SAT 97
--- NOTE | 2022-10-31 22:31 | ED.DIZZY ---
HPI - Dizziness General Chief Complaint: Dizziness Stated Complaint: dizzy, blurred vision, low bp Time Seen by Provider: 10/31/22 21:43 History of Present Illness HPI Narrative: Patient is a 67-year-old female presents today with having dizziness. The dizziness is a spinning sensation that lasted approximately 1 hour. It is worse with change in position. Patient checked her own sugar was normal. She has a history of diabetes. There is no chest pain associated with this. There was no focal weakness. No bloody stool. No fever no chills no coughing no congestion or upper respiratory symptoms. Patient's symptoms improved after 1 hour. On arrival in the emergency department the sugar was over 100 there is no hypoglycemia. Patient has been waiting in the ED for approximately 9 hours. Symptom has long resolved Related Data Home Medications Medication Instructions Recorded Confirmed albuterol sulfate 90 mcg/actuation 2 puff inhalation Q4H PRN Wheezing 09/06/21 09/06/21 aerosol inhaler aspirin 81 mg tablet,delayed 1 tab PO DAILY PRN Pain 09/06/21 09/06/21 release atorvastatin 20 mg tablet 1 tab PO DAILY 09/06/21 09/06/21 calcium carbonate 600 mg calcium 1 tab PO BID 09/06/21 09/06/21 (1,500 mg) tablet cholecalciferol (vitamin D3) 50 1 cap PO DAILY 09/06/21 09/06/21 mcg (2,000 unit) capsule citalopram 10 mg tablet 1 tab PO DAILY 09/06/21 09/06/21 dapagliflozin 5 mg tablet (Farxiga) 1 tab PO DAILY 09/06/21 09/06/21 glipizide 5 mg tablet, extended 1 tab PO DAILY 09/06/21 09/06/21 release 24 hr ibuprofen 800 mg tablet 1 tab PO TID pain 09/06/21 09/06/21 lorazepam 0.5 mg tablet 0.5 mg PO BID PRN Anxiety 09/06/21 09/06/21 metformin 1,000 mg tablet 1 tab PO BID 09/06/21 09/06/21 valsartan 160 1 tab PO DAILY 09/06/21 09/06/21 mg-hydrochlorothiazide 25 mg tablet Previous Rx's Medication Instructions Recorded amoxicillin 500 mg tablet 500 mg PO Q8H #21 tabs 12/16/21 cephalexin 500 mg capsule 500 mg PO QID 7 days #28 caps 02/11/22 Allergies Allergy/AdvReac Type Severity Reaction Status Date / Time morphine [MORPHINE] Allergy Unknown UNKNOWN Verified 02/11/22 14:58 prednisone [PREDNISONE] Allergy Unknown HEART RACES Verified 02/11/22 14:58 Review of Systems Review of Systems: Positive dizziness [facility] Past Medical History Attestation statement: The following information was validated with the patient. Medical History Anemia Arthritis Asthma Breast CA COVID-19 Diabetes High cholesterol HTN (hypertension) Kidney stones Sleep apnea Surgical History H/O: hysterectomy Family History Family History Sister Diabetes mellitus Social History Social History Household Members: Significant Other Housing: Apartment Do you presently have visiting nurse or other home services: No Alcohol intake: never Patient Tobacco Use Status: Never used Tobacco Smoked in Last 30 Days: No Use of substances other than those prescribed or required for medical reasons: No Advance Directives: No service: No Current occupational status: disabled Current occupation: rt handed Physical Exam Vital Signs: Vital Signs: Last Vital Signs Temp 98.3 F 10/31/22 22:07 Pulse 85 10/31/22 22:07 Resp 18 10/31/22 22:07 BP 170/79 H 10/31/22 22:07 Pulse Ox 97 10/31/22 22:07 O2 Del Method 10/31/22 22:07 BMI result Body Mass Index 26.5 Appearance: Alert. Oriented X3. No acute distress. Eyes: Pupils equal, round and reactive to light. ENT: Pharynx normal. Neck: Normal inspection. Neck supple. No lymph nodes noted. No crepitus CVS: Normal heart rate and rhythm. Pulses normal. Normal S1 and S2 Respiratory: No respiratory distress. Breath sounds normal. No Wheezing. No rales Abdomen: Soft and nontender. No rigidity. No distention. good BS x4 Skin: Skin warm and dry. Normal skin color. Normal skin turgor. Extremities: No lower extremity edema. Neurovascular intact to all extremities. No Lacerations. No Rash Neuro: Oriented X 3. No motor deficit. No sensory deficit. Moving all extermities. No slurred speech Medical Decision Making Medical Decision Making [facility] Narrative: Patient had episode of spinning sensation that lasted approximately 1 hour it was extreme at the time it has completely resolved. Neurologically patient is intact. No distress. Sugar was normal there is no evidence of hypoglycemia. Electrolytes unremarkable. My interpretation of the patient's EKG showed a heart rate of 100 CO QRS QT within normal limits there is no evidence for arrhythmia. Two sets of cardiac enzymes are negative. Patient is not orthostatic. Symptom has completely resolved. Joint decision was made to discharge patient home close follow-up on an outpatient basis. Differential Diagnosis Stroke, peripheral vertigo, syncope, hypoglycemia, anemia, arrhythmia Admission/Observation Consideration of admission/observation: Escalation of care including admission/observation considered Lab Data [facility] Lab Attestation statement: I reviewed the patient's lab results. 10/31/22 13:48 10/31/22 13:48 Labs: Lab Results 10/31/22 10/31/22 10/31/22 Range/Units 13:48 13:48 13:48 WBC 15.1 H (4.8-10.8) X10*3/uL RBC 3.89 L (4.20-5.50) X10*6/uL Hgb 11.1 L (12.0-16.0) g/dl Hct 33.8 L (37.0-47.0) % MCV 86.9 (80.0-98.0) fL MCH 28.5 (27.0-33.0) pg MCHC 32.8 (31.0-35.0) g/dl RDW 13.2 (11.0-16.0) % Plt Count 321 (160-400) X10*3/uL MPV 9.4 (9.4-12.3) fL Immature Gran % (Auto) 0.3 (0.0-0.4) % Neut % (Auto) 79.0 H (45-73) % Lymph % (Auto) 14.5 L (20-40) % [place] % (Auto) 4.6 (2-11) % Eos % (Auto) 1.1 (0-4) % Baso % (Auto) 0.5 (0-2) % Lymph # (Auto) 2.2 (1.2-4.9) X10*3/uL [place] # (Auto) 0.7 (0.1-1.2) X10*3/uL Eos # (Auto) 0.2 (0.0-0.4) X10*3/uL Baso # (Auto) 0.1 (0.0-0.2) X10*3/uL Abs Immat Gran (auto) 0.05 H (0.00-0.03) X10*3/uL Absolute Neuts (auto) 11.9 H (2.0-8.3) x10*3/uL Absolute Nucleated RBC 0.000 (0.0-0.012) X10*3/uL Nucleated RBC % (auto) 0.0 (0.0-0.2) /100WBC Sodium 139 (135-145) mmol/L Potassium 3.6 (3.3-5.1) mmol/L Chloride 103 (96-108) mmol/L Carbon Dioxide 23 (22-29) mmol/L Anion Gap 17 (12-20) BUN 20 H (9-16) mg/dL Creatinine 1.32 (0.5-1.4) mg/dL Estim Creat Clear Calc 38.8 Estimated GFR 40 Random Glucose 230 H (60-115) mg/dL Calcium 9.4 D (8.4-10.2) mg/dL Total Bilirubin 0.4 (0.0-1.0) mg/dL AST 20 (5-31) U/L ALT 17 (0-31) U/L Alkaline Phosphatase 104 (39-117) U/L Troponin I High Sens < 3.5 (<3.5-17.0) ng/L Total Protein 7.7 (6.5-8.0) g/dL Albumin 4.6 (3.5-5.0) g/dL 10/31/22 Range/Units 22:35 WBC (4.8-10.8) X10*3/uL RBC (4.20-5.50) X10*6/uL Hgb (12.0-16.0) g/dl Hct (37.0-47.0) % MCV (80.0-98.0) fL MCH (27.0-33.0) pg MCHC (31.0-35.0) g/dl RDW (11.0-16.0) % Plt Count (160-400) X10*3/uL MPV (9.4-12.3) fL Immature Gran % (Auto) (0.0-0.4) % Neut % (Auto) (45-73) % Lymph % (Auto) (20-40) % [place] % (Auto) (2-11) % Eos % (Auto) (0-4) % Baso % (Auto) (0-2) % Lymph # (Auto) (1.2-4.9) X10*3/uL [place] # (Auto) (0.1-1.2) X10*3/uL Eos # (Auto) (0.0-0.4) X10*3/uL Baso # (Auto) (0.0-0.2) X10*3/uL Abs Immat Gran (auto) (0.00-0.03) X10*3/uL Absolute Neuts (auto) (2.0-8.3) x10*3/uL Absolute Nucleated RBC (0.0-0.012) X10*3/uL Nucleated RBC % (auto) (0.0-0.2) /100WBC Sodium (135-145) mmol/L Potassium (3.3-5.1) mmol/L Chloride (96-108) mmol/L Carbon Dioxide (22-29) mmol/L Anion Gap (12-20) BUN (9-16) mg/dL Creatinine (0.5-1.4) mg/dL Estim Creat Clear Calc Estimated GFR Random Glucose (60-115) mg/dL Calcium (8.4-10.2) mg/dL Total Bilirubin (0.0-1.0) mg/dL AST (5-31) U/L ALT (0-31) U/L Alkaline Phosphatase (39-117) U/L Troponin I High Sens < 3.5 (<3.5-17.0) ng/L Total Protein (6.5-8.0) g/dL Albumin (3.5-5.0) g/dL Independent Interpretation I performed an independent interpretation of an: EKG Interpretation: Sinus Heart rate is 100 CO QRS QT within normal limits is no acute ST segment elevation. External Record Review External record reviewed: Inpatient record Chronic Conditions Patient?s care impacted by: Diabetes Discharge Plan Discharge Clinical Impression: Vertigo Patient Disposition: Home, Self-Care Instructions: Vertigo (ED), Dizziness (ED) Prescriptions: No Action atorvastatin 20 mg tablet 1 tab PO DAILY ibuprofen 800 mg tablet 1 tab PO TID citalopram 10 mg tablet 1 tab PO DAILY glipizide 5 mg tablet extended release 24 hr 1 tab PO DAILY aspirin 81 mg tablet,delayed release (DR/EC) 1 tab PO DAILY PRN (Reason: Pain) calcium carbonate 600 mg calcium (1,500 mg) tablet 1 tab PO BID lorazepam 0.5 mg tablet 0.5 mg PO BID PRN (Reason: Anxiety) metformin 1,000 mg tablet 1 tab PO BID albuterol sulfate 90 mcg/actuation HFA aerosol inhaler 2 puff inhalation Q4H PRN (Reason: Wheezing) valsartan-hydrochlorothiazide 160-25 mg tablet 1 tab PO DAILY cholecalciferol (vitamin D3) 50 mcg (2,000 unit) capsule 1 cap PO DAILY Farxiga 5 mg tablet 1 tab PO DAILY amoxicillin 500 mg tablet 500 mg PO Q8H Qty: 21 0RF cephalexin 500 mg capsule 500 mg PO QID 7 Days Qty: 28 0RF Referrals: Physician,Unknown J [Physician] - 11/01/22
[2022-10-31 23:03] LABS: Troponin-I High Sensitivity < 3.5 ng/L (<3.5-17.0)
--- NOTE | 2022-10-31 23:03 | PC.NURSE ---
report received from MISHA Woods Awaiting second trop to result, pt resting comfortably on stretcher at this time
[2022-11-01 00:01] LABS: Glucose, Whole Blood 110 mg/dL (60-115)
== END 2022-10-31 23:17 | disposition home or self-care (01) ==
PROVIDERS: Physician Assistant; Emergency Provider Emergency Medicine Emergency Medical Services; PCP Internal Medicine
DX: R42 Dizziness and giddiness (principal); H53.8 Other visual disturbances; I95.9 Hypotension, unspecified; Z79.899 Other long term (current) drug therapy
CPT/HCPCS: 36415; 80053; 82947; 84484; 85025; 93005; 99283; 99285

== ENCOUNTER 2023-04-27 09:46 | Emergency (ER) | payer OTHER, SELFPAY ==
[2023-04-27 09:47] VITALS: BP 153/72; PULSE 84; RESP 18; TEMP 37.2; O2SAT 97; BMI 27.3
[2023-04-27 10:18] LABS: IDNOW Serial# 08D9AD1C; Strep A Nucleic Acid Negative (Negative)
--- NOTE | 2023-04-27 10:19 | ED_ITS ---
HPI - General Adult General Chief complaint: Upper Respiratory Symptoms Stated complaint: Sore throat Time Seen by Provider: 04/27/23 10:02 Source: patient Mode of arrival: ambulatory Limitations: no limitations History of Present Illness HPI narrative: Patient is a 67-year-old female presenting to the emergency department with complaint of sore throat, states this is day 4. Denies fever, cough, ear pain, nasal congestion. States has been using Tylenol with little relief. Reports this morning noted some erythema to tongue. Denies sick contacts. [facility] is around children often. MD complaint: sore throat Onset (ago): day(s) Radiation: non-radiation Severity: moderate Severity scale (1-10): 7 Quality: burning Pain Consistency: constant Relieving factors: none Exacerbating factors: eating Associated symptoms: denies other symptoms Treatments prior to arrival: other (Tylenol) Related Data Home Medications Medication Instructions Recorded Confirmed albuterol sulfate 90 mcg/actuation 2 puff inhalation Q4H PRN Wheezing 09/06/21 09/06/21 aerosol inhaler aspirin 81 mg tablet,delayed 1 tab PO DAILY PRN Pain 09/06/21 09/06/21 release atorvastatin 20 mg tablet 1 tab PO DAILY 09/06/21 09/06/21 calcium carbonate 600 mg calcium 1 tab PO BID 09/06/21 09/06/21 (1,500 mg) tablet cholecalciferol (vitamin D3) 50 1 cap PO DAILY 09/06/21 09/06/21 mcg (2,000 unit) capsule citalopram 10 mg tablet 1 tab PO DAILY 09/06/21 09/06/21 dapagliflozin propanediol 5 mg 1 tab PO DAILY 09/06/21 09/06/21 tablet (Farxiga) glipizide 5 mg tablet, extended 1 tab PO DAILY 09/06/21 09/06/21 release 24 hr ibuprofen 800 mg tablet 1 tab PO TID pain 09/06/21 09/06/21 lorazepam 0.5 mg tablet 0.5 mg PO BID PRN Anxiety 09/06/21 09/06/21 metformin 1,000 mg tablet 1 tab PO BID 09/06/21 09/06/21 valsartan 160 1 tab PO DAILY 09/06/21 09/06/21 mg-hydrochlorothiazide 25 mg tablet Previous Rx's Medication Instructions Recorded amoxicillin 500 mg tablet 500 mg PO Q8H #21 tabs 12/16/21 cephalexin 500 mg capsule 500 mg PO QID 7 days #28 caps 02/11/22 Allergies Allergy/AdvReac Type Severity Reaction Status Date / Time morphine [MORPHINE] Allergy Unknown UNKNOWN Verified 04/27/23 09:50 prednisone [PREDNISONE] Allergy Unknown HEART RACES Verified 04/27/23 09:50 Review of Systems Review of Systems: As per HPI. Yes all other systems are reviewed and are negative Constitutional: Constitutional: Reports as per HPI [facility] Past Medical History Medical History Anemia Arthritis Asthma Breast CA COVID-19 Diabetes High cholesterol HTN (hypertension) Kidney stones Sleep apnea Surgical History H/O: hysterectomy Family History Family History Sister Diabetes mellitus Social History Social History Household Members: Significant Other Housing: Apartment Do you presently have visiting nurse or other home services: No Alcohol intake: never Patient Tobacco Use Status: Never used Tobacco Advance Directives: No Advance Directives Information Provided: Yes service: No Current occupational status: disabled Current occupation: rt handed Physical Exam ED Vital Signs: Vital Signs - 24 hr 04/27/23 09:47 Temperature 99.0 F Pulse Rate 84 Respiratory Rate 18 Blood Pressure 153/72 H Pulse Oximetry 97 Oxygen Delivery Method Room Air BMI result Body Mass Index 27.3 Vital signs have been reviewed and appear to be correct. Blood pressure mildly elevated. Heart rate normal. Respiratory rate normal. Temperature normal. Oxygen saturation normal. Const General: cooperative, healthy appearing and no acute distress Orientation/consciousness: oriented to person, oriented to place, oriented to time and patient oriented x3 Limitations: no limitations HENMT Head: Yes normocephalic and Yes atraumatic Ears: external ears normal General nose exam: Normal external nose present Face and sinus: Yes face symmetric Mouth: oropharynx normal and moist mucous membranes Throat: Yes uvula midline, Yes posterior oropharynx abnormal (erythema; no edema or exudate), No uvular edema and Yes cobblestoning Eyes Pupils: Equal, round and reactive pupils present Neck Neck: Yes normal visual inspection, Yes no lymphadenopathy and Yes supple Resp Effort & Inspection: normal respiratory effort and able to speak in complete sentences Auscultation: clear to auscultation bilaterally Cardio Rate: regular rate Rhythm: regular rhythm Heart sounds: S1 normal heart sound present and S2 normal heart sound present GI Palpation (GI): Soft to palpation and nontender Auscultation: normoactive bowel sounds General: Yes no CVA tenderness Back/Spine/Pelvis Back: no CVA tenderness Skin General skin exam: elasticity normal and turgor normal Neuro General: oriented to person, oriented to place, oriented to time, patient oriented x3, moves all extremities, no focal motor deficits and CN's II-XI intact bilaterally Cranial nerves: Yes Equal, round and reactive pupils present Cognition (Neuro): normal cognition Extrem General: Yes full ROM, Yes no pedal edema and Yes no calf tenderness Psych Mental Status: mental status grossly normal Affect: normal affect Thought process: Normal thought process present Medical Decision Making Medical Decision Making [facility] Narrative: Patient is a 67-year-old female presenting to the emergency department with complaint of sore throat, states this is day 4. On exam patient is awake, A+Ox3, VS WNL, afebrile, normal neurological exam without focal deficits, mild erythema and cobblestoning to posterior oropharynx, no uvula edema or deviation, no cervical lymphadenopathy. Given reported symptoms and physical exam findings, initial differential includes strep pharyngitis, viral pharyngitis, COVID, influenza. Do not suspect peritonsillar abscess. COVID, flu, and strep swab all negative, patient updated on results. Discussed with patient that treatment is symptomatic and symptoms should slowly resolve on their own with rest and adequate fluid intake. Advised can gargle with warm salt water several times daily. Advised to follow-up with PCP. Return precautions discussed at bedside. Patient verbalized understanding of an agreement with plan. Differential Diagnosis Differential Diagnoses: The differential diagnosis associated with the presentation includes As per [facility]. Lab Data [facility] Lab Attestation statement: I reviewed the patient's lab results. As per MDM. Labs: Lab Results 04/27/23 04/27/23 04/27/23 Range/Units 10:01 10:01 10:01 COVID-19 (CHIARA) Negative (Negative) COVID-19 Clin Com See Note Influenza Type A ([facility]IL[facility]) Negative (Negative) Influenza Type B ([facility]) Negative (Negative) Influenza A & B Note See Note S. pyogenes GrpA [facility]IAN Negative (Negative) External Record Review External record reviewed: Inpatient record, Office record and Outpatient record Discharge Plan Discharge Clinical Impression: Acute viral pharyngitis Patient Disposition: Home, Self-Care Instructions: Pharyngitis (ED) Additional Instructions: You were evaluated in the emergency department today for a sore throat. Your COVID, flu, and strep swabs were all negative. Your symptoms are likely related to a viral infection which will resolve on its own with time and rest. Be sure to drink adequate fluids. You can use Tylenol and ibuprofen per package directions as needed for discomfort. You can also gargle with warm salt water several times daily. Follow-up with your primary care provider this week. Return to the emergency department if you develop difficulty swallowing, wor sening pain, shortness of breath, are unable to swallow your saliva, or any other concerning symptoms. Prescriptions: No Action atorvastatin 20 mg tablet 1 tab PO DAILY ibuprofen 800 mg tablet 1 tab PO TID citalopram 10 mg tablet 1 tab PO DAILY glipizide 5 mg tablet extended release 24 hr 1 tab PO DAILY aspirin 81 mg tablet,delayed release (DR/EC) 1 tab PO DAILY PRN (Reason: Pain) calcium carbonate 600 mg calcium (1,500 mg) tablet 1 tab PO BID lorazepam 0.5 mg tablet 0.5 mg PO BID PRN (Reason: Anxiety) metformin 1,000 mg tablet 1 tab PO BID albuterol sulfate 90 mcg/actuation HFA aerosol inhaler 2 puff inhalation Q4H PRN (Reason: Wheezing) valsartan-hydrochlorothiazide 160-25 mg tablet 1 tab PO DAILY cholecalciferol (vitamin D3) 50 mcg (2,000 unit) capsule 1 cap PO DAILY Farxiga 5 mg tablet 1 tab PO DAILY amoxicillin 500 mg tablet 500 mg PO Q8H Qty: 21 0RF cephalexin 500 mg capsule 500 mg PO QID 7 Days Qty: 28 0RF
[2023-04-27 10:25] LABS: COVID-19 Test Negative (Negative); IDNOW Serial# 9DB6401D
[2023-04-27 10:26] LABS: IDNOW Serial# BCCEAD1C; Influenza A Negative (Negative); Influenza B2 Negative (Negative)
== END 2023-04-27 10:41 | disposition home or self-care (01) ==
PROVIDERS: Emergency Provider Emergency Medicine; PCP Internal Medicine
DX: J02.8 Acute pharyngitis due to other specified organisms (principal); Z20.822 Contact with and (suspected) exposure to COVID-19
CPT/HCPCS: 87502; 87635; 87651; 99282; 99283

== ENCOUNTER 2024-05-24 11:16 | Emergency (ER) | payer OTHER, SELFPAY ==
--- NOTE | ~2024-05-24 | XR_ITS ---
EXAMINATION: XR SHOULDER, RIGHT CLINICAL INFORMATION: Pain COMPARISON: None available. TECHNIQUE: Three views of the right shoulder. FINDINGS: Minimal acromioclavicular osteoarthritis. No fracture. Glenohumeral and acromioclavicular alignment is anatomic with normal joint space. No abnormal soft tissue calcifications. XR/XR shoulder RT min 2V IMPRESSION: Minimal acromioclavicular osteoarthritis. No acute osseous findings. Electronically signed by: Efren Adkins MD 05/24/2024 03:27 PM EDT RP
[2024-05-24 11:39] VITALS: BP 135/78; PULSE 94; RESP 16; TEMP 36.8; O2SAT 97; BMI 26.7
--- NOTE | 2024-05-24 11:40 | ED.GENADULT ---
HPI - General Adult General Chief complaint: Extremity Injury, Upper Stated complaint: r shoulder pain into back Time Seen by Provider: 05/24/24 15:42 Source: patient Mode of arrival: ambulatory Limitations: no limitations History of Present Illness ED Provider: Teena Beatty PA-C HPI narrative: Patient is a 68 year old assigned female at with a history of RA presenting to the emergency department today with right shoulder pain. Patient states that over the last day she has had right sided shoulder pain. Patient denies any dizziness, lightheadedness, abdominal pain, nausea, vomiting, fever, chills, blurry vision, double vision, loss of vision, chest pain, difficulty breathing, shortness of breath, back pain, night sweats, pain with urination, increased urinary frequency, increased urinary urgency, blood in her urine or stool, syncope or a near syncopal episode, recent trauma or falls, bowel incontinence, bladder incontinence, or any other complaints at this time. Onset (ago): day(s) (1) Location: right and upper extremity Relieving factors: none Exacerbating factors: none Associated symptoms: denies other symptoms Treatments prior to arrival: none Related Data Home Medications ?Medication ?Instructions ?Recorded ?Confirmed albuterol sulfate 90 mcg/actuation 2 puff inhalation Q4H PRN Wheezing 09/06/21 09/06/21 aerosol inhaler aspirin 81 mg tablet,delayed 1 tab PO DAILY PRN Pain 09/06/21 09/06/21 release atorvastatin 20 mg tablet 1 tab PO DAILY 09/06/21 09/06/21 calcium carbonate 1 tab PO BID 09/06/21 09/06/21 cholecalciferol (vitamin D3) 50 1 cap PO DAILY 09/06/21 09/06/21 mcg (2,000 unit) capsule citalopram 10 mg tablet 1 tab PO DAILY 09/06/21 09/06/21 dapagliflozin propanediol 5 mg 1 tab PO DAILY 09/06/21 09/06/21 tablet (Farxiga) glipizide 5 mg tablet, extended 1 tab PO DAILY 09/06/21 09/06/21 release 24 hr ibuprofen 800 mg tablet 1 tab PO TID pain 09/06/21 09/06/21 lorazepam 0.5 mg tablet 0.5 mg PO BID PRN Anxiety 09/06/21 09/06/21 metformin 1,000 mg tablet 1 tab PO BID 09/06/21 09/06/21 valsartan 160 1 tab PO DAILY 09/06/21 09/06/21 mg-hydrochlorothiazide 25 mg tablet Previous Rx's ?Medication ?Instructions ?Recorded amoxicillin 500 mg tablet 500 mg PO Q8H #21 tabs 12/16/21 cephalexin 500 mg capsule 500 mg PO QID 7 days #28 caps 02/11/22 Allergies Allergy/AdvReac Type Severity Reaction Status Date / Time morphine [MORPHINE] Allergy Unknown UNKNOWN Verified 05/24/24 11:41 prednisone [PREDNISONE] Allergy Unknown HEART RACES Verified 05/24/24 11:41 Review of Systems Constitutional: Constitutional: Reports no additional constitutional complaints, Denies chills, Denies fever(s) and Denies night sweats Eyes: Eyes: Reports no additional eye complaints, Denies blurry vision, Denies change in vision, Denies diplopia, Denies eye discharge, Denies loss of vision and Denies eye pain ENT: Denies dizziness Cardiovascular: Cardiovascular: Reports no additional cardiovascular complaints, Denies chest pain, Denies lightheadedness, Denies Loss of Consciousness and Denies dyspnea Respiratory: Respiratory: Reports no additional respiratory complaints and Denies dyspnea Gastrointestinal: Gastrointestinal: Reports no additional gastrointestinal complaints, Denies abdominal pain, Denies melena, Denies hematochezia, Denies change in bowel habits and Denies change in stool character Genitourinary: Genitourinary: Denies hematuria, Denies urinary frequency, Denies dysuria, Denies urinary incontinence, Denies urinary hesitancy and Denies urinary urgency Musculoskeletal: Musculoskeletal: Reports no additional musculoskeletal complaints, Denies numbness and Denies tingling Comments: right shoulder pain Neurologic: Denies dizziness, Denies loss of vision, Denies numbness and Denies tingling Psychiatric: Psychiatric: Reports no additional psychiatric complaints Endocrine: Endocrine: Reports no additional endocrine complaints Hematologic/Lymphatic: Hematologic/Lymphatic: Reports no additional hematologic/lymphatic complaints Allergic/Immunologic: Allergic/Immunologic: Reports no additional allergic/immunologic complaints PMFSH Past Medical History Attestation statement: The following information was validated with the patient. Source: old records reviewed and nursing notes reviewed Medical History COVID-19 Kidney stones Anemia Sleep apnea Diabetes Asthma High cholesterol Arthritis HTN (hypertension) Breast CA Surgical History H/O: hysterectomy Family History Family History Sister Diabetes mellitus Social History Social History Household Members: Significant Other Housing: Apartment Do you presently have visiting nurse or other home services: No Alcohol intake: never Patient Tobacco Use Status: Never used Tobacco Advance Directives: No Advance Directives Information Provided: No service: No Current occupational status: disabled Current occupation: rt handed Physical Exam ED Vital Signs: Vital Signs - 24 hr 05/24/24 11:39 05/24/24 15:39 05/24/24 15:46 Temperature 98.2 F 97.6 F 97.6 F Pulse Rate 94 92 92 Respiratory Rate 16 18 18 Blood Pressure 135/78 132/69 132/69 Pulse Oximetry 97 96 96 Oxygen Delivery Method Room Air Room Air Room Air BMI result Body Mass Index 26.7 Const General: cooperative, no acute distress, alert and awake Nutritional Appearance: well nourished Orientation/consciousness: patient oriented x3 Limitations: no limitations HENMT Head: Yes normal to inspection and Yes atraumatic Ears: hearing grossly normal bilaterally and external ears normal General nose exam: Normal external nose present, no nasal discharge noted and no epistaxis Face and sinus: Yes normal facial exam, No abrasion and No laceration Mouth: Normal oral and palatal mucosa present, no drooling and no muffled voice Eyes General: appearance normal, both eyes and all related structures Periorbital: periorbital findings normal Eyelids: Yes eyelids normal Conjunctivae: conjunctivae normal Pupils: Equal, round and reactive pupils present EOM: EOMs intact bilaterally Neck Neck: Yes normal visual inspection, Yes full ROM and Yes no lymphadenopathy Chest Chest palpation & inspection: normal inspection of the chest Resp Effort & Inspection: normal respiratory effort and able to speak in complete sentences GI Inspection: Yes normal to inspection Neuro General: patient oriented x3 and moves all extremities Cranial nerves: Yes Equal, round and reactive pupils present Cognition (Neuro): normal cognition Extrem General: Yes normal to inspection, Yes full ROM and Yes capillary refill normal Psych Appearance: grossly normal Mental Status: mental status grossly normal Affect: normal affect Attitude: cooperative Thought process: Normal thought process present Thought content: Normal thought content present Insight: Good insight present (Psych) Course Course Course Narrative: RME performed by Teena Beatty PA-C. Patient is a 68 year old assigned female at presenting to the emergency department with right shoulder pain. Patient states starting yesterday she began to have right sided shoulder pain that has not gotten better. Patient states that nothing helps and her ROM of the right shoulder is already severely limited. Detailed physical exam and review of systems are deferred to the computer numerical control programmer. EKG, labs, imaging ordered. Patient placed back in the waiting room pending room availability and results. Medications Administered Discontinued Medications Generic Name Dose Route Start Last Admin Trade Name Freq PRN Reason Stop Dose Admin Acetaminophen 975 mg 05/24/24 15:42 05/24/24 15:44 Acetaminophen 325 Mg Tablet PO 05/24/24 15:43 975 mg ONCE ONE Administration Medical Decision Making Medical Decision Making [facility] Narrative: Patient is a 68 year old assigned female at with a history of RA presenting to the emergency department today with right shoulder pain. Patient's physical exam was unremarkable. Patient's blood work was unremarkable. Patient's EKG was unremarkable. Patient's right shoulder x-ray showed OA. I explained my physical exam findings as well as all test results to the patient. I answered all questions asked by the patient. I stressed the importance of the patient taking her medication as directed (either prescribed or as the over the counter packaging recommends). I stressed the importance of the patient following up with her primary care provider and an orthopedic provider. I stressed the importance of the patient returning to the emergency department immediately if her symptoms were to worsen or if she were to develop any dizziness, shortness of breath, difficulty breathing, chest pain, blurry vision, loss of vision, nausea, vomiting, abdominal pain, fever, chills, back pain, or any other complaints. Patient verbalized agreement and understanding with this treatment plan and discharge. Differential Diagnosis Differential Diagnoses: The differential diagnosis associated with the presentation includes Shoulder pain Shoulder strain Shoulder sprain Rotator cuff injury OA STEMI NSTEMI Admission/Observation Consideration of admission/observation: Escalation of care including admission/observation considered Patient would have been admitted to the hospital had her work up had any findings where hospital admission was appropriate and her clinical presentation warranted hospital admission. Lab Data [facility] Lab Attestation statement: I reviewed the patient's lab results. My interpretation of these results are in the MDM Rationale portion of this note. 05/24/24 12:11 05/24/24 12:11 Labs: Lab Results 05/24/24 Range/Units 12:11 WBC 11.3 H (4.8-10.8) X10*3/uL RBC 3.97 L (4.20-5.50) X10*6/uL Hgb 11.2 L (12.0-16.0) g/dl Hct 34.1 L (37.0-47.0) % MCV 85.9 (80.0-98.0) fL MCH 28.2 (27.0-33.0) pg MCHC 32.8 (31.0-35.0) g/dl RDW 14.3 (11.0-16.0) % Plt Count 310 (160-400) X10*3/uL MPV 9.4 (9.4-12.3) fL Immature Gran % (Auto) 0.4 (0.0-0.4) % Neut % (Auto) 70.4 (45-73) % Lymph % (Auto) 19.3 L (20-40) % [place] % (Auto) 6.8 (2-11) % Eos % (Auto) 2.5 (0-4) % Baso % (Auto) 0.6 (0-2) % Lymph # (Auto) 2.2 (1.2-4.9) X10*3/uL [place] # (Auto) 0.8 (0.1-1.2) X10*3/uL Eos # (Auto) 0.3 (0.0-0.4) X10*3/uL Baso # (Auto) 0.1 (0.0-0.2) X10*3/uL Abs Immat Gran (auto) 0.04 H (0.00-0.03) X10*3/uL Absolute Neuts (auto) 8.0 (2.0-8.3) x10*3/uL Absolute Nucleated RBC 0.000 (0.0-0.012) X10*3/uL Nucleated RBC % (auto) 0.0 (0.0-0.2) /100WBC Sodium 140 (135-145) mmol/L Potassium 3.4 (3.3-5.1) mmol/L Chloride 106 (96-108) mmol/L Carbon Dioxide 23 (22-29) mmol/L Anion Gap 14 (12-20) BUN 15 (9-16) mg/dL Creatinine 1.20 (0.5-1.4) mg/dL Estim Creat Clear Calc 42.2 Estimated GFR 45 Random Glucose 219 H (60-115) mg/dL Calcium 9.9 (8.4-10.2) mg/dL Magnesium 1.8 (1.6-2.6) mg/dL Total Bilirubin 0.3 (0.0-1.0) mg/dL AST 35 H (5-31) U/L ALT 30 (0-31) U/L Alkaline Phosphatase 102 (39-117) U/L Troponin I High Sens < 2.7 (<3.5-17.0) ng/L Total Protein 7.9 (6.5-8.0) g/dL Albumin 4.4 (3.5-5.0) g/dL Independent Interpretation I performed an independent interpretation of an: EKG and Plain X-Ray Interpretation: My interpretation is in agreement with the radiologist's impression of this imaging study. EXAMINATION: XR SHOULDER, RIGHT CLINICAL INFORMATION: Pain COMPARISON: None available. TECHNIQUE: Three views of the right shoulder. FINDINGS: Minimal acromioclavicular osteoarthritis. No fracture. Glenohumeral and acromioclavicular alignment is anatomic with normal joint space. No abnormal soft tissue calcifications. XR/XR shoulder RT min 2V IMPRESSION: Minimal acromioclavicular osteoarthritis. No acute osseous findings. Electronically signed by: Efren Adkins MD 05/24/2024 03:27 PM EDT Dictated By: Efren Adkins MD Signed By: Electronically signed by Efren Adkins MD 05/24/24 1527 Vent. Rate: 094 BPM Atrial Rate: 094 BPM P-R Int: 162 ms QRS Dur: 088 ms QT Int: 368 ms P-R-T Axes: 050 010 040 degrees QTc Int: 460 ms Normal sinus rhythm Normal ECG When compared with ECG of 31-OCT-2022 13:41, Criteria for Inferior infarct are no longer Present DD/ 1200 Radiology Impression Discussion of test interpretation with radiology: I have reviewed the radiologist's reading. Discharge Plan Discharge Clinical Impression: Arthritis Patient Disposition: Home, Self-Care Instructions: Osteoarthritis (DC) Additional Instructions: Follow up with your primary care provider and an orthopedic provider. Return to the emergency department immediately if your symptoms worsen or if you develop any dizziness, shortness of breath, difficulty breathing, chest pain, blurry vision, loss of vision, nausea, vomiting, abdominal pain, fever, chills, back pain, or any other complaints. Prescriptions: No Action atorvastatin 20 mg tablet 1 tab PO DAILY ibuprofen 800 mg tablet 1 tab PO TID citalopram 10 mg tablet 1 tab PO DAILY glipizide 5 mg tablet extended release 24 hr 1 tab PO DAILY aspirin 81 mg tablet,delayed release (DR/EC) 1 tab PO DAILY PRN (Reason: Pain) calcium carbonate 600 mg calcium (1,500 mg) tablet 1 tab PO BID lorazepam 0.5 mg tablet 0.5 mg PO BID PRN (Reason: Anxiety) metformin 1,000 mg tablet 1 tab PO BID albuterol sulfate 90 mcg/actuation HFA aerosol inhaler 2 puff inhalation Q4H PRN (Reason: Wheezing) valsartan-hydrochlorothiazide 160-25 mg tablet 1 tab PO DAILY cholecalciferol (vitamin D3) 50 mcg (2,000 unit) capsule 1 cap PO DAILY Farxiga 5 mg tablet 1 tab PO DAILY amoxicillin 500 mg tablet 500 mg PO Q8H Qty: 21 0RF cephalexin 500 mg capsule 500 mg PO QID 7 Days Qty: 28 0RF Referrals: [facility] Family Medicine [Provider Group] (Call to establish and follow up with a primary care provider. If you already have a primary care provider, please follow up with them.) [facility] Primary [facility] [Provider Group] (Call to establish and follow up with a primary care provider. If you already have a primary care provider, please follow up with them.) [facility] Primary [facility] [Provider Group] (Call to establish and follow up with a primary care provider. If you already have a primary care provider, please follow up with them.) [facility] Orthopedic Surgeons [Provider Group] (Call to establish and follow up with an occupational therapy specialist for your right shoulder arthritis.) Interventions: ED Discharge Assessment Last Done: 05/24/24 15:46 Discharge Date/Time: 05/24/24 15:58 Print Language: Tristanian
--- NOTE | 2024-05-24 11:42 | ECG_ITS ---
Test Reason : shoulder pain Blood Pressure : / mmHG Vent. Rate : 094 BPM Atrial Rate : 094 BPM P-R Int : 162 ms QRS Dur : 088 ms QT Int : 368 ms P-R-T Axes : 050 010 040 degrees QTc Int : 460 ms Normal sinus rhythm Normal ECG When compared with ECG of 31-OCT-2022 13:41, Criteria for Inferior infarct are no longer Present Referred By: Teena Beatty Electronically Signed By:ADE BELL
[2024-05-24 12:19] LABS: MANUAL DIFF FLAG NO
[2024-05-24 12:20] LABS: Basophils Absolute Auto 0.1 X10*3/uL (0.0-0.2); Basophils Percent Auto 0.6 % (0-2); Eosinophils Absolute Auto 0.3 X10*3/uL (0.0-0.4); Eosinophils Percent Auto 2.5 % (0-4); Hematocrit 34.1 % (37.0-47.0); Hemoglobin 11.2 g/dl (12.0-16.0); Imm Gran Abs Auto 0.04 X10*3/uL (0.00-0.03); Imm Gran Pct Auto 0.4 % (0.0-0.4); Lymphocytes Absolute Auto 2.2 X10*3/uL (1.2-4.9); Lymphocytes Percent Auto 19.3 % (20-40); Mean Corpuscular HGB Conc 32.8 g/dl (31.0-35.0); Mean Corpuscular Hemoglobin 28.2 pg (27.0-33.0); Mean Corpuscular Volume 85.9 fL (80.0-98.0); Mean Platelet Volume 9.4 fL (9.4-12.3); Monocytes Absolute Auto 0.8 X10*3/uL (0.1-1.2); Monocytes Percent Auto 6.8 % (2-11); Neutrophils Percent Auto 70.4 % (45-73); Platelet Count 310 X10*3/uL (160-400); Red Blood Count 3.97 X10*6/uL (4.20-5.50); Red Cell Distribution Width 14.3 % (11.0-16.0); White Blood Count 11.3 X10*3/uL (4.8-10.8)
[2024-05-24 12:35] LABS: Alanine Aminotransferase 30 U/L (0-31); Albumin Level 4.4 g/dL (3.5-5.0); Alkaline Phosphatase 102 U/L (39-117); Anion Gap 14 (12-20); Aspartate Amino Transferase 35 U/L (5-31); Bilirubin Total 0.3 mg/dL (0.0-1.0); Blood Urea Nitrogen 15 mg/dL (9-16); Calcium 9.9 mg/dL (8.4-10.2); Carbon Dioxide 23 mmol/L (22-29); Chloride 106 mmol/L (96-108); Creatinine Clr Calc Pharmacy 42.2; Estimated Glomerular Filt Rate 45; Glucose Random 219 mg/dL (60-115); Magnesium 1.8 mg/dL (1.6-2.6); Potassium 3.4 mmol/L (3.3-5.1); Sodium 140 mmol/L (135-145); Total Protein 7.9 g/dL (6.5-8.0)
[2024-05-24 12:42] LABS: Troponin-I High Sensitivity < 2.7 ng/L (<3.5-17.0)
[2024-05-24 15:39] VITALS: BP 132/69; PULSE 92; RESP 18; TEMP 36.4; O2SAT 96
[2024-05-24] MEDS: Acetaminophen 325 MG TABLET 975 MG PO (15:44)
[2024-05-24 15:46] VITALS: BP 132/69; PULSE 92; RESP 18; TEMP 36.4; O2SAT 96
== END 2024-05-24 15:58 | disposition home or self-care (01) ==
LOC: HO.ED 15:51
PROVIDERS: Physician Assistant Medical; Emergency Provider Emergency Medicine Emergency Medical Services; PCP Internal Medicine
DX: M19.90 Unspecified osteoarthritis, unspecified site (principal); M25.511 Pain in right shoulder; M06.9 Rheumatoid arthritis, unspecified; I10 Essential (primary) hypertension; E11.9 Type 2 diabetes mellitus without complications; Z79.899 Other long term (current) drug therapy
CPT/HCPCS: 36415; 73030; 80053; 83735; 84484; 85025; 93005; 99283

== ENCOUNTER 2024-06-18 12:50 | Outpatient (AMB) | payer OTHER, SELFPAY ==
--- NOTE | 2024-06-18 13:00 | A.OFFVIS_ITS ---
Intake Visit Reasons: [facility]- Right shoulder OA Intake Note: Jossie is a 69 year old female who presents to the office today for right shoulder OA. Pt states the pain started years ago. Pt states the pain comes and goes. Pt states it is hard to raise her arm above her head. Pt denies any previous surgeries. Pt states she doesn't remember if she got any injections in her shoulder. Allergies morphine [MORPHINE] Allergy (Unknown, Verified 06/18/24 13:01) UNKNOWN prednisone [PREDNISONE] Allergy (Unknown, Verified 06/18/24 13:01) HEART RACES HPI HPI [facility]- Right shoulder OA: Details: 69-year-old female who presents in the office today for an evaluation of right shoulder osteoarthritis. The patient presented to the ED on 05/24/24 with the chief complaint of right shoulder pain, which started on 05/23/24. X-rays of the right shoulder were obtained. I last saw the patient in the office on 05/31/21 for her right knee pain. While in the office today, the patient reports intermittent pain that started years ago. She mentions difficulty raising her right upper extremity above her head. The patient denies any previous surgeries on her right shoulder. She is unsure if she has previously received any injection in the right shoulder. The patient has a medical history of diabetes mellitus. [facility] Medical History COVID-19 Kidney stones Anemia Sleep apnea Diabetes Asthma High cholesterol Arthritis HTN (hypertension) Breast CA Surgical History H/O: hysterectomy Family History Sister Diabetes mellitus Social History Household Members: Significant Other Housing: Apartment Do you presently have visiting nurse or other home services: No Alcohol intake: never Patient Tobacco Use Status: Never used Tobacco service: No Current occupational status: disabled Current occupation: rt handed Review of Systems Const All systems reviewed & are unremarkable except as noted in HPI and below Physical Exam Const General: cooperative, healthy appearing and no acute distress Resp Effort & Inspection: normal respiratory effort and able to speak in complete sentences Cardio Rate: regular rate Peripheral pulses: Peripheral pulses 2+ throughout GI Palpation (GI): Soft to palpation Skin Lesions: no lesions Rashes: no rashes Extrem Other: Right shoulder: 90 degrees of full flexion and abduction. External rotation to 45 degrees. Able to reach the back pocket. Positive cross body reach. Negative drop arm. 4/5 strength with an empty can. NVI. Assessment & Plan Assessment & Plan (1) Painful arc syndrome of left shoulder: Code(s): M75.102 - Unspecified rotator cuff tear or rupture of left shoulder, not specified as traumatic Category: Medical Plan Ms. Cesar is a 69-year-old 69-year-old female who presents in the office today for an evaluation of right shoulder osteoarthritis. The patient presented to the ED on 05/24/24 with the chief complaint of right shoulder pain, which started on 05/23/24. X-rays of the right shoulder were obtained. I last saw the patient in the office on 05/31/21 for her right knee pain. While in the office today, the patient reports intermittent pain that started years ago. She mentions difficulty raising her right upper extremity above her head. The patient denies any previous surgeries on her right shoulder. She is unsure if she has previously received any injection in the right shoulder. The patient has a medical history of diabetes mellitus. We discussed the role of physical therapy and cortisone injection. The patient deferred cortisone injection at this time and would like to proceed with physical therapy. I have placed an order for PT today. She will attend six weeks of physical therapy and follow up with me for reevaluation. Follow-up will be after 6 weeks of physical therapy sessions, or sooner if needed. X-rays of the right shoulder, obtained on 05/24/24, revealed: Minimal acromioclavicular osteoarthritis. No acute osseous findings. Orders: Orders PT Evaluation and Treatment 06/18/24 M75.102 - Unspecified rotator cuff tear or rupture of left shoulder, not specified as traumatic Patient Instructions: Scribed by Daphne Vivar medical reimbursement specialist, for Suma Guzman PA-C on 06/18/24 at 1:14 pm EST. Coding Level of Care Code Est Pt Level 4 (57899) Diagnoses Painful arc syndrome of left shoulder M75.102
== END 2024-06-18 13:20 | disposition home or self-care (01) ==
PROVIDERS: PCP Internal Medicine; Visit Provider Physician Assistant
DX: M75.102 Unspecified rotator cuff tear or rupture of left shoulder, not specified as traumatic (principal)
CPT/HCPCS: 99213

== ENCOUNTER → 2024-06-18 12:50 | Outpatient (BNVA) | payer OTHER, SELFPAY | PROVIDERS: PCP Internal Medicine; Visit Provider Physician Assistant | DX: M75.102 Unspecified rotator cuff tear or rupture of left shoulder, not specified as traumatic (principal) | CPT/HCPCS: 99212 ==

== ENCOUNTER 2024-07-27 12:50 | Outpatient (AMB) | payer OTHER, SELFPAY ==
--- NOTE | 2024-07-27 12:58 | MHC.OFFVIS ---
Intake Visit Reasons: OV- Right shoulder OA Intake Note: Jossie is a 69 year old right hand dominant female who presents today for a follow up of her right shoulder OA. Patient states she has been going to PT with no changes in her pain. Patient does have a couple sessions left of PT. Allergies morphine [MORPHINE] Allergy (Unknown, Verified 07/27/24 12:59) UNKNOWN prednisone [PREDNISONE] Allergy (Unknown, Verified 07/27/24 12:59) HEART RACES HPI HPI OV- Right shoulder OA: Details: 69-year-old right hand dominant female who presents in the office today for a follow-up of right shoulder osteoarthritis. I last saw the patient in the office on 06/18/24 when she was referred to physical therapy. We discussed the role of cortisone injection; however, the patient deferred it at that time. While in the office today, the patient has been attending physical therapy and still has a couple of sessions left. She states that she has not noticed any relief from physical therapy. The patient has a medical history of diabetes mellitus. [facility] Medical History COVID-19 Kidney stones Anemia Sleep apnea Diabetes Asthma High cholesterol Arthritis HTN (hypertension) Breast CA Surgical History H/O: hysterectomy Family History Sister Diabetes mellitus Social History Household Members: Significant Other Housing: Apartment Do you presently have visiting nurse or other home services: No Alcohol intake: never Patient Tobacco Use Status: Never used Tobacco service: No Current occupational status: disabled Current occupation: rt handed Review of Systems Const All systems reviewed & are unremarkable except as noted in HPI and below Physical Exam Const General: cooperative, healthy appearing and no acute distress Resp Effort & Inspection: normal respiratory effort and able to speak in complete sentences Cardio Rate: regular rate Peripheral pulses: Peripheral pulses 2+ throughout GI Palpation (GI): Soft to palpation Skin Lesions: no lesions Rashes: no rashes Extrem Other: Right shoulder: 90 degrees of full flexion and abduction. External rotation to 45 degrees. Able to reach the back pocket. Positive cross body reach. Negative drop arm. 4/5 strength with an empty can. NVI. Assessment & Plan Assessment & Plan (1) Painful arc syndrome of right shoulder: Code(s): M75.101 - Unspecified rotator cuff tear or rupture of right shoulder, not specified as traumatic Category: Medical Plan Ms. Cesar is a 69-year-old right hand dominant female who presents in the office today for a follow-up of right shoulder osteoarthritis. I last saw the patient in the office on 06/18/24 when she was referred to physical therapy. We discussed the role of cortisone injection; however, the patient deferred it at that time. While in the office today, the patient has been attending physical therapy and still has a couple of sessions left. She states that she has not noticed any relief from physical therapy. The patient has a medical history of diabetes mellitus. We discussed again the role of cortisone injection today; however, the patient reports she has had a reaction to cortisone injection in the past. Her body felt very fatigued, rundown and she spiked a fever due to the cortisone injection. Therefore, we have decided to defer the cortisone injection. She would like to move forward with an MRI and I have placed an order for an MRI of the right shoulder today. Follow-up will be after obtaining the MRI, or sooner if needed. Orders: Orders MR shoulder RT wo con Today M75.101 - Unspecified rotator cuff tear or rupture of right shoulder, not specified as traumatic Patient Instructions: Scribed by Daphne Vivar, medical coding technician, for Suma Guzman PA-C on 07/27/24 at 1:18 pm EST. Coding Level of Care Code Est Pt Level 3 (13459) Diagnoses Painful arc syndrome of right shoulder M75.101
== END 2024-07-27 13:13 | disposition home or self-care (01) ==
PROVIDERS: PCP Internal Medicine; Visit Provider Physician Assistant
DX: M75.101 Unspecified rotator cuff tear or rupture of right shoulder, not specified as traumatic (principal)
CPT/HCPCS: 99213

== ENCOUNTER → 2024-07-27 12:50 | Outpatient (BNVA) | payer OTHER, SELFPAY | PROVIDERS: PCP Internal Medicine; Visit Provider Physician Assistant | DX: M75.101 Unspecified rotator cuff tear or rupture of right shoulder, not specified as traumatic (principal) | CPT/HCPCS: 99212 ==

== ENCOUNTER 2024-08-09 12:04 | Outpatient (RCR) | payer OTHER, SELFPAY ==
--- NOTE | 2024-07-09 13:31 | MHC.PT.EP ---
[facility] [place] Office [place] Office [place] Office [address] [place] Espinoza [address] [phone] F: [phone] F: [phone] F: [phone] F: [phone] Physical Therapy Plan of Care Date of Evaluation: 07/09/24 Date of Surgery: N/A Diagnosis: painful arc syndrome (RL) Assessment: pt is a 69 y/o female presenting to physical therapy w/ referring diagnosis of painful arc syndrome. pt presents w/ significant forward shoulders and increased thoracic kyphosis. Unsure if this is d/t postural habituation or recent breast CA causing scar tissue. Impairments include pain, decreased range of motion, decreased strength, impaired functional mobility, impaired postural awareness, and altered ambulation mechanics. pt is a fair candidate for skilled PT due to age, potential remediation of impairments, typical disease/condition progression and prognosis, comorbidities, and motivation. pt would benefit from skilled PT intervention to provide a tailored strengthening and stretching exercise program, functional training, gait training, postural re-training, neuromuscular re-education, modalities as needed for pain, equipment safety demonstration. Frequency and Duration: The patient will be seen 2x/wk for 4 wks Short Term Goals: pt will be I w/ HEP to promote self-management of condition. pt will improve B shoulder flexion by at least 10 degrees to promote ease in overhead reaching. Nursing Home Goals: pt will report a statistically significant improvement in self-reported outcome measure, SPADI, to promote return to PLOF. pt will improve B shoulder flexion strength by 1 MMT grade to promote ease in carrying. Treatment Plan: Modalities to reduce pain, spasms and effusion. Manual therapy to restore motion and function. Therapeutic exercise to improve strength and flexibility. Neuromuscular re-education for posture and balance. Therapeutic activities to return to functional activities of daily living. Electronically signed by: Melisa Casper PT, DPT Please sign and return to therapist. Thank you for your referral.
--- NOTE | 2024-08-09 12:40 | MHC.PT.DC ---
[facility] [place] Office [place] Office [place] Office [address] [place] Espinoza [address] [facility] [phone] F: [phone] F: [phone] F: [phone] F: [phone] Physical Therapy Discharge Report Diagnosis: painful arc syndrome (RL) Date of Surgery: N/A Date of Evaluation: 07/09/24 Date of Discharge: 08/09/24 Treatments to Date: 6 Cancellations to Date: 2 No Shows to Date: 0 Discharge Status: Patient Elected to Stop Discharge Summary: The patient arrived today after cancelling two weeks worth of appointments. She feels PT is not helping her as she feels the same. I did explain to her that it generally takes longer for tissue changes to occur. Unfortunately, she stated they are working her up again for other medical things and feels she needs more time to focus on this. At this time, she is discharged from this physical therapy plan of care per her request. I gave her an updated home exercise program to continue with on her own. Electronically signed by: Melisa Casper PT, DPT Please sign and return to therapist. Thank you for your referral.
== END 2024-08-09 12:40 | disposition home or self-care (01) ==
LOC: HO.PT 12:04
PROVIDERS: PCP Internal Medicine; Visit Provider Physician Assistant
DX: M75.102 Unspecified rotator cuff tear or rupture of left shoulder, not specified as traumatic (principal)
CPT/HCPCS: 97110; 97162

== ENCOUNTER 2024-08-28 04:38 | Emergency (ER) | payer OTHER, SELFPAY ==
--- OUTSIDE RECORDS SUMMARY | 2024-08-28 04:41 | XMS_ITS | Continuity of Care Document ---
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 Name Role Phone Dora Jim MD [id number] Date[facility]): 07/05/24 - 08/04/[address] [address]- Encounter Type: Triage Allergies, Adverse Reactions, Alerts Substance Criticality Severity Reaction Reaction Severity Status morphine rash Active predniSONE Active Immunizations Given and Recorded Vaccine Date Status Refusal Reason SARS-CoV-2(COVID-19)mRNA-LNP vac([id number]) 07/11/23 Given influenza virus vaccine, inactivated 07/11/23 Give n influenza virus vaccine, inactivated 07/10/22 Give n SARS-CoV-2 mRNA (kflhurr-ugte-kmtxd) vax 08/06/22 Given SARS-CoV-2 mRNA (kcwqaxm-hoxw-rqsnj) vax 07/15/22 Given pneumococcal 20-valent conjugate vaccine 07/10/22 Given hepatitis B adult vaccine 12/06/20 Given hepatitis B adult vaccine 10/30/20 Given Tetanus Toxoid Vaccine (oldterm) 02/21/09 Given Medications AirDuo RespiClick 232 mcg-14 mcg/inh inhalation powder 1, inhalation, Inhalation, 2 times a day, rinse mouth and throat after use, # 1 each, Refills 11, Tot. Refills 11, Maintenance, 11/27/19 10:43:37 AM EST, Powder, Route to Pharmacy Electronically, [id number], [facility]/pharmacy #[id number], to replace Advair per insurance formulary Start Date: 07/28/19 Status: Ordered Quantity: 1.0 Unit: each Repeat number: 12 Albuterol (Eqv-ProAir HFA) 90 mcg/inh inhalation aerosol 2 puffs, Inhalation, Every 4 hours, PRN NEEDED FOR WHEEZING, # 8.5 each, 5 Refills, Maintenance,02/06/24 1:11:00 PM EDT, [id number], 17, INHALE 2 PUFFS EVERY 4 HOURS NEEDED FOR WHEEZING, 158, cm, 01/30/24 10:46:00 EDT, Height, 69.4, kg, 12/16/23 14:13:00 EDT, Dry Weight Start Date: 02/06/24 Status: Ordered Quantity: 8.5 Unit: each Repeat number: 1 aspirin 81 mg oral delayed release tablet See Instructions, TAKE 1 TABLET BY MOUTH EVERY DAY, # 30 tablet, Refills 11, Tot. Refills 11, Soft Stop, 07/23/24 12:57:00 PM EST, Instructions Replace Required Details, Route to Pharmacy Electronically, [facility]/pharmacy #[id number], 158, cm, 06/23/24 14:55:00 EDT, Height, 68.2, kg, 06/23/24 14:55:00 EDT, Dry Weight Start Date: 07/23/24 Status: Ordered Quantity: 30.0 Unit: tablet Repeat number: 12 atorvastatin 20 mg oral tablet 1 tablet, By Mouth, Daily, # 90 tablet, 1 Refills, Maintenance, 06/21/24 11:22:00 AM EDT, [facility] [id number], 158, cm, 06/15/24 13:14:00 EDT, Height, 69.4, kg, 12/16/23 14:13:00 EDT, Dry Weight Start Date: 06/21/24 Status: Ordered Quantity: 90.0 Unit: tablet Repeat number: 1 AutoCPAP heated humidification AutoCPAP heated humidification, See Instructions, # 1 each, Refills 0, Tot. Refills 0, Maintenance,auto-CPAP 7 to 14 cm of H2O with a heated humidifier. machine with compliance data capabilities andfollowing residual AHI., 01/23/24 12:03:00 PM EDT, Compound Start Date: 01/23/24 Status: Ordered Quantity: 1.0 Unit: each Repeat number: 1 busPIRone 5 mg oral tablet 1, tablet, By Mouth, 3 times a day, # 270 tablet, Refills 7, Maintenance, 04/30/23 1:16:00 PM EDT, Route to Pharmacy Electronically, [id number], 160.02, cm, 04/29/23 10:08:00 EDT, Height, 69.2, kg, 12/10/22 14:03:00 EDT, Dry Weight Start Date: 04/30/23 Status: Ordered Quantity: 270.0 Unit: tablet Repeat number: 1 calcium carbonate 600 mg oral tablet 1 tablet, By Mouth, 2 times a day, # 180 tablet, 0 Refills, Maintenance, 11/19/23 11:28:00 AM EDT, [facility]/pharmacy #[id number], 158, cm, 11/19/23 11:05:00 EDT, Height, 69.5, kg, 10/21/23 12:43:00 EST, Dry Weight Start Date: 11/19/23 Status: Ordered Quantity: 180.0 Unit: tablet Repeat number: 1 cetirizine 10 mg oral tablet 1 tablet, By Mouth, Daily, PRN NEEDED FOR ALLERGY, # 90 tablet, 7 Refills, Maintenance, 04/20/24 12:38:00 PM EDT, [id number], 158, cm, 04/19/24 14:03:00 EDT, Height, 69.4, kg, 12/16/23 14:13:00 EDT, Dry Weight Start Date: 04/20/24 Status: Ordered Quantity: 90.0 Unit: tablet Repeat number: 1 ciclopirox 0.77% topical gel 1 application, Topically, 2 times a day, to affected nail area, # 30 Gm, 1 Refills, Maintenance, 06/23/19 9:05:22 AM EDT, Gel, [facility]/pharmacy #[id number], 1 application Topically 2 times a day,Instr:to affected nail area Start Date: 06/23/19 Status: Ordered Quantity: 30.0 Unit: g Repeat number: 2 citalopram 10 mg oral tablet 1 tablet, By Mouth, Daily, # 90 tablet, 1 Refills, Maintenance, 04/05/24 9:29:00 AM EDT, [facility]/pharmacy#[id number], 158, cm, 01/30/24 10:46:00 EDT, Height, 69.4, kg, 12/16/23 14:13:00 EDT, Dry Weight Start Date: 04/05/24 Status: Ordered Quantity: 90.0 Unit: tablet Repeat number: 2 clobetasol 0.05% topical cream 1 application, Topically, 2 times a day, # 60 Gm, 0 Refills, Maintenance, 09/05/23 2:25:00 PM EST, Cream, [facility]/pharmacy #[id number], Partial fill upon patient request if the prescription is for a schedule II opioid drug., 1 application Topically 2 times a day, 160.02, cm, 09/05/23 13:54:00 EST, Height, 68.7, kg, 09/05/23 13:34:00 EST, Dry Weight Start Date: 09/05/23 Status: Ordered Quantity: 60.0 Unit: g Repeat number: 1 famotidine 20 mg oral tablet 20 mg, 1, tablet, By Mouth, 2 times a day, # 60 tablet, Refills 3, Tot. Refills 3, Maintenance, 05/05/24 11:51:00 AM EDT, Route to Pharmacy Electronically, [facility]/pharmacy #[id number], Partial fill upon patientrequest if the prescription is for a schedule II opioid drug., 158, cm, 05/05/24 11:14:00 EDT, Height, 69.4, kg, 12/16/23 14:13:00 EDT, Dry Weight Start Date: 05/05/24 Status: Ordered Quantity: 60.0 Unit: tablet Repeat number: 4 Farxiga 10 mg oral tablet 1 tablet = 10 mg, By Mouth, Daily, increased from 5mg, # 90 tablet, 3 Refills, Maintenance, 05/04/24 1:04:00 PM EDT, Tablet, [facility]/pharmacy #[id number], Partial fill upon patient request if the prescription isfor a schedule II opioid drug., 158, cm, 04/19/24 14:03:00 EDT, Height, 69.4, kg, 12/16/23 14:13:00EDT, Dry Weight Start Date: 05/04/24 Status: Ordered Quantity: 90.0 Unit: tablet Repeat number: 4 fluconazole 150 mg oral tablet 1 tablet = 150 mg, By Mouth, Once, # 1 tablet, 0 Refills, Soft Stop, 05/26/23 2:16:00 PM EDT, Tablet, [facility]/pharmacy #[id number], Partial fill upon patient request if the prescription is for a schedule II opioid drug., 160.02, cm, 05/23/23 13:51:00 EDT, Height, 69.2, kg, 12/10/22 14:03:00 EDT, Dry Weight Start Date: 05/26/23 Status: Ordered Quantity: 1.0 Unit: tablet Repeat number: 1 fluticasone 50 mcg/inh nasal spray See Instructions, SPRAY 1 SPRAY IN BOTH NOSTRILS DAILY, # 16 Gm, 5 Refills, Maintenance, 06/11/19 10:14:09 AM EDT, [facility]/pharmacy #[id number], SPRAY 1 SPRAY IN BOTH NOSTRILS DAILY Start Date: 06/11/19 Status: Ordered Quantity: 16.0 Unit: g Repeat number: 6 Freestyle Lite Test Strips See Instructions, # 1 pack/packet, Refills 11, Tot. Refills 11, Maintenance, Test QD, Dx: 250.00, 07/23/24 12:56:00 PM EST, Compound, 158, cm, 06/23/24 14:55:00 EDT, Height, 68.2, kg, 06/23/24 14:55:00 EDT, Dry Weight Start Date: 07/23/24 Status: Ordered Quantity: 1.0 Unit: pack/packet Repeat number: 12 gabapentin 100 mg oral capsule Refills 0, Maintenance, 07/10/22 11:09:00 AM EST, Partial fill upon patient request if the prescription is for a schedule II opioid drug. Start Date: 07/10/22 Status: Ordered Repeat number: 1 gloves gloves, See Instructions, # 2 each, Refills 11, Tot. Refills 11, Maintenance, gloves size L; dx= incontinence, RA M06.9; R39.81, 12/10/23 1:16:00 PM EDT, Supply Start Date: 12/10/23 Status: Ordered Quantity: 2.0 Unit: each Repeat number: 12 ibuprofen 800 mg oral tablet 1, tablet, By Mouth, Every 8 hours, PRN, # 120 tablet, Refills 1, Maintenance, NEEDED FOR PAIN MAX OF 4, 07/05/24 10:22:00 AM EST, Route to Pharmacy Electronically, [id number], 158, cm, 06/23/24 14:55:00 EDT, Height, 68.2, kg, 06/23/24 14:55:00 EDT, Dry Weight Start Date: 07/05/24 Status: Ordered Quantity: 120.0 Unit: tablet Repeat number: 1 Incontinence bed pad Incontinence bed pad, See Instructions, # 30 each, Refills 11, Tot. Refills 11, Maintenance, for daily use; dx=incontinence, RA; M06.91, R39.81, 11/17/23 9:48:00 AM EDT, Supply Start Date: 11/17/23 Status: Ordered Quantity: 30.0 Unit: each Repeat number: 12 ipratropium nasal 21 mcg/inh spray See Instructions, USE 1 SPRAY IN EACH NOSTRIL TWICE A DAY NEEDED FOR NASAL CONGESTION, # 90 Unknown, 1 Refills, Maintenance, 02/16/24 8:18:00 AM EDT, [id number], 90, USE 1 SPRAY IN EACH NOSTRIL TWICE A DAY NEEDED FOR NASAL CONGESTION, 158, cm, 01/30/24 10:46:00 EDT, Height, 69.4, kg, 12/16/23 14:13:00 EDT, Dry Weight Start Date: 02/16/24 Status: Ordered Quantity: 90.0 Unit: Unknown Repeat number: 1 itraconazole 100 mg oral capsule 2 capsule = 200 mg, By Mouth, Daily, for 12 week(s), # 168 capsule, 0 Refills, Acute 09/06/24 10:09:00 AM EST, 06/14/24 10:09:00 AM EDT, Capsule, [facility]/pharmacy #[id number], Partial fill upon patient request if the prescription is for a schedule II opioid drug., 158, cm, 06/07/24 13:44:00 EDT, Height, 69.4, kg, 12/16/23 14:13:00 EDT, Dry Weight Start Date: 06/14/24 Stop Date: 09/06/24 Status: Ordered Quantity: 168.0 Unit: capsule Repeat number: 1 Indication: Tinea unguium meclizine 12.5 mg oral tablet 1 tablet, By Mouth, 3 times a day, PRN NEEDED, DIZZINESS., # 90 tablet, 11 Refills, Maintenance,04/30/23 1:16:00 PM EDT, [id number], 160.02, cm, 04/29/23 10:08:00 EDT, Height, 69.2, kg, 12/10/22 14:03:00 EDT, Dry Weight Start Date: 04/30/23 Status: Ordered Quantity: 90.0 Unit: tablet Repeat number: 1 melatonin 5 mg oral tablet 1 tablet = 5 mg, By Mouth, Daily at bedtime, PRN for insomnia, # 60 tablet, 11 Refills, Maintenance, 05/26/23 9:06:00 AM EDT, Tablet, [facility]/pharmacy #[id number], 160.02, cm, 05/23/23 13:51:00 EDT, Height, 69.2, kg, 12/10/22 14:03:00 EDT, Dry Weight Start Date: 05/26/23 Status: Ordered Quantity: 60.0 Unit: tablet Repeat number: 12 metFORMIN 1000 mg oral tablet 1 tablet = 1,000 mg, By Mouth, 2 times a day, for 90 days, # 180 tablet, 3 Refills, Physician Stop 05/27/25 10:03:00 AM EDT, 06/01/24 10:03:00 AM EDT, [facility]/pharmacy #[id number], 158, cm, 05/05/24 11:14:00 EDT, Height, 69.4, kg, 12/16/23 14:13:00 EDT, Dry Weight Start Date: 06/01/24 Stop Date: 05/27/25 Status: Ordered Quantity: 180.0 Unit: tablet Repeat number: 4 miconazole 2% topical cream 1 application, Topically, 3 times a day, # 45 Gm, 0 Refills, Maintenance, 09/05/23 2:26:00 PM EST, Cream, [facility]/pharmacy #[id number], Partial fill upon patient request if the prescription is for a schedule II opioid drug., 1 application Topically 3 times a day, 160.02, cm, 09/05/23 13:54:00 EST, Height, 68.7, kg, 09/05/23 13:34:00 EST, Dry Weight Start Date: 09/05/23 Status: Ordered Quantity: 45.0 Unit: g Repeat number: 1 Nebulizer Mask Tubing Nebulizer Mask Tubing, See Instructions, # 1 each, Refills 0, Tot. Refills 0, Maintenance, tubing and all supplies for Nebulizer machine dx Asthma ICD 10: J45.9 Length of need 99+ months please send to [facility] Thank you, Gianluca Swanson DNP, [employer] [employer], 02/15/24 7:21:00 PM EDT, Supply Start Date: 02/15/24 Status: Ordered Quantity: 1.0 Unit: each Repeat number: 1 Poise panty liners Poise panty liners, See Instructions, # 240 each, Refills 11, Tot. Refills 11, Maintenance, for daily use 8/day; dx=incontience , RA; M06.9, R39.81, 12/10/23 1:17:00 PM EDT, Supply Start Date: 12/10/23 Status: Ordered Quantity: 240.0 Unit: each Repeat number: 12 tubing and equipment for cpap dx joanne tubing and equipment for cpap dx joanne, See Instructions, # 1 each, Refills 1, Tot. Refills 1, Maintenance, tubing and all supplies forCPAP machine dx joanne, 01/23/24 12:03:00 PM EDT Start Date: 01/23/24 Status: Ordered Quantity: 1.0 Unit: each Repeat number: 2 valsartan 80 mg oral tablet 80 mg, 1, tablet, By Mouth, Daily, off combination med, # 90 tablet, Refills 3, Tot. Refills 3, Maintenance, 05/05/24 12:02:00 PM EDT, Route to Pharmacy Electronically, [facility]/pharmacy #[id number], Partial fillupon patient request if the prescription is for a schedule II opioid drug.; on single med now, 158,cm, 05/05/24 11:14:00 EDT, Height, 69.4, kg, 12/16/23 14:13:00 EDT, Dry Weight Start Date: 05/05/24 Status: Ordered Quantity: 90.0 Unit: tablet Repeat number: 4 Vitamin B12 1000 mcg oral tablet 1 tablet = 1,000 mcg, By Mouth, Daily, # 90 tablet, 4 Refills, Maintenance, 07/30/24 11:13:00 AM EST, Tablet, [id number], Partial fill upon patient request if the prescription is for a schedule II opioid drug., 158, cm, 11/19/23 11:05:00 EDT, Height, 69.5, kg, 10/21/23 12:43:00 EST, Dry Weight Start Date: 07/30/24 Stop Date: 10/23/25 Status: Ordered Quantity: 90.0 Unit: tablet Repeat number: 5 Vitamin D3 2000 intl units oral capsule 1 capsule, By Mouth, Daily, # 90 capsule, 3 Refills, Maintenance, 11/19/23 11:28:00 AM EDT, [id number], 158, cm, 11/19/23 11:05:00 EDT, Height, 69.5, kg, 10/21/23 12:43:00 EST, Dry Weight Start Date: 11/19/23 Status: Ordered Quantity: 90.0 Unit: capsule Repeat number: 4 Wipes Wipes, See Instructions, # 240 each, Refills 11, Tot. Refills 11, Maintenance, for daily use 8/day;dx=incontience , RA; M06.9, R39.81, 12/10/23 1:17:00 PM EDT, Supply Start Date: 12/10/23 Status: Ordered Quantity: 240.0 Unit: each Repeat number: 12 Problem List Condition Confirmation Course Effective Dates Status H ealth Status Informant Asthma Confirmed Active COVID-19 1 Confirmed 07/02/22 Active Diabetes mellitus - adult onset Confirmed Active Hypertension Confirmed Active Lactose intolerance Confirmed Active Microalbuminuria Confirmed Active Nasal congestion Confirmed Active NAFLD (nonalcoholic fatty liver disease) Confirmed Active Obstructive sleep apnea syndrome Confirmed Active Panic anxiety syndrome Confirmed Active *[phone] 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 Active Diabetic nephropathy with proteinuria Confirmed Active Rheumatoid arthritis Confirmed Active 1HM Capproximate Social History Social History Type Response Smoking Status Never smoker entered on: 06/09/15 Sex Sex Representation Female (finding) Patient Care team information Care Team Personnel Name: María Chavarria Position: S [facility] RN Member Role: Primary Care Nurse Name: Dora Jim MD Position: [facility] Physician - Primary Care Member Role: PCP Address: [address] [place], [place] [address] Telecom: Care Team Related Persons Name: EDGAR VERMA Name: ALEXIS XIONG Insurance Providers Guarantor name: [employer] [place] [employer] Plan Information #: 1 Payer: NA Member Number: NA Policy Number: NA Group Number: NA
[2024-08-28 04:49] VITALS: BP 176/88; PULSE 83; RESP 16; TEMP 36.8; O2SAT 16; BMI 26.9
[2024-08-28 06:10] VITALS: BP 154/74; PULSE 73; RESP 16; TEMP 36.7; O2SAT 98
--- NOTE | 2024-08-28 06:13 | PC.NURSE ---
pt awaiting to be sen by ed provider. pt calm and cooperative denies CP denies SOB pt at bedside
[2024-08-28 07:14] VITALS: BP 141/61; PULSE 79; RESP 16; TEMP 36.9; O2SAT 97
--- NOTE | 2024-08-28 07:16 | ED_ITS ---
HPI - General Adult General Chief complaint: General Medical Stated complaint: high BP Time Seen by Provider: 08/28/24 07:12 Source: patient and family Mode of arrival: ambulatory Limitations: no limitations History of Present Illness ED Provider: DR. John HPI narrative: 69-year-old female with history of hypertension takes valsatan and hydrochlorothiazide to control her pressure checked her blood pressure before going to bed was 160s over 90s then she checked it 1 more time at 03:00 was 160/100 she was instructed by her PCP if the lower number is above 100 to come to the hospital otherwise patient has no headache, no blurry vision, no chest pain, no shortness of breath, no abdominal pain. Patient feels at her normal blood pressure in the emergency department is 141/60 and patient is asymptomatic. Related Data Home Medications ?Medication ?Instructions ?Recorded ?Confirmed albuterol sulfate 90 mcg/actuation 2 puff inhalation Q4H PRN Wheezing 09/06/21 09/06/21 aerosol inhaler aspirin 81 mg tablet,delayed 1 tab PO DAILY PRN Pain 09/06/21 09/06/21 release atorvastatin 20 mg tablet 1 tab PO DAILY 09/06/21 09/06/21 calcium carbonate 1 tab PO BID 09/06/21 09/06/21 cholecalciferol (vitamin D3) 50 1 cap PO DAILY 09/06/21 09/06/21 mcg (2,000 unit) capsule citalopram 10 mg tablet 1 tab PO DAILY 09/06/21 09/06/21 dapagliflozin propanediol 5 mg 1 tab PO DAILY 09/06/21 09/06/21 tablet (Farxiga) glipizide 5 mg tablet, extended 1 tab PO DAILY 09/06/21 09/06/21 release 24 hr ibuprofen 800 mg tablet 1 tab PO TID pain 09/06/21 09/06/21 lorazepam 0.5 mg tablet 0.5 mg PO BID PRN Anxiety 09/06/21 09/06/21 metformin 1,000 mg tablet 1 tab PO BID 09/06/21 09/06/21 valsartan 160 1 tab PO DAILY 09/06/21 09/06/21 mg-hydrochlorothiazide 25 mg tablet gabapentin 100 mg capsule mg PO 06/18/24 Allergies Allergy/AdvReac Type Severity Reaction Status Date / Time morphine [MORPHINE] Allergy Unknown UNKNOWN Verified 08/28/24 04:51 prednisone [PREDNISONE] Allergy Unknown HEART RACES Verified 08/28/24 04:51 Review of Systems Review of Systems: All other systems are reviewed and are negative Constitutional: Reports as per HPI and Reports no additional constitutional complaints Eyes: Reports as per HPI and Reports no additional eye complaints Reports system reviewed and no additional complaints, except as documented Cardiovascular: Reports as per HPI and Reports no additional cardiovascular complaints Respiratory: Reports as per HPI and Reports no additional respiratory complaints Gastrointestinal: Reports as per HPI and Reports no additional gastrointestinal complaints Genitourinary: Reports no additional female genitourinary complaints Musculoskeletal: Reports no additional musculoskeletal complaints Skin/Breast: Reports system reviewed and no additional complaints, except as docu Psychiatric: Reports no additional psychiatric complaints Endocrine: Reports no additional endocrine complaints Hematologic/Lymphatic: Reports no additional hematologic/lymphatic complaints Allergic/Immunologic: Reports no additional allergic/immunologic complaints Reports system reviewed and no additional complaints, except as documented and Reports Abnormal speech present [facility] Past Medical History Medical History COVID-19 Kidney stones Anemia Sleep apnea Diabetes Asthma High cholesterol Arthritis HTN (hypertension) Breast CA Surgical History H/O: hysterectomy Family History Family History Sister Diabetes mellitus Social History Social History Household Members: Significant Other Housing: Apartment Do you presently have visiting nurse or other home services: No Alcohol intake: never Patient Tobacco Use Status: Never used Tobacco Smoked in Last 30 Days: No Use of substances other than those prescribed or required for medical reasons: No Advance Directives: No Advance Directives Information Provided: Yes Do you have a plan to hurt others: No Plan service: No Current occupational status: disabled Current occupation: rt handed Physical Exam ED Vital Signs: Vital Signs - 24 hr 08/28/24 04:49 08/28/24 06:10 08/28/24 07:14 Temperature 98.3 F 98.0 F 98.4 F Pulse Rate 83 73 79 Respiratory Rate 16 16 16 Blood Pressure 176/88 H 154/74 H 141/61 H Pulse Oximetry 16 L 98 97 Oxygen Delivery Method Room Air Room Air Room Air BMI result Body Mass Index 26.9 Vital signs have been reviewed and appear to be correct. Blood pressure elevated. Heart rate normal. Respiratory rate normal. Temperature normal. Oxygen saturation normal. Appearance: Alert. Oriented X3. No acute distress. Head: Normal external exam. Normocephalic. Atraumatic. No Martinez signs noted. No raccoon eyes noted Eyes: PERRLA. EOMI. Conjunctiva and sclera normal. Eyelids normal. ENT: TM's Normal. Pharynx normal. Uvula midline. Moist mucous membranes. No trismus noted. No drooling noted. No muffled voice noted. Neck: Normal inspection. Neck supple. FROM. No adenopathy. Thyroid Normal. No meningeal signs. No neck mass noted. CVS: Normal heart rate and rhythm. Heart sound normal. No murmurs noted. Pulses normal throughout. Respiratory: No respiratory distress. Painless inspiration. Breath sounds normal. No wheezes/rales/rhonchi noted. Chest nontender. No accessory muscle usage noted or decreased air movement noted. Abdomen: Soft and nontender. Bowel sounds normal in all 4 quadrants. No distention noted. No organomegaly noted. No visible injury noted. Back: No CVA tenderness. Full range of motion noted. Skin: Skin warm and dry. Normal skin color. Normal skin turgor. No rashes/lesions/lacerations noted. Extremities: No lower extremity edema. Extremities exhibit normal range of motion. Extremities nontender. Neuro: Oriented X 3. Cranial nerve exam: II-XII are grossly intact No motor deficit. No sensory deficit. Reflexes normal. Course Reevaluation(s) Reevaluation #1: High reading of blood pressure at home with no symptoms patient now is still asymptomatic and blood pressure is 141/61. Otherwise normal physical exam instructed to continue monitoring her blood pressure and follow-up with PCP. Time: 07:19 Medical Decision Making Differential Diagnosis Differential Diagnoses: The differential diagnosis associated with the presentation includes (Hypertensive urgency, hypertensive emergency, elevated blood pressure, CVA) Admission/Observation Consideration of admission/observation: Escalation of care including admission/observation considered Discharge Plan Discharge Clinical Impression: Hypertension Patient Disposition: Home, Self-Care Instructions: Hypertension (ED) Prescriptions: No Action atorvastatin 20 mg tablet 1 tab PO DAILY ibuprofen 800 mg tablet 1 tab PO TID citalopram 10 mg tablet 1 tab PO DAILY glipizide 5 mg tablet extended release 24 hr 1 tab PO DAILY aspirin 81 mg tablet,delayed release (DR/EC) 1 tab PO DAILY PRN (Reason: Pain) calcium carbonate 600 mg calcium (1,500 mg) tablet 1 tab PO BID lorazepam 0.5 mg tablet 0.5 mg PO BID PRN (Reason: Anxiety) metformin 1,000 mg tablet 1 tab PO BID albuterol sulfate 90 mcg/actuation HFA aerosol inhaler 2 puff inhalation Q4H PRN (Reason: Wheezing) valsartan-hydrochlorothiazide 160-25 mg tablet 1 tab PO DAILY cholecalciferol (vitamin D3) 50 mcg (2,000 unit) capsule 1 cap PO DAILY Farxiga 5 mg tablet 1 tab PO DAILY gabapentin 100 mg capsule PO Print Language: Iraqi
[2024-08-28 07:21] VITALS: BP 130/63; PULSE 77; RESP 18; TEMP 36.6; O2SAT 98
[2024-08-28 07:24] VITALS: BP 130/63; PULSE 77; RESP 18; TEMP 36.6; O2SAT 98
== END 2024-08-28 07:25 | disposition home or self-care (01) ==
PROVIDERS: Emergency Provider Emergency Medicine
DX: I10 Essential (primary) hypertension (principal); E11.9 Type 2 diabetes mellitus without complications; E78.5 Hyperlipidemia, unspecified; J45.909 Unspecified asthma, uncomplicated; Z79.82 Long term (current) use of aspirin; Z79.02 Long term (current) use of antithrombotics/antiplatelets; Z79.899 Other long term (current) drug therapy; Z79.84 Long term (current) use of oral hypoglycemic drugs
CPT/HCPCS: 99282; 99284

== ENCOUNTER 2024-08-30 10:19 | Emergency (ER) | payer OTHER, SELFPAY ==
--- NOTE | ~2024-08-30 | XR_ITS ---
EXAMINATION: XR SHOULDER, RIGHT CLINICAL INFORMATION: pain COMPARISON: None available. TECHNIQUE: AP external rotation, Grashey, scapular Y, and axillary views of the right shoulder. FINDINGS: The bones and soft tissues are normal. No fracture. Glenohumeral and acromioclavicular alignment is anatomic with normal joint space. No abnormal soft tissue calcifications. XR/XR shoulder RT min 2V IMPRESSION: Normal right shoulder. Electronically signed by: Ben Bledsoe MD 08/30/2024 10:57 AM DAVI
[2024-08-30 10:22] VITALS: BP 130/67; PULSE 91; RESP 20; TEMP 36.1; O2SAT 96; BMI 26.9
--- OUTSIDE RECORDS SUMMARY | 2024-08-30 10:25 | XMS_ITS | Continuity of Care Document ---
Author Organization [facility] Address [address] [place] [address]- Care Team Providers Care Technical Producer Name Role Phone Dora Jim MD Primary Care Phys[id number] Date[facility]): 07/23/24 - 08/22/[address] [address]- Encounter Type: Triage Allergies, Adverse Reactions, Alerts Substance Criticality Severity Reaction Reaction Severity Status morphine rash Active predniSONE Active Immunizations Given and Recorded Vaccine Date Status Refusal Reason SARS-CoV-2(COVID-19)mRNA-LNP vac([id number]) 07/11/23 Given influenza virus vaccine, inactivated 07/11/23 Give n influenza virus vaccine, inactivated 07/10/22 Give n SARS-CoV-2 mRNA (gejlgkz-nqnc-ratiw) vax 08/06/22 Given SARS-CoV-2 mRNA ([id number]-pmog-itpez) vax 07/15/22 Given pneumococcal 20-valent conjugate vaccine [...] AM EST, Powder, Route to Pharmacy Electronically, [id number], [facility]/pharmacy #[id number], to replace Advair per insurance formulary Start Date: 07/28/19 Status: Ordered Quantity: 1.0 Unit: each Repeat number: 12 Albuterol (Eqv-ProAir HFA) 90 mcg/inh inhalation aerosol 2 puffs, Inhalation, Every 4 hours, PRN NEEDED FOR WHEEZING, # 8.5 each, 5 Refills, Maintenance,02/06/24 1:11:00 PM EDT, [id number], 17, INHALE 2 PUFFS EVERY 4 HOURS [...] Replace Required Details, Route to Pharmacy Electronically, [facility]/pharmacy #[id number], 158, cm, 06/23/24 14:55:00 EDT, Height, 68.2, kg, 06/23/24 14:55:00 EDT, Dry Weight Start Date: 07/23/24 Status: Ordered Quantity: 30.0 Unit: tablet Repeat number: 12 atorvastatin 20 mg oral tablet 1 tablet, By Mouth, Daily, # 90 tablet, 1 Refills, Maintenance, 06/21/24 11:22:00 AM EDT, [id number], 158, cm, 06/15/24 13:14:00 EDT, Height, 69.4, [...] 1:16:00 PM EDT, Route to Pharmacy Electronically, [id number], 160.02, cm, 04/29/23 10:08:00 EDT, Height, 69.2, kg, 12/10/22 14:03:00 EDT, Dry Weight Start Date: 04/30/23 Status: Ordered Quantity: 270.0 Unit: tablet Repeat number: 1 calcium carbonate 600 mg oral tablet 1 tablet, By Mouth, 2 times a day, # 180 tablet, 0 Refills, Maintenance, 11/19/23 11:28:00 AM EDT, [facility]/pharmacy #[id number], 158, cm, 11/19/23 11:05:00 EDT, Height, 69.5, kg, 10/21/23 12:43:00 EST, Dry Weight Start Date: 11/19/23 Status: Ordered Quantity: 180.0 Unit: tablet Repeat number: 1 cetirizine 10 mg oral tablet 1 tablet, By Mouth, Daily, PRN NEEDED FOR ALLERGY, # 90 tablet, 7 Refills, Maintenance, 04/20/24 12:38:00 PM EDT, [id number], 158, cm, 04/19/24 14:03:00 EDT, Height, 69.4, kg, 12/16/23 14:13:00 EDT, Dry Weight Start Date: 04/20/24 Status: Ordered Quantity: 90.0 Unit: tablet Repeat number: 1 ciclopirox 0.77% topical gel 1 application, Topically, 2 times a day, to affected nail area, # 30 Gm, 1 Refills, Maintenance, 06/23/19 9:05:22 AM EDT, Gel, [facility]/pharmacy #[id number], 1 application Topically 2 times a day,Instr:to affected nail area Start Date: 06/23/19 Status: Ordered Quantity: 30.0 Unit: g Repeat number: 2 citalopram 10 mg oral tablet 1 tablet, By Mouth, Daily, # 90 tablet, 1 Refills, Maintenance, 04/05/24 9:29:00 AM EDT, [facility]/pharmacy#[id number], 158, cm, 01/30/24 10:46:00 EDT, Height, 69.4, kg, 12/16/23 14:13:00 EDT, Dry Weight Start Date: 04/05/24 Status: Ordered Quantity: 90.0 Unit: tablet Repeat number: 2 clobetasol 0.05% topical cream 1 application, Topically, 2 times a day, # 60 Gm, 0 Refills, Maintenance, 09/05/23 2:25:00 PM EST, Cream, [facility]/pharmacy #[id number], Partial fill upon patient request [...] 11:51:00 AM EDT, Route to Pharmacy Electronically, [facility]/pharmacy #[id number], Partial fill upon patientrequest if [...] Refills, Maintenance, 05/04/24 1:04:00 PM EDT, Tablet, [facility]/pharmacy #[id number], Partial fill upon patient request [...] Soft Stop, 05/26/23 2:16:00 PM EDT, Tablet, [facility]/pharmacy #[id number], Partial fill upon patient request [...] 5 Refills, Maintenance, 06/11/19 10:14:09 AM EDT, [facility]/pharmacy #[id number], SPRAY 1 SPRAY IN BOTH [...] 10:22:00 AM EST, Route to Pharmacy Electronically, [id number], 158, cm, 06/23/24 14:55:00 EDT, Height, 68.2, [...] CONGESTION, # 90 Unknown, 1 Refills, Maintenance, 08/18/24 8:49:00 AM EST, [facility], 90, USE 1 SPRAY IN EACH NOSTRIL TWICE A DAY NEEDED FOR NASAL CONGESTION, 158, cm, 08/03/24 10:53:00 EST, Height, 68.7, kg, 08/03/24 10:53:00 EST, Dry Weight Start Date: 08/18/24 Status: Ordered Quantity: 90.0 Unit: Unknown Repeat number: 1 itraconazole 100 mg oral capsule 2 capsule = 200 mg, By Mouth, Daily, for 12 week(s), # 168 capsule, 0 Refills, Acute 09/06/24 10:09:00 AM EST, 06/14/24 10:09:00 AM EDT, Capsule, [facility]/pharmacy #[id number], Partial fill upon patient request if the [...] tablet, 11 Refills, Maintenance,04/30/23 1:16:00 PM EDT, [id number], 160.02, cm, 04/29/23 10:08:00 EDT, Height, 69.2, kg, 12/10/22 14:03:00 EDT, Dry Weight Start Date: 04/30/23 Status: Ordered Quantity: 90.0 Unit: tablet Repeat number: 1 melatonin 5 mg oral tablet 1 tablet = 5 mg, By Mouth, Daily at bedtime, PRN for insomnia, # 60 tablet, 11 Refills, Maintenance, 05/26/23 9:06:00 AM EDT, Tablet, [facility]/pharmacy #[id number], 160.02, cm, 05/23/23 13:51:00 EDT, Height, 69.2, kg, 12/10/22 14:03:00 EDT, Dry Weight Start Date: 05/26/23 Status: Ordered Quantity: 60.0 Unit: tablet Repeat number: 12 metFORMIN 1000 mg oral tablet 1 tablet = 1,000 mg, By Mouth, 2 times a day, for 90 days, # 180 tablet, 3 Refills, Physician Stop 05/27/25 10:03:00 AM EDT, 06/01/24 10:03:00 AM EDT, [facility]/pharmacy #[id number], 158, cm, 05/05/24 11:14:00 EDT, Height, 69.4, kg, 12/16/23 14:13:00 EDT, Dry Weight Start Date: 06/01/24 Stop Date: 05/27/25 Status: Ordered Quantity: 180.0 Unit: tablet Repeat number: 4 miconazole 2% topical cream 1 application, Topically, 3 times a day, # 45 Gm, 0 Refills, Maintenance, 09/05/23 2:26:00 PM EST, Cream, [facility]/pharmacy #[id number], Partial fill upon patient request [...] reliable resp Thank you, Gianluca Swanson DNP, MASTIC WORKER-C, 02/15/24 7:21:00 PM EDT, Supply Start Date: [...] 12:02:00 PM EDT, Route to Pharmacy Electronically, [facility]/pharmacy #[id number], Partial fillupon patient request if the prescription [...] Confirmed Active Panic anxiety syndrome Confirmed Active *[id number] [employer]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 Plan Information #: 1 Payer: NA Member Number: NA Policy Number: NA Group Number: NA
[2024-08-30] MEDS: Acetaminophen 325 MG TABLET 650 MG PO (12:45)
--- NOTE | 2024-08-30 13:14 | ED_ITS ---
HPI - Extremity Problem General Chief complaint: Extremity Problem Stated complaint: R Side Neck Arm Pain Time Seen by Provider: 08/30/24 12:07 Source: patient Mode of arrival: ambulatory Limitations: no limitations History of Present Illness ED Provider: ANA ROSA FERNANDEZ PA-C HPI Narrative: 69 year old female with pmhx significant for osteoarthritis, rheumatoid arthritis, asthma, HTN, anemia and breast cancer presents to the ED today for evaluation of right shoulder pain x24 hours. admits to pain on abduction of the right UE however states this is her baseline. She has been taking Motrin at home without relief. Last dose around 0630 this morning. Reports history of similar in which she was diagnosed with arthritis. Denies injury/ trauma/ falls. Denies fever, chills, neck pain, numbness/tingling/weakness or swelling of the RUE, chest pain. Related Data Home Medications ?Medication ?Instructions ?Recorded ?Confirmed albuterol sulfate 90 mcg/actuation 2 puff inhalation Q4H PRN Wheezing 09/06/21 09/06/21 aerosol inhaler aspirin 81 mg tablet,delayed 1 tab PO DAILY PRN Pain 09/06/21 09/06/21 release atorvastatin 20 mg tablet 1 tab PO DAILY 09/06/21 09/06/21 calcium carbonate 1 tab PO BID 09/06/21 09/06/21 cholecalciferol (vitamin D3) 50 1 cap PO DAILY 09/06/21 09/06/21 mcg (2,000 unit) capsule citalopram 10 mg tablet 1 tab PO DAILY 09/06/21 09/06/21 dapagliflozin propanediol 5 mg 1 tab PO DAILY 09/06/21 09/06/21 tablet (Farxiga) glipizide 5 mg tablet, extended 1 tab PO DAILY 09/06/21 09/06/21 release 24 hr ibuprofen 800 mg tablet 1 tab PO TID pain 09/06/21 09/06/21 lorazepam 0.5 mg tablet 0.5 mg PO BID PRN Anxiety 09/06/21 09/06/21 metformin 1,000 mg tablet 1 tab PO BID 09/06/21 09/06/21 valsartan 160 1 tab PO DAILY 09/06/21 09/06/21 mg-hydrochlorothiazide 25 mg tablet gabapentin 100 mg capsule mg PO 06/18/24 Previous Rx's ?Medication ?Instructions ?Recorded baclofen 5 mg tablet 5 mg PO TID PRN muscle pain #10 08/30/24 tabs lidocaine 5 % topical patch 1 patch topical DAILY #15 ea 08/30/24 (Lidoderm) Allergies Allergy/AdvReac Type Severity Reaction Status Date / Time morphine [MORPHINE] Allergy Unknown UNKNOWN Verified 08/30/24 10:23 prednisone [PREDNISONE] Allergy Unknown HEART RACES Verified 08/30/24 10:23 Review of Systems 2 Review of Systems: Constitutional: No fever, chills, fatigue, night sweats, weight changes ENT/Mouth: No ear pain, hearing loss, nasal congestion, sinus pain, rhinorrhea, sore throat Eyes: No eye pain, swelling, redness, vision changes, discharge Cardio: No chest pain, palpitations, SARKAR, orthopnea, peripheral edema Pulm: No SOB, cough, sputum, wheezing, dyspnea, hemoptysis GI: No nausea, vomiting, hematemesis, abdominal pain, diarrhea, constipation, hematochezia, melena : No irregular bleeding, dysuria, frequency, urgency, hesitancy, hematuria, flank pain, urinary flow changes, urinary incontinence or retention MSK: No back pain, neck pain, joint pain, myalgias, +right shoulder pain Skin: No lesions, rashes Neuro: No weakness, numbness, paresthesias, LOC, dizziness, headache Psych: No anxiety/panic, depression, SI/HI, AH/VH All other systems reviewed and are negative. [facility] Past Medical History Attestation statement: The following information was validated with the patient. Source: old records reviewed and nursing notes reviewed Medical History COVID-19 Kidney stones Anemia Sleep apnea Diabetes Asthma High cholesterol Arthritis HTN (hypertension) Breast CA Surgical History H/O: hysterectomy Family History Family History Sister Diabetes mellitus Social History Social History Household Members: Significant Other Housing: Apartment Do you presently have visiting nurse or other home services: No Alcohol intake: never Patient Tobacco Use Status: Never used Tobacco Advance Directives: No Advance Directives Information Provided: Yes service: No Current occupational status: disabled Current occupation: rt handed Physical Exam 2 Vital Signs: Vital Signs: Last Vital Signs Temp 96.9 F 08/30/24 15:16 Pulse 91 08/30/24 15:16 Resp 20 08/30/24 15:16 BP 130/67 08/30/24 15:16 Pulse Ox 96 08/30/24 15:16 O2 Del Method Room Air 08/30/24 15:16 BMI result Body Mass Index 26.9 Vital signs stable General: Well appearing, in no acute distress. Skin: Warm, dry, intact. No rashes or lesions. Head: Normocephalic, atraumatic. EENT: Hearing is intact b/l. Conjunctiva clear. PERRLA. EOM intact. Moist mucous membranes.? Neck: No midline cervical tenderness or step-off deformity Cardiac: Chest wall symmetric. RRR Lungs: Normal respiratory effort without accessory muscle use. CTA bilaterally Back: No midline spinous or paraspinal tenderness. No step off deformity. Ext: + no overlying skin changes swelling or deformity to right shoulder. Range of motion limited on abduction and extension of the right shoulder secondary to pain. No palpable deformity or crepitus over right shoulder. 2+ radial/ulnar pulse intact. Cap refill less than 2 seconds. Sensation intact. Neuro: AOx3. Normal speech. Ambulating with steady gait. Psych: Appropriate mood and affect. Responds appropriately to questions. Course Course Course Narrative: cbc w/ leukocytosis of unknown significance. normocytic anemia, chronic and stable when compared to priors. Chemistry without acute electrolyte abnormality requiring intervention. Random glucose 171. No shady. Liver function normal. Trop undetectable. ekg with NSR with rate of 78 bpm, no acute ischemic changes or st elevations. XR right shoulder w/o fracture, subluxation or effusion. Physical exam is unremarkable. Will treat for arthritis. Baclofen and lido sent to pharmacy. She has outpatient follow up with ortho along with outpatient MRI scheduled.?Patient has remained stable throughout ED visit today. Discussed worrisome signs and symptoms and when to return to the ED. All questions answered at this time. Patient is agreeable with disposition and stable for discharge. Medications Administered Discontinued Medications Generic Name Dose Route Start Last Admin Trade Name Freq PRN Reason Stop Dose Admin Acetaminophen 650 mg 08/30/24 11:29 12/30/24 12:45 Acetaminophen 325 Mg Tablet PO 08/30/24 11:30 650 mg ONCE ONE Administration Medical Decision Making Medical Decision Making [facility] Narrative: 69 year old female with pmhx significant for osteoarthritis, rheumatoid arthritis, asthma, HTN, anemia and breast cancer presents to the ED today for evaluation of right shoulder pain x24 hours. vital signs stable. not hypoxic or tachycardic. she is nontoxic appearing and in NAD. exam without o overlying skin changes swelling or deformity to right shoulder. Range of motion limited on abduction and extension of the right shoulder secondary to pain. No palpable deformity or crepitus over right shoulder. 2+ radial/ulnar pulse intact. Cap refill less than 2 seconds. Sensation intact. Differential diagnosis includes anemia, electrolyte abnormality, ACS, arrhythmia, fracture, bursitis, tendonitis, rotator cuff injury, MSK sprain/strain, arthritis Plan for basic labs, imaging, ekg, re-evaluation Differential Diagnosis Differential Diagnoses: The differential diagnosis associated with the presentation includes as above Admission/Observation not indicated. Lab Data [facility] Lab Attestation statement: I reviewed the patient's lab results. as above. 08/30/24 13:27 08/30/24 13:27 Labs: Lab Results 08/30/24 Range/Units 13:27 WBC 15.6 H (4.8-10.8) X10*3/uL RBC 4.01 L (4.20-5.50) X10*6/uL Hgb 11.3 L (12.0-16.0) g/dl Hct 34.7 L (37.0-47.0) % MCV 86.5 (80.0-98.0) fL MCH 28.2 (27.0-33.0) pg MCHC 32.6 (31.0-35.0) g/dl RDW 14.0 (11.0-16.0) % Plt Count 316 (160-400) X10*3/uL MPV 9.7 (9.4-12.3) fL Immature Gran % (Auto) 0.4 (0.0-0.4) % Neut % (Auto) 81.2 H (45-73) % Lymph % (Auto) 11.3 L (20-40) % Bond % (Auto) 5.1 (2-11) % Eos % (Auto) 1.5 (0-4) % Baso % (Auto) 0.5 (0-2) % Lymph # (Auto) 1.8 (1.2-4.9) X10*3/uL Bond # (Auto) 0.8 (0.1-1.2) X10*3/uL Eos # (Auto) 0.2 (0.0-0.4) X10*3/uL Baso # (Auto) 0.1 (0.0-0.2) X10*3/uL Abs Immat Gran (auto) 0.06 H (0.00-0.03) X10*3/uL Absolute Neuts (auto) 12.7 H (2.0-8.3) x10*3/uL Absolute Nucleated RBC 0.000 (0.0-0.012) X10*3/uL Nucleated RBC % (auto) 0.0 (0.0-0.2) /100WBC Sodium 143 (135-145) mmol/L Potassium 3.7 (3.3-5.1) mmol/L Chloride 112 H (96-108) mmol/L Carbon Dioxide 20 L (22-29) mmol/L Anion Gap 15 (12-20) BUN 14 (9-16) mg/dL Creatinine 0.92 (0.5-1.4) mg/dL Estim Creat Clear Calc 54.5 Estimated GFR > 60 Random Glucose 171 H (60-115) mg/dL Calcium 9.8 (8.4-10.2) mg/dL Magnesium 1.8 (1.6-2.6) mg/dL Total Bilirubin 0.3 (0.0-1.0) mg/dL AST 22 (5-31) U/L ALT 20 (0-31) U/L Alkaline Phosphatase 98 (39-117) U/L Troponin I High Sens < 2.7 (<3.5-17.0) ng/L Total Protein 7.9 (6.5-8.0) g/dL Albumin 4.3 (3.5-5.0) g/dL Independent Interpretation I performed an independent interpretation of an: EKG and Plain X-Ray Interpretation: xr right shoulder without fracture ekg showing nsr with rate of 78 bpm, no acute ishcemic changes or st elevations Radiology Impression Discussion of test interpretation with radiology: I have reviewed the radiologist's reading. Radiologist Impression: EXAMINATION: XR SHOULDER, RIGHT CLINICAL INFORMATION: pain COMPARISON: None available. TECHNIQUE: AP external rotation, Grashey, scapular Y, and axillary views of the right shoulder. FINDINGS: The bones and soft tissues are normal. No fracture. Glenohumeral and acromioclavicular alignment is anatomic with normal joint space. No abnormal soft tissue calcifications. XR/XR shoulder RT min 2V IMPRESSION: Normal right shoulder. Electronically signed by: Ben Bledsoe MD 08/30/2024 10:57 AM EST External Record Review External record reviewed: Inpatient record, Office record, Outpatient record, Prior outpatient labs, Prior outpatient radiology, Primary care record and Outside ED record Prescription Management I considered prescription management with: Pain Medication Chronic Conditions Patient?s care impacted by: Other (OA, RA) Social Determinants Patient?s care significantly limited by Social Determinants of Health including: Other Social Determinant of Health Critical Care Time Critical Care Time Critical Care Time: No Discharge Plan Discharge Clinical Impression: Arthralgia of right shoulder region Patient Disposition: Home, Self-Care Instructions: Arthralgia (ED) Additional Instructions: You were evaluated in the ED today for shoulder pain. Your evaluation has shown no signs of medical conditions requiring emergent intervention at this time I recommend that you follow up with your primary care provider. Baclofen is a muscle relaxer that has been sent to your pharmacy. Lidocaine patches have been sent to your pharmacy. Apply these to painful areas. Continue tylenol/ motrin at home. Return with new or worsening symptoms. In the case of an emergency alex 911. Prescriptions: New baclofen 5 mg tablet 5 mg PO TID PRN (Reason: muscle pain) Qty: 10 0RF lidocaine [Lidoderm] 5 % adhesive patch,medicated 1 patch topical DAILY Qty: 15 0RF Rx Instructions: leave on most painful area for up to 12 hrs No Action atorvastatin 20 mg tablet 1 tab PO DAILY ibuprofen 800 mg tablet 1 tab PO TID citalopram 10 mg tablet 1 tab PO DAILY glipizide 5 mg tablet extended release 24 hr 1 tab PO DAILY aspirin 81 mg tablet,delayed release (DR/EC) 1 tab PO DAILY PRN (Reason: Pain) calcium carbonate 600 mg calcium (1,500 mg) tablet 1 tab PO BID lorazepam 0.5 mg tablet 0.5 mg PO BID PRN (Reason: Anxiety) metformin 1,000 mg tablet 1 tab PO BID albuterol sulfate 90 mcg/actuation HFA aerosol inhaler 2 puff inhalation Q4H PRN (Reason: Wheezing) valsartan-hydrochlorothiazide 160-25 mg tablet 1 tab PO DAILY cholecalciferol (vitamin D3) 50 mcg (2,000 unit) capsule 1 cap PO DAILY Farxiga 5 mg tablet 1 tab PO DAILY gabapentin 100 mg capsule PO Referrals: [facility] [Provider Group] [facility] Primary CareLonnie [Provider Group] [facility] Primary Care,[facility] [Provider Group] Interventions: ED Discharge Assessment Last Done: 08/30/24 15:16 Discharge Date/Time: 08/30/24 15:18 Print Language: Maori
--- NOTE | 2024-08-30 13:18 | ECG_ITS ---
Test Reason : SHOULDER PAIN Blood Pressure : / mmHG Vent. Rate : 078 BPM Atrial Rate : 078 BPM P-R Int : 170 ms QRS Dur : 086 ms QT Int : 384 ms P-R-T Axes : 063 014 035 degrees QTc Int : 437 ms Normal sinus rhythm Normal ECG When compared with ECG of 24-MAY-2024 12:00, No significant change was found Referred By: Rena Magana Electronically Signed By:ANDERS WILEY MD
[2024-08-30 13:29] LABS: MANUAL DIFF FLAG NO
[2024-08-30 13:31] LABS: Basophils Absolute Auto 0.1 X10*3/uL (0.0-0.2); Basophils Percent Auto 0.5 % (0-2); Eosinophils Absolute Auto 0.2 X10*3/uL (0.0-0.4); Eosinophils Percent Auto 1.5 % (0-4); Hematocrit 34.7 % (37.0-47.0); Hemoglobin 11.3 g/dl (12.0-16.0); Imm Gran Abs Auto 0.06 X10*3/uL (0.00-0.03); Imm Gran Pct Auto 0.4 % (0.0-0.4); Lymphocytes Absolute Auto 1.8 X10*3/uL (1.2-4.9); Lymphocytes Percent Auto 11.3 % (20-40); Mean Corpuscular HGB Conc 32.6 g/dl (31.0-35.0); Mean Corpuscular Hemoglobin 28.2 pg (27.0-33.0); Mean Corpuscular Volume 86.5 fL (80.0-98.0); Mean Platelet Volume 9.7 fL (9.4-12.3); Monocytes Absolute Auto 0.8 X10*3/uL (0.1-1.2); Monocytes Percent Auto 5.1 % (2-11); Neutrophils Absolute Auto 12.7 x10*3/uL (2.0-8.3); Neutrophils Percent Auto 81.2 % (45-73); Platelet Count 316 X10*3/uL (160-400); Red Blood Count 4.01 X10*6/uL (4.20-5.50); White Blood Count 15.6 X10*3/uL (4.8-10.8)
[2024-08-30 13:48] LABS: Alanine Aminotransferase 20 U/L (0-31); Albumin Level 4.3 g/dL (3.5-5.0); Alkaline Phosphatase 98 U/L (39-117); Anion Gap 15 (12-20); Aspartate Amino Transferase 22 U/L (5-31); Bilirubin Total 0.3 mg/dL (0.0-1.0); Blood Urea Nitrogen 14 mg/dL (9-16); Calcium 9.8 mg/dL (8.4-10.2); Carbon Dioxide 20 mmol/L (22-29); Chloride 112 mmol/L (96-108); Creatinine Clr Calc Pharmacy 54.5; Estimated Glomerular Filt Rate > 60; Glucose Random 171 mg/dL (60-115); Magnesium 1.8 mg/dL (1.6-2.6); Potassium 3.7 mmol/L (3.3-5.1); Sodium 143 mmol/L (135-145); Total Protein 7.9 g/dL (6.5-8.0)
[2024-08-30 13:56] LABS: Troponin-I High Sensitivity < 2.7 ng/L (<3.5-17.0)
[2024-08-30 15:16] VITALS: BP 130/67; PULSE 91; RESP 20; TEMP 36.1; O2SAT 96
== END 2024-08-30 15:18 | disposition home or self-care (01) ==
PROVIDERS: Physician Assistant Medical; Emergency Provider Emergency Medicine; PCP Internal Medicine
DX: M25.511 Pain in right shoulder (principal); M06.9 Rheumatoid arthritis, unspecified; E11.9 Type 2 diabetes mellitus without complications; I10 Essential (primary) hypertension; Z79.899 Other long term (current) drug therapy
CPT/HCPCS: 36415; 73030; 80053; 83735; 84484; 85025; 93005; 99283

== ENCOUNTER → 2024-08-30 10:30 | Outpatient (BNV) | payer OTHER, SELFPAY | PROVIDERS: PCP Internal Medicine; Visit Provider Radiology Diagnostic Radiology | DX: M25.511 Pain in right shoulder (principal) | CPT/HCPCS: 73030 ==

== ENCOUNTER → 2024-08-30 13:18 | Outpatient (BNV) | payer OTHER, SELFPAY | PROVIDERS: Emergency Provider Emergency Medicine; PCP Internal Medicine; Visit Provider Internal Medicine Cardiovascular Disease | DX: M25.511 Pain in right shoulder (principal) | CPT/HCPCS: 93010 ==

== ENCOUNTER 2024-11-02 13:03 | Outpatient (AMB) | payer OTHER, SELFPAY ==
--- NOTE | 2024-11-02 13:04 | MHC.OFFVIS ---
Vital Signs 11/02/24 13:09 Height 5 ft 3 in Weight 153 lb BMI 27.1 Handedness Right Intake Visit Reasons: OV- Right shoulder MRI review Intake Note: Ricci is a 69 year old right hand dominant female who presents today via telephone for a Right shoulder MRI review. Patient reports she is still having pain in her shoulder. Allergies morphine [MORPHINE] Allergy (Unknown, Verified 11/02/24 13:04) UNKNOWN prednisone [PREDNISONE] Allergy (Unknown, Verified 11/02/24 13:04) HEART RACES HPI HPI OV- Right shoulder MRI review: Details: Ms. Cesar was contacted by our office for a telehealth appointment in regards to her right shoulder MRI results. Patient reports that she obtain her MRI and since her last appointment she continues to have right shoulder pain and difficulty with motion. She has tried physical therapy in the past but continues to have pain. She reports that she had a cortisone injection in the right shoulder at the arthritis treatment center in [place] roughly 6 months ago but this also offered her little relief. [facility] Medical History COVID-19 Kidney stones Anemia Sleep apnea Diabetes Asthma High cholesterol Arthritis HTN (hypertension) Breast CA Surgical History H/O: hysterectomy Family History Sister Diabetes mellitus Social History Household Members: Significant Other Housing: Apartment Do you presently have visiting nurse or other home services: No Alcohol intake: never Patient Tobacco Use Status: Never used Tobacco service: No Current occupational status: disabled Current occupation: rt handed Review of Systems Const All systems reviewed & are unremarkable except as noted in HPI and below Physical Exam Vital Signs: BMI result Body Mass Index 27.1 Extrem Other: Deferred due to telehealth Telehealth Telehealth Telehealth Platform: Telephone Location of provider rendering services: practice address Location of patient: address on file Patient Identification confirmed using: Name, : Yes Telehealth method: voice only Patient verbally consented to treatment: Yes Patient verbally consented to billing insurance company: Yes Patient informed of any privacy concerns related to visit: Yes Minutes spent on Phone/Video with Pt.: 10 Assessment & Plan Assessment & Plan (1) Painful arc syndrome of right shoulder: Code(s): M75.101 - Unspecified rotator cuff tear or rupture of right shoulder, not specified as traumatic Category: Medical Plan Ms. Cesar was contacted by our office for a telehealth appointment in regards to her right shoulder MRI results. Patient reports that she obtain her MRI and since her last appointment she continues to have right shoulder pain and difficulty with motion. She has tried physical therapy in the past but continues to have pain. She reports that she had a cortisone injection in the right shoulder at the arthritis treatment center in [place] roughly 6 months ago but this also offered her little relief. While on the phone with the patient I did discuss that there is some evidence of bursitis and interstitial tearing of the rotator cuff. This can be treated with physical therapy and cortisone injections. She reports that she does not want to repeat any cortisone injections as the injection in the past was not helpful to her. I offered her a follow-up with pain management however she has elected to hold off at this time and will contact me if she wishes further referral to be placed. She will continue to follow with the arthritis treatment center as she has an established relationship with them and there is no surgical indications warranted at this time. Her follow up with Orthopedics will be p.r.n., sooner if needed. MRI of the right shoulder from 09/28/2024: Coding Level of Care Code Tele Est Pt Level 3 (66126) Diagnoses Painful arc syndrome of right shoulder M75.101
[2024-11-02 13:09] VITALS: BMI 27.1
--- OUTSIDE RECORDS SUMMARY | 2024-11-02 16:16 | XMS_ITS | Continuity of Care Document ---
Author Organization [facility] Address [address] [place] [address]- Care Team Providers Care Sheet Metal Technician Name Role Phone Dora Jim MD Primary Care Physician Encounter [facility] Date(s): 09/24/24 - 10/24/[address] [address] Encounter Type: Triage Allergies, Adverse Reactions, Alerts Substance Criticality Severity Reaction Reaction Severity Status morphine rash Active predniSONE Active Immunizations Given and Recorded Vaccine Date Status Refusal Reason SARS-CoV-2(COVID-19)mRNA-LNP vac([id number]) 07/11/23 Given influenza virus vaccine, inactivated 07/11/23 Give n influenza virus vaccine, inactivated 07/10/22 Give n SARS-CoV-2 mRNA (acibpiy-ccdt-ogptv) vax 08/06/22 Given SARS-CoV-2 mRNA (qcefcyc-dgwz-xmmco) vax 07/15/22 Given pneumococcal 20-valent conjugate vaccine 07/10/22 Given hepatitis B adult vaccine 12/06/20 Given hepatitis B adult vaccine 10/30/20 Given Tetanus Toxoid Vaccine (oldterm) 02/21/09 Given Medications AirDuo RespiClick 232 mcg-14 mcg/inh inhalation powder 1, inhalation, Inhalation, 2 times a day, rinse mouth and throat after use, # 1 each, Refills 11, Tot. Refills 11, Maintenance, 07/28/19 10:43:37 AM EST, Powder, Route to Pharmacy Electronically, [id number], [facility]/pharmacy #[id number], to replace Advair per insurance formulary Start Date: 07/28/19 Status: Ordered Quantity: 1.0 Unit: each Repeat number: 12 Albuterol (Eqv-ProAir HFA) 90 mcg/inh inhalation aerosol 2 puffs, Inhalation, Every 4 hours, PRN NEEDED FOR WHEEZING, # 8.5 each, 5 Refills, Maintenance,02/06/24 1:11:00 PM EDT, [id number], 17, INHALE 2 PUFFS EVERY 4 HOURS [...] Replace Required Details, Route to Pharmacy Electronically, [facility]/pharmacy #207, 158, cm, 06/23/24 14:55:00 EDT, Height, 68.2, kg, 06/23/24 14:55:00 EDT, Dry Weight Start Date: 07/23/24 Status: Ordered Quantity: 30.0 Unit: tablet Repeat number: 12 atorvastatin 20 mg oral tablet 1 tablet, By Mouth, Daily, # 90 tablet, 1 Refills, Maintenance, 06/21/24 11:22:00 AM EDT, [facility] [id number], 158, cm, 06/15/24 13:14:00 EDT, Height, 69.4, [...] 1:16:00 PM EDT, Route to Pharmacy Electronically, [facility], 160.02, cm, 04/29/23 10:08:00 EDT, Height, 69.2, kg, 12/10/22 14:03:00 EDT, Dry Weight Start Date: 04/30/23 Status: Ordered Quantity: 270.0 Unit: tablet Repeat number: 1 calcium carbonate 600 mg oral tablet 1 tablet, By Mouth, 2 times a day, # 180 tablet, 0 Refills, Maintenance, 11/19/23 11:28:00 AM EDT, [facility]/pharmacy #[id number], 158, cm, 11/19/23 11:05:00 EDT, Height, 69.5, kg, 10/21/23 12:43:00 EST, Dry Weight Start Date: 11/19/23 Status: Ordered Quantity: 180.0 Unit: tablet Repeat number: 1 cetirizine 10 mg oral tablet 1 tablet, By Mouth, Daily, PRN NEEDED FOR ALLERGY, # 90 tablet, 7 Refills, Maintenance, 04/20/24 12:38:00 PM EDT, [facility], 158, cm, 04/19/24 14:03:00 EDT, Height, 69.4, kg, 12/16/23 14:13:00 EDT, Dry Weight Start Date: 04/20/24 Status: Ordered Quantity: 90.0 Unit: tablet Repeat number: 1 ciclopirox 0.77% topical gel 1 application, Topically, 2 times a day, to affected nail area, # 30 Gm, 1 Refills, Maintenance, 06/23/19 9:05:22 AM EDT, Gel, [facility]/pharmacy #[id number], 1 application Topically 2 times a day,Instr:to affected nail area Start Date: 06/23/19 Status: Ordered Quantity: 30.0 Unit: g Repeat number: 2 citalopram 10 mg oral tablet 1 tablet, By Mouth, Daily, # 90 tablet, 1 Refills, Maintenance, 09/28/24 8:28:00 PM EST, [facility], 160, cm, 09/07/24 13:45:00 EST, Height, 68.5, kg, 09/07/24 13:45:00 EST, Dry Weight Start Date: 09/28/24 Status: Ordered Quantity: 90.0 Unit: tablet Repeat number: 1 clobetasol 0.05% topical cream 1 application, Topically, 2 times a day, # 60 Gm, 0 Refills, Maintenance, 09/05/23 2:25:00 PM EST, Cream, [facility]/pharmacy #[id number], Partial fill upon patient request if the prescription is for a schedule II opioid drug., 1 application Topically 2 times a day, 160.02, cm, 09/05/23 13:54:00 EST, Height, 68.7, kg, 09/05/23 13:34:00 EST, Dry Weight Start Date: 09/05/23 Status: Ordered Quantity: 60.0 Unit: g Repeat number: 1 diclofenac 1% topical gel 1 application, Topically, 4 times a day, # 100 Gm, 0 Refills, Maintenance, 09/07/24 1:33:00 PM EST, Gel, [facility]/pharmacy #[id number], Partial fill upon patient request if the prescription is for a schedule II opioid drug., 160, cm, 09/07/24 11:59:00 EST, Height, 68.5, kg, 09/07/24 11:59:00 EST, Dry Weight Start Date: 09/07/24 Status: Ordered Quantity: 100.0 Unit: g Repeat number: 1 famotidine 20 mg oral tablet 20 mg, 1, tablet, By Mouth, 2 times a day, # 60 tablet, Refills 3, Tot. Refills 3, Maintenance, 05/05/24 11:51:00 AM EDT, Route to Pharmacy Electronically, [facility]/pharmacy #[id number], Partial fill upon [...] Refills, Maintenance, 05/04/24 1:04:00 PM EDT, Tablet, [facility]/pharmacy #[id number], Partial fill upon [...] Soft Stop, 05/26/23 2:16:00 PM EDT, Tablet, [facility]/pharmacy #[id number], Partial fill upon patient [...] 5 Refills, Maintenance, 06/11/19 10:14:09 AM EDT, [facility]pharmacy [id number], SPRAY 1 SPRAY IN BOTH NOSTRILS [...] 10:22:00 AM EST, Route to Pharmacy Electronically, [facility], 158, cm, 06/23/24 14:55:00 EDT, Height, 68.2, [...] 1 Refills, Maintenance, 08/18/24 8:49:00 AM EST, [facility], 90, USE 1 SPRAY IN EACH NOSTRIL TWICE A DAY NEEDED FOR NASAL CONGESTION, 158, cm, 08/03/24 10:53:00 EST, Height, 68.7, kg, 08/03/24 10:53:00 EST, Dry Weight Start Date: 08/18/24 Status: Ordered Quantity: 90.0 Unit: Unknown Repeat number: 1 LORazepam 0.5 mg oral tablet See Instructions, TAKE 1/2 TABLET BY MOUTH EVERY DAY NEEDED FOR ANXIETY OR PANIC ATTACKS, # 15 tablet, 5 Refills, Maintenance, 10/01/24 10:17:00 AM EST, [facility]/pharmacy #[id number], 160, cm, 09/07/24 13:45:00 EST, Height, 68.5, kg, 09/07/24 13:45:00 EST, Dry Weight Start Date: 10/01/24 Stop Date: 10/01/25 Status: Ordered Quantity: 15.0 Unit: tablet Repeat number: 6 meclizine 12.5 mg oral tablet 1 tablet, By Mouth, 3 times a day, PRN NEEDED, DIZZINESS., # 90 tablet, 11 Refills, Maintenance,04/30/23 1:16:00 PM EDT, [facility], 160.02, cm, 04/29/23 10:08:00 EDT, Height, 69.2, kg, 12/10/22 14:03:00 EDT, Dry Weight Start Date: 04/30/23 Status: Ordered Quantity: 90.0 Unit: tablet Repeat number: 1 melatonin 5 mg oral tablet 1 tablet = 5 mg, By Mouth, Daily at bedtime, PRN for insomnia, # 60 tablet, 11 Refills, Maintenance, 05/26/23 9:06:00 AM EDT, Tablet, [facility]/pharmacy #1, 160.02, cm, 05/23/23 13:51:00 EDT, Height, 69.2, kg, 12/10/22 14:03:00 EDT, Dry Weight Start Date: 05/26/23 Status: Ordered Quantity: 60.0 Unit: tablet Repeat number: 12 metFORMIN 1000 mg oral tablet 1 tablet = 1,000 mg, By Mouth, 2 times a day, for 90 days, # 180 tablet, 3 Refills, Physician Stop 05/27/25 10:03:00 AM EDT, 06/01/24 10:03:00 AM EDT, [facility]/pharmacy #1, 158, cm, 05/05/24 11:14:00 EDT, Height, 69.4, kg, 12/16/23 14:13:00 EDT, Dry Weight Start Date: 06/01/24 Stop Date: 05/27/25 Status: Ordered Quantity: 180.0 Unit: tablet Repeat number: 4 miconazole 2% topical cream 1 application, Topically, 3 times a day, # 45 Gm, 0 Refills, Maintenance, 09/05/23 2:26:00 PM EST, Cream, [facility]/pharmacy #[id number], Partial fill upon [...] reliable resp Thank you, Gianluca Swanson DNP, [employer] UNDERWRITER-C, 02/15/24 7:21:00 PM EDT, Supply Start Date: [...] 12:02:00 PM EDT, Route to Pharmacy Electronically, [facility]/pharmacy #[id number], Partial fillupon patient request if the prescription [...] H ealth Status Informant Asthma Confirmed Active 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 COVID-19 1 Confirmed 07/02/22 Active Diabetes mellitus - adult onset Confirmed Active Hypertension Confirmed Active Lactose intolerance Confirmed Active Microalbuminuria Confirmed Active Nasal congestion Confirmed Active Lung nodule Confirmed Active NAFLD (nonalcoholic fatty liver disease) Confirmed Active Obstructive sleep apnea syndrome Confirmed Active Panic anxiety syndrome Confirmed Active *[id number] 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 Active Diabetic nephropathy with proteinuria Confirmed Active Rheumatoid arthritis Confirmed Active 1HM Capproximate Social History Social History Type Response Smoking Status Never smoker entered on: 06/09/15 Sex Sex Representation Female (finding) Patient Care team information Care Team Personnel Name: Aura , María Position: [facility] Onco RN Member Role: Primary Care Nurse Name: Dora Jim MD Position: [facility] Physician - Primary Care Member Role: PCP Address: [address] [place] [address] Telecom: Care Team Related Persons Name: EDGAR VERMA Name: ALEXIS XIONG Insurance Providers Guarantor name: ALEXANDRA ZUÑIGA Health Plan Information #: 1 Payer: NA Member Number: NA Policy Number: NA Group Number: NA
--- OUTSIDE RECORDS SUMMARY | 2024-11-02 16:16 | XMS_ITS | Continuity of Care Document ---
Author Organization [facility] Address [address] [place] [address]- Care Team Providers Care In House Cra Name Role Phone Dora Jim MD Primary Care Physician Encounter [facility] Date(s): 09/02/24 - 10/02/[address] [address] Encounter Type: Triage Allergies, Adverse Reactions, Alerts Substance Criticality Severity Reaction Reaction Severity Status morphine rash Active predniSONE Active Immunizations Given and Recorded Vaccine Date Status Refusal Reason SARS-CoV-2(COVID-19)mRNA-LNP vac([id number]) 07/11/23 Given influenza virus vaccine, inactivated 07/11/23 Give n influenza virus vaccine, inactivated 07/10/22 Give n SARS-CoV-2 mRNA (qqgxonn-dupy-ohdgd) vax 08/06/22 Given SARS-CoV-2 mRNA (dhppdnl-yayk-ivqbc) vax 07/15/22 Given pneumococcal 20-valent conjugate vaccine [...] AM EST, Powder, Route to Pharmacy Electronically, [id number], [facility]/pharmacy #[id number], to replace Advair per insurance formulary Start Date: 07/28/19 Status: Ordered Quantity: 1.0 Unit: each Repeat number: 12 Albuterol (Eqv-ProAir HFA) 90 mcg/inh inhalation aerosol 2 puffs, Inhalation, Every 4 hours, PRN NEEDED FOR WHEEZING, # 8.5 each, 5 Refills, Maintenance,02/06/24 1:11:00 PM EDT, [facility], 17, INHALE 2 PUFFS EVERY 4 HOURS [...] Replace Required Details, Route to Pharmacy Electronically, [facility]/pharmacy #207, 158, cm, 06/23/24 14:55:00 EDT, Height, 68.2, kg, 06/23/24 14:55:00 EDT, Dry Weight Start Date: 07/23/24 Status: Ordered Quantity: 30.0 Unit: tablet Repeat number: 12 atorvastatin 20 mg oral tablet 1 tablet, By Mouth, Daily, # 90 tablet, 1 Refills, Maintenance, 06/21/24 11:22:00 AM EDT, [id number], 158, cm, 06/15/24 13:14:00 EDT, Height, 69.4, [...] 1:16:00 PM EDT, Route to Pharmacy Electronically, [facility], 160.02, cm, 04/29/23 10:08:00 EDT, Height, 69.2, kg, 12/10/22 14:03:00 EDT, Dry Weight Start Date: 04/30/23 Status: Ordered Quantity: 270.0 Unit: tablet Repeat number: 1 calcium carbonate 600 mg oral tablet 1 tablet, By Mouth, 2 times a day, # 180 tablet, 0 Refills, Maintenance, 11/19/23 11:28:00 AM EDT, [facility]/pharmacy #[id number], 158, cm, 11/19/23 11:05:00 EDT, Height, 69.5, kg, 10/21/23 12:43:00 EST, Dry Weight Start Date: 11/19/23 Status: Ordered Quantity: 180.0 Unit: tablet Repeat number: 1 cetirizine 10 mg oral tablet 1 tablet, By Mouth, Daily, PRN NEEDED FOR ALLERGY, # 90 tablet, 7 Refills, Maintenance, 04/20/24 12:38:00 PM EDT, [facility], 158, cm, 04/19/24 14:03:00 EDT, Height, 69.4, kg, 12/16/23 14:13:00 EDT, Dry Weight Start Date: 04/20/24 Status: Ordered Quantity: 90.0 Unit: tablet Repeat number: 1 ciclopirox 0.77% topical gel 1 application, Topically, 2 times a day, to affected nail area, # 30 Gm, 1 Refills, Maintenance, 06/23/19 9:05:22 AM EDT, Gel, [facility]/pharmacy #[id number], 1 application Topically 2 times a day,Instr:to affected nail area Start Date: 06/23/19 Status: Ordered Quantity: 30.0 Unit: g Repeat number: 2 citalopram 10 mg oral tablet 1 tablet, By Mouth, Daily, # 90 tablet, 1 Refills, Maintenance, 09/28/24 8:28:00 PM EST, [facility] ST[facility], 160, cm, 09/07/24 13:45:00 EST, Height, 68.5, kg, 09/07/24 13:45:00 EST, Dry Weight Start Date: 09/28/24 Status: Ordered Quantity: 90.0 Unit: tablet Repeat number: 1 clobetasol 0.05% topical cream 1 application, Topically, 2 times a day, # 60 Gm, 0 Refills, Maintenance, 09/05/23 2:25:00 PM EST, Cream, [facility]/pharmacy #[id number], Partial fill upon patient request [...] Refills, Maintenance, 09/07/24 1:33:00 PM EST, Gel, [facility]/pharmacy #[id number], Partial fill upon patient request [...] 11:51:00 AM EDT, Route to Pharmacy Electronically, [facility]/pharmacy #[id number], Partial fill upon patientrequest if [...] Refills, Maintenance, 05/04/24 1:04:00 PM EDT, Tablet, [facility]/pharmacy #[id number], Partial fill upon patient request [...] 10:22:00 AM EST, Route to Pharmacy Electronically, [facility], 158, cm, 06/23/24 14:55:00 EDT, Height, 68.2, [...] 1 Refills, Maintenance, 08/18/24 8:49:00 AM EST, [facility] 720[facility], 90, USE 1 SPRAY IN EACH NOSTRIL [...] 5 Refills, Maintenance, 10/01/24 10:17:00 AM EST, [facility]/pharmacy #[id number], 160, cm, 09/07/24 13:45:00 EST, Height, 68.5, kg, 09/07/24 13:45:00 EST, Dry Weight Start Date: 10/01/24 Stop Date: 10/01/25 Status: Ordered Quantity: 15.0 Unit: tablet Repeat number: 6 meclizine 12.5 mg oral tablet 1 tablet, By Mouth, 3 times a day, PRN NEEDED, DIZZINESS., # 90 tablet, 11 Refills, Maintenance,04/30/23 1:16:00 PM EDT, [facility], 160.02, cm, 04/29/23 10:08:00 EDT, Height, 69.2, kg, 12/10/22 14:03:00 EDT, Dry Weight Start Date: 04/30/23 Status: Ordered Quantity: 90.0 Unit: tablet Repeat number: 1 melatonin 5 mg oral tablet 1 tablet = 5 mg, By Mouth, Daily at bedtime, PRN for insomnia, # 60 tablet, 11 Refills, Maintenance, 05/26/23 9:06:00 AM EDT, Tablet, [facility]/pharmacy #1, 160.02, cm, 05/23/23 13:51:00 EDT, Height, 69.2, kg, 12/10/22 14:03:00 EDT, Dry Weight Start Date: 05/26/23 Status: Ordered Quantity: 60.0 Unit: tablet Repeat number: 12 metFORMIN 1000 mg oral tablet 1 tablet = 1,000 mg, By Mouth, 2 times a day, for 90 days, # 180 tablet, 3 Refills, Physician Stop 05/27/25 10:03:00 AM EDT, 06/01/24 10:03:00 AM EDT, [facility]/pharmacy #1, 158, cm, 05/05/24 11:14:00 EDT, Height, 69.4, kg, 12/16/23 14:13:00 EDT, Dry Weight Start Date: 06/01/24 Stop Date: 05/27/25 Status: Ordered Quantity: 180.0 Unit: tablet Repeat number: 4 miconazole 2% topical cream 1 application, Topically, 3 times a day, # 45 Gm, 0 Refills, Maintenance, 09/05/23 2:26:00 PM EST, Cream, [facility]/pharmacy #[id number], Partial fill upon patient request [...] reliable resp Thank you, Gianluca Swanson DNP, LUCERNE FARMER-C, 02/15/24 7:21:00 PM EDT, Supply Start Date: [...] 12:02:00 PM EDT, Route to Pharmacy Electronically, [facility]/pharmacy #[id number], Partial fillupon patient request if [...] Confirmed Active Panic anxiety syndrome Confirmed Active *[id number] 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 Active Diabetic nephropathy with proteinuria Confirmed Active Rheumatoid arthritis Confirmed Active 1HM Capproximate Social History Social History Type Response Smoking Status Never smoker entered on: 06/09/15 Sex Sex Representation Female (finding) Patient Care team information Care Team Personnel Name: Aura , María Position: [facility] Onco RN Member Role: Primary Care Nurse Name: Dora Jim MD Position: [facility] Physician - Primary Care Member Role: PCP Address: [address] [place] [address] Telecom: Care Team Related Persons Name: EDGAR VERMA Name: ALEXIS XIONG Insurance Providers Guarantor name: ALEXANDRA ZUÑIGA Health Plan Information #: 1 Payer: NA Member Number: NA Policy Number: NA Group Number: NA
--- OUTSIDE RECORDS SUMMARY | 2024-11-02 16:16 | XMS_ITS | Continuity of Care Document ---
Author Organization [facility] Address [address] [place] [address]- Care Team Providers Care Desizing Pad Operator Name Role Phone Dora Jim MD Primary Care Physician Encounter [facility] [place] Date(s): 06/22/24 - 10/03/24 [facility] [address] [place] [id number] Discharge Disposition: A-D/C Home Attending Physician: Dulce Lo NP Admitting Physician: Dulce Lo NP Referring Physician: Dora Jim MD Encounter Type: Disch Recurring OP Allergies, Adverse Reactions, Alerts Substance Criticality Severity Reaction Reaction Severity Status morphine rash Active predniSONE Active Immunizations Given and Recorded Vaccine Date Status Refusal Reason SARS-CoV-2(COVID-19)mRNA-LNP vac([id number]) 07/11/23 Given influenza virus vaccine, inactivated 07/11/23 Give n influenza virus vaccine, inactivated 07/10/22 Give n SARS-CoV-2 mRNA (lcvyyzr-pljn-nkcwm) vax 08/06/22 Given SARS-CoV-2 mRNA (qrqoocu-lglq-ticzv) vax 07/15/22 Given pneumococcal 20-valent conjugate vaccine [...] AM EST, Powder, Route to Pharmacy Electronically, [id number], [facility]/pharmacy #[id number], to replace Advair per insurance formulary Start Date: 07/28/19 Status: Ordered Quantity: 1.0 Unit: each Repeat number: 12 Albuterol (Eqv-ProAir HFA) 90 mcg/inh inhalation aerosol 2 puffs, Inhalation, Every 4 hours, PRN NEEDED FOR WHEEZING, # 8.5 each, 5 Refills, Maintenance,02/06/24 1:11:00 PM EDT, [facility] STORE 23173, 17, INHALE 2 PUFFS EVERY 4 HOURS [...] Replace Required Details, Route to Pharmacy Electronically, [facility]/pharmacy #[id number], 158, cm, 06/23/24 14:55:00 EDT, Height, 68.2, kg, 06/23/24 14:55:00 EDT, Dry Weight Start Date: 07/23/24 Status: Ordered Quantity: 30.0 Unit: tablet Repeat number: 12 atorvastatin 20 mg oral tablet 1 tablet, By Mouth, Daily, # 90 tablet, 1 Refills, Maintenance, 06/21/24 11:22:00 AM EDT, [facility] [id number], 158, cm, 06/15/24 13:14:00 EDT, Height, 69.4, [...] 1:16:00 PM EDT, Route to Pharmacy Electronically, [facility], 160.02, cm, 04/29/23 10:08:00 EDT, Height, 69.2, kg, 12/10/22 14:03:00 EDT, Dry Weight Start Date: 04/30/23 Status: Ordered Quantity: 270.0 Unit: tablet Repeat number: 1 calcium carbonate 600 mg oral tablet 1 tablet, By Mouth, 2 times a day, # 180 tablet, 0 Refills, Maintenance, 11/19/23 11:28:00 AM EDT, [facility]/pharmacy #[id number], 158, cm, 11/19/23 11:05:00 EDT, Height, 69.5, kg, 10/21/23 12:43:00 EST, Dry Weight Start Date: 11/19/23 Status: Ordered Quantity: 180.0 Unit: tablet Repeat number: 1 cetirizine 10 mg oral tablet 1 tablet, By Mouth, Daily, PRN NEEDED FOR ALLERGY, # 90 tablet, 7 Refills, Maintenance, 04/20/24 12:38:00 PM EDT, [facility] [id number], 158, cm, 04/19/24 14:03:00 EDT, Height, 69.4, kg, 12/16/23 14:13:00 EDT, Dry Weight Start Date: 04/20/24 Status: Ordered Quantity: 90.0 Unit: tablet Repeat number: 1 ciclopirox 0.77% topical gel 1 application, Topically, 2 times a day, to affected nail area, # 30 Gm, 1 Refills, Maintenance, 06/23/19 9:05:22 AM EDT, Gel, [facility]/pharmacy #[id number], 1 application Topically 2 times a day,Instr:to affected nail area Start Date: 06/23/19 Status: Ordered Quantity: 30.0 Unit: g Repeat number: 2 citalopram 10 mg oral tablet 1 tablet, By Mouth, Daily, # 90 tablet, 1 Refills, Maintenance, 09/28/24 8:28:00 PM EST, [facility] STORE 88445, 160, cm, 09/07/24 13:45:00 EST, Height, 68.5, kg, 09/07/24 13:45:00 EST, Dry Weight Start Date: 09/28/24 Status: Ordered Quantity: 90.0 Unit: tablet Repeat number: 1 clobetasol 0.05% topical cream 1 application, Topically, 2 times a day, # 60 Gm, 0 Refills, Maintenance, 09/05/23 2:25:00 PM EST, Cream, [facility]/pharmacy #[id number], Partial fill upon patient request if [...] Refills, Maintenance, 09/07/24 1:33:00 PM EST, Gel, [facility]/pharmacy #[id number], Partial fill upon patient request if [...] 11:51:00 AM EDT, [id number] fill upon patientrequest if the [...] Refills, Maintenance, 05/04/24 1:04:00 PM EDT, Tablet, [facility]/pharmacy #2071, Partial fill upon patient request if [...] Soft Stop, 05/26/23 2:16:00 PM EDT, Tablet, [facility]/pharmacy #[id number], Partial fill upon patient request if [...] 10:22:00 AM EST, Route to Pharmacy Electronically, [facility], 158, cm, 06/23/24 14:55:00 EDT, Height, 68.2, [...] 1 Refills, Maintenance, 08/18/24 8:49:00 AM EST, [facility] 75269, 90, USE 1 SPRAY IN EACH NOSTRIL [...] 5 Refills, Maintenance, 10/01/24 10:17:00 AM EST, [facility]/pharmacy #[id number], 160, cm, 09/07/24 13:45:00 EST, Height, 68.5, kg, 09/07/24 13:45:00 EST, Dry Weight Start Date: 10/01/24 Stop Date: 10/01/25 Status: Ordered Quantity: 15.0 Unit: tablet Repeat number: 6 meclizine 12.5 mg oral tablet 1 tablet, By Mouth, 3 times a day, PRN NEEDED, DIZZINESS., # 90 tablet, 11 Refills, Maintenance,04/30/23 1:16:00 PM EDT, [facility] STORE 29588, 160.02, cm, 04/29/23 10:08:00 EDT, Height, 69.2, kg, 12/10/22 14:03:00 EDT, Dry Weight Start Date: 04/30/23 Status: Ordered Quantity: 90.0 Unit: tablet Repeat number: 1 melatonin 5 mg oral tablet 1 tablet = 5 mg, By Mouth, Daily at bedtime, PRN for insomnia, # 60 tablet, 11 Refills, Maintenance, 05/26/23 9:06:00 AM EDT, Tablet, [facility]/pharmacy #[id number], 160.02, cm, 05/23/23 13:51:00 EDT, Height, 69.2, kg, 12/10/22 14:03:00 EDT, Dry Weight Start Date: 05/26/23 Status: Ordered Quantity: 60.0 Unit: tablet Repeat number: 12 metFORMIN 1000 mg oral tablet 1 tablet = 1,000 mg, By Mouth, 2 times a day, for 90 days, # 180 tablet, 3 Refills, Physician Stop 05/27/25 10:03:00 AM EDT, 06/01/24 10:03:00 AM EDT, [facility]/pharmacy #[id number], 158, cm, 05/05/24 11:14:00 EDT, Height, 69.4, kg, 12/16/23 14:13:00 EDT, Dry Weight Start Date: 06/01/24 Stop Date: 05/27/25 Status: Ordered Quantity: 180.0 Unit: tablet Repeat number: 4 miconazole 2% topical cream 1 application, Topically, 3 times a day, # 45 Gm, 0 Refills, Maintenance, 09/05/23 2:26:00 PM EST, Cream, [facility]/pharmacy #0951, Partial fill upon patient request if the [...] reliable resp Thank you, Gianluca Swanson DNP, RESIDENTIAL DOOR UNIT INSTALLER-C, 02/15/24 7:21:00 PM EDT, Supply Start Date: [...] 12:02:00 PM EDT, Route to Pharmacy Electronically, [facility]/pharmacy #[id number], Partial fillupon patient request if the [...] Refills, Maintenance, 07/30/24 11:13:00 AM EST, Tablet, [facility]/pharmacy #[id number], Partial fill upon patient request if [...] 3 Refills, Maintenance, 11/19/23 11:28:00 AM EDT, [facility]/pharmacy #[id number], 158, cm, 11/19/23 11:05:00 EDT, Height, [...] Confirmed Active Panic anxiety syndrome Confirmed Active *[phone] Viscose Cellar Charge Hand Collette Meadows Confirmed Active COVID-19 marline gomez manifesting chronic dyspnea Confirmed Active Diabetic nephropathy with proteinuria Confirmed Active Rheumatoid arthritis Confirmed Active 1HM Capproximate Vital Signs Most recent to oldest [Reference Range]: 1 2 Height 158 cm (08/03/24 10:53 AM) 158 cm (06/23/24 2:55 PM) Weight 68.7 kg (08/03/24 10:53 AM) 68.2 kg (06/23/24 2:55 PM) Oxygen Saturation [94-100 %] 95 % (08/03/24 10:53 AM) 97 % (06/23/24 2:55 PM) Pulse Rate [55-90 bpm] 80 bpm (08/03/24 10:53 AM) 92 bpm *H* (06/23/24 2:55 PM) Body Mass Index [18.5-24.99 kg/m2] 27.52 kg/m2 *H* (08/03/24 10:53 AM) 27.32 kg/m2 *H* (06/23/24 2:55 PM) Blood Pressure [90-138/55-84 mm Hg] 151/ 82mm Hg *H* (08/03/24 10:53 AM) 135/74mm Hg (06/23/24 2:55 PM) Temperature [96.8-100.4 DegF] 97.1 DegF (08/03/24 10:53 AM) 97.7 DegF (06/23/24 2:55 PM) Mode of Delivery (Oxygen) Room air (08/03/24 10:53 AM) Room air (06/23/24 2:55 PM) Blood pressure sites Arm, right (08/03/24 10:53 AM) Arm, right (06/23/24 2:55 PM) Temperature Route Temporal (08/03/24 10:53 AM) Oral (06/23/24 2:55 PM) Dry Weight 68.7 kg (08/03/24 10:53 AM) 68.2 kg (06/23/24 2:55 PM) Weight Obtained Via Standing scale (08/03/24 10:53 AM) Standing scale (06/23/24 2:55 PM) Dry Weight Obtained Via Standing scale (08/03/24 10:53 AM) Standing scale (06/23/24 2:55 PM) Social History Social History Type Response Smoking Status Never smoker entered on: 06/09/15 Sex Sex Representation Female (finding) Patient Care team information Care Team Personnel Name: María Chavarria Position: [facility] Onco RN Member Role: Primary Care Nurse Name: Dora Jim MD Position: [facility] Physician - Primary Care Member Role: PCP Address: [address] [place] [address] Telecom: Care Team Related Persons Name: EDGAR VERMA Name: ALEXIS XIONG Insurance Providers Guarantor name: ALEXANDRA ZUÑIGA Health Plan Information #: 1 Payer: NA Member Number: [id number] Policy Number: NA Group Number: [facility] Health Plan Information #: 2 Payer: NA Member Number: [id number] Policy Number: NA Group Number: NA
--- OUTSIDE RECORDS SUMMARY | 2024-11-02 16:16 | XMS_ITS | Continuity of Care Document ---
Author Organization [facility] Address [address] [place] [address]- Care Team Providers Care Alternative Energy Technician Name Role Phone Dora Jim MD Primary Care Physician Encounter [facility] [place] Date(s): 09/24/24 - 10/24/[address] [address] Encounter Type: Triage Allergies, Adverse Reactions, Alerts Substance Criticality Severity Reaction Reaction Severity Status morphine rash Active predniSONE Active Immunizations Given and Recorded Vaccine Date Status Refusal Reason SARS-CoV-2(COVID-19)mRNA-LNP vac([id number]) 07/11/23 Given influenza virus vaccine, inactivated 07/11/23 Give n influenza virus vaccine, inactivated 07/10/22 Give n SARS-CoV-2 mRNA (qhgunvw-qpqj-vzopy) vax 08/06/22 Given SARS-CoV-2 mRNA (zytgnma-mqfh-laigg) vax 07/15/22 Given pneumococcal 20-valent conjugate vaccine [...] AM EST, Powder, Route to Pharmacy Electronically, [id number], [facility]/pharmacy #[id number], to replace Advair per insurance formulary Start Date: 07/28/19 Status: Ordered Quantity: 1.0 Unit: each Repeat number: 12 Albuterol (Eqv-ProAir HFA) 90 mcg/inh inhalation aerosol 2 puffs, Inhalation, Every 4 hours, PRN NEEDED FOR WHEEZING, # 8.5 each, 5 Refills, Maintenance,02/06/24 1:11:00 PM EDT, [facility] STORE 81052, 17, INHALE 2 PUFFS EVERY 4 HOURS [...] Replace Required Details, Route to Pharmacy Electronically, [facility]/pharmacy #207, 158, cm, 06/23/24 14:55:00 EDT, Height, 68.2, kg, 06/23/24 14:55:00 EDT, Dry Weight Start Date: 07/23/24 Status: Ordered Quantity: 30.0 Unit: tablet Repeat number: 12 atorvastatin 20 mg oral tablet 1 tablet, By Mouth, Daily, # 90 tablet, 1 Refills, Maintenance, 06/21/24 11:22:00 AM EDT, [facility] [id number], 158, cm, 06/15/24 13:14:00 EDT, Height, 69.4, [...] 1:16:00 PM EDT, Route to Pharmacy Electronically, [facility] 07697, 160.02, cm, 04/29/23 10:08:00 EDT, Height, 69.2, kg, 12/10/22 14:03:00 EDT, Dry Weight Start Date: 04/30/23 Status: Ordered Quantity: 270.0 Unit: tablet Repeat number: 1 calcium carbonate 600 mg oral tablet 1 tablet, By Mouth, 2 times a day, # 180 tablet, 0 Refills, Maintenance, 11/19/23 11:28:00 AM EDT, [facility]/pharmacy #[id number], 158, cm, 11/19/23 11:05:00 EDT, Height, 69.5, kg, 10/21/23 12:43:00 EST, Dry Weight Start Date: 11/19/23 Status: Ordered Quantity: 180.0 Unit: tablet Repeat number: 1 cetirizine 10 mg oral tablet 1 tablet, By Mouth, Daily, PRN NEEDED FOR ALLERGY, # 90 tablet, 7 Refills, Maintenance, 04/20/24 12:38:00 PM EDT, [facility] 16989, 158, cm, 04/19/24 14:03:00 EDT, Height, 69.4, kg, 12/16/23 14:13:00 EDT, Dry Weight Start Date: 04/20/24 Status: Ordered Quantity: 90.0 Unit: tablet Repeat number: 1 ciclopirox 0.77% topical gel 1 application, Topically, 2 times a day, to affected nail area, # 30 Gm, 1 Refills, Maintenance, 06/23/19 9:05:22 AM EDT, Gel, [facility]/pharmacy #[id number], 1 application Topically 2 times a day,Instr:to affected nail area Start Date: 06/23/19 Status: Ordered Quantity: 30.0 Unit: g Repeat number: 2 citalopram 10 mg oral tablet 1 tablet, By Mouth, Daily, # 90 tablet, 1 Refills, Maintenance, 09/28/24 8:28:00 PM EST, [facility] STORE 17086, 160, cm, 09/07/24 13:45:00 EST, Height, 68.5, kg, 09/07/24 13:45:00 EST, Dry Weight Start Date: 09/28/24 Status: Ordered Quantity: 90.0 Unit: tablet Repeat number: 1 clobetasol 0.05% topical cream 1 application, Topically, 2 times a day, # 60 Gm, 0 Refills, Maintenance, 09/05/23 2:25:00 PM EST, Cream, [facility]/pharmacy #[id number], Partial fill upon patient request if [...] Refills, Maintenance, 09/07/24 1:33:00 PM EST, Gel, [facility]/pharmacy #[id number], Partial fill upon patient request if [...] 11:51:00 AM EDT, Route to Pharmacy Electronically, [facility]/pharmacy #[id number], Partial fill upon patientrequest if the [...] Refills, Maintenance, 05/04/24 1:04:00 PM EDT, Tablet, [facility]/pharmacy #[id number], Partial fill upon patient request if [...] 10:22:00 AM EST, Route to Pharmacy Electronically, [facility], 158, cm, 06/23/24 14:55:00 EDT, Height, 68.2, [...] 1 Refills, Maintenance, 08/18/24 8:49:00 AM EST, [facility] 38188, 90, USE 1 SPRAY IN EACH NOSTRIL [...] 5 Refills, Maintenance, 10/01/24 10:17:00 AM EST, [facility]/pharmacy #[id number], 160, cm, 09/07/24 13:45:00 EST, Height, 68.5, kg, 09/07/24 13:45:00 EST, Dry Weight Start Date: 10/01/24 Stop Date: 10/01/25 Status: Ordered Quantity: 15.0 Unit: tablet Repeat number: 6 meclizine 12.5 mg oral tablet 1 tablet, By Mouth, 3 times a day, PRN NEEDED, DIZZINESS., # 90 tablet, 11 Refills, Maintenance,04/30/23 1:16:00 PM EDT, [facility], 160.02, cm, 04/29/23 10:08:00 EDT, Height, 69.2, kg, 12/10/22 14:03:00 EDT, Dry Weight Start Date: 04/30/23 Status: Ordered Quantity: 90.0 Unit: tablet Repeat number: 1 melatonin 5 mg oral tablet 1 tablet = 5 mg, By Mouth, Daily at bedtime, PRN for insomnia, # 60 tablet, 11 Refills, Maintenance, 05/26/23 9:06:00 AM EDT, Tablet, [facility]/pharmacy #1, 160.02, cm, 05/23/23 13:51:00 EDT, Height, 69.2, kg, 12/10/22 14:03:00 EDT, Dry Weight Start Date: 05/26/23 Status: Ordered Quantity: 60.0 Unit: tablet Repeat number: 12 metFORMIN 1000 mg oral tablet 1 tablet = 1,000 mg, By Mouth, 2 times a day, for 90 days, # 180 tablet, 3 Refills, Physician Stop 05/27/25 10:03:00 AM EDT, 06/01/24 10:03:00 AM EDT, [facility]/pharmacy #1, 158, cm, 05/05/24 11:14:00 EDT, Height, 69.4, kg, 12/16/23 14:13:00 EDT, Dry Weight Start Date: 06/01/24 Stop Date: 05/27/25 Status: Ordered Quantity: 180.0 Unit: tablet Repeat number: 4 miconazole 2% topical cream 1 application, Topically, 3 times a day, # 45 Gm, 0 Refills, Maintenance, 09/05/23 2:26:00 PM EST, Cream, [facility]/pharmacy #[id number], Partial fill upon patient request if [...] reliable resp Thank you, Gianluca Swanson DNP, TRANSPORT TRUCK DRIVER-C, 02/15/24 7:21:00 PM EDT, Supply Start Date: [...] 12:02:00 PM EDT, Route to Pharmacy Electronically, [facility]/pharmacy #[id number], Partial fillupon patient request if the [...] Confirmed Active Panic anxiety syndrome Confirmed Active *[phone] Gardener [place] Confirmed Active 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 Active Diabetic nephropathy with proteinuria Confirmed Active Rheumatoid arthritis Confirmed Active 1HM Capproximate Social History Social History Type Response Smoking Status Never smoker entered on: 06/09/15 Sex Sex Representation Female (finding) Patient Care team information Care Team Personnel Name: Aura , María Position: [facility] Onco RN Member Role: Primary Care Nurse Name: Dora Jim MD Position: [facility] Physician - Primary Care Member Role: PCP Address: [address] [place] [address] Telecom: Care Team Related Persons Name: EDGAR VERMA Name: ALEXIS XIONG Insurance Providers Guarantor name: ALEXANDRA ZUÑIGA Health Plan Information #: 1 Payer: NA Member Number: NA Policy Number: NA Group Number: NA
--- OUTSIDE RECORDS SUMMARY | 2024-11-02 16:16 | XMS_ITS | Continuity of Care Document ---
Author Organization [facility] Address [address] [place] [address]- Care Team Providers Care Boiler Repair Supervisor Name Role Phone Dora Jim MD [id number] - 10[facility]30[facility] [address] Encounter Type: Triage Allergies, Adverse Reactions, Alerts Substance Criticality Severity Reaction Reaction Severity Status morphine rash Active predniSONE Active Immunizations Given and Recorded Vaccine Date Status Refusal Reason SARS-CoV-2(COVID-19)mRNA-LNP vac([id number]) 07/11/23 Given influenza virus vaccine, inactivated 07/11/23 Give n influenza virus vaccine, inactivated 07/10/22 Give n SARS-CoV-2 mRNA (slviauc-qnnm-owcsl) vax 08/06/22 Given SARS-CoV-2 mRNA (pppklmj-tijg-hbqga) vax 07/15/22 Given pneumococcal 20-valent conjugate vaccine [...] AM EST, Powder, Route to Pharmacy Electronically, [id number], [facility]/pharmacy #[id number], to replace Advair per insurance formulary Start Date: 07/28/19 Status: Ordered Quantity: 1.0 Unit: each Repeat number: 12 Albuterol (Eqv-ProAir HFA) 90 mcg/inh inhalation aerosol 2 puffs, Inhalation, Every 4 hours, PRN NEEDED FOR WHEEZING, # 8.5 each, 5 Refills, Maintenance,02/06/24 1:11:00 PM EDT, [facility] STORE 77821, 17, INHALE 2 PUFFS EVERY 4 HOURS [...] 11:22:00 AM EDT, [facility] [id number], 158, cm, 06/15/24 13:14:00 EDT, Height, 69.4, [...] 1:16:00 PM EDT, Route to Pharmacy Electronically, [facility] 48595, 160.02, cm, 04/29/23 10:08:00 EDT, Height, 69.2, [...] Quantity: 180.0 Unit: tablet Repeat number: 1 carvedilol 3.125 mg oral tablet 1.563 mg, 0.5, tablet, By Mouth, 2 times a day, # 30 tablet, Refills 1, Tot. Refills 1, Maintenance, 10/27/24 10:59:00 AM EST, Route to Pharmacy Electronically, [facility]/pharmacy #[id number], Partial fill upon patient request if the prescription is for a schedule II opioid drug., 160, cm, 10/12/24 13:12:00 EST, Height, 68.5, kg, 09/07/24 13:45:00 EST, Dry Weight Start Date: 10/27/24 Stop Date: 12/26/24 Status: Ordered Quantity: 30.0 Unit: tablet Repeat number: 2 cetirizine 10 mg oral tablet 1 tablet, By Mouth, Daily, PRN NEEDED FOR ALLERGY, # 90 tablet, 7 Refills, Maintenance, 04/20/24 12:38:00 PM EDT, [facility] 188[facility], 158, cm, 04/19/24 14:03:00 EDT, Height, 69.4, [...] 1 Refills, Maintenance, 09/28/24 8:28:00 PM EST, [facility] 55183, 160, cm, 09/07/24 13:45:00 EST, Height, 68.5, [...] Refills, Maintenance, 09/07/24 1:33:00 PM EST, Gel, [facility]/pharmacy #[id number], Partial fill [...] 16.0 Unit: g Repeat number: 6 Freestyle Lancets See Instructions, # 3 each, Refills 11, Tot. Refills 11, Maintenance, for daily use; dx= DM, 10/27/24 11:06:00 AM EST, Supply, 160, cm, 10/12/24 13:12:00 EST, Height, 68.5, kg, 09/07/24 13:45:00 EST, Dry Weight Start Date: 10/27/24 Status: Ordered Quantity: 3.0 Unit: each Repeat number: 12 Freestyle Lite Monitor See Instructions, # 1 each, Maintenance, for use daily dx= DM, 10/27/24 11:06:00 AM EST, Supply, 160, cm, 10/12/24 13:12:00 EST, Height, 68.5, kg, 09/07/24 13:45:00 EST, Dry Weight Start Date: 10/27/24 Status: Ordered Quantity: 1.0 Unit: each Repeat number: 1 Freestyle Lite Test Strips See Instructions, # [...] 10:22:00 AM EST, Route to Pharmacy Electronically, [facility], 158, cm, 06/23/24 14:55:00 EDT, Height, 68.2, [...] 1 Refills, Maintenance, 08/18/24 8:49:00 AM EST, [facility] 31102, 90, USE 1 SPRAY IN EACH NOSTRIL [...] 5 Refills, Maintenance, 10/01/24 10:17:00 AM EST, [facility]/pharmacy #[id number], 160, cm, 09/07/24 13:45:00 EST, Height, 68.5, kg, 09/07/24 13:45:00 EST, Dry Weight Start Date: 10/01/24 Stop Date: 10/01/25 Status: Ordered Quantity: 15.0 Unit: tablet Repeat number: 6 meclizine 12.5 mg oral tablet 1 tablet, By Mouth, 3 times a day, PRN NEEDED, DIZZINESS., # 90 tablet, 11 Refills, Maintenance,04/30/23 1:16:00 PM EDT, [facility], 160.02, cm, 04/29/23 10:08:00 EDT, Height, 69.2, [...] reliable resp Thank you, Gianluca Swanson DNP, HEAVY EQUIPMENT ENGINE MECHANIC-C, 02/15/24 7:21:00 PM EDT, Supply Start Date: 02/15/24 Status: Ordered Quantity: 1.0 Unit: each Repeat number: 1 nitrofurantoin macrocrystals 100 mg oral capsule 1 capsule = 100 mg, By Mouth, 2 times a day, for 5 days, # 10 capsule, 0 Refills, Acute 11/01/24 11:05:00 AM EST, 10/27/24 11:05:00 AM EST, Capsule, [facility]/pharmacy #[id number], Partial fill upon patient requestif the prescription is for a schedule II opioid drug., 160, cm, 10/12/24 13:12:00 EST, Height, 68.5, kg, 09/07/24 13:45:00 EST, Dry Weight Start Date: 10/27/24 Stop Date: 11/01/24 Status: Ordered Quantity: 10.0 Unit: capsule Repeat number: 1 Poise panty liners Poise [...] Electronically, [facility]/pharmacy #[id number], Partial fillupon patient [...] Refills, Maintenance, 07/30/24 11:13:00 AM EST, Tablet, [facility]/pharmacy #[id number], Partial [...] 3 Refills, Maintenance, 11/19/23 11:28:00 AM EDT, [facility] [...] Confirmed Active Panic anxiety syndrome Confirmed Active *[phone] 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 Meadows Confirmed Active 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 Active Diabetic nephropathy with proteinuria Confirmed Active Rheumatoid arthritis Confirmed Active 1HM Capproximate Social History Social History Type Response Smoking Status Never smoker entered on: 06/09/15 Sex Sex Representation Female (finding) Patient Care team information Care Team Personnel Name: María Chavarria Position: [facility] Onco RN Member Role: Primary Care Nurse Name: Dora Jim MD Position: [facility] Physician - Primary Care Member Role: PCP Address: [address] [place] [address] Telecom: Care Team Related Persons Name: EDGAR VERMA Name: ALEXIS XIONG Insurance Providers Guarantor name: ALEXANDRA ZUÑIGA Health Plan Information #: 1 Payer: NA Member Number: NA Policy Number: NA Group Number: NA
== END 2024-11-02 13:14 | disposition home or self-care (01) ==
LOC: HO.HOS 13:03
PROVIDERS: PCP Internal Medicine; Visit Provider Physician Assistant
DX: M75.101 Unspecified rotator cuff tear or rupture of right shoulder, not specified as traumatic (principal)
CPT/HCPCS: 99213

== ENCOUNTER → 2024-11-02 13:03 | Outpatient (BNVA) | payer OTHER, SELFPAY | PROVIDERS: PCP Internal Medicine; Visit Provider Physician Assistant ==

== ENCOUNTER 2025-04-23 16:43 | Emergency (ER) | payer OTHER, SELFPAY ==
--- NOTE | ~2025-04-23 | XR_ITS ---
CLINICAL HISTORY: R thumb pain numbness Three views of the right first finger. COMPARISON: None provided. FINDINGS: Osteopenia. Bones of the first finger appear intact. Interphalangeal joint degenerative changes. Visualized adjacent bones appear intact. No radiopaque foreign body. Degenerative changes of the MCP joints most pronounced of the 2nd MCP joint. IMPRESSION: 1. No radiographic evidence of acute injury to the right first finger. This document has been electronically signed by: Rui Gorman MD on 04/23/2025 17:44:49
[2025-04-23 16:47] VITALS: BP 184/80; PULSE 95; RESP 20; TEMP 36.6; O2SAT 95; BMI 26.6
--- NOTE | 2025-04-23 16:48 | ED_ITS ---
HPI - General Adult General Chief complaint: Extremity Problem Stated complaint: right thumb is numb Time Seen by Provider: 04/23/25 18:12 Source: patient Limitations: no limitations History of Present Illness ED Provider: Kellie Ortega PA-C HPI narrative: 69-year-old female with a history of osteoarthritis, rheumatoid arthritis, diabetes, hypertension, hyperlipidemia who presents with numbness of right thumb x1 day. Patient states she has locking sensation along the medial aspect of the right thumb. Denies pain. Denies injury. Denies weakness of right upper extremity, neck pain. Related Data Home Medications ?Medication ?Instructions ?Recorded ?Confirmed albuterol sulfate 90 mcg/actuation 2 puff inhalation Q 4H PRN Wheezing 09/06/21 09/06/21 aerosol inhaler aspirin 81 mg tablet,delayed 1 tab PO DAILY PRN Pain 0 09/06/21 09/06/21 release atorvastatin 20 mg tablet 1 tab PO DAILY 09/06/2102/20 calcium carbonate 1 tab PO BID 09/06/21 cholecalciferol (vitamin D3) 50 1 cap PO DAILY 2 09/06/21 mcg (2,000 unit) capsule citalopram 10 mg tablet 1 tab PO DAILY 09/06/2102/20 dapagliflozin propanediol 5 mg 1 tab PO DAILY 09/06/21 09/06/21 tablet (Farxiga) glipizide 5 mg tablet, extended 1 tab PO DAILY 2 09/06/21 release 24 hr ibuprofen 800 mg tablet 1 tab PO TID pain 09/06/21 0 09/06/21 lorazepam 0.5 mg tablet 0.5 mg PO BID PRN Anxiety 09/06/21 metformin 1,000 mg tablet 1 tab PO BID 09/06/21 valsartan 160 1 tab PO DAILY 09/06/2102/20 mg-hydrochlorothiazide 25 mg tablet gabapentin 100 mg capsule mg PO 06/18/24 Previous Rx's ?Medication ?Instructions ?Recorded baclofen 5 mg tablet 5 mg PO TID PRN muscle pain #10 08/30/24 tabs lidocaine 5 % topical patch 1 patch topical DAILY #15 ea 08/30/24 (Lidoderm) Allergies Allergy/AdvReac Type Severity Reaction Status Date / Time morphine (MORPHINE) Allergy Unknown UNKNOWN Verified 04/23/25 16:48 prednisone (PREDNISONE) Allergy Unknown HEART RACES Verified 04/23/25 16:48 Review of Systems Review of Systems: Yes all other systems are reviewed and are negative Constitutional: Constitutional: Denies fatigue and Denies fever(s) Cardiovascular: Cardiovascular: Denies chest pain and Denies dyspnea Respiratory: Respiratory: Denies dyspnea Musculoskeletal: Musculoskeletal: Denies arthralgias, Denies joint swelling, Denies muscle weakness, Reports numbness and Reports tingling Neurologic: Reports numbness and Reports tingling Endocrine: Endocrine: Denies fatigue [facility] Past Medical History Attestation statement: The following information was validated with the patient. Medical History COVID-19 Kidney stones Anemia Sleep apnea Diabetes Asthma High cholesterol Arthritis HTN (hypertension) Breast CA Surgical History H/O: hysterectomy Family History Family History Sister Diabetes mellitus Social History Social History Household Members: Significant Other Housing: Apartment Do you presently have visiting nurse or other home services: No Alcohol intake: never Patient Tobacco Use Status: Never used Tobacco Advance Directives: No Advance Directives Information Provided: No service: No Current occupational status: disabled Current occupation: rt handed Physical Exam ED Vital Signs: Vital Signs - 24 hr 04/23/25 16:47 Temperature 98 F Pulse Rate 95 Respiratory Rate 20 Blood Pressure 184/80 H Pulse Oximetry 95 Oxygen Delivery Method Room Air BMI result Body Mass Index 26.6 Const Other: Alert well-appearing Orientation/consciousness: patient oriented x3 Resp Effort & Inspection: normal respiratory effort Cardio Other: Normal peripheral perfusion Skin Other: Warm dry no rash Neuro General: patient oriented x3, gait normal, no focal motor deficits and CN's II- XI intact bilaterally Extrem Other: Full range of motion of the thumb no deformity no swelling no redness Psych Other: Cooperative Course Course Course Narrative: This is a Rapid Medical Examination (RME) performed by Roxana Magana PA-C in triage. Full HPI, ROS, assessment and treatment plan per primary provider in the Main ED. Hx: 69 yo F here for eval of pain/ numbness to to medial aspect of right thumb which began while watching tv yesterday. no known injury/trauma. Plan: xrs Medical Decision Making Medical Decision Making [facility] Narrative: 69-year-old female with a history of osteoarthritis, rheumatoid arthritis, diabetes, hypertension, hyperlipidemia who presents with numbness of right thumb x1 day. Patient states she has locking sensation along the medial aspect of the right thumb. Denies pain. Denies injury. Denies weakness of right upper extremity, neck pain. Problem: Diabetes, arthritis, rheumatoid arthritis History: Per patient I have considered the following differential diagnoses: Worsening arthritis, cervical radiculopathy, neuropathy, median nerve impingement Plan: Patient is having isolated paresthesia that is very focal. I relayed to her this could be the development of neuropathy, which she has a another regions. She could have nerve impingement. She has a pending appointment with the endoscopy support specialist, I advised that she discuss the need for an outpatient MRI. I have independently reviewed the following tests: X-ray right thumb:FINDINGS: Osteopenia. Bones of the first finger appear intact. Interphalangeal joint degenerative changes. Visualized adjacent bones appear intact. No radiopaque foreign body. Degenerative changes of the MCP joints most pronounced of the 2nd MCP joint. IMPRESSION: 1. No radiographic evidence of acute injury to the right first finger. Differential Diagnosis Differential Diagnoses: The differential diagnosis associated with the presentation includes See MDM Admission/Observation Consideration of admission/observation: Escalation of care including admission/observation considered Not applicable Radiology Impression Discussion of test interpretation with radiology: I have reviewed the radiologist's reading. Chronic Conditions Patient?s care impacted by: Diabetes Discharge Plan Discharge Clinical Impression: Paresthesia of right thumb Patient Disposition: Home, Self-Care Instructions: Paresthesia (ED) Additional Instructions: The x-ray revealed that you have arthritis within the joints of the thumb. In regard to your alteration in sensation, this could be related to nerve impingement versus the development of peripheral neuropathy. When you follow up with your endoscopy support specialist, discuss the need for an outpatient MRI. Prescriptions: No Action atorvastatin 20 mg tablet 1 tab PO DAILY ibuprofen 800 mg tablet 1 tab PO TID citalopram 10 mg tablet 1 tab PO DAILY glipizide 5 mg tablet extended release 24 hr 1 tab PO DAILY aspirin 81 mg tablet,delayed release (DR/EC) 1 tab PO DAILY PRN (Reason: Pain) calcium carbonate 600 mg calcium (1,500 mg) tablet 1 tab PO BID lorazepam 0.5 mg tablet 0.5 mg PO BID PRN (Reason: Anxiety) metformin 1,000 mg tablet 1 tab PO BID albuterol sulfate 90 mcg/actuation HFA aerosol inhaler 2 puff inhalation Q4H PRN (Reason: Wheezing) valsartan-hydrochlorothiazide 160-25 mg tablet 1 tab PO DAILY cholecalciferol (vitamin D3) 50 mcg (2,000 unit) capsule 1 cap PO DAILY Farxiga 5 mg tablet 1 tab PO DAILY baclofen 5 mg tablet 5 mg PO TID PRN (Reason: muscle pain) Qty: 10 0RF lidocaine [Lidoderm] 5 % adhesive patch,medicated 1 patch topical DAILY Qty: 15 0RF Rx Instructions: leave on most painful area for up to 12 hrs gabapentin 100 mg capsule PO Print Language: Finnish
[2025-04-23 18:35] VITALS: BP 184/80; PULSE 95; RESP 20; TEMP 36.6; O2SAT 95
== END 2025-04-23 18:40 | disposition home or self-care (01) ==
PROVIDERS: Emergency Provider Student in an Organized Health Care Education/Training Program; PCP Internal Medicine
DX: R20.2 Paresthesia of skin (principal); I10 Essential (primary) hypertension; E11.9 Type 2 diabetes mellitus without complications; M19.90 Unspecified osteoarthritis, unspecified site; Z79.899 Other long term (current) drug therapy
CPT/HCPCS: 73140; 99282; 99283

== ENCOUNTER → 2025-04-23 16:48 | Outpatient (BNV) | payer OTHER, SELFPAY | PROVIDERS: PCP Internal Medicine; Visit Provider Radiology Diagnostic Radiology | DX: M79.644 Pain in right finger(s) (principal); R20.0 Anesthesia of skin | CPT/HCPCS: 73140 ==

== ENCOUNTER 2025-08-21 18:08 | Emergency (ER) | payer OTHER, SELFPAY ==
[2025-08-21 18:21] VITALS: BP 199/89; PULSE 89; RESP 18; TEMP 36.6; O2SAT 99; BMI 26.6
--- NOTE | 2025-08-21 18:21 | ED.GENADULT ---
HPI - General Adult General Chief complaint: General Medical Stated complaint: blood pressure up and down Time Seen by Provider: 08/21/25 18:53 Source: patient Mode of arrival: ambulatory Limitations: no limitations History of Present Illness ED Provider: Judith Perez APRN HPI narrative: 70-year-old female with a history of diabetes, hypertension, rheumatoid arthritis presents to the ER with complaints of elevated blood pressure. Patient reports this morning when she woke up she took her blood pressure and it was 200/90. This was before taking her morning blood pressure medications. She took her medication and 4 hours later she rechecked her blood pressure and it was 160/70. She resumed her day and when she got home today from shopping she wanted to check her blood pressure again and see what her number was. She was 190/80. She decided to come into the emergency room for us to check her blood pressure because she was unsure of her machine was working correctly. She denies any chest pain, shortness breath, abdominal pain, headache, vision changes, vomiting. She reports several months ago her primary care doctor did decrease her dose of valsartan / hydrochlorothiazide. She does check her blood pressure every morning and her normal blood pressure in the morning is 160/70. She does report increased stressors at home and feeling quite anxious. No other changes in her medical history or new medications. She is not taking any [id number] medications either. Related Data Home Medications ?Medication ?Instructions ?Recorded ?Confirmed albuterol sulfate 90 mcg/actuation 2 puff inhalation Q4H PRN Wheezing 09/06/21 09/06/21 aerosol inhaler aspirin 81 mg tablet,delayed 1 tab PO DAILY PRN Pain 09/06/21 09/06/21 release atorvastatin 20 mg tablet 1 tab PO DAILY 09/06/21 09/06/21 calcium carbonate 1 tab PO BID 09/06/21 09/06/21 cholecalciferol (vitamin D3) 50 1 cap PO DAILY 09/06/21 09/06/21 mcg (2,000 unit) capsule citalopram 10 mg tablet 1 tab PO DAILY 09/06/21 09/06/21 dapagliflozin propanediol 5 mg 1 tab PO DAILY 09/06/21 09/06/21 tablet (Farxiga) glipizide 5 mg tablet, extended 1 tab PO DAILY 09/06/21 09/06/21 release 24 hr ibuprofen 800 mg tablet 1 tab PO TID pain 09/06/21 09/06/21 lorazepam 0.5 mg tablet 0.5 mg PO BID PRN Anxiety 09/06/21 09/06/21 metformin 1,000 mg tablet 1 tab PO BID 09/06/21 09/06/21 valsartan 160 1 tab PO DAILY 09/06/21 09/06/21 mg-hydrochlorothiazide 25 mg tablet gabapentin 100 mg capsule mg PO 06/18/24 Previous Rx's ?Medication ?Instructions ?Recorded baclofen 5 mg tablet 5 mg PO TID PRN muscle pain #10 08/30/24 tabs lidocaine 5 % topical patch 1 patch topical DAILY #15 ea 08/30/24 (Lidoderm) Allergies Allergy/AdvReac Type Severity Reaction Status Date / Time morphine (MORPHINE) Allergy Unknown UNKNOWN Verified 08/21/25 18:22 prednisone (PREDNISONE) Allergy Unknown HEART RACES Verified 08/21/25 18:22 Review of Systems Review of Systems: Yes all other systems are reviewed and are negative Constitutional: Constitutional: Reports no additional constitutional complaints, Denies body ache(s), Denies chills, Denies fever(s), Denies headache(s) and Denies weakness Eyes: Eyes: Reports no additional eye complaints and Denies change in vision ENT: Reports system reviewed and no additional complaints, except as documented, Denies dizziness, Denies headache(s), Denies nasal congestion, Denies nasal discharge and Denies neck pain Cardiovascular: Cardiovascular: Reports no additional cardiovascular complaints, Denies chest pain, Denies leg edema and Denies dyspnea Respiratory: Respiratory: Reports no additional respiratory complaints, Denies cough and Denies dyspnea Gastrointestinal: Gastrointestinal: Reports no additional gastrointestinal complaints, Denies abdominal pain, Denies diarrhea, Denies nausea and Denies vomiting Genitourinary: Genitourinary: Reports no additional female genitourinary complaints and Denies urinary incontinence Musculoskeletal: Musculoskeletal: Reports no additional musculoskeletal complaints, Denies back pain, Denies arthralgias, Denies joint swelling, Denies neck pain, Denies numbness and Denies tingling Integumentary/Breasts: Skin/Breast: Reports system reviewed and no additional complaints, except as docu and Denies rash Neurologic: Reports system reviewed and no additional complaints, except as documented, Denies Abnormal speech present, Denies dizziness, Denies headache(s), Denies numbness, Denies tingling and Denies weakness [facility] Past Medical History Attestation statement: The following information was validated with the patient. Source: old records reviewed and nursing notes reviewed Medical History COVID-19 Kidney stones Anemia Sleep apnea Diabetes Asthma High cholesterol Arthritis HTN (hypertension) Breast CA Surgical History H/O: hysterectomy Family History Family History Sister Diabetes mellitus Social History Social History Household Members: Significant Other Housing: Apartment Do you presently have visiting nurse or other home services: No Alcohol intake: never Patient Tobacco Use Status: Never used Tobacco Smoked in Last 30 Days: No Use of substances other than those prescribed or required for medical reasons: No Advance Directives: No Advance Directives Information Provided: No Do you have a plan to hurt others: No Plan service: No Current occupational status: disabled Current occupation: rt handed Physical Exam ED Vital Signs: Vital Signs - 24 hr 08/21/25 18:21 08/21/25 18:37 Temperature 98 F Pulse Rate 89 91 Respiratory Rate 18 15 Blood Pressure 199/89 H 198/92 H Pulse Oximetry 99 95 Oxygen Delivery Method Room Air Room Air BMI result Body Mass Index 26.6 Const General: cooperative, healthy appearing, comfortable and no acute distress Orientation/consciousness: patient oriented x3 Limitations: no limitations [facility] Head: Yes normal to inspection Ears: hearing grossly normal bilaterally General nose exam: Normal external nose present Face and sinus: Yes normal facial exam Mouth: Normal oral and palatal mucosa present Throat: Yes posterior oropharynx normal Eyes General: appearance normal, both eyes and all related structures Pupils: Equal, round and reactive pupils present Neck Neck: Yes normal visual inspection Chest Chest palpation & inspection: normal inspection of the chest Resp Effort & Inspection: normal respiratory effort Auscultation: clear to auscultation bilaterally Cardio Rate: regular rate Rhythm: regular rhythm Peripheral pulses: Peripheral pulses 2+ throughout GI Inspection: Yes normal to inspection Palpation (GI): Soft to palpation and nontender Auscultation: normal bowel sounds Back/Spine/Pelvis Thoracic/Lumbar Spine: thoracic and lumbar spine normal to inspection Skin General skin exam: no rashes or lesions noted Neuro General: patient oriented x3, no focal motor deficits and normal sensation to monofilament Cranial nerves: Yes Equal, round and reactive pupils present Cognition (Neuro): normal cognition Speech: No Abnormal speech present Gait exam (Neuro): Normal gait present Motor exam (neuro): 5/5 motor strength present throughout Extrem General: Yes normal to inspection, Yes no calf tenderness and No edema Course Course Course Narrative: This is a Rapid Medical Examination (RME) performed by Arelis Marlow NP in triage. Full assessment, plan deferred to director of primary. 70-year-old female medical history significant for hypertension on valsartan 80 mg, carvedilol 3.125 mg, hyperlipidemia on atorvastatin, diabetes presents to the ED for evaluation of high blood pressure readings that occurred today. Reporting BP at home this morning was 200/97. That was before she took her medications. She then took her medications, during the day she has continued to recheck her blood pressure, noting it to be in the 160s systolically. Most recently was 178/95. Upon arrival to the ED her blood pressure is 199/89 despite taking her medications. This is in the absence of chest pain or shortness of breath, no palpitations. No fever, chills, recent illnesses. Does report a slight headache but denies dizziness. Plan: EKG, repeat BP. Medical Decision Making Medical Decision Making MDM Narrative: 70-year-old female with a history of diabetes, hypertension, rheumatoid arthritis presents to the ER with complaints of elevated blood pressure. Patient reports this morning when she woke up she took her blood pressure and it was 200/90. This was before taking her morning blood pressure medications. She took her medication and 4 hours later she rechecked her blood pressure and it was 160/70. She resumed her day and when she got home today from shopping she wanted to check her blood pressure again and see what her number was. She was 190/80. She decided to come into the emergency room for us to check her blood pressure because she was unsure of her machine was working correctly. She denies any chest pain, shortness breath, abdominal pain, headache, vision changes, vomiting. She reports several months ago her primary care doctor did decrease her dose of valsartan / hydrochlorothiazide. She does check her blood pressure every morning and her normal blood pressure in the morning is 160/70. She does report increased stressors at home and feeling quite anxious. No other changes in her medical history or new medications. She is not taking any [id number] medications either. Asymptomatic hypertension in the setting of a known history of hypertension. I have reassured the patient that her EKG is nonischemic. I explained to her that we do not aggressively treat asymptomatic hypertension in the emergency room. She can follow-up with her doctor in the morning for medication adjustments as needed. I did review worrisome signs and symptoms with her and when to return to the emergency room. Comfortable plan for discharge home. Differential Diagnosis Differential Diagnoses: The differential diagnosis associated with the presentation includes Asymptomatic hypertension Admission/Observation Consideration of admission/observation: Escalation of care including admission/observation considered asymptomatic hypertension with no suggestion of hypertensive crisis or urgency requiring IV medications or further testing Independent Interpretation I performed an independent interpretation of an: EKG Interpretation: I independently viewed the EKG which shows normal sinus rhythm with a rate of 88, normal DE, normal QRS, normal QT Discharge Plan Discharge Clinical Impression: Hypertension Patient Disposition: Home, Self-Care Instructions: Hypertension (ED) Additional Instructions: Your blood pressure was elevated on today's visit. We do not treat asymptomatic hypertension from the emergency room. We do recommend that you continue to monitor blood pressure and call your primary care doctor tomorrow for additional guidance. If you develop any symptoms of chest pain, shortness of breath, headache or vision changes please return to the emergency room Prescriptions: No Action atorvastatin 20 mg tablet 1 tab PO DAILY ibuprofen 800 mg tablet 1 tab PO TID citalopram 10 mg tablet 1 tab PO DAILY glipizide 5 mg tablet extended release 24 hr 1 tab PO DAILY aspirin 81 mg tablet,delayed release (DR/EC) 1 tab PO DAILY PRN (Reason: Pain) calcium carbonate 600 mg calcium (1,500 mg) tablet 1 tab PO BID lorazepam 0.5 mg tablet 0.5 mg PO BID PRN (Reason: Anxiety) metformin 1,000 mg tablet 1 tab PO BID albuterol sulfate 90 mcg/actuation HFA aerosol inhaler 2 puff inhalation Q4H PRN (Reason: Wheezing) valsartan-hydrochlorothiazide 160-25 mg tablet 1 tab PO DAILY cholecalciferol (vitamin D3) 50 mcg (2,000 unit) capsule 1 cap PO DAILY Farxiga 5 mg tablet 1 tab PO DAILY baclofen 5 mg tablet 5 mg PO TID PRN (Reason: muscle pain) Qty: 10 0RF lidocaine [Lidoderm] 5 % adhesive patch,medicated 1 patch topical DAILY Qty: 15 0RF Rx Instructions: leave on most painful area for up to 12 hrs gabapentin 100 mg capsule PO Referrals: Dora Jim MD [Primary Care Provider, Pediatrics] Print Language: Andorran
--- NOTE | 2025-08-21 18:25 | ECG_ITS ---
Test Reason : CP Blood Pressure : */* mmHG Vent. Rate : 88 BPM Atrial Rate : 88 BPM P-R Int : 152 ms QRS Dur : 90 ms QT Int : 380 ms P-R-T Axes : 32 7 58 degrees QTcB Int : 459 ms Normal sinus rhythm Normal ECG When compared with ECG of 30-Aug-2024 13:31, No significant change was found Referred By: Arelis Marlow Electronically Signed By: ANDERS WILEY MD
[2025-08-21 18:37] VITALS: BP 198/92; PULSE 91; RESP 15; O2SAT 95
[2025-08-21 19:20] VITALS: BP 198/92; PULSE 91; RESP 15; TEMP 36.4; O2SAT 95
== END 2025-08-21 19:21 | disposition home or self-care (01) ==
PROVIDERS: Emergency Provider Emergency Medicine; PCP Internal Medicine
DX: I10 Essential (primary) hypertension (principal); F41.9 Anxiety disorder, unspecified; E11.9 Type 2 diabetes mellitus without complications; E78.5 Hyperlipidemia, unspecified; Z79.02 Long term (current) use of antithrombotics/antiplatelets; Z79.899 Other long term (current) drug therapy; Z79.82 Long term (current) use of aspirin
CPT/HCPCS: 93005; 99283; 99284

== ENCOUNTER → 2025-08-21 18:25 | Outpatient (BNV) | payer OTHER, SELFPAY | PROVIDERS: Emergency Provider Emergency Medicine; PCP Internal Medicine; Visit Provider Internal Medicine Cardiovascular Disease | DX: R07.9 Chest pain, unspecified (principal) | CPT/HCPCS: 93010 ==